=== PATIENT | female | born 1960 | race Caucasian/White ===

== ENCOUNTER 2017-02-01 13:43 | Inpatient (IN) | payer MEDICAID ==
[~2017-02-01] VITALS: Ht 160 cm; Wt 83.4 kg
[~2017-02-01 13:43] MED LIST: CALC-338 OR; CARI-277 PO; CARV3.1240 PO; MILKPOW XX; NOR10T GT; PRENTAB76 PO; PROSAC PO; SIMIVASTIN
[2017-02-01] MEDS ORDERED: IPRATROPIUM BROM 0.5 MG/2.5ML INH SOL NEB ONE (14:00)
[2017-02-01] MEDS ORDERED: ALBUTEROL SULF 2.5 MG/0.5ML(0.5%) NEB SOLN NEB ONE (14:00)
[2017-02-01 14:28] LABS: Basophils # (auto) 0 uL; Basophils % (auto) 0.3 % (0.0-2.0); DEFINITIVE VIEW TRANSMISSION; Eosinophils # (auto) 0.1 uL; Eosinophils % (auto) 0.9 % (0.0-7.0); Hematocrit 39.6 % (36.0-46.0); Hemoglobin 12.9 g/dL (12.2-16.2); Lymphocytes # (auto) 1.2 uL; Lymphocytes % (auto) 11.9 % (10.0-50.0); Mean Corpuscular Hgb Conc. 32.7 g/dL (32.0-36.0); Mean Corpuscular Volume 79.7 fL (80.0-100.0); Mean Platelet Volume 8.4 fL (7.4-10.4); Monocytes # (auto) 0.5 uL; Monocytes % (auto) 4.5 % (0.0-12.0); Neutrophils # (auto) 8.5 uL; Neutrophils % (auto) 82.4 % (37.0-80.0); Platelet Count (auto) 275 10^3/uL (140-450); Red Cell Distribution Width 14.9 % (11.6-16.0); White Blood Cell 10.3 10^3/uL (4.4-10.8)
[2017-02-01 14:43] LABS: Albumin 2.9 g/dL (3.4-5.0); BUN/Creatinine Ratio 28.8; Bilirubin, Total 0.3 mg/dL (0.2-1.0); Calcium 8.7 mg/dL (8.5-10.1); Potassium 4.4 mmol/L (3.5-5.1)
[2017-02-01] MEDS ORDERED: LEVOFLOXACIN 500MG 100 ML IV ONE (14:45)
[2017-02-01] MEDS ORDERED: methylPREDNISolone SOD SUCC 125 MG/2 ML VL IV ONE (14:45)
[2017-02-01] MEDS ORDERED: ACETAMINOPHEN 325 MG TAB PO ONE (15:00)
[2017-02-01 15:06] LABS: Magnesium 2.4 mg/dL (1.6-2.6)
[2017-02-01 15:31] LABS: B-Type Natriuretic Peptide 249.16 pg/mL (0-100)
[2017-02-01 15:32] LABS: Temperature: 24.6 C (20.0-25.0)
[2017-02-01] MEDS ORDERED: NITROGLYCERIN 0.4 MG SL TAB SL PRN (17:00)
[2017-02-01] MEDS ORDERED: FUROSEMIDE 40 MG/4 ML VIAL IV ONE (17:00)
[2017-02-01] MEDS ORDERED: MORPHINE SULF INJ 2 MG/ML SYRINGE 1ML IV PRN (17:00)
[2017-02-01] MEDS ORDERED: AZITHROMYCIN 500MG/D5W 250ML 250 ML IV ONE (17:00)
[2017-02-01] MEDS ORDERED: ONDANSETRON HCL 4 MG/2 ML VIAL IV PRN (17:00)
[2017-02-01] MEDS ORDERED: POTASSIUM CHL 20 Meq TABLET PO ONE (17:00)
[2017-02-01 18:00] VITALS: BP 119/67
[2017-02-01] MEDS: IPRATROPIUM BROM 0.5 MG/2.5ML INH SOL NEB SCH (19:41)
[2017-02-01] MEDS: ALBUTEROL SULF 2.5 MG/0.5ML(0.5%) NEB SOLN NEB SCH (19:41)
[2017-02-01 19:46] LABS: Lactic Acid w/Reflex 3.1 mmol/L (0.4-2.0)
[2017-02-01 20:23] LABS: REFLEX LACTIC ACID YES OR NO YES
[2017-02-01] MEDS ORDERED: RANOLAZINE ER 500 MG TAB PO SCH (22:00)
[2017-02-01] MEDS: CARVEDILOL 3.125 MG TAB PO SCH (22:00)
[2017-02-01] MEDS ORDERED: RANO1000 PO (22:11)
[2017-02-01] MEDS: ATORVASTATIN 20 MG TAB PO SCH (22:38)
[2017-02-01] MEDS: APIXABAN 5 MG TAB PO SCH (22:38)
[2017-02-01] MEDS: methylPREDNISolone SOD SUCC 40 MG/ML VL IV SCH (22:39)
[2017-02-01 22:46] VITALS: BP 109/39
[2017-02-01] MEDS: HYDROcodone-ACET 10/325MG TAB PO PRN (22:46)
[2017-02-01] MEDS ORDERED: RANOLAZINE ER 500 MG TAB PO ONE (22:54)
[2017-02-02] VITALS (7 sets, daily range): BP systolic 96–126; BP diastolic 39–80
[2017-02-02] MEDS: IPRATROPIUM BROM 0.5 MG/2.5ML INH SOL NEB SCH ×4 (05:58→18:40)
[2017-02-02] MEDS: ALBUTEROL SULF 2.5 MG/0.5ML(0.5%) NEB SOLN NEB SCH ×4 (05:59→18:40)
[2017-02-02 06:38] LABS: Basophils # (auto) 0.1 uL; Basophils % (auto) 0.6 % (0.0-2.0); DEFINITIVE VIEW TRANSMISSION; Eosinophils # (auto) 0 uL; Hemoglobin 13.4 g/dL (12.2-16.2); Lymphocytes % (auto) 6.8 % (10.0-50.0); Mean Corpuscular Hgb Conc. 32.6 g/dL (32.0-36.0); Mean Corpuscular Volume 79.8 fL (80.0-100.0); Mean Platelet Volume 8.9 fL (7.4-10.4); Monocytes # (auto) 0.2 uL; Monocytes % (auto) 1.6 % (0.0-12.0); Neutrophils # (auto) 13.5 uL; Platelet Count (auto) 296 10^3/uL (140-450); Red Cell Distribution Width 14.3 % (11.6-16.0); SUSPECT VIEW TRANSMISSION; White Blood Cell 14.9 10^3/uL (4.4-10.8)
[2017-02-02 06:58] LABS: Calcium 8.6 mg/dL (8.5-10.1)
[2017-02-02 07:04] LABS: BUN/Creatinine Ratio 20.7
[2017-02-02] MEDS: cefTRIAXone 1GM/50ML D5W 50 ML IV SCH (09:01)
[2017-02-02] MEDS: AZITHROMYCIN 500MG/D5W 250ML 250 ML IV SCH (11:21)
[2017-02-02] MEDS: methylPREDNISolone SOD SUCC 40 MG/ML VL IV SCH ×2 (11:21→21:56)
[2017-02-02] MEDS: APIXABAN 5 MG TAB PO SCH ×2 (11:22→21:56)
[2017-02-02] MEDS: POTASSIUM CHL 20 Meq TABLET PO SCH (11:23)
[2017-02-02] MEDS: RANOLAZINE ER 500 MG TAB PO SCH ×2 (11:23→21:56)
[2017-02-02] MEDS: FUROSEMIDE 40 MG/4 ML VIAL IV SCH (11:28)
[2017-02-02] MEDS: CARVEDILOL 3.125 MG TAB PO SCH ×4 (11:28→21:56)
[2017-02-02] MEDS: LOSARTAN POTASSIUM 25 MG TAB PO SCH (11:29)
[2017-02-02] MEDS: HYDROcodone-ACET 10/325MG TAB PO PRN ×2 (14:28→22:13)
[2017-02-02] MEDS: ATORVASTATIN 20 MG TAB PO SCH (21:56)
[2017-02-03 05:21] VITALS: BP 111/55
[2017-02-03] MEDS: HYDROcodone-ACET 10/325MG TAB PO PRN ×2 (05:52→21:05)
[2017-02-03] MEDS: ALBUTEROL SULF 2.5 MG/0.5ML(0.5%) NEB SOLN NEB SCH ×4 (05:52→19:36)
[2017-02-03] MEDS: IPRATROPIUM BROM 0.5 MG/2.5ML INH SOL NEB SCH ×4 (05:52→19:36)
[2017-02-03] MEDS: POTASSIUM CHL 20 Meq TABLET PO SCH (09:04)
[2017-02-03] MEDS: methylPREDNISolone SOD SUCC 40 MG/ML VL IV SCH ×2 (09:05→21:05)
[2017-02-03] MEDS: APIXABAN 5 MG TAB PO SCH ×2 (09:05→21:04)
[2017-02-03] MEDS: cefTRIAXone 1GM/50ML D5W 50 ML IV SCH (09:05)
[2017-02-03] MEDS: FUROSEMIDE 40 MG/4 ML VIAL IV SCH (09:05)
[2017-02-03] MEDS: CARVEDILOL 3.125 MG TAB PO SCH ×2 (09:06→21:04)
[2017-02-03] MEDS: RANOLAZINE ER 500 MG TAB PO SCH ×2 (09:16→21:04)
[2017-02-03 09:19] VITALS: BP 116/77
[2017-02-03] MEDS: AZITHROMYCIN 500MG/D5W 250ML 250 ML IV SCH (09:19)
[2017-02-03] MEDS: LOSARTAN POTASSIUM 25 MG TAB PO SCH (10:00)
[2017-02-03 12:37] LABS: Basophils # (auto) 0.1 uL; Basophils % (auto) 0.7 % (0.0-2.0); DEFINITIVE VIEW TRANSMISSION; Eosinophils # (auto) 0.1 uL; Eosinophils % (auto) 0.3 % (0.0-7.0); Hematocrit 41.1 % (36.0-46.0); Hemoglobin 13.2 g/dL (12.2-16.2); Lymphocytes # (auto) 1.7 uL; Lymphocytes % (auto) 11.1 % (10.0-50.0); Mean Corpuscular Hgb Conc. 32.2 g/dL (32.0-36.0); Mean Corpuscular Volume 80.6 fL (80.0-100.0); Mean Platelet Volume 8.4 fL (7.4-10.4); Monocytes # (auto) 0.2 uL; Monocytes % (auto) 1.3 % (0.0-12.0); Neutrophils # (auto) 13.3 uL; Neutrophils % (auto) 86.6 % (37.0-80.0); Platelet Count (auto) 306 10^3/uL (140-450); Red Cell Distribution Width 14.8 % (11.6-16.0); White Blood Cell 15.4 10^3/uL (4.4-10.8)
[2017-02-03 12:38] VITALS: BP 122/70
[2017-02-03 12:49] LABS: BUN/Creatinine Ratio 27.8; Calcium 8.5 mg/dL (8.5-10.1)
[2017-02-03 17:39] VITALS: BP 124/74
[2017-02-03 18:53] LABS: Urine Bilirubin Negative (Negative); Urine Blood Negative /uL (Negative); Urine Color Yellow (Yellow); Urine Glucose Normal (Normal); Urine Ketone Negative (Negative); Urine Nitrite Negative (Negative); Urine RBC <1 /hpf (0 - 4); Urine Urobilinogen Normal (Negative); Urine pH 6.5 (5.0-8.0)
[2017-02-03 20:00] VITALS: BP 98/53
[2017-02-03] MEDS: ATORVASTATIN 20 MG TAB PO SCH (21:04)
[2017-02-03 21:09] VITALS: BP 98/53
[2017-02-04 05:18] VITALS: BP 138/63
[2017-02-04] MEDS: ALBUTEROL SULF 2.5 MG/0.5ML(0.5%) NEB SOLN NEB SCH ×3 (05:57→14:30)
[2017-02-04] MEDS: IPRATROPIUM BROM 0.5 MG/2.5ML INH SOL NEB SCH ×3 (05:57→14:30)
[2017-02-04] MEDS: cefTRIAXone 1GM/50ML D5W 50 ML IV SCH (08:36)
[2017-02-04] MEDS: LOSARTAN POTASSIUM 25 MG TAB PO SCH (08:37)
[2017-02-04] MEDS: APIXABAN 5 MG TAB PO SCH ×2 (08:37→22:00)
[2017-02-04] MEDS: CARVEDILOL 3.125 MG TAB PO SCH ×2 (08:38→22:02)
[2017-02-04] MEDS: POTASSIUM CHL 20 Meq TABLET PO SCH (08:38)
[2017-02-04] MEDS: methylPREDNISolone SOD SUCC 40 MG/ML VL IV SCH ×2 (08:38→22:01)
[2017-02-04] MEDS: FUROSEMIDE 40 MG/4 ML VIAL IV SCH (08:38)
[2017-02-04] MEDS: RANOLAZINE ER 500 MG TAB PO SCH ×2 (08:39→22:02)
[2017-02-04 09:00] VITALS: BP 134/79
[2017-02-04] MEDS: AZITHROMYCIN 500MG/D5W 250ML 250 ML IV SCH (11:02)
[2017-02-04] MEDS: HYDROcodone-ACET 10/325MG TAB PO PRN ×2 (12:24→23:56)
[2017-02-04 12:55] VITALS: BP 105/62
[2017-02-04 16:53] VITALS: BP 117/71
[2017-02-04] MEDS ORDERED: LACTULOSE 20Gm/30ML SOLN PO SCH ×2 (18:00)
[2017-02-04] MEDS ORDERED: LACTULOSE 20Gm/30ML SOLN PO PRN (20:00)
[2017-02-04 20:20] VITALS: BP 123/61
[2017-02-04] MEDS ORDERED: TEMA30CA PO (20:43)
[2017-02-04] MEDS ORDERED: SIMV-13 PO (20:45)
[2017-02-04] MEDS ORDERED: TEMAZEPAM 15 MG CAP PO ONE (21:30)
[2017-02-04 21:53] VITALS: BP 123/61
[2017-02-04] MEDS ORDERED: METOPROLOL TARTRATE 25 MG TAB PO SCH (22:00)
[2017-02-04] MEDS: ATORVASTATIN 20 MG TAB PO SCH (22:02)
[2017-02-05] VITALS (7 sets, daily range): BP systolic 97–132; BP diastolic 49–67
[2017-02-05 06:22] LABS: Basophils # (auto) 0.1 uL; Basophils % (auto) 0.6 % (0.0-2.0); DEFINITIVE VIEW TRANSMISSION; Eosinophils # (auto) 0 uL; Hemoglobin 13.9 g/dL (12.2-16.2); Lymphocytes # (auto) 1.3 uL; Lymphocytes % (auto) 7.9 % (10.0-50.0); Mean Corpuscular Hemoglobin 26.1 pg (28.0-32.0); Mean Corpuscular Hgb Conc. 32.4 g/dL (32.0-36.0); Mean Corpuscular Volume 80.6 fL (80.0-100.0); Mean Platelet Volume 8.5 fL (7.4-10.4); Monocytes # (auto) 0.5 uL; Monocytes % (auto) 3.2 % (0.0-12.0); Neutrophils # (auto) 14.9 uL; Neutrophils % (auto) 88.3 % (37.0-80.0); Platelet Count (auto) 321 10^3/uL (140-450); Red Cell Distribution Width 14.7 % (11.6-16.0); White Blood Cell 16.9 10^3/uL (4.4-10.8)
[2017-02-05] MEDS: IPRATROPIUM BROM 0.5 MG/2.5ML INH SOL NEB SCH ×3 (06:24→18:00)
[2017-02-05] MEDS: ALBUTEROL SULF 2.5 MG/0.5ML(0.5%) NEB SOLN NEB SCH ×3 (06:25→18:00)
[2017-02-05 06:37] LABS: INR 0.98 (0.9-1.15); Partial Thromboplastin Time 25.3 sec (22.64-33.71); Prothrombin Time 10.6 sec (9.37-12.3)
[2017-02-05 06:55] LABS: Calcium 8.5 mg/dL (8.5-10.1); Potassium 4.4 mmol/L (3.5-5.1)
[2017-02-05 06:59] LABS: BUN/Creatinine Ratio 36.2
[2017-02-05] MEDS ORDERED: IOHEXOL 350 MG/ML 100ML IJ ONE ×2 (08:14→08:35)
[2017-02-05] MEDS: cefTRIAXone 1GM/50ML D5W 50 ML IV SCH (08:29)
[2017-02-05] MEDS ORDERED: NITROGLYCERIN 0.4 MG SL TAB SL ONE (08:43)
[2017-02-05] MEDS ORDERED: VERAPAMIL 2.5MG/ML INJ 2ML VIAL IV ONE (08:43)
[2017-02-05] MEDS ORDERED: METOPROLOL TARTRATE 1MG/1ML-5ML VIAL IV ONE (09:00)
[2017-02-05] MEDS: FUROSEMIDE 40 MG/4 ML VIAL IV SCH (10:17)
[2017-02-05] MEDS: APIXABAN 5 MG TAB PO SCH ×2 (10:18→22:19)
[2017-02-05] MEDS: RANOLAZINE ER 500 MG TAB PO SCH ×2 (10:18→22:19)
[2017-02-05] MEDS: methylPREDNISolone SOD SUCC 40 MG/ML VL IV SCH ×2 (10:18→22:19)
[2017-02-05] MEDS: LOSARTAN POTASSIUM 25 MG TAB PO SCH (10:18)
[2017-02-05] MEDS: AZITHROMYCIN 500MG/D5W 250ML 250 ML IV SCH (10:19)
[2017-02-05] MEDS: CARVEDILOL 3.125 MG TAB PO SCH ×2 (10:19→22:18)
[2017-02-05] MEDS: POTASSIUM CHL 20 Meq TABLET PO SCH (10:20)
[2017-02-05] MEDS: HYDROcodone-ACET 10/325MG TAB PO PRN (19:24)
[2017-02-05] MEDS: ATORVASTATIN 20 MG TAB PO SCH (22:19)
[2017-02-06 05:03] VITALS: BP 109/62
[2017-02-06 06:15] LABS: Basophils # (auto) 0.1 uL; Basophils % (auto) 0.4 % (0.0-2.0); DEFINITIVE VIEW TRANSMISSION; Eosinophils # (auto) 0 uL; Hemoglobin 14.4 g/dL (12.2-16.2); Lymphocytes # (auto) 1.6 uL; Mean Corpuscular Hemoglobin 26.1 pg (28.0-32.0); Mean Corpuscular Hgb Conc. 32.7 g/dL (32.0-36.0); Mean Corpuscular Volume 79.7 fL (80.0-100.0); Mean Platelet Volume 8.5 fL (7.4-10.4); Monocytes # (auto) 0.5 uL; Monocytes % (auto) 2.7 % (0.0-12.0); Neutrophils # (auto) 15.2 uL; Neutrophils % (auto) 87.9 % (37.0-80.0); Platelet Count (auto) 352 10^3/uL (140-450); Red Cell Distribution Width 14.7 % (11.6-16.0); SUSPECT VIEW TRANSMISSION; White Blood Cell 17.3 10^3/uL (4.4-10.8)
[2017-02-06] MEDS: IPRATROPIUM BROM 0.5 MG/2.5ML INH SOL NEB SCH ×3 (06:53→14:24)
[2017-02-06] MEDS: ALBUTEROL SULF 2.5 MG/0.5ML(0.5%) NEB SOLN NEB SCH ×3 (06:53→14:24)
[2017-02-06] MEDS: cefTRIAXone 1GM/50ML D5W 50 ML IV SCH (08:38)
[2017-02-06 09:00] VITALS: BP 100/61
[2017-02-06] MEDS: HYDROcodone-ACET 10/325MG TAB PO PRN (09:32)
[2017-02-06] MEDS: methylPREDNISolone SOD SUCC 40 MG/ML VL IV SCH (09:33)
[2017-02-06] MEDS: FUROSEMIDE 40 MG/4 ML VIAL IV SCH (09:33)
[2017-02-06] MEDS: POTASSIUM CHL 20 Meq TABLET PO SCH (09:33)
[2017-02-06] MEDS: RANOLAZINE ER 500 MG TAB PO SCH (09:34)
[2017-02-06] MEDS: APIXABAN 5 MG TAB PO SCH (09:34)
[2017-02-06] MEDS: LOSARTAN POTASSIUM 25 MG TAB PO SCH (09:35)
[2017-02-06] MEDS: CARVEDILOL 3.125 MG TAB PO SCH (09:35)
[2017-02-06] MEDS: AZITHROMYCIN 500MG/D5W 250ML 250 ML IV SCH (09:35)
[2017-02-06 13:00] VITALS: BP 101/53
[2017-02-06] MEDS ORDERED: FLUT110A INH (14:52)
[2017-02-06 15:13] VITALS: BP 101/53
[2017-02-06 15:33] VITALS: BP 101/53
== END 2017-02-06 15:50 | disposition home or self-care (01) | DRG 133 ==
LOC: ER 13:43 → TELE 13:44 → TELE-EAST 18:17
PROVIDERS: ADMIT Internal Medicine; ATTEND Internal Medicine
DX: J96.20 Acute and chronic respiratory failure, unspecified whether with hypoxia or hypercapnia (principal); I50.23 Acute on chronic systolic (congestive) heart failure; E44.0 Moderate protein-calorie malnutrition; I42.9 Cardiomyopathy, unspecified; I15.9 Secondary hypertension, unspecified; J44.1 Chronic obstructive pulmonary disease with (acute) exacerbation; I48.0 Paroxysmal atrial fibrillation; F32.9 Major depressive disorder, single episode, unspecified; I11.0 Hypertensive heart disease with heart failure; F41.9 Anxiety disorder, unspecified; E78.5 Hyperlipidemia, unspecified; I25.10 Atherosclerotic heart disease of native coronary artery without angina pectoris; F17.210 Nicotine dependence, cigarettes, uncomplicated; E11.9 Type 2 diabetes mellitus without complications; G89.29 Other chronic pain; T38.0X5A Adverse effect of glucocorticoids and synthetic analogues, initial encounter; Z79.891 Long term (current) use of opiate analgesic; Z82.3 Family history of stroke; Z95.1 Presence of aortocoronary bypass graft; Z83.3 Family history of diabetes mellitus; Z86.73 Personal history of transient ischemic attack (TIA), and cerebral infarction without residual deficits; Z91.19 Patient's noncompliance with other medical treatment and regimen; Z71.6 Tobacco abuse counseling; Z88.0 Allergy status to penicillin; Z80.9 Family history of malignant neoplasm, unspecified; Z68.32 Body mass index [BMI] 32.0-32.9, adult
CPT/HCPCS: 36415; 71020; 75571; 75574; 80048; 80053; 81001; 83605; 83735; 83880; 84484; 85025; 85379; 85610; 85730; 87040; 87081; 93005; 93306; 94640; 94761; 96365; 96375; J0696; J1956

== ENCOUNTER 2017-02-17 14:50 | Inpatient (IN) | payer MEDICAID ==
[~2017-02-17] VITALS: Ht 160 cm; Wt 82.3 kg
[~2017-02-17 14:50] MED LIST changes: +FLUT110A INH; +RANO1000 PO; -SIMIVASTIN; +SIMV-13 PO; +TEMA30CA PO
[2017-02-17 15:21] LABS: Basophils # (auto) 0 uL; Basophils % (auto) 0.3 % (0.0-2.0); DEFINITIVE VIEW TRANSMISSION; Eosinophils # (auto) 0.1 uL; Eosinophils % (auto) 1.7 % (0.0-7.0); Hematocrit 40.1 % (36.0-46.0); Hemoglobin 12.9 g/dL (12.2-16.2); Lymphocytes # (auto) 1.6 uL; Lymphocytes % (auto) 21.3 % (10.0-50.0); Mean Corpuscular Hemoglobin 25.8 pg (28.0-32.0); Mean Corpuscular Volume 80.3 fL (80.0-100.0); Mean Platelet Volume 7.8 fL (7.4-10.4); Monocytes # (auto) 0.5 uL; Monocytes % (auto) 6.7 % (0.0-12.0); Neutrophils # (auto) 5.3 uL; Platelet Count (auto) 290 10^3/uL (140-450); Red Cell Distribution Width 15.9 % (11.6-16.0); White Blood Cell 7.5 10^3/uL (4.4-10.8)
[2017-02-17 15:48] LABS: Albumin 3.1 g/dL (3.4-5.0); Anion Gap 10 (5-15); Aspartate Aminotransferase 21 U/L (15-37); BUN/Creatinine Ratio 17.5; Blood Urea Nitrogen 14 mg/dL (7-18); Calcium 8.3 mg/dL (8.5-10.1); Carbon Dioxide 23 mmol/L (21-32); Chloride 111 mmol/L (98-107); GFR African American 96 mL/min; GFR Non-African American 79 mL/min; Glucose 85 mg/dL (74-106); Magnesium 2.2 mg/dL (1.6-2.6); Sodium 144 mmol/L (136-145)
[2017-02-17 15:53] LABS: Alkaline Phosphatase 87 U/L (45-117); Bilirubin, Total 0.6 mg/dL (0.2-1.0); Total Protein 6.5 g/dL (6.4-8.2)
[2017-02-17 16:40] LABS: B-Type Natriuretic Peptide 121.18 pg/mL (0-100); Temperature: 23.4 C (20.0-25.0)
[2017-02-17] MEDS ORDERED: HYDROcodone-ACET 5/325MG TAB PO ONE (19:00)
[2017-02-17] MEDS ORDERED: NITROGLYCERIN 0.4 MG SL TAB SL PRN (19:45)
[2017-02-17] MEDS ORDERED: ACETAMINOPHEN 500 MG TAB PO PRN (19:45)
[2017-02-17] MEDS ORDERED: PROCHLORPERAZINE EDISYLATE 5 MG/ML 2ML VIAL IV PRN ×2 (19:45)
[2017-02-17] MEDS ORDERED: MORPHINE SULF INJ 2 MG/ML SYRINGE 1ML IV PRN ×2 (19:45)
[2017-02-17] MEDS ORDERED: LACTULOSE 20Gm/30ML SOLN PO PRN (19:45)
[2017-02-17] MEDS ORDERED: ALBUTEROL SULF 2.5 MG/0.5ML(0.5%) NEB SOLN NEB PRN (19:45)
[2017-02-17] MEDS: NITROGLYCERIN 0.2MG/HR TOPICAL PATCH TD SCH (20:34)
[2017-02-17] MEDS ORDERED: TEMAZEPAM 15 MG CAP PO PRN (20:45)
[2017-02-17] MEDS: SODIUM CHLOR 0.9% PF (SALINE LOCK) 10ML VIAL IV SCH (22:00)
[2017-02-17] MEDS: CARVEDILOL 3.125 MG TAB PO SCH (22:00)
[2017-02-17] MEDS ORDERED: CARISOPRODOL 350 MG TAB PO PRN (22:00)
[2017-02-17] MEDS: ATORVASTATIN 20 MG TAB PO SCH (22:57)
[2017-02-17] MEDS: RANOLAZINE ER 500 MG TAB PO SCH (22:58)
[2017-02-17 23:00] VITALS: BP 114/64
[2017-02-18] VITALS (8 sets, daily range): BP systolic 93–121; BP diastolic 52–74
[2017-02-18] MEDS: IPRATROPIUM BROM 0.5 MG/2.5ML INH SOL NEB SCH ×4 (01:01→23:56)
[2017-02-18] MEDS: ALBUTEROL SULF 2.5 MG/0.5ML(0.5%) NEB SOLN NEB SCH ×4 (01:01→23:56)
[2017-02-18] MEDS: BUDESONIDE (INHALATION) 0.5 MG/2 ML NEB NEB SCH ×3 (01:02→19:25)
[2017-02-18] MEDS: SODIUM CHLOR 0.9% PF (SALINE LOCK) 10ML VIAL IV SCH ×3 (06:00→21:48)
[2017-02-18 06:02] LABS: Basophils # (auto) 0.1 uL; Basophils % (auto) 0.7 % (0.0-2.0); DEFINITIVE VIEW TRANSMISSION; Eosinophils # (auto) 0.1 uL; Eosinophils % (auto) 1.7 % (0.0-7.0); Hematocrit 38.9 % (36.0-46.0); Hemoglobin 12.6 g/dL (12.2-16.2); Lymphocytes # (auto) 2.4 uL; Lymphocytes % (auto) 31.2 % (10.0-50.0); Mean Corpuscular Hemoglobin 25.9 pg (28.0-32.0); Mean Corpuscular Hgb Conc. 32.3 g/dL (32.0-36.0); Mean Platelet Volume 8.4 fL (7.4-10.4); Monocytes # (auto) 0.6 uL; Monocytes % (auto) 8.2 % (0.0-12.0); Neutrophils # (auto) 4.5 uL; Neutrophils % (auto) 58.2 % (37.0-80.0); Platelet Count (auto) 263 10^3/uL (140-450); White Blood Cell 7.7 10^3/uL (4.4-10.8)
[2017-02-18 06:26] LABS: Cholesterol 122 mg/dL (< 200); HDL Cholesterol 40 mg/dL (40-59); LDL Cholesterol 70 mg/dL (< 100); Triglycerides 156 mg/dL (< 150)
[2017-02-18 06:48] LABS: B-Type Natriuretic Peptide 228.91 pg/mL (0-100)
[2017-02-18] MEDS: POTASSIUM CHL 20 Meq TABLET PO SCH (09:54)
[2017-02-18] MEDS: LEVOFLOXACIN 500MG 100 ML IV SCH (09:54)
[2017-02-18] MEDS: HYDROcodone-ACET 10/325MG TAB PO PRN ×2 (09:54→21:48)
[2017-02-18] MEDS: PANTOPRAZOLE 40 MG TAB PO SCH (09:54)
[2017-02-18] MEDS: FUROSEMIDE 40 MG/4 ML VIAL IV SCH (09:55)
[2017-02-18] MEDS: CARVEDILOL 3.125 MG TAB PO SCH ×2 (09:55→21:47)
[2017-02-18] MEDS: ENALAPRIL MALEATE 2.5 MG TAB PO SCH (09:56)
[2017-02-18] MEDS: NITROGLYCERIN 0.2MG/HR TOPICAL PATCH TD SCH (09:56)
[2017-02-18] MEDS: RANOLAZINE ER 500 MG TAB PO SCH ×2 (10:00→21:46)
[2017-02-18] MEDS ORDERED: PROSAC PO SCH (10:00)
[2017-02-18] MEDS ORDERED: ASPirin 81 mg TAB PO SCH (10:00)
[2017-02-18] MEDS: ENOXAPARIN SOD 40 MG/0.4 ML SYRINGE SC SCH (10:14)
[2017-02-18] MEDS: ATORVASTATIN 20 MG TAB PO SCH (21:47)
[2017-02-19 05:00] VITALS: BP 85/41
[2017-02-19] MEDS: SODIUM CHLOR 0.9% PF (SALINE LOCK) 10ML VIAL IV SCH (06:16)
[2017-02-19 06:31] LABS: BUN/Creatinine Ratio 14.5; Calcium 8.4 mg/dL (8.5-10.1); Potassium 4.2 mmol/L (3.5-5.1)
[2017-02-19] MEDS: BUDESONIDE (INHALATION) 0.5 MG/2 ML NEB NEB SCH (07:36)
[2017-02-19] MEDS: IPRATROPIUM BROM 0.5 MG/2.5ML INH SOL NEB SCH ×2 (07:36→12:10)
[2017-02-19] MEDS: ALBUTEROL SULF 2.5 MG/0.5ML(0.5%) NEB SOLN NEB SCH ×2 (07:36→12:10)
[2017-02-19] MEDS: HYDROcodone-ACET 10/325MG TAB PO PRN (07:44)
[2017-02-19 08:00] VITALS: BP 121/74
[2017-02-19 08:30] VITALS: BP 103/53
[2017-02-19] MEDS ORDERED: LEVO750T64 PO (10:13)
[2017-02-19] MEDS: POTASSIUM CHL 20 Meq TABLET PO SCH (10:44)
[2017-02-19] MEDS: LEVOFLOXACIN 500MG 100 ML IV SCH (10:44)
[2017-02-19] MEDS: CARVEDILOL 3.125 MG TAB PO SCH (10:45)
[2017-02-19] MEDS: ENALAPRIL MALEATE 2.5 MG TAB PO SCH (10:46)
[2017-02-19] MEDS: PANTOPRAZOLE 40 MG TAB PO SCH (10:46)
[2017-02-19] MEDS: FUROSEMIDE 40 MG/4 ML VIAL IV SCH (10:46)
[2017-02-19] MEDS: ENOXAPARIN SOD 40 MG/0.4 ML SYRINGE SC SCH (10:47)
[2017-02-19 11:46] VITALS: BP 121/74
[2017-02-19 12:30] VITALS: BP 106/63
== END 2017-02-19 14:30 | disposition home or self-care (01) | DRG 133 ==
LOC: ER 14:52 → TELE 14:53 → TELE-WESTW 21:37
PROVIDERS: ADMIT Internal Medicine; ATTEND Internal Medicine
DX: J96.00 Acute respiratory failure, unspecified whether with hypoxia or hypercapnia (principal); I50.23 Acute on chronic systolic (congestive) heart failure; D68.69 Other thrombophilia; D68.59 Other primary thrombophilia; J44.1 Chronic obstructive pulmonary disease with (acute) exacerbation; E44.1 Mild protein-calorie malnutrition; I48.0 Paroxysmal atrial fibrillation; I11.0 Hypertensive heart disease with heart failure; R07.9 Chest pain, unspecified; E78.5 Hyperlipidemia, unspecified; F17.210 Nicotine dependence, cigarettes, uncomplicated; I25.10 Atherosclerotic heart disease of native coronary artery without angina pectoris; Z82.3 Family history of stroke; Z83.3 Family history of diabetes mellitus; F32.9 Major depressive disorder, single episode, unspecified; G89.29 Other chronic pain; Z88.0 Allergy status to penicillin; Z80.9 Family history of malignant neoplasm, unspecified; Z68.32 Body mass index [BMI] 32.0-32.9, adult
CPT/HCPCS: 36415; 71020; 80048; 80053; 80061; 82550; 83735; 83880; 84443; 84484; 85025; 85379; 85652; 86141; 87040; 87081; 93005; 94640; 94761; J1956

== ENCOUNTER 2018-03-16 20:41 | Emergency (ER) | payer MEDICAID ==
[~2018-03-16 20:41] MED LIST changes: +LEVO750T64 PO
== END 2018-03-16 21:19 | disposition left against medical advice (07) ==
LOC: ER 20:41
DX: R06.02 Shortness of breath (principal); Z53.21 Procedure and treatment not carried out due to patient leaving prior to being seen by health care provider

== ENCOUNTER 2018-06-29 16:25 | Inpatient (IN) | payer MEDICAID ==
[~2018-06-29] VITALS: Ht 167.6 cm; Wt 72.6 kg
[2018-06-29] MEDS ORDERED: methylPREDNISolone SOD SUCC 125 MG/2 ML VL IV ONE (19:30)
[2018-06-29] MEDS ORDERED: ALBUTEROL SULF 2.5 MG/0.5ML(0.5%) NEB SOLN HHN ONE (19:30)
[2018-06-29] MEDS ORDERED: IPRATROPIUM BROM 0.5 MG/2.5ML INH SOL HHN ONE (19:30)
[2018-06-29 20:56] LABS: Basophils # (auto) 0.1 uL; Basophils % (auto) 0.6 % (0.0-2.0); Eosinophils # (auto) 0.1 uL; Eosinophils % (auto) 0.9 % (0.0-7.0); Hematocrit 48.1 % (36.0-46.0); Hemoglobin 15.4 g/dL (12.2-16.2); Lymphocytes # (auto) 2.4 uL; Lymphocytes % (auto) 21.6 % (10.0-50.0); Mean Corpuscular Volume 84.4 fL (80.0-100.0); Monocytes # (auto) 1.1 uL; Monocytes % (auto) 10.2 % (0.0-12.0); Neutrophils # (auto) 7.3 uL; Neutrophils % (auto) 66.7 % (37.0-80.0); Nucleated Red Blood Cells % 0.2 %; Platelet Count (auto) 233 10^3/uL (140-450); Red Cell Distribution Width 17.2 % (11.8-14.3)
[2018-06-29 21:09] LABS: Alanine Aminotransferase 503 U/L (13-56); Albumin 3.7 g/dL (3.4-5.0); Alkaline Phosphatase 100 U/L (45-117); Anion Gap 4 (5-15); Aspartate Aminotransferase 313 U/L (15-37); BUN/Creatinine Ratio 24.4; Bilirubin, Total 0.8 mg/dL (0.2-1.0); Blood Urea Nitrogen 31 mg/dL (7-18); Carbon Dioxide 30 mmol/L (21-32); Chloride 101 mmol/L (98-107); GFR African American 56 mL/min; GFR Non-African American 46 mL/min; Glucose 86 mg/dL (74-106); Potassium 3.4 mmol/L (3.5-5.1); Sodium 135 mmol/L (136-145); Total Protein 7.1 g/dL (6.4-8.2)
[2018-06-29] MEDS ORDERED: AZITHROMYCIN 500MG/ 250ML 250 ML IV ONE (21:45)
[2018-06-29] MEDS ORDERED: cefTRIAXone 1GM/10ml IVPUSH 10 ML IV ONE (21:45)
[2018-06-29] MEDS ORDERED: ALBUTEROL SULF 2.5 MG/0.5ML(0.5%) NEB SOLN NEB PRN (22:00)
[2018-06-29] MEDS ORDERED: ACETAMINOPHEN 325 MG TAB PO PRN (22:00)
[2018-06-29] MEDS ORDERED: HYDROcodone-ACET 5/325MG TAB PO PRN (22:00)
[2018-06-29] MEDS: CARVEDILOL 3.125 MG TAB PO SCH (22:17)
[2018-06-29] MEDS ORDERED: IPRATROPIUM BROM 0.5 MG/2.5ML INH SOL NEB PRN (22:30)
[2018-06-29 22:34] VITALS: BP 154/133
[2018-06-29 23:30] VITALS: BP 123/74
[2018-06-30] VITALS (8 sets, daily range): BP systolic 109–145; BP diastolic 71–95
[2018-06-30] MEDS: ONDANSETRON HCL 4 MG/2 ML VIAL IV PRN ×2 (00:12→22:49)
[2018-06-30] MEDS: ATORVASTATIN 20 MG TAB PO SCH ×2 (00:15→22:54)
[2018-06-30] MEDS ORDERED: POTA10TA51 PO (02:19)
[2018-06-30] MEDS ORDERED: FURO20TA PO (02:19)
[2018-06-30] MEDS ORDERED: DRON400T PO (02:19)
[2018-06-30] MEDS ORDERED: APIX5TAB OR (02:19)
[2018-06-30 06:29] LABS: Basophils # (auto) 0 uL; Eosinophils # (auto) 0 uL; Eosinophils % (auto) 0.1 % (0.0-7.0); Hematocrit 45.8 % (36.0-46.0); Lymphocytes # (auto) 0.5 uL; Lymphocytes % (auto) 4.8 % (10.0-50.0); Mean Corpuscular Hemoglobin 27.6 pg (28.0-32.0); Mean Corpuscular Hgb Conc. 32.7 g/dL (32.0-36.0); Mean Corpuscular Volume 84.2 fL (80.0-100.0); Monocytes # (auto) 0.2 uL; Monocytes % (auto) 1.5 % (0.0-12.0); Neutrophils # (auto) 9.2 uL; Neutrophils % (auto) 93.6 % (37.0-80.0); Nucleated Red Blood Cells % 0.2 %; Platelet Count (auto) 185 10^3/uL (140-450); Red Blood Cells 5.44 10^6/uL (4.0-5.20); Red Cell Distribution Width 17.4 % (11.8-14.3); White Blood Cell 9.8 10^3/uL (4.4-10.8)
[2018-06-30 06:55] LABS: Potassium 4.4 mmol/L (3.5-5.1)
[2018-06-30 06:59] LABS: Albumin 3.3 g/dL (3.4-5.0); BUN/Creatinine Ratio 29.7; Calcium 7.8 mg/dL (8.5-10.1)
[2018-06-30 07:02] LABS: Bilirubin, Total 0.8 mg/dL (0.2-1.0); Total Protein 6.2 g/dL (6.4-8.2)
[2018-06-30] MEDS: cefTRIAXone 1GM/10ml IVPUSH 10 ML IV SCH (09:27)
[2018-06-30] MEDS ORDERED: ENOXAPARIN SOD 40 MG/0.4 ML SYRINGE SC SCH (10:00)
[2018-06-30] MEDS ORDERED: FUROSEMIDE 20 MG TAB PO SCH (10:00)
[2018-06-30] MEDS: APIXABAN 2.5 MG TAB PO SCH ×2 (10:00→22:49)
[2018-06-30] MEDS ORDERED: methylPREDNISolone SOD SUCC 125 MG/2 ML VL IV SCH (10:00)
[2018-06-30] MEDS: AZITHROMYCIN 500MG/ 250ML 250 ML IV SCH (10:00)
[2018-06-30] MEDS: CARVEDILOL 3.125 MG TAB PO SCH ×2 (11:19→22:53)
[2018-06-30] MEDS ORDERED: FUROSEMIDE 40 MG/4 ML VIAL IV ONE (15:45)
[2018-06-30] MEDS ORDERED: POTASSIUM CHL 20 Meq TABLET PO ONE (15:45)
[2018-06-30] MEDS: IPRATROPIUM BROM 0.5 MG/2.5ML INH SOL NEB SCH (19:54)
[2018-06-30] MEDS: BUDESONIDE (INHALATION) 0.5 MG/2 ML NEB NEB SCH (19:55)
[2018-06-30] MEDS: ALBUTEROL SULF 2.5 MG/0.5ML(0.5%) NEB SOLN NEB SCH (19:55)
[2018-06-30] MEDS: methylPREDNISolone SOD SUCC 40 MG/ML VL IV SCH (22:54)
[2018-06-30] MEDS ORDERED: TEMAZEPAM 15 MG CAP PO ONE (23:00)
[2018-07-01] MEDS: IPRATROPIUM BROM 0.5 MG/2.5ML INH SOL NEB SCH ×5 (00:30→19:14)
[2018-07-01] MEDS: ALBUTEROL SULF 2.5 MG/0.5ML(0.5%) NEB SOLN NEB SCH ×5 (00:30→19:14)
[2018-07-01] MEDS: methylPREDNISolone SOD SUCC 40 MG/ML VL IV SCH (05:34)
[2018-07-01 05:48] LABS: Hemoglobin 14.9 g/dL (12.2-16.2)
[2018-07-01 05:50] LABS: Hematocrit 46.9 % (36.0-46.0); Mean Corpuscular Hemoglobin 27.2 pg (28.0-32.0); Mean Corpuscular Hgb Conc. 31.8 g/dL (32.0-36.0); Mean Corpuscular Volume 85.6 fL (80.0-100.0); Platelet Count (auto) 182 10^3/uL (140-450); Red Blood Cells 5.48 10^6/uL (4.0-5.20); Red Cell Distribution Width 17.4 % (11.8-14.3); White Blood Cell 19.5 10^3/uL (4.4-10.8)
[2018-07-01 05:51] LABS: Band Neutrophils % (manual) 0; Basophils % (manual) 0 (0.0-2.0); Blast Cells 0; Eosinophils % (manual) 0 (0-7); Metamyelocytes % 0; Myelocytes % 0; Promyelocytes % 0; Reactive Lymphocytes 0
[2018-07-01 06:10] LABS: Albumin 3.4 g/dL (3.4-5.0); BUN/Creatinine Ratio 30.6; Bilirubin, Total 0.8 mg/dL (0.2-1.0); Calcium 8.1 mg/dL (8.5-10.1); Potassium 4.8 mmol/L (3.5-5.1); Total Protein 6.7 g/dL (6.4-8.2)
[2018-07-01 06:32] VITALS: BP 91/78
[2018-07-01 06:38] LABS: Lymphocytes % (manual) 2 (10.0-50.0); Monocytes % (manual) 3 (0-12)
[2018-07-01] MEDS ORDERED: DIA5T PO (07:25)
[2018-07-01] MEDS ORDERED: HYDR-4683 PO (07:25)
[2018-07-01] MEDS ORDERED: LOSA25TA40 PO (07:25)
[2018-07-01 08:53] VITALS: BP 140/82
[2018-07-01 08:54] LABS: Urine WBC None Seen /hpf (0 - 5)
[2018-07-01] MEDS: cefTRIAXone 1GM/10ml IVPUSH 10 ML IV SCH (09:00)
[2018-07-01 09:04] LABS: Urine Bacteria NONE SEEN /hpf (None Seen); Urine Blood Negative /uL (Negative); Urine Hyaline Cast FEW /lpf (0 - 2); Urine Mucus FEW (None Seen); Urine Specific Gravity 1.026 (1.001-1.035)
[2018-07-01] MEDS: FUROSEMIDE 40 MG/4 ML VIAL IV SCH (09:52)
[2018-07-01] MEDS: CARVEDILOL 3.125 MG TAB PO SCH ×2 (09:55→21:58)
[2018-07-01] MEDS: POTASSIUM CHL 20 Meq TABLET PO SCH (09:56)
[2018-07-01] MEDS: APIXABAN 2.5 MG TAB PO SCH ×2 (09:56→21:58)
[2018-07-01] MEDS: AZITHROMYCIN 500MG/ 250ML 250 ML IV SCH (09:59)
[2018-07-01] MEDS: BUDESONIDE (INHALATION) 0.5 MG/2 ML NEB NEB SCH ×3 (11:59→19:14)
[2018-07-01] MEDS ORDERED: LOSARTAN POTASSIUM 25 MG TAB PO ONE (12:15)
[2018-07-01 13:17] VITALS: BP 120/63
[2018-07-01 17:28] VITALS: BP 105/65
[2018-07-01] MEDS: LORazepam 0.5 MG TAB PO PRN (19:38)
[2018-07-01] MEDS: ATORVASTATIN 20 MG TAB PO SCH (21:58)
[2018-07-01 22:00] VITALS: BP 107/73
[2018-07-01] MEDS: DRONEDARONE HCL 400 MG TAB PO SCH (22:05)
[2018-07-01] MEDS: RANOLAZINE ER 500 MG TAB PO SCH (22:05)
[2018-07-02] VITALS (7 sets, daily range): BP systolic 82–164; BP diastolic 37–98
[2018-07-02] MEDS: LORazepam 0.5 MG TAB PO PRN ×2 (02:52→09:09)
[2018-07-02] MEDS: IPRATROPIUM BROM 0.5 MG/2.5ML INH SOL NEB SCH ×4 (06:57→18:45)
[2018-07-02] MEDS: ALBUTEROL SULF 2.5 MG/0.5ML(0.5%) NEB SOLN NEB SCH ×4 (06:57→18:45)
[2018-07-02] MEDS: BUDESONIDE (INHALATION) 0.5 MG/2 ML NEB NEB SCH ×2 (06:57→18:45)
[2018-07-02 07:59] LABS: BUN/Creatinine Ratio 39.5; Calcium 7.9 mg/dL (8.5-10.1); Potassium 4.9 mmol/L (3.5-5.1)
[2018-07-02] MEDS: cefTRIAXone 1GM/10ml IVPUSH 10 ML IV SCH (09:03)
[2018-07-02] MEDS: AZITHROMYCIN 250 MG TAB PO SCH (10:09)
[2018-07-02] MEDS: APIXABAN 2.5 MG TAB PO SCH ×2 (10:09→21:31)
[2018-07-02] MEDS: FUROSEMIDE 40 MG/4 ML VIAL IV SCH (10:11)
[2018-07-02] MEDS: POTASSIUM CHL 20 Meq TABLET PO SCH (10:11)
[2018-07-02] MEDS: LOSARTAN POTASSIUM 25 MG TAB PO SCH (10:11)
[2018-07-02] MEDS: CARVEDILOL 3.125 MG TAB PO SCH ×2 (10:14→21:31)
[2018-07-02 10:21] LABS: Basophils # (auto) 0.1 uL; Eosinophils # (auto) 0 uL; Hemoglobin 14.5 g/dL (12.2-16.2)
[2018-07-02 10:22] LABS: Basophils % (auto) 0.6 % (0.0-2.0); Hematocrit 46.3 % (36.0-46.0); Lymphocytes # (auto) 2.1 uL; Lymphocytes % (auto) 10.4 % (10.0-50.0); Mean Corpuscular Hemoglobin 26.4 pg (28.0-32.0); Mean Corpuscular Hgb Conc. 31.4 g/dL (32.0-36.0); Mean Corpuscular Volume 83.9 fL (80.0-100.0); Monocytes # (auto) 1.3 uL; Monocytes % (auto) 6.3 % (0.0-12.0); Neutrophils % (auto) 82.7 % (37.0-80.0); Nucleated Red Blood Cells % 0.3 %; Platelet Count (auto) 214 10^3/uL (140-450); Red Blood Cells 5.52 10^6/uL (4.0-5.20); Red Cell Distribution Width 17.7 % (11.8-14.3); White Blood Cell 20.5 10^3/uL (4.4-10.8)
[2018-07-02] MEDS: predniSONE 20 MG TAB PO SCH (10:29)
[2018-07-02] MEDS: RANOLAZINE ER 500 MG TAB PO SCH ×2 (10:30→21:31)
[2018-07-02] MEDS: DRONEDARONE HCL 400 MG TAB PO SCH ×2 (10:41→21:31)
[2018-07-02] MEDS: HYDROcodone-ACET 5/325MG TAB PO PRN ×2 (10:51→18:09)
[2018-07-02] MEDS: ATORVASTATIN 20 MG TAB PO SCH (21:31)
[2018-07-03] MEDS: ALBUTEROL SULF 2.5 MG/0.5ML(0.5%) NEB SOLN NEB SCH ×4 (00:17→18:43)
[2018-07-03] MEDS: IPRATROPIUM BROM 0.5 MG/2.5ML INH SOL NEB SCH ×4 (00:17→18:43)
[2018-07-03] MEDS: HYDROcodone-ACET 5/325MG TAB PO PRN ×3 (00:17→15:41)
[2018-07-03 05:24] VITALS: BP 108/88
[2018-07-03 06:14] LABS: Basophils # (auto) 0.1 uL; Eosinophils # (auto) 0 uL; Eosinophils % (auto) 0.1 % (0.0-7.0); Mean Corpuscular Hgb Conc. 31.2 g/dL (32.0-36.0); White Blood Cell 21.2 10^3/uL (4.4-10.8)
[2018-07-03 06:17] LABS: Basophils % (auto) 0.3 % (0.0-2.0); Hemoglobin 15.9 g/dL (12.2-16.2); Lymphocytes % (auto) 14.2 % (10.0-50.0); Mean Corpuscular Hemoglobin 26.2 pg (28.0-32.0); Mean Corpuscular Volume 83.9 fL (80.0-100.0); Monocytes # (auto) 1.5 uL; Monocytes % (auto) 7.3 % (0.0-12.0); Neutrophils # (auto) 16.5 uL; Neutrophils % (auto) 78.1 % (37.0-80.0); Nucleated Red Blood Cells % 0.5 %; Platelet Count (auto) 248 10^3/uL (140-450); Red Blood Cells 6.08 10^6/uL (4.0-5.20); Red Cell Distribution Width 17.8 % (11.8-14.3)
[2018-07-03] MEDS: BUDESONIDE (INHALATION) 0.5 MG/2 ML NEB NEB SCH ×2 (06:29→18:43)
[2018-07-03 06:40] LABS: Albumin 3.3 g/dL (3.4-5.0); Bilirubin, Direct 0.5 mg/dL (0-0.2); Total Protein 6.2 g/dL (6.4-8.2)
[2018-07-03 08:00] VITALS: BP 153/90
[2018-07-03] MEDS: cefTRIAXone 1GM/10ml IVPUSH 10 ML IV SCH (09:10)
[2018-07-03 09:43] VITALS: BP 92/60
[2018-07-03] MEDS: AZITHROMYCIN 250 MG TAB PO SCH (09:51)
[2018-07-03] MEDS: APIXABAN 2.5 MG TAB PO SCH ×2 (09:52→21:53)
[2018-07-03] MEDS: RANOLAZINE ER 500 MG TAB PO SCH ×2 (09:52→21:54)
[2018-07-03] MEDS: predniSONE 20 MG TAB PO SCH (09:52)
[2018-07-03] MEDS: DRONEDARONE HCL 400 MG TAB PO SCH ×2 (09:52→21:54)
[2018-07-03] MEDS: LOSARTAN POTASSIUM 25 MG TAB PO SCH (09:53)
[2018-07-03] MEDS: CARVEDILOL 3.125 MG TAB PO SCH ×2 (09:54→21:53)
[2018-07-03] MEDS: POTASSIUM CHL 20 Meq TABLET PO SCH (09:54)
[2018-07-03] MEDS: FUROSEMIDE 40 MG/4 ML VIAL IV SCH (09:54)
[2018-07-03 10:27] LABS: Eosinophils # (auto) 0 uL; Eosinophils % (auto) 0.2 % (0.0-7.0)
[2018-07-03 10:31] LABS: Basophils # (auto) 0.2 uL; Basophils % (auto) 0.9 % (0.0-2.0); Hematocrit 54.1 % (36.0-46.0); Hemoglobin 16.4 g/dL (12.2-16.2); Lymphocytes # (auto) 4.1 uL; Lymphocytes % (auto) 19.5 % (10.0-50.0); Mean Corpuscular Hgb Conc. 30.3 g/dL (32.0-36.0); Mean Corpuscular Volume 85.6 fL (80.0-100.0); Monocytes # (auto) 1.7 uL; Monocytes % (auto) 8.1 % (0.0-12.0); Neutrophils % (auto) 71.3 % (37.0-80.0); Nucleated Red Blood Cells % 0.3 %; Platelet Count (auto) 237 10^3/uL (140-450); Red Blood Cells 6.32 10^6/uL (4.0-5.20); Red Cell Distribution Width 17.5 % (11.8-14.3)
[2018-07-03 13:00] VITALS: BP 100/81
[2018-07-03 13:19] LABS: BUN/Creatinine Ratio 32.8; Calcium 8.4 mg/dL (8.5-10.1)
[2018-07-03 13:34] LABS: Potassium 5.6 mmol/L (3.5-5.1)
[2018-07-03] MEDS ORDERED: SODIUM POLYSTYRENE SULF 15GM/60ML SUSP PO ONE (15:30)
[2018-07-03 17:23] VITALS: BP 109/77
[2018-07-03] MEDS: LORazepam 0.5 MG TAB PO PRN ×2 (18:06→23:58)
[2018-07-03 21:21] VITALS: BP 91/73
[2018-07-03] MEDS: ATORVASTATIN 20 MG TAB PO SCH (21:53)
[2018-07-04 04:48] VITALS: BP 111/79
[2018-07-04 05:49] LABS: Basophils # (auto) 0 uL; Basophils % (auto) 0.2 % (0.0-2.0); Eosinophils # (auto) 0 uL; Eosinophils % (auto) 0.1 % (0.0-7.0); Hemoglobin 16.3 g/dL (12.2-16.2); Lymphocytes # (auto) 2.8 uL; Lymphocytes % (auto) 15.5 % (10.0-50.0); Mean Corpuscular Hemoglobin 26.6 pg (28.0-32.0); Mean Corpuscular Hgb Conc. 31.9 g/dL (32.0-36.0); Mean Corpuscular Volume 83.5 fL (80.0-100.0); Monocytes # (auto) 2.4 uL; Monocytes % (auto) 13.4 % (0.0-12.0); Neutrophils # (auto) 12.9 uL; Neutrophils % (auto) 70.8 % (37.0-80.0); Nucleated Red Blood Cells % 0.4 %; Platelet Count (auto) 234 10^3/uL (140-450); Red Blood Cells 6.11 10^6/uL (4.0-5.20); Red Cell Distribution Width 17.9 % (11.8-14.3); White Blood Cell 18.2 10^3/uL (4.4-10.8)
[2018-07-04 06:08] LABS: Albumin 3.4 g/dL (3.4-5.0); BUN/Creatinine Ratio 34.3
[2018-07-04 06:17] LABS: Bilirubin, Total 1.7 mg/dL (0.2-1.0); Total Protein 6.3 g/dL (6.4-8.2)
[2018-07-04] MEDS: IPRATROPIUM BROM 0.5 MG/2.5ML INH SOL NEB SCH ×4 (06:18→19:06)
[2018-07-04] MEDS: BUDESONIDE (INHALATION) 0.5 MG/2 ML NEB NEB SCH ×2 (06:18→19:06)
[2018-07-04] MEDS: ALBUTEROL SULF 2.5 MG/0.5ML(0.5%) NEB SOLN NEB SCH ×4 (06:18→19:05)
[2018-07-04 09:00] VITALS: BP 109/92
[2018-07-04] MEDS: RANOLAZINE ER 500 MG TAB PO SCH ×2 (09:23→21:52)
[2018-07-04] MEDS: DRONEDARONE HCL 400 MG TAB PO SCH ×2 (09:23→21:52)
[2018-07-04] MEDS: cefTRIAXone 1GM/10ml IVPUSH 10 ML IV SCH (09:23)
[2018-07-04] MEDS: APIXABAN 2.5 MG TAB PO SCH ×2 (09:24→21:52)
[2018-07-04] MEDS: FUROSEMIDE 40 MG TAB PO SCH ×3 (09:24→18:39)
[2018-07-04] MEDS: predniSONE 20 MG TAB PO SCH (09:24)
[2018-07-04] MEDS: LOSARTAN POTASSIUM 25 MG TAB PO SCH (09:25)
[2018-07-04] MEDS: AZITHROMYCIN 250 MG TAB PO SCH (09:25)
[2018-07-04] MEDS: CARVEDILOL 3.125 MG TAB PO SCH ×2 (09:25→21:51)
[2018-07-04] MEDS ORDERED: LACTULOSE 20Gm/30ML SOLN PO ONE (12:15)
[2018-07-04 13:00] VITALS: BP 86/51
[2018-07-04 16:48] LABS: Chloride 94 mmol/L (98-107); Potassium 5.3 mmol/L (3.5-5.1); Sodium 132 mmol/L (136-145)
[2018-07-04 16:49] LABS: Alanine Aminotransferase 1497 U/L (13-56); Alkaline Phosphatase 70 U/L (45-117); Anion Gap 9 (5-15); Aspartate Aminotransferase 1160 U/L (15-37); BUN/Creatinine Ratio 33.8; Blood Urea Nitrogen 47 mg/dL (7-18); Carbon Dioxide 29 mmol/L (21-32); GFR African American 50 mL/min; GFR Non-African American 42 mL/min; Glucose 128 mg/dL (74-106)
[2018-07-04 16:50] LABS: Bilirubin, Total 0.9 mg/dL (0.2-1.0); Total Protein 5.7 g/dL (6.4-8.2)
[2018-07-04 17:00] VITALS: BP 89/56
[2018-07-04] MEDS ORDERED: BISACODYL 10 MG RECT SUPP PR ONE (17:15)
[2018-07-04 22:00] VITALS: BP 98/72
[2018-07-05] MEDS: IPRATROPIUM BROM 0.5 MG/2.5ML INH SOL NEB SCH ×4 (06:00→19:06)
[2018-07-05] MEDS: ALBUTEROL SULF 2.5 MG/0.5ML(0.5%) NEB SOLN NEB SCH ×4 (06:00→19:06)
[2018-07-05 06:01] LABS: Basophils # (auto) 0.1 uL; Basophils % (auto) 0.3 % (0.0-2.0); Eosinophils # (auto) 0 uL; Eosinophils % (auto) 0.2 % (0.0-7.0)
[2018-07-05 06:04] LABS: Hematocrit 48.9 % (36.0-46.0); Hemoglobin 15.8 g/dL (12.2-16.2); Lymphocytes # (auto) 2.9 uL; Lymphocytes % (auto) 16.1 % (10.0-50.0); Mean Corpuscular Hgb Conc. 32.4 g/dL (32.0-36.0); Monocytes # (auto) 2.3 uL; Monocytes % (auto) 12.7 % (0.0-12.0); Neutrophils # (auto) 12.8 uL; Neutrophils % (auto) 70.7 % (37.0-80.0); Nucleated Red Blood Cells % 0.3 %; Platelet Count (auto) 222 10^3/uL (140-450); Red Blood Cells 5.89 10^6/uL (4.0-5.20); Red Cell Distribution Width 17.6 % (11.8-14.3); White Blood Cell 18.1 10^3/uL (4.4-10.8)
[2018-07-05 06:12] LABS: Mean Corpuscular Hemoglobin 26.9 pg (28.0-32.0)
[2018-07-05 06:23] LABS: Albumin 3.4 g/dL (3.4-5.0); BUN/Creatinine Ratio 31.5; Bilirubin, Total 1.1 mg/dL (0.2-1.0); Calcium 8.1 mg/dL (8.5-10.1); Potassium 5.1 mmol/L (3.5-5.1); Total Protein 6.2 g/dL (6.4-8.2)
[2018-07-05 08:00] VITALS: BP 81/63
[2018-07-05] MEDS: cefTRIAXone 1GM/10ml IVPUSH 10 ML IV SCH (09:52)
[2018-07-05] MEDS: APIXABAN 2.5 MG TAB PO SCH ×2 (09:54→21:52)
[2018-07-05] MEDS: predniSONE 20 MG TAB PO SCH (09:55)
[2018-07-05] MEDS: AZITHROMYCIN 250 MG TAB PO SCH (09:56)
[2018-07-05] MEDS: FUROSEMIDE 40 MG TAB PO SCH (10:00)
[2018-07-05] MEDS: BUDESONIDE (INHALATION) 0.5 MG/2 ML NEB NEB SCH ×2 (10:00→22:00)
[2018-07-05] MEDS: RANOLAZINE ER 500 MG TAB PO SCH ×2 (10:00→21:52)
[2018-07-05] MEDS: CARVEDILOL 3.125 MG TAB PO SCH ×2 (10:00→21:52)
[2018-07-05] MEDS: DRONEDARONE HCL 400 MG TAB PO SCH ×2 (10:01→21:52)
[2018-07-05 13:15] LABS: Alcohol, Urine < 3.0 mg/dL (0-5); Amphetamine Screen, Urine NEGATIVE (NEGATIVE); Barbiturate Scree,Urine NEGATIVE (NEGATIVE); Benzodiazephine Screen, Urine POSITIVE (NEGATIVE); Cannabinoid Screen, Urine NEGATIVE (NEGATIVE); Cocaine Screen, Urine NEGATIVE (NEGATIVE); Opiate Scree,Urine NEGATIVE (NEGATIVE); Phencyclidine Screen, Urine NEGATIVE (NEGATIVE)
[2018-07-05] MEDS ORDERED: LORazepam 0.5 MG TAB PO PRN (13:30)
[2018-07-05 13:35] VITALS: BP 108/57
[2018-07-05 15:07] LABS: INR 1.57 (0.9-1.15); Prothrombin Time 16.4 sec (9.27-12.13)
[2018-07-05 17:00] VITALS: BP 110/83
[2018-07-05 22:00] VITALS: BP 126/74
[2018-07-05 23:05] VITALS: BP 126/74
[2018-07-06] VITALS (26 sets, daily range): BP systolic 84–139; BP diastolic 36–88
[2018-07-06] MEDS: ONDANSETRON HCL 4 MG/2 ML VIAL IV PRN ×2 (04:40→13:37)
[2018-07-06 06:03] LABS: Basophils # (auto) 0 uL; Eosinophils # (auto) 0 uL; Eosinophils % (auto) 0.1 % (0.0-7.0); Hemoglobin 15.4 g/dL (12.2-16.2); Monocytes # (auto) 1.6 uL; Nucleated Red Blood Cells % 0.1 %
[2018-07-06 06:06] LABS: Basophils % (auto) 0.1 % (0.0-2.0); Hematocrit 47.4 % (36.0-46.0); Lymphocytes # (auto) 1.6 uL; Lymphocytes % (auto) 10.8 % (10.0-50.0); Mean Corpuscular Hemoglobin 26.9 pg (28.0-32.0); Mean Corpuscular Hgb Conc. 32.5 g/dL (32.0-36.0); Mean Corpuscular Volume 82.9 fL (80.0-100.0); Monocytes % (auto) 10.3 % (0.0-12.0); Neutrophils # (auto) 11.9 uL; Neutrophils % (auto) 78.7 % (37.0-80.0); Platelet Count (auto) 205 10^3/uL (140-450); Red Blood Cells 5.72 10^6/uL (4.0-5.20); Red Cell Distribution Width 17.6 % (11.8-14.3); White Blood Cell 15.2 10^3/uL (4.4-10.8)
[2018-07-06] MEDS: BUDESONIDE (INHALATION) 0.5 MG/2 ML NEB NEB SCH ×2 (06:09→23:58)
[2018-07-06] MEDS: ALBUTEROL SULF 2.5 MG/0.5ML(0.5%) NEB SOLN NEB SCH ×5 (06:09→23:58)
[2018-07-06] MEDS: IPRATROPIUM BROM 0.5 MG/2.5ML INH SOL NEB SCH ×5 (06:09→23:58)
[2018-07-06 06:32] LABS: Albumin 3.3 g/dL (3.4-5.0); BUN/Creatinine Ratio 38.3; Bilirubin, Total 0.8 mg/dL (0.2-1.0); Potassium 4.6 mmol/L (3.5-5.1); Total Protein 6.2 g/dL (6.4-8.2)
[2018-07-06] MEDS: cefTRIAXone 1GM/10ml IVPUSH 10 ML IV SCH (09:28)
[2018-07-06] MEDS: FUROSEMIDE 40 MG TAB PO SCH (09:32)
[2018-07-06] MEDS: AZITHROMYCIN 250 MG TAB PO SCH (09:33)
[2018-07-06] MEDS: CARVEDILOL 3.125 MG TAB PO SCH ×2 (09:34→21:59)
[2018-07-06] MEDS: predniSONE 20 MG TAB PO SCH (09:35)
[2018-07-06] MEDS: APIXABAN 2.5 MG TAB PO SCH ×2 (09:35→22:14)
[2018-07-06] MEDS: DRONEDARONE HCL 400 MG TAB PO SCH ×2 (09:36→22:14)
[2018-07-06] MEDS: RANOLAZINE ER 500 MG TAB PO SCH ×2 (09:36→21:58)
[2018-07-06] MEDS: LACTULOSE 20Gm/30ML SOLN PO PRN (13:45)
[2018-07-06] MEDS ORDERED: FUROSEMIDE 40 MG/4 ML VIAL IV ONE (14:15)
[2018-07-06] MEDS ORDERED: BISACODYL 10 MG RECT SUPP PR ONE (14:15)
[2018-07-06] MEDS ORDERED: POTASSIUM CHL 10 Meq TABLET PO ONE (14:15)
[2018-07-06] MEDS ORDERED: MIDAZOLAM DRIP 50 mg/50mL 0 ML IV ONE (18:40)
[2018-07-06] MEDS ORDERED: NOREPINEPHRINE 8 MG/250ML KIT 250 ML IV ONE (18:40)
[2018-07-06] MEDS: DOPamine 1600MCG/ML D5W 250 ML IV SCH (22:13)
[2018-07-07] VITALS (101 sets, daily range): BP systolic 77–124; BP diastolic 36–95
[2018-07-07 02:21] LABS: Alcohol, Urine < 3.0 mg/dL (0-5); Amphetamine Screen, Urine NEGATIVE (NEGATIVE); Barbiturate Scree,Urine NEGATIVE (NEGATIVE); Benzodiazephine Screen, Urine POSITIVE (NEGATIVE); Cannabinoid Screen, Urine NEGATIVE (NEGATIVE); Cocaine Screen, Urine NEGATIVE (NEGATIVE); Opiate Scree,Urine NEGATIVE (NEGATIVE); Phencyclidine Screen, Urine NEGATIVE (NEGATIVE)
[2018-07-07 04:40] LABS: Basophils # (auto) 0.4 uL; Basophils % (auto) 1.2 % (0.0-2.0); Eosinophils # (auto) 0 uL; Hematocrit 52.3 % (36.0-46.0); Lymphocytes # (auto) 1.2 uL; Lymphocytes % (auto) 3.1 % (10.0-50.0); Mean Corpuscular Hemoglobin 26.5 pg (28.0-32.0); Mean Corpuscular Hgb Conc. 32.4 g/dL (32.0-36.0); Mean Corpuscular Volume 81.6 fL (80.0-100.0); Monocytes # (auto) 2.5 uL; Monocytes % (auto) 6.6 % (0.0-12.0); Neutrophils # (auto) 33.6 uL; Neutrophils % (auto) 89.1 % (37.0-80.0); Nucleated Red Blood Cells % 0.1 %; Platelet Count (auto) 199 10^3/uL (140-450); Red Blood Cells 6.41 10^6/uL (4.0-5.20); Red Cell Distribution Width 17.5 % (11.8-14.3)
[2018-07-07 04:42] LABS: White Blood Cell 37.7 10^3/uL (4.4-10.8)
[2018-07-07 04:55] LABS: Alanine Aminotransferase 799 U/L (13-56); Albumin 3.1 g/dL (3.4-5.0); Anion Gap 12 (5-15); Aspartate Aminotransferase 315 U/L (15-37); BUN/Creatinine Ratio 30.3; Blood Urea Nitrogen 59 mg/dL (7-18); Calcium 8.6 mg/dL (8.5-10.1); Carbon Dioxide 27 mmol/L (21-32); Chloride 91 mmol/L (98-107); GFR African American 34 mL/min; GFR Non-African American 28 mL/min; Glucose 100 mg/dL (74-106); Sodium 130 mmol/L (136-145)
[2018-07-07 04:57] LABS: Alkaline Phosphatase 106 U/L (45-117); Bilirubin, Total 2.4 mg/dL (0.2-1.0); Total Protein 5.9 g/dL (6.4-8.2)
[2018-07-07 05:05] LABS: Potassium 6.2 mmol/L (3.5-5.1)
[2018-07-07] MEDS ORDERED: MIDAZOLAM DRIP 50 mg/50mL 50 ML IV ONE (05:28)
[2018-07-07] MEDS ORDERED: SODIUM POLYSTYRENE SULF 15GM/60ML SUSP NG ONE (05:30)
[2018-07-07] MEDS ORDERED: DEXTROSE (50%) 50ML SYRG IV ONE ×2 (05:30→05:45)
[2018-07-07] MEDS ORDERED: FUROSEMIDE 20 MG/2 ML VIAL IV ONE (05:30)
[2018-07-07] MEDS ORDERED: InsuLIN REG 1unit/0.01ml Soln (100units/ml) IV ONE ×2 (05:30→05:45)
[2018-07-07] MEDS ORDERED: CALCIUM GLUC 4.65meq/50ml D5AE 50 ML IV ONE ×3 (05:30→05:45)
[2018-07-07] MEDS ORDERED: DEXTROSE 50% SYRINGE 50 ML IV ONE (05:44)
[2018-07-07] MEDS ORDERED: EPINEPHrine HCL 1 MG/10 ML SYRG IV ONE ×2 (05:45)
[2018-07-07] MEDS ORDERED: ATROPINE SULF 1 MG/10ml SYR IV ONE (05:45)
[2018-07-07] MEDS ORDERED: SODIUM BICARBONATE 8.4% INJ 50ML SYRINGE IV ONE (05:45)
[2018-07-07] MEDS ORDERED: InsuLIN REG 1unit/0.01ml Soln (100units/ml) ONE (05:45)
[2018-07-07] MEDS: MIDAZOLAM DRIP 50 mg/50mL 50 ML IV SCH ×3 (05:50→19:31)
[2018-07-07] MEDS: DOPamine 1600MCG/ML D5W 250 ML IV SCH (06:14)
[2018-07-07] MEDS: ALBUTEROL SULF 2.5 MG/0.5ML(0.5%) NEB SOLN NEB SCH ×3 (06:33→18:15)
[2018-07-07] MEDS: BUDESONIDE (INHALATION) 0.5 MG/2 ML NEB NEB SCH ×2 (06:33→18:14)
[2018-07-07] MEDS: IPRATROPIUM BROM 0.5 MG/2.5ML INH SOL NEB SCH ×3 (06:33→18:14)
[2018-07-07] MEDS: cefTRIAXone 1GM/10ml IVPUSH 10 ML IV SCH (09:53)
[2018-07-07] MEDS: CARVEDILOL 3.125 MG TAB PO SCH (09:54)
[2018-07-07] MEDS: predniSONE 20 MG TAB PO SCH (09:54)
[2018-07-07] MEDS: AZITHROMYCIN 250 MG TAB PO SCH (09:54)
[2018-07-07] MEDS: FUROSEMIDE 40 MG/4 ML VIAL IV SCH (09:54)
[2018-07-07] MEDS: RANOLAZINE ER 500 MG TAB PO SCH ×2 (09:55→21:48)
[2018-07-07] MEDS: APIXABAN 2.5 MG TAB PO SCH (09:55)
[2018-07-07] MEDS ORDERED: POTASSIUM CHL 10 Meq TABLET PO SCH (10:00)
[2018-07-07] MEDS: DRONEDARONE HCL 400 MG TAB PO SCH ×2 (10:00→21:48)
[2018-07-07] MEDS: fentaNYL Drip 2500mCg/250mlNS 250 ML IV SCH (11:25)
[2018-07-07] MEDS ORDERED: PANTOPRAZOLE 40 MG/10 ML VIAL IV ONE (14:15)
[2018-07-07] MEDS ORDERED: MEROPENEM 1GM IVPB 100 ML IV ONE (14:15)
[2018-07-07 19:42] LABS: BUN/Creatinine Ratio 31.5; Calcium 7.7 mg/dL (8.5-10.1); Potassium 5.1 mmol/L (3.5-5.1)
[2018-07-07] MEDS ORDERED: MEROPENEM 1GM IVPB 100 ML IV SCH (22:00)
[2018-07-07] MEDS: NOREPINEPHRINE 8 MG/250ML KIT 250 ML IV SCH (23:16)
[2018-07-08] VITALS (104 sets, daily range): BP systolic 84–155; BP diastolic 5–86
[2018-07-08] MEDS: MIDAZOLAM DRIP 50 mg/50mL 50 ML IV SCH ×4 (00:22→21:10)
[2018-07-08] MEDS: DOPamine 1600MCG/ML D5W 250 ML IV SCH ×2 (02:38→15:15)
[2018-07-08 04:13] LABS: Hematocrit 41.2 % (36.0-46.0); Hemoglobin 13.4 g/dL (12.2-16.2); Mean Corpuscular Hemoglobin 26.1 pg (28.0-32.0); Mean Corpuscular Hgb Conc. 32.5 g/dL (32.0-36.0); Mean Corpuscular Volume 80.4 fL (80.0-100.0); Platelet Count (auto) 130 10^3/uL (140-450); Red Blood Cells 5.12 10^6/uL (4.0-5.20); Red Cell Distribution Width 17.7 % (11.8-14.3); White Blood Cell 26.8 10^3/uL (4.4-10.8)
[2018-07-08 04:24] LABS: Basophils % (manual) 0 (0.0-2.0); Blast Cells 0; Eosinophils % (manual) 0 (0-7); Metamyelocytes % 0; Myelocytes % 0; Promyelocytes % 0; Reactive Lymphocytes 0
[2018-07-08 04:34] LABS: Albumin 2.3 g/dL (3.4-5.0); BUN/Creatinine Ratio 34.1; Bilirubin, Total 2.5 mg/dL (0.2-1.0); Magnesium 2.3 mg/dL (1.6-2.6); Phosphorus 3.8 mg/dL (2.5-4.90); Potassium 4.7 mmol/L (3.5-5.1); Total Protein 4.9 g/dL (6.4-8.2)
[2018-07-08] MEDS: ALBUTEROL SULF 2.5 MG/0.5ML(0.5%) NEB SOLN NEB SCH ×4 (06:04→18:32)
[2018-07-08] MEDS: BUDESONIDE (INHALATION) 0.5 MG/2 ML NEB NEB SCH ×2 (06:04→18:32)
[2018-07-08] MEDS: IPRATROPIUM BROM 0.5 MG/2.5ML INH SOL NEB SCH ×4 (06:04→18:32)
[2018-07-08 06:56] LABS: Band Neutrophils % (manual) 2; Lymphocytes % (manual) 3 (10.0-50.0); Monocytes % (manual) 6 (0-12)
[2018-07-08] MEDS: fentaNYL Drip 2500mCg/250mlNS 250 ML IV SCH (09:04)
[2018-07-08] MEDS: MEROPENEM 1GM IVPB 100 ML IV SCH ×2 (09:04→17:43)
[2018-07-08] MEDS ORDERED: ENOXAPARIN SOD 30 MG/0.3 ML SYRINGE SC SCH (10:00)
[2018-07-08] MEDS: RANOLAZINE ER 500 MG TAB PO SCH ×2 (10:00→22:53)
[2018-07-08] MEDS: PANTOPRAZOLE 40 MG/10 ML VIAL IV SCH (11:00)
[2018-07-08] MEDS: predniSONE 20 MG TAB PO SCH (11:00)
[2018-07-08] MEDS: DRONEDARONE HCL 400 MG TAB PO SCH ×2 (11:01→22:53)
[2018-07-08] MEDS: ENOXAPARIN SOD 40 MG/0.4 ML SYRINGE SC SCH (11:01)
[2018-07-08 13:00] LABS: INR 1.48 (0.9-1.15); Prothrombin Time 15.5 sec (9.27-12.13)
[2018-07-08] MEDS: FUROSEMIDE 40 MG/4 ML VIAL IV SCH (13:00)
[2018-07-08] MEDS ORDERED: LIDOCAINE 1% (LOCAL ANESTH.) PF 5ml SDV ID ONE (14:30)
[2018-07-08] MEDS ORDERED: Jevity 1.2 Cal/Fiber 1 Liter GT SCH (19:00)
[2018-07-08] MEDS: NOREPINEPHRINE 8 MG/250ML KIT 250 ML IV SCH (20:51)
[2018-07-08] MEDS: Jevity 1.2 Cal/Fiber 1 Liter GT SCH (20:52)
[2018-07-08] MEDS: SODIUM CHLOR 0.9% PF (SALINE LOCK) 10ML VIAL/SYR IV SCH (22:53)
[2018-07-09] VITALS (107 sets, daily range): BP systolic 93–134; BP diastolic 45–83
[2018-07-09] MEDS: IPRATROPIUM BROM 0.5 MG/2.5ML INH SOL NEB SCH ×4 (00:11→18:16)
[2018-07-09] MEDS: ALBUTEROL SULF 2.5 MG/0.5ML(0.5%) NEB SOLN NEB SCH ×4 (00:11→18:16)
[2018-07-09] MEDS: MEROPENEM 1GM IVPB 100 ML IV SCH ×3 (00:56→17:06)
[2018-07-09] MEDS: MIDAZOLAM DRIP 50 mg/50mL 50 ML IV SCH ×3 (03:45→23:08)
[2018-07-09 04:15] LABS: Basophils # (auto) 0.1 uL; Eosinophils # (auto) 0 uL; Monocytes # (auto) 0.8 uL
[2018-07-09 04:17] LABS: Basophils % (auto) 0.3 % (0.0-2.0); Hematocrit 37.5 % (36.0-46.0); Hemoglobin 12.1 g/dL (12.2-16.2); Lymphocytes # (auto) 0.5 uL; Lymphocytes % (auto) 2.7 % (10.0-50.0); Mean Corpuscular Hemoglobin 26.2 pg (28.0-32.0); Mean Corpuscular Hgb Conc. 32.2 g/dL (32.0-36.0); Mean Corpuscular Volume 81.2 fL (80.0-100.0); Monocytes % (auto) 4.3 % (0.0-12.0); Neutrophils # (auto) 18.2 uL; Neutrophils % (auto) 92.7 % (37.0-80.0); Platelet Count (auto) 93 10^3/uL (140-450); Red Blood Cells 4.62 10^6/uL (4.0-5.20); Red Cell Distribution Width 17.9 % (11.8-14.3); White Blood Cell 19.6 10^3/uL (4.4-10.8)
[2018-07-09] MEDS: fentaNYL Drip 2500mCg/250mlNS 250 ML IV SCH ×2 (04:35→19:42)
[2018-07-09 04:42] LABS: Albumin 2.1 g/dL (3.4-5.0); Bilirubin, Total 3.1 mg/dL (0.2-1.0); Calcium 7.9 mg/dL (8.5-10.1); Potassium 3.7 mmol/L (3.5-5.1)
[2018-07-09] MEDS: BUDESONIDE (INHALATION) 0.5 MG/2 ML NEB NEB SCH ×2 (06:00→18:16)
[2018-07-09] MEDS: DOPamine 1600MCG/ML D5W 250 ML IV SCH ×2 (07:52→22:29)
[2018-07-09] MEDS: PANTOPRAZOLE 40 MG/10 ML VIAL IV SCH (09:32)
[2018-07-09] MEDS: predniSONE 20 MG TAB PO SCH (09:33)
[2018-07-09] MEDS: FUROSEMIDE 40 MG/4 ML VIAL IV SCH (09:33)
[2018-07-09] MEDS: ENOXAPARIN SOD 40 MG/0.4 ML SYRINGE SC SCH (09:33)
[2018-07-09] MEDS: RANOLAZINE ER 500 MG TAB PO SCH ×2 (09:33→22:00)
[2018-07-09] MEDS: DRONEDARONE HCL 400 MG TAB PO SCH ×2 (09:34→22:00)
[2018-07-09] MEDS: SODIUM CHLOR 0.9% PF (SALINE LOCK) 10ML VIAL/SYR IV SCH ×2 (09:34→22:00)
[2018-07-10] VITALS (105 sets, daily range): BP systolic 82–133; BP diastolic 47–77
[2018-07-10] MEDS: ALBUTEROL SULF 2.5 MG/0.5ML(0.5%) NEB SOLN NEB SCH ×4 (00:20→18:36)
[2018-07-10] MEDS: IPRATROPIUM BROM 0.5 MG/2.5ML INH SOL NEB SCH ×4 (00:20→18:37)
[2018-07-10] MEDS: MEROPENEM 1GM IVPB 100 ML IV SCH ×3 (01:10→16:53)
[2018-07-10] MEDS: NOREPINEPHRINE 8 MG/250ML KIT 250 ML IV SCH ×2 (03:50→23:05)
[2018-07-10] MEDS: MIDAZOLAM DRIP 50 mg/50mL 50 ML IV SCH ×4 (05:35→19:30)
[2018-07-10] MEDS: BUDESONIDE (INHALATION) 0.5 MG/2 ML NEB NEB SCH ×2 (06:46→18:37)
[2018-07-10] MEDS: RANOLAZINE ER 500 MG TAB PO SCH ×2 (10:00→22:00)
[2018-07-10] MEDS: PANTOPRAZOLE 40 MG/10 ML VIAL IV SCH (10:01)
[2018-07-10] MEDS: ENOXAPARIN SOD 40 MG/0.4 ML SYRINGE SC SCH (10:02)
[2018-07-10] MEDS: fentaNYL Drip 2500mCg/250mlNS 250 ML IV SCH ×2 (10:02→21:46)
[2018-07-10] MEDS: SODIUM CHLOR 0.9% PF (SALINE LOCK) 10ML VIAL/SYR IV SCH ×2 (10:03→22:07)
[2018-07-10] MEDS: DRONEDARONE HCL 400 MG TAB PO SCH ×2 (10:03→22:07)
[2018-07-10] MEDS: FUROSEMIDE 40 MG/4 ML VIAL IV SCH ×2 (10:03→17:49)
[2018-07-10] MEDS: predniSONE 20 MG TAB PO SCH (10:03)
[2018-07-10] MEDS: DOPamine 1600MCG/ML D5W 250 ML IV SCH (10:54)
[2018-07-10] MEDS: APIXABAN 5 MG TAB PO SCH (22:07)
[2018-07-11] VITALS (103 sets, daily range): BP systolic 87–138; BP diastolic 37–83
[2018-07-11] MEDS: IPRATROPIUM BROM 0.5 MG/2.5ML INH SOL NEB SCH ×4 (00:22→18:27)
[2018-07-11] MEDS: ALBUTEROL SULF 2.5 MG/0.5ML(0.5%) NEB SOLN NEB SCH ×4 (00:22→18:27)
[2018-07-11] MEDS: MIDAZOLAM DRIP 50 mg/50mL 50 ML IV SCH ×5 (00:27→23:44)
[2018-07-11] MEDS: MEROPENEM 1GM IVPB 100 ML IV SCH ×3 (01:03→17:39)
[2018-07-11] MEDS: DOPamine 1600MCG/ML D5W 250 ML IV SCH (03:43)
[2018-07-11 04:07] LABS: Basophils # (auto) 0 uL; Eosinophils # (auto) 0.2 uL; Eosinophils % (auto) 1.5 % (0.0-7.0); Hemoglobin 11.2 g/dL (12.2-16.2); Lymphocytes # (auto) 1.5 uL; Monocytes # (auto) 0.8 uL; Nucleated Red Blood Cells % 0.1 %; White Blood Cell 10.5 10^3/uL (4.4-10.8)
[2018-07-11 04:11] LABS: Basophils % (auto) 0.4 % (0.0-2.0); Hematocrit 34.9 % (36.0-46.0); Lymphocytes % (auto) 13.8 % (10.0-50.0); Mean Corpuscular Hemoglobin 26.1 pg (28.0-32.0); Mean Corpuscular Hgb Conc. 32.1 g/dL (32.0-36.0); Mean Corpuscular Volume 81.2 fL (80.0-100.0); Monocytes % (auto) 7.7 % (0.0-12.0); Neutrophils # (auto) 8.1 uL; Neutrophils % (auto) 76.6 % (37.0-80.0); Platelet Count (auto) 103 10^3/uL (140-450); Red Cell Distribution Width 17.9 % (11.8-14.3)
[2018-07-11] MEDS: BUDESONIDE (INHALATION) 0.5 MG/2 ML NEB NEB SCH ×2 (05:39→18:27)
[2018-07-11] MEDS ORDERED: POTASSIUM CHL 20MEQ/100ML 100 ML IV ONE (05:45)
[2018-07-11] MEDS: FUROSEMIDE 40 MG/4 ML VIAL IV SCH ×2 (06:52→17:17)
[2018-07-11] MEDS: PANTOPRAZOLE 40 MG/10 ML VIAL IV SCH (09:57)
[2018-07-11] MEDS: DRONEDARONE HCL 400 MG TAB PO SCH ×2 (09:57→22:05)
[2018-07-11] MEDS: APIXABAN 5 MG TAB PO SCH ×2 (09:58→22:06)
[2018-07-11] MEDS: predniSONE 20 MG TAB PO SCH (09:58)
[2018-07-11] MEDS: fentaNYL Drip 2500mCg/250mlNS 250 ML IV SCH (09:58)
[2018-07-11] MEDS: RANOLAZINE ER 500 MG TAB PO SCH ×2 (09:59→22:00)
[2018-07-11] MEDS: SODIUM CHLOR 0.9% PF (SALINE LOCK) 10ML VIAL/SYR IV SCH ×2 (09:59→22:06)
[2018-07-11] MEDS ORDERED: predniSONE 20 MG TAB PO ONE (11:45)
[2018-07-11] MEDS ORDERED: SACUBITRIL-VALSARTAN 24mg/26mg TAB PO ONE (16:45)
[2018-07-11] MEDS: SPIRONOLACTONE 25 MG TAB PO SCH (17:17)
[2018-07-11] MEDS: SACUBITRIL-VALSARTAN 24mg/26mg TAB PO SCH (22:00)
[2018-07-11] MEDS: NOREPINEPHRINE 8 MG/250ML KIT 250 ML IV SCH (23:05)
[2018-07-12] VITALS (102 sets, daily range): BP systolic 65–147; BP diastolic 30–96
[2018-07-12] MEDS: MEROPENEM 1GM IVPB 100 ML IV SCH ×3 (00:54→18:04)
[2018-07-12] MEDS: fentaNYL Drip 2500mCg/250mlNS 250 ML IV SCH ×2 (03:27→15:08)
[2018-07-12 03:53] LABS: Basophils # (auto) 0.1 uL; Eosinophils # (auto) 0.1 uL; Monocytes # (auto) 0.9 uL; Neutrophils # (auto) 8.5 uL
[2018-07-12 03:55] LABS: Basophils % (auto) 0.5 % (0.0-2.0); Hematocrit 37.7 % (36.0-46.0); Lymphocytes # (auto) 2.1 uL; Lymphocytes % (auto) 18.2 % (10.0-50.0); Mean Corpuscular Hemoglobin 26.1 pg (28.0-32.0); Mean Corpuscular Hgb Conc. 31.9 g/dL (32.0-36.0); Mean Corpuscular Volume 81.9 fL (80.0-100.0); Monocytes % (auto) 7.9 % (0.0-12.0); Neutrophils % (auto) 72.4 % (37.0-80.0); Platelet Count (auto) 121 10^3/uL (140-450); Red Cell Distribution Width 18.1 % (11.8-14.3); White Blood Cell 11.7 10^3/uL (4.4-10.8)
[2018-07-12 04:13] LABS: Potassium 3.7 mmol/L (3.5-5.1)
[2018-07-12 04:20] LABS: Bilirubin, Total 1.9 mg/dL (0.2-1.0); Calcium 7.9 mg/dL (8.5-10.1); Total Protein 5.6 g/dL (6.4-8.2)
[2018-07-12] MEDS: MIDAZOLAM DRIP 50 mg/50mL 50 ML IV SCH ×5 (04:45→20:17)
[2018-07-12] MEDS: IPRATROPIUM BROM 0.5 MG/2.5ML INH SOL NEB SCH ×4 (06:15→18:42)
[2018-07-12] MEDS: ALBUTEROL SULF 2.5 MG/0.5ML(0.5%) NEB SOLN NEB SCH ×4 (06:15→18:42)
[2018-07-12] MEDS: BUDESONIDE (INHALATION) 0.5 MG/2 ML NEB NEB SCH ×2 (06:15→18:42)
[2018-07-12] MEDS: FUROSEMIDE 40 MG/4 ML VIAL IV SCH ×2 (06:19→18:09)
[2018-07-12] MEDS: SPIRONOLACTONE 25 MG TAB PO SCH ×2 (06:19→18:10)
[2018-07-12] MEDS: DRONEDARONE HCL 400 MG TAB PO SCH ×2 (09:40→21:44)
[2018-07-12] MEDS: RANOLAZINE ER 500 MG TAB PO SCH ×2 (09:40→21:46)
[2018-07-12] MEDS: APIXABAN 5 MG TAB PO SCH ×2 (09:40→21:45)
[2018-07-12] MEDS: PANTOPRAZOLE 40 MG/10 ML VIAL IV SCH (09:40)
[2018-07-12] MEDS: SODIUM CHLOR 0.9% PF (SALINE LOCK) 10ML VIAL/SYR IV SCH ×2 (09:41→21:46)
[2018-07-12] MEDS: SACUBITRIL-VALSARTAN 24mg/26mg TAB PO SCH ×2 (10:00→21:46)
[2018-07-12] MEDS ORDERED: predniSONE 20 MG TAB PO SCH (10:00)
[2018-07-12] MEDS: PROPOFOL 100 ML IV SCH ×2 (13:55→22:44)
[2018-07-12] MEDS: NOREPINEPHRINE 8 MG/250ML KIT 250 ML IV SCH (18:10)
[2018-07-13] VITALS (105 sets, daily range): BP systolic 83–147; BP diastolic 31–88
[2018-07-13] MEDS: IPRATROPIUM BROM 0.5 MG/2.5ML INH SOL NEB SCH ×4 (00:29→18:35)
[2018-07-13] MEDS: ALBUTEROL SULF 2.5 MG/0.5ML(0.5%) NEB SOLN NEB SCH ×4 (00:29→18:35)
[2018-07-13] MEDS: MEROPENEM 1GM IVPB 100 ML IV SCH ×3 (00:47→18:14)
[2018-07-13] MEDS: MIDAZOLAM DRIP 50 mg/50mL 50 ML IV SCH (01:14)
[2018-07-13] MEDS: fentaNYL Drip 2500mCg/250mlNS 250 ML IV SCH (01:20)
[2018-07-13 04:26] LABS: BUN/Creatinine Ratio 43.6; Calcium 7.7 mg/dL (8.5-10.1); Potassium 3.7 mmol/L (3.5-5.1)
[2018-07-13] MEDS: SPIRONOLACTONE 25 MG TAB PO SCH ×2 (05:36→18:00)
[2018-07-13] MEDS: FUROSEMIDE 40 MG/4 ML VIAL IV SCH ×2 (05:36→18:14)
[2018-07-13] MEDS: BUDESONIDE (INHALATION) 0.5 MG/2 ML NEB NEB SCH ×2 (05:52→18:35)
[2018-07-13] MEDS: SODIUM CHLOR 0.9% PF (SALINE LOCK) 10ML VIAL/SYR IV SCH ×2 (10:00→22:00)
[2018-07-13] MEDS: PANTOPRAZOLE 40 MG/10 ML VIAL IV SCH (14:31)
[2018-07-13] MEDS: APIXABAN 5 MG TAB PO SCH ×2 (14:32→22:33)
[2018-07-13] MEDS: SACUBITRIL-VALSARTAN 24mg/26mg TAB PO SCH ×2 (14:32→22:00)
[2018-07-13] MEDS: DRONEDARONE HCL 400 MG TAB PO SCH ×2 (14:32→22:33)
[2018-07-13] MEDS: RANOLAZINE ER 500 MG TAB PO SCH ×2 (14:32→22:00)
[2018-07-13] MEDS: PROPOFOL 100 ML IV SCH (20:53)
[2018-07-13] MEDS: NOREPINEPHRINE 8 MG/250ML KIT 250 ML IV SCH (23:05)
[2018-07-14] VITALS (106 sets, daily range): BP systolic 83–159; BP diastolic 42–116
[2018-07-14] MEDS: MEROPENEM 1GM IVPB 100 ML IV SCH ×3 (01:18→18:21)
[2018-07-14] MEDS: fentaNYL Drip 2500mCg/250mlNS 250 ML IV SCH (02:38)
[2018-07-14 04:12] LABS: Basophils # (auto) 0.1 uL; Eosinophils % (auto) 1.9 % (0.0-7.0); Mean Corpuscular Hemoglobin 26.7 pg (28.0-32.0); Monocytes # (auto) 0.5 uL; Neutrophils % (auto) 67.1 % (37.0-80.0); Nucleated Red Blood Cells % 0.1 %; Platelet Count (auto) 146 10^3/uL (140-450)
[2018-07-14 04:13] LABS: Basophils % (auto) 0.9 % (0.0-2.0); Eosinophils # (auto) 0.2 uL; Hematocrit 39.1 % (36.0-46.0); Hemoglobin 12.7 g/dL (12.2-16.2); Lymphocytes # (auto) 1.9 uL; Lymphocytes % (auto) 23.6 % (10.0-50.0); Mean Corpuscular Hgb Conc. 32.6 g/dL (32.0-36.0); Mean Corpuscular Volume 82.1 fL (80.0-100.0); Monocytes % (auto) 6.5 % (0.0-12.0); Neutrophils # (auto) 5.3 uL; Red Blood Cells 4.76 10^6/uL (4.0-5.20); Red Cell Distribution Width 18.1 % (11.8-14.3)
[2018-07-14 04:25] LABS: BUN/Creatinine Ratio 51.9; Calcium 8.2 mg/dL (8.5-10.1); Potassium 3.9 mmol/L (3.5-5.1)
[2018-07-14] MEDS: SPIRONOLACTONE 25 MG TAB PO SCH ×2 (04:48→18:21)
[2018-07-14] MEDS: MIDAZOLAM DRIP 50 mg/50mL 50 ML IV SCH ×2 (05:35→18:59)
[2018-07-14] MEDS: FUROSEMIDE 40 MG/4 ML VIAL IV SCH ×2 (05:49→18:14)
[2018-07-14] MEDS: BUDESONIDE (INHALATION) 0.5 MG/2 ML NEB NEB SCH ×2 (06:31→18:03)
[2018-07-14] MEDS: ALBUTEROL SULF 2.5 MG/0.5ML(0.5%) NEB SOLN NEB SCH ×4 (06:31→18:03)
[2018-07-14] MEDS: IPRATROPIUM BROM 0.5 MG/2.5ML INH SOL NEB SCH ×4 (06:31→18:03)
[2018-07-14] MEDS: RANOLAZINE ER 500 MG TAB PO SCH ×2 (10:00→22:00)
[2018-07-14] MEDS: SACUBITRIL-VALSARTAN 24mg/26mg TAB PO SCH ×2 (10:00→22:00)
[2018-07-14] MEDS: DRONEDARONE HCL 400 MG TAB PO SCH ×2 (10:28→22:41)
[2018-07-14] MEDS: PANTOPRAZOLE 40 MG/10 ML VIAL IV SCH (10:28)
[2018-07-14] MEDS: APIXABAN 5 MG TAB PO SCH (10:28)
[2018-07-14] MEDS: PROPOFOL 100 ML IV SCH (10:31)
[2018-07-14] MEDS: SODIUM CHLOR 0.9% PF (SALINE LOCK) 10ML VIAL/SYR IV SCH ×2 (11:13→22:40)
[2018-07-14] MEDS: DEXMEDETOMIDINE HCL 400 MCG in D5W 5% 96 ML IV SCH (11:13)
[2018-07-14 12:57] LABS: INR 1.19 (0.9-1.15); Partial Thromboplastin Time 30.5 sec (23.78-33.04); Prothrombin Time 12.6 sec (9.27-12.13)
[2018-07-14] MEDS: LACTULOSE 20Gm/30ML SOLN PO PRN (18:14)
[2018-07-14] MEDS ORDERED: ENOXAPARIN SOD 80 MG/0.8ML SYRINGE SC ONE (21:15)
[2018-07-14] MEDS: NOREPINEPHRINE 8 MG/250ML KIT 250 ML IV SCH (23:05)
[2018-07-15] VITALS (102 sets, daily range): BP systolic 75–156; BP diastolic 32–92
[2018-07-15] MEDS: IPRATROPIUM BROM 0.5 MG/2.5ML INH SOL NEB SCH ×4 (00:28→18:42)
[2018-07-15] MEDS: ALBUTEROL SULF 2.5 MG/0.5ML(0.5%) NEB SOLN NEB SCH ×4 (00:28→18:42)
[2018-07-15] MEDS: MEROPENEM 1GM IVPB 100 ML IV SCH ×3 (01:26→18:18)
[2018-07-15] MEDS: PROPOFOL 100 ML IV SCH ×3 (02:00→23:39)
[2018-07-15 04:32] LABS: Basophils # (auto) 0.1 uL; Eosinophils # (auto) 0.1 uL; Hematocrit 39.4 % (36.0-46.0); Hemoglobin 12.7 g/dL (12.2-16.2); Lymphocytes # (auto) 1.9 uL; Mean Corpuscular Hgb Conc. 32.3 g/dL (32.0-36.0)
[2018-07-15 04:36] LABS: Basophils % (auto) 0.8 % (0.0-2.0); Lymphocytes % (auto) 27.6 % (10.0-50.0); Mean Corpuscular Hemoglobin 26.5 pg (28.0-32.0); Mean Corpuscular Volume 81.6 fL (80.0-100.0); Monocytes # (auto) 0.4 uL; Monocytes % (auto) 6.4 % (0.0-12.0); Neutrophils # (auto) 4.4 uL; Neutrophils % (auto) 64.2 % (37.0-80.0); Platelet Count (auto) 223 10^3/uL (140-450); Red Blood Cells 4.83 10^6/uL (4.0-5.20); Red Cell Distribution Width 17.6 % (11.8-14.3); White Blood Cell 6.8 10^3/uL (4.4-10.8)
[2018-07-15 04:37] LABS: INR 1.13 (0.9-1.15); Partial Thromboplastin Time 32.4 sec (23.78-33.04)
[2018-07-15 04:42] LABS: BUN/Creatinine Ratio 37.1; Magnesium 2.4 mg/dL (1.6-2.6); Potassium 3.6 mmol/L (3.5-5.1)
[2018-07-15] MEDS: FUROSEMIDE 40 MG/4 ML VIAL IV SCH ×2 (05:47→18:19)
[2018-07-15] MEDS: SPIRONOLACTONE 25 MG TAB PO SCH ×2 (05:48→18:19)
[2018-07-15] MEDS: SACUBITRIL-VALSARTAN 24mg/26mg TAB PO SCH ×2 (07:43→22:00)
[2018-07-15] MEDS: RANOLAZINE ER 500 MG TAB PO SCH ×2 (07:43→22:00)
[2018-07-15] MEDS: SODIUM CHLOR 0.9% PF (SALINE LOCK) 10ML VIAL/SYR IV SCH ×2 (09:39→22:08)
[2018-07-15] MEDS: DEXMEDETOMIDINE HCL 400 MCG in D5W 5% 96 ML IV SCH (09:42)
[2018-07-15] MEDS: PANTOPRAZOLE 40 MG/10 ML VIAL IV SCH (10:05)
[2018-07-15] MEDS: DRONEDARONE HCL 400 MG TAB PO SCH ×2 (10:05→22:08)
[2018-07-15] MEDS: MIDAZOLAM DRIP 50 mg/50mL 50 ML IV SCH ×3 (10:06→19:00)
[2018-07-15] MEDS: fentaNYL Drip 2500mCg/250mlNS 250 ML IV SCH (10:25)
[2018-07-15] MEDS: BUDESONIDE (INHALATION) 0.5 MG/2 ML NEB NEB SCH ×2 (10:53→18:42)
[2018-07-15] MEDS: METOCLOPRAMIDE HCL 5MG/ml INJ 2ml VIAL IV SCH ×2 (13:09→22:08)
[2018-07-15] MEDS ORDERED: LIDOCAINE 2% (LOCAL ANESTH.) PF 5ml SDV ONE (14:07)
[2018-07-15] MEDS ORDERED: IOHEXOL 350 MG/ML 100ML IJ ONE ×2 (14:07→14:50)
[2018-07-15] MEDS ORDERED: SODIUM CHL 0.9% 50 ML ONE (14:40)
[2018-07-15] MEDS ORDERED: ANGIOMAX 250 MG VIAL IV ONE (14:40)
[2018-07-15] MEDS ORDERED: EPINEPHrine HCL 1 MG/10 ML SYRG ONE (14:44)
[2018-07-15] MEDS ORDERED: ATROPINE SULF 1 MG/10ml SYR ONE (14:44)
[2018-07-15] MEDS ORDERED: ENOXAPARIN SOD 80 MG/0.8ML SYRINGE SC ONE (22:00)
[2018-07-15] MEDS: NOREPINEPHRINE 8 MG/250ML KIT 250 ML IV SCH (23:05)
[2018-07-16] VITALS (100 sets, daily range): BP systolic 83–194; BP diastolic 36–98
[2018-07-16] MEDS: ALBUTEROL SULF 2.5 MG/0.5ML(0.5%) NEB SOLN NEB SCH ×4 (00:09→18:44)
[2018-07-16] MEDS: IPRATROPIUM BROM 0.5 MG/2.5ML INH SOL NEB SCH ×4 (00:09→18:44)
[2018-07-16] MEDS: MEROPENEM 1GM IVPB 100 ML IV SCH ×3 (01:00→17:09)
[2018-07-16 04:08] LABS: Basophils # (auto) 0.1 uL; Basophils % (auto) 0.9 % (0.0-2.0); Eosinophils # (auto) 0.1 uL; Lymphocytes # (auto) 1.4 uL; Monocytes # (auto) 0.5 uL; Neutrophils # (auto) 4.3 uL; Nucleated Red Blood Cells % 0.1 %; Red Cell Distribution Width 17.8 % (11.8-14.3)
[2018-07-16 04:10] LABS: Eosinophils % (auto) 1.3 % (0.0-7.0); Hematocrit 37.9 % (36.0-46.0); Hemoglobin 12.4 g/dL (12.2-16.2); Lymphocytes % (auto) 21.6 % (10.0-50.0); Mean Corpuscular Hemoglobin 26.3 pg (28.0-32.0); Mean Corpuscular Hgb Conc. 32.7 g/dL (32.0-36.0); Mean Corpuscular Volume 80.3 fL (80.0-100.0); Monocytes % (auto) 7.3 % (0.0-12.0); Neutrophils % (auto) 68.9 % (37.0-80.0); Platelet Count (auto) 264 10^3/uL (140-450); Red Blood Cells 4.71 10^6/uL (4.0-5.20); White Blood Cell 6.2 10^3/uL (4.4-10.8)
[2018-07-16 04:23] LABS: BUN/Creatinine Ratio 41.8; Calcium 8.2 mg/dL (8.5-10.1); Potassium 3.8 mmol/L (3.5-5.1)
[2018-07-16] MEDS: BUDESONIDE (INHALATION) 0.5 MG/2 ML NEB NEB SCH (05:50)
[2018-07-16] MEDS: SPIRONOLACTONE 25 MG TAB PO SCH ×2 (06:00→17:44)
[2018-07-16] MEDS: METOCLOPRAMIDE HCL 5MG/ml INJ 2ml VIAL IV SCH ×3 (06:00→21:24)
[2018-07-16] MEDS: FUROSEMIDE 40 MG/4 ML VIAL IV SCH ×2 (06:08→17:44)
[2018-07-16] MEDS: MIDAZOLAM DRIP 50 mg/50mL 50 ML IV SCH ×2 (07:00→17:44)
[2018-07-16] MEDS: DEXMEDETOMIDINE HCL 400 MCG in D5W 5% 96 ML IV SCH (09:42)
[2018-07-16] MEDS: SODIUM CHLOR 0.9% PF (SALINE LOCK) 10ML VIAL/SYR IV SCH ×2 (09:46→21:25)
[2018-07-16] MEDS: RANOLAZINE ER 500 MG TAB PO SCH ×2 (09:46→21:07)
[2018-07-16] MEDS: DRONEDARONE HCL 400 MG TAB PO SCH ×2 (09:46→21:24)
[2018-07-16] MEDS: SACUBITRIL-VALSARTAN 24mg/26mg TAB PO SCH ×2 (09:46→21:07)
[2018-07-16] MEDS: fentaNYL Drip 2500mCg/250mlNS 250 ML IV SCH (10:25)
[2018-07-16] MEDS: PANTOPRAZOLE 40 MG/10 ML VIAL IV SCH (10:29)
[2018-07-16] MEDS: NOREPINEPHRINE 8 MG/250ML KIT 250 ML IV SCH (16:03)
[2018-07-16] MEDS: PROPOFOL 100 ML IV SCH (16:03)
[2018-07-16] MEDS: Jevity 1.2 Cal/Fiber 1 Liter GT SCH (16:04)
[2018-07-16] MEDS: APIXABAN 5 MG TAB PO SCH (21:24)
[2018-07-17] VITALS (101 sets, daily range): BP systolic 79–141; BP diastolic 46–65
[2018-07-17] MEDS: MEROPENEM 1GM IVPB 100 ML IV SCH ×3 (00:39→16:51)
[2018-07-17] MEDS: IPRATROPIUM BROM 0.5 MG/2.5ML INH SOL NEB SCH ×4 (00:58→18:10)
[2018-07-17] MEDS: ALBUTEROL SULF 2.5 MG/0.5ML(0.5%) NEB SOLN NEB SCH ×4 (00:58→18:10)
[2018-07-17] MEDS: BUDESONIDE (INHALATION) 0.5 MG/2 ML NEB NEB SCH ×3 (00:58→18:10)
[2018-07-17 04:31] LABS: BUN/Creatinine Ratio 30.6; Calcium 7.7 mg/dL (8.5-10.1); Potassium 3.5 mmol/L (3.5-5.1)
[2018-07-17] MEDS: SPIRONOLACTONE 25 MG TAB PO SCH ×2 (05:21→17:58)
[2018-07-17] MEDS: FUROSEMIDE 40 MG/4 ML VIAL IV SCH ×2 (05:21→17:58)
[2018-07-17] MEDS: METOCLOPRAMIDE HCL 5MG/ml INJ 2ml VIAL IV SCH ×3 (05:21→22:07)
[2018-07-17] MEDS: MIDAZOLAM DRIP 50 mg/50mL 50 ML IV SCH ×2 (06:45→18:28)
[2018-07-17] MEDS: PROPOFOL 100 ML IV SCH ×2 (06:46→16:39)
[2018-07-17] MEDS: DEXMEDETOMIDINE HCL 400 MCG in D5W 5% 96 ML IV SCH (08:42)
[2018-07-17] MEDS: fentaNYL Drip 2500mCg/250mlNS 250 ML IV SCH ×2 (08:48→10:00)
[2018-07-17] MEDS: APIXABAN 5 MG TAB PO SCH ×2 (09:58→22:07)
[2018-07-17] MEDS: PANTOPRAZOLE 40 MG/10 ML VIAL IV SCH (09:58)
[2018-07-17] MEDS: DRONEDARONE HCL 400 MG TAB PO SCH ×2 (09:58→22:07)
[2018-07-17] MEDS: SODIUM CHLOR 0.9% PF (SALINE LOCK) 10ML VIAL/SYR IV SCH ×2 (09:59→22:00)
[2018-07-17] MEDS: RANOLAZINE ER 500 MG TAB PO SCH ×2 (09:59→22:00)
[2018-07-17] MEDS: AZITHROMYCIN 500MG/ 250ML 250 ML IV SCH (09:59)
[2018-07-17] MEDS: SACUBITRIL-VALSARTAN 24mg/26mg TAB PO SCH ×2 (09:59→22:00)
[2018-07-17] MEDS: NOREPINEPHRINE 8 MG/250ML KIT 250 ML IV SCH (23:05)
[2018-07-18] VITALS (102 sets, daily range): BP systolic 78–174; BP diastolic 39–91
[2018-07-18] MEDS: PROPOFOL 100 ML IV SCH ×2 (00:38→09:36)
[2018-07-18] MEDS: ALBUTEROL SULF 2.5 MG/0.5ML(0.5%) NEB SOLN NEB SCH ×4 (00:53→18:24)
[2018-07-18] MEDS: IPRATROPIUM BROM 0.5 MG/2.5ML INH SOL NEB SCH ×4 (00:53→18:24)
[2018-07-18] MEDS: MEROPENEM 1GM IVPB 100 ML IV SCH ×3 (01:06→16:52)
[2018-07-18] MEDS: METOCLOPRAMIDE HCL 5MG/ml INJ 2ml VIAL IV SCH ×3 (05:35→21:34)
[2018-07-18] MEDS: FUROSEMIDE 40 MG/4 ML VIAL IV SCH ×2 (05:35→16:53)
[2018-07-18] MEDS: SPIRONOLACTONE 25 MG TAB PO SCH ×2 (05:36→17:19)
[2018-07-18] MEDS: BUDESONIDE (INHALATION) 0.5 MG/2 ML NEB NEB SCH ×2 (06:34→18:24)
[2018-07-18] MEDS: MIDAZOLAM DRIP 50 mg/50mL 50 ML IV SCH (07:37)
[2018-07-18 07:59] LABS: Eosinophils # (auto) 0.1 uL; Hemoglobin 12.4 g/dL (12.2-16.2); Lymphocytes # (auto) 1.5 uL; Monocytes # (auto) 0.6 uL; Nucleated Red Blood Cells % 0.1 %
[2018-07-18 08:01] LABS: Basophils # (auto) 0.1 uL; Basophils % (auto) 1.1 % (0.0-2.0); Eosinophils % (auto) 1.3 % (0.0-7.0); Hematocrit 38.1 % (36.0-46.0); Lymphocytes % (auto) 20.2 % (10.0-50.0); Mean Corpuscular Hemoglobin 26.4 pg (28.0-32.0); Mean Corpuscular Hgb Conc. 32.5 g/dL (32.0-36.0); Mean Corpuscular Volume 81.3 fL (80.0-100.0); Monocytes % (auto) 8.8 % (0.0-12.0); Neutrophils % (auto) 68.6 % (37.0-80.0); Platelet Count (auto) 314 10^3/uL (140-450); Red Blood Cells 4.68 10^6/uL (4.0-5.20); Red Cell Distribution Width 18.2 % (11.8-14.3); White Blood Cell 7.3 10^3/uL (4.4-10.8)
[2018-07-18 08:14] LABS: BUN/Creatinine Ratio 34.4; Calcium 8.2 mg/dL (8.5-10.1); Potassium 3.5 mmol/L (3.5-5.1)
[2018-07-18] MEDS: SODIUM CHLOR 0.9% PF (SALINE LOCK) 10ML VIAL/SYR IV SCH ×2 (09:36→21:36)
[2018-07-18] MEDS: RANOLAZINE ER 500 MG TAB PO SCH ×2 (10:00→21:35)
[2018-07-18] MEDS: SACUBITRIL-VALSARTAN 24mg/26mg TAB PO SCH ×2 (10:00→21:36)
[2018-07-18] MEDS: fentaNYL Drip 2500mCg/250mlNS 250 ML IV SCH (10:25)
[2018-07-18] MEDS: DEXMEDETOMIDINE HCL 400 MCG in D5W 5% 96 ML IV SCH (10:52)
[2018-07-18] MEDS: APIXABAN 5 MG TAB PO SCH ×2 (10:57→21:35)
[2018-07-18] MEDS: DRONEDARONE HCL 400 MG TAB PO SCH ×2 (10:57→21:35)
[2018-07-18] MEDS: PANTOPRAZOLE 40 MG/10 ML VIAL IV SCH (10:57)
[2018-07-18] MEDS: AZITHROMYCIN 500MG/ 250ML 250 ML IV SCH (12:20)
[2018-07-18] MEDS ORDERED: POTASSIUM CHL 20MEQ/100ML 100 ML IV ONE ×2 (16:25→16:30)
[2018-07-18] MEDS ORDERED: FUROSEMIDE 40 MG/4 ML VIAL IV ONE (16:30)
[2018-07-18] MEDS ORDERED: ETOMIDATE (2MG/ML) 20ML VIAL IV ONE (22:01)
[2018-07-18] MEDS ORDERED: SUCCINYLCHOLINE CHLORIDE 20 MG/ML 10ML VIAL IV ONE (22:01)
[2018-07-18] MEDS ORDERED: ALBUTEROL SULF 2.5 MG/0.5ML(0.5%) NEB SOLN ONE (22:22)
[2018-07-18] MEDS ORDERED: IPRATROPIUM BROM 0.5 MG/2.5ML INH SOL ONE (22:22)
[2018-07-18] MEDS ORDERED: FUROSEMIDE 20 MG/2 ML VIAL ONE (22:24)
[2018-07-18] MEDS ORDERED: FUROSEMIDE 20 MG/2 ML VIAL IV ONE (22:30)
[2018-07-18] MEDS ORDERED: ALBUTEROL SULF 2.5 MG/0.5ML(0.5%) NEB SOLN NEB ONE (22:30)
[2018-07-18] MEDS ORDERED: IPRATROPIUM BROM 0.5 MG/2.5ML INH SOL NEB ONE (22:30)
[2018-07-18] MEDS: NOREPINEPHRINE 8 MG/250ML KIT 250 ML IV SCH (23:05)
[2018-07-19] VITALS (85 sets, daily range): BP systolic 75–204; BP diastolic 43–180
[2018-07-19] MEDS ORDERED: FUROSEMIDE 20 MG/2 ML VIAL IV ONE
[2018-07-19] MEDS: ALBUTEROL SULF 2.5 MG/0.5ML(0.5%) NEB SOLN NEB SCH ×4 (00:08→18:57)
[2018-07-19] MEDS: IPRATROPIUM BROM 0.5 MG/2.5ML INH SOL NEB SCH ×4 (00:08→18:57)
[2018-07-19] MEDS: MEROPENEM 1GM IVPB 100 ML IV SCH ×2 (00:45→08:47)
[2018-07-19] MEDS ORDERED: DIGOXIN (250MCG/ML) 2 ML AMPULE IV ONE (02:45)
[2018-07-19 03:50] LABS: Basophils # (auto) 0.1 uL; Eosinophils # (auto) 0.1 uL; Eosinophils % (auto) 0.6 % (0.0-7.0); Mean Corpuscular Hemoglobin 25.7 pg (28.0-32.0); Mean Corpuscular Volume 81.2 fL (80.0-100.0)
[2018-07-19 03:54] LABS: Basophils % (auto) 0.5 % (0.0-2.0); Hematocrit 40.4 % (36.0-46.0); Hemoglobin 12.8 g/dL (12.2-16.2); Lymphocytes # (auto) 1.1 uL; Lymphocytes % (auto) 9.3 % (10.0-50.0); Mean Corpuscular Hgb Conc. 31.6 g/dL (32.0-36.0); Monocytes # (auto) 0.7 uL; Monocytes % (auto) 5.5 % (0.0-12.0); Neutrophils % (auto) 84.1 % (37.0-80.0); Platelet Count (auto) 342 10^3/uL (140-450); Red Blood Cells 4.98 10^6/uL (4.0-5.20); Red Cell Distribution Width 17.8 % (11.8-14.3); White Blood Cell 11.9 10^3/uL (4.4-10.8)
[2018-07-19 04:12] LABS: BUN/Creatinine Ratio 38.9; Calcium 8.3 mg/dL (8.5-10.1); Potassium 3.9 mmol/L (3.5-5.1)
[2018-07-19] MEDS: SPIRONOLACTONE 25 MG TAB PO SCH ×2 (06:00→18:00)
[2018-07-19] MEDS: FUROSEMIDE 40 MG/4 ML VIAL IV SCH ×2 (06:29→18:24)
[2018-07-19] MEDS: METOCLOPRAMIDE HCL 5MG/ml INJ 2ml VIAL IV SCH (06:29)
[2018-07-19] MEDS: BUDESONIDE (INHALATION) 0.5 MG/2 ML NEB NEB SCH ×2 (06:56→18:57)
[2018-07-19] MEDS: DEXMEDETOMIDINE HCL 400 MCG in D5W 5% 96 ML IV SCH (09:42)
[2018-07-19] MEDS: SODIUM CHLOR 0.9% PF (SALINE LOCK) 10ML VIAL/SYR IV SCH ×2 (09:55→20:34)
[2018-07-19] MEDS: PANTOPRAZOLE 40 MG/10 ML VIAL IV SCH (09:55)
[2018-07-19] MEDS: DRONEDARONE HCL 400 MG TAB PO SCH ×2 (09:55→20:34)
[2018-07-19] MEDS: RANOLAZINE ER 500 MG TAB PO SCH ×2 (09:56→20:34)
[2018-07-19] MEDS: APIXABAN 5 MG TAB PO SCH ×2 (09:56→20:34)
[2018-07-19] MEDS: SACUBITRIL-VALSARTAN 24mg/26mg TAB PO SCH ×2 (09:56→20:34)
[2018-07-19] MEDS: AZITHROMYCIN 500MG/ 250ML 250 ML IV SCH (09:57)
[2018-07-19] MEDS ORDERED: FUROSEMIDE 40 MG/4 ML VIAL IV ONE (14:00)
[2018-07-19] MEDS ORDERED: POTASSIUM EFFERVESENT TAB 25 MEQ GT ONE (14:00)
[2018-07-19] MEDS: DOBUTamine 1000MCG/ML 250 ML IV SCH (15:00)
[2018-07-19] MEDS ORDERED: DOBUTamine 1000MCG/ML 250 ML IV ONE (15:06)
[2018-07-19] MEDS: ONDANSETRON HCL 4 MG/2 ML VIAL IV PRN (20:34)
[2018-07-19] MEDS: MORPHINE SULFATE 4 MG/ML SYR/VIAL IV PRN (20:34)
[2018-07-19] MEDS: LACTULOSE 20Gm/30ML SOLN PO PRN (20:35)
[2018-07-20] VITALS (33 sets, daily range): BP systolic 95–147; BP diastolic 44–80
[2018-07-20] MEDS: IPRATROPIUM BROM 0.5 MG/2.5ML INH SOL NEB SCH ×4 (00:46→18:21)
[2018-07-20] MEDS: ALBUTEROL SULF 2.5 MG/0.5ML(0.5%) NEB SOLN NEB SCH ×4 (00:46→18:20)
[2018-07-20 03:41] LABS: Basophils # (auto) 0.1 uL; Eosinophils # (auto) 0.1 uL; Lymphocytes # (auto) 1.4 uL; Monocytes # (auto) 0.9 uL; Monocytes % (auto) 9.2 % (0.0-12.0); Platelet Count (auto) 329 10^3/uL (140-450); Red Blood Cells 4.68 10^6/uL (4.0-5.20)
[2018-07-20 03:43] LABS: Basophils % (auto) 0.9 % (0.0-2.0); Eosinophils % (auto) 0.9 % (0.0-7.0); Hematocrit 38.2 % (36.0-46.0); Hemoglobin 12.2 g/dL (12.2-16.2); Lymphocytes % (auto) 14.3 % (10.0-50.0); Mean Corpuscular Hgb Conc. 31.8 g/dL (32.0-36.0); Mean Corpuscular Volume 81.6 fL (80.0-100.0); Neutrophils # (auto) 7.5 uL; Neutrophils % (auto) 74.7 % (37.0-80.0); Nucleated Red Blood Cells % 0.1 %; Red Cell Distribution Width 17.3 % (11.8-14.3)
[2018-07-20 03:45] LABS: Mean Corpuscular Hemoglobin 26.3 pg (28.0-32.0)
[2018-07-20 03:58] LABS: Calcium 8.1 mg/dL (8.5-10.1); Potassium 4.1 mmol/L (3.5-5.1)
[2018-07-20] MEDS: SPIRONOLACTONE 25 MG TAB PO SCH ×2 (05:55→18:00)
[2018-07-20] MEDS: FUROSEMIDE 40 MG/4 ML VIAL IV SCH ×2 (05:55→18:02)
[2018-07-20] MEDS: BUDESONIDE (INHALATION) 0.5 MG/2 ML NEB NEB SCH ×2 (06:07→18:20)
[2018-07-20] MEDS: DRONEDARONE HCL 400 MG TAB PO SCH ×2 (09:34→22:12)
[2018-07-20] MEDS: SODIUM CHLOR 0.9% PF (SALINE LOCK) 10ML VIAL/SYR IV SCH ×2 (09:34→22:28)
[2018-07-20] MEDS: RANOLAZINE ER 500 MG TAB PO SCH ×2 (09:34→22:00)
[2018-07-20] MEDS: PANTOPRAZOLE 40 MG/10 ML VIAL IV SCH (09:34)
[2018-07-20] MEDS: SACUBITRIL-VALSARTAN 24mg/26mg TAB PO SCH ×2 (09:35→22:27)
[2018-07-20] MEDS: APIXABAN 5 MG TAB PO SCH ×2 (09:36→22:08)
[2018-07-20] MEDS: DOBUTamine 1000MCG/ML 250 ML IV SCH (11:26)
[2018-07-20] MEDS: MORPHINE SULFATE 4 MG/ML SYR/VIAL IV PRN (11:33)
[2018-07-21] VITALS (52 sets, daily range): BP systolic 77–138; BP diastolic 33–92
[2018-07-21] MEDS: IPRATROPIUM BROM 0.5 MG/2.5ML INH SOL NEB SCH ×4 (00:19→18:25)
[2018-07-21] MEDS: ALBUTEROL SULF 2.5 MG/0.5ML(0.5%) NEB SOLN NEB SCH ×4 (00:19→18:25)
[2018-07-21 04:11] LABS: Potassium 3.6 mmol/L (3.5-5.1)
[2018-07-21 04:16] LABS: BUN/Creatinine Ratio 45.3; Calcium 8.5 mg/dL (8.5-10.1)
[2018-07-21] MEDS: SPIRONOLACTONE 25 MG TAB PO SCH ×2 (06:18→18:00)
[2018-07-21] MEDS: FUROSEMIDE 40 MG/4 ML VIAL IV SCH ×2 (06:19→17:48)
[2018-07-21] MEDS: BUDESONIDE (INHALATION) 0.5 MG/2 ML NEB NEB SCH ×2 (06:51→18:26)
[2018-07-21] MEDS: RANOLAZINE ER 500 MG TAB PO SCH ×2 (10:00→22:00)
[2018-07-21] MEDS: APIXABAN 5 MG TAB PO SCH ×2 (10:17→22:07)
[2018-07-21] MEDS: DRONEDARONE HCL 400 MG TAB PO SCH ×2 (10:17→22:07)
[2018-07-21] MEDS: PANTOPRAZOLE 40 MG/10 ML VIAL IV SCH (10:17)
[2018-07-21] MEDS: SACUBITRIL-VALSARTAN 24mg/26mg TAB PO SCH (10:17)
[2018-07-21] MEDS: SODIUM CHLOR 0.9% PF (SALINE LOCK) 10ML VIAL/SYR IV SCH ×2 (10:18→22:07)
[2018-07-22] VITALS (60 sets, daily range): BP systolic 77–128; BP diastolic 32–75
[2018-07-22] MEDS ORDERED: ACETAMINOPHEN 325 MG TAB PO PRN
[2018-07-22] MEDS: ALBUTEROL SULF 2.5 MG/0.5ML(0.5%) NEB SOLN NEB SCH ×4 (00:33→18:48)
[2018-07-22] MEDS: IPRATROPIUM BROM 0.5 MG/2.5ML INH SOL NEB SCH ×4 (00:33→18:48)
[2018-07-22 04:49] LABS: BUN/Creatinine Ratio 36.2; Calcium 8.6 mg/dL (8.5-10.1); Potassium 3.6 mmol/L (3.5-5.1)
[2018-07-22] MEDS: SPIRONOLACTONE 25 MG TAB PO SCH ×2 (05:42→18:01)
[2018-07-22] MEDS: FUROSEMIDE 40 MG/4 ML VIAL IV SCH ×2 (06:07→18:01)
[2018-07-22] MEDS: BUDESONIDE (INHALATION) 0.5 MG/2 ML NEB NEB SCH ×2 (07:52→18:48)
[2018-07-22] MEDS: RANOLAZINE ER 500 MG TAB PO SCH ×2 (10:21→21:19)
[2018-07-22] MEDS: DRONEDARONE HCL 400 MG TAB PO SCH ×2 (10:21→21:19)
[2018-07-22] MEDS: PANTOPRAZOLE 40 MG TAB PO SCH (10:22)
[2018-07-22] MEDS: APIXABAN 5 MG TAB PO SCH ×2 (10:22→21:19)
[2018-07-22] MEDS: SODIUM CHLOR 0.9% PF (SALINE LOCK) 10ML VIAL/SYR IV SCH ×2 (10:22→21:20)
[2018-07-22] MEDS: HYDROcodone-ACET 5/325MG TAB PO PRN (21:20)
[2018-07-23] VITALS (7 sets, daily range): BP systolic 97–115; BP diastolic 40–67
[2018-07-23] MEDS: IPRATROPIUM BROM 0.5 MG/2.5ML INH SOL NEB SCH ×4 (00:43→18:41)
[2018-07-23] MEDS: ALBUTEROL SULF 2.5 MG/0.5ML(0.5%) NEB SOLN NEB SCH ×4 (00:43→18:41)
[2018-07-23] MEDS: HYDROcodone-ACET 5/325MG TAB PO PRN ×2 (03:02→21:01)
[2018-07-23] MEDS: FUROSEMIDE 40 MG/4 ML VIAL IV SCH ×2 (05:45→18:31)
[2018-07-23] MEDS: SPIRONOLACTONE 25 MG TAB PO SCH ×2 (05:45→18:31)
[2018-07-23] MEDS: BUDESONIDE (INHALATION) 0.5 MG/2 ML NEB NEB SCH ×2 (06:45→18:41)
[2018-07-23] MEDS: PANTOPRAZOLE 40 MG TAB PO SCH (09:51)
[2018-07-23] MEDS: DRONEDARONE HCL 400 MG TAB PO SCH ×2 (09:51→21:01)
[2018-07-23] MEDS: APIXABAN 5 MG TAB PO SCH ×2 (09:51→21:00)
[2018-07-23] MEDS: SODIUM CHLOR 0.9% PF (SALINE LOCK) 10ML VIAL/SYR IV SCH ×2 (09:51→21:01)
[2018-07-23] MEDS: RANOLAZINE ER 500 MG TAB PO SCH ×2 (09:51→21:01)
[2018-07-23] MEDS: LISINOPRIL 10 MG TAB PO SCH (09:52)
[2018-07-24 05:00] VITALS: BP 86/47
[2018-07-24] MEDS: FUROSEMIDE 40 MG/4 ML VIAL IV SCH ×2 (06:23→18:00)
[2018-07-24] MEDS: SPIRONOLACTONE 25 MG TAB PO SCH ×2 (06:23→18:54)
[2018-07-24 06:35] LABS: Eosinophils # (auto) 0.2 uL; Hemoglobin 12.7 g/dL (12.2-16.2); Monocytes # (auto) 0.6 uL; Neutrophils % (auto) 43.9 % (37.0-80.0); Red Cell Distribution Width 16.9 % (11.8-14.3)
[2018-07-24 06:37] LABS: Basophils # (auto) 0 uL; Basophils % (auto) 0.8 % (0.0-2.0); Eosinophils % (auto) 3.6 % (0.0-7.0); Hematocrit 38.2 % (36.0-46.0); Lymphocytes # (auto) 2.1 uL; Lymphocytes % (auto) 40.1 % (10.0-50.0); Mean Corpuscular Hemoglobin 26.6 pg (28.0-32.0); Mean Corpuscular Hgb Conc. 33.1 g/dL (32.0-36.0); Mean Corpuscular Volume 80.4 fL (80.0-100.0); Monocytes % (auto) 11.6 % (0.0-12.0); Neutrophils # (auto) 2.3 uL; Nucleated Red Blood Cells % 0.3 %; Platelet Count (auto) 383 10^3/uL (140-450); Red Blood Cells 4.76 10^6/uL (4.0-5.20); White Blood Cell 5.3 10^3/uL (4.4-10.8)
[2018-07-24 06:50] LABS: BUN/Creatinine Ratio 22.3; Calcium 8.3 mg/dL (8.5-10.1); Potassium 3.4 mmol/L (3.5-5.1)
[2018-07-24] MEDS: ALBUTEROL SULF 2.5 MG/0.5ML(0.5%) NEB SOLN NEB SCH ×4 (07:26→18:10)
[2018-07-24] MEDS: IPRATROPIUM BROM 0.5 MG/2.5ML INH SOL NEB SCH ×4 (07:27→18:10)
[2018-07-24] MEDS: BUDESONIDE (INHALATION) 0.5 MG/2 ML NEB NEB SCH ×2 (07:27→18:10)
[2018-07-24 08:00] VITALS: BP 99/64
[2018-07-24] MEDS: APIXABAN 5 MG TAB PO SCH ×2 (09:37→21:14)
[2018-07-24] MEDS: DRONEDARONE HCL 400 MG TAB PO SCH ×2 (09:37→21:13)
[2018-07-24] MEDS: PANTOPRAZOLE 40 MG TAB PO SCH (09:38)
[2018-07-24] MEDS: HYDROcodone-ACET 5/325MG TAB PO PRN ×2 (09:38→21:19)
[2018-07-24] MEDS: RANOLAZINE ER 500 MG TAB PO SCH ×2 (09:38→21:14)
[2018-07-24] MEDS: SODIUM CHLOR 0.9% PF (SALINE LOCK) 10ML VIAL/SYR IV SCH ×2 (09:38→21:15)
[2018-07-24] MEDS: LISINOPRIL 10 MG TAB PO SCH (09:43)
[2018-07-24 12:00] VITALS: BP 94/56
[2018-07-24 16:00] VITALS: BP 105/63
[2018-07-24 21:00] VITALS: BP 96/53
[2018-07-24] MEDS: LACTULOSE 20Gm/30ML SOLN PO PRN (21:14)
[2018-07-25] MEDS: IPRATROPIUM BROM 0.5 MG/2.5ML INH SOL NEB SCH ×5 (00:56→18:35)
[2018-07-25] MEDS: ALBUTEROL SULF 2.5 MG/0.5ML(0.5%) NEB SOLN NEB SCH ×5 (00:56→18:35)
[2018-07-25 05:13] VITALS: BP 105/80
[2018-07-25] MEDS: SPIRONOLACTONE 25 MG TAB PO SCH ×2 (05:52→18:03)
[2018-07-25] MEDS: HYDROcodone-ACET 5/325MG TAB PO PRN (05:53)
[2018-07-25] MEDS: FUROSEMIDE 40 MG/4 ML VIAL IV SCH (05:53)
[2018-07-25] MEDS: BUDESONIDE (INHALATION) 0.5 MG/2 ML NEB NEB SCH ×2 (06:43→18:36)
[2018-07-25 08:50] VITALS: BP 97/55
[2018-07-25] MEDS: APIXABAN 5 MG TAB PO SCH ×2 (09:32→21:00)
[2018-07-25] MEDS: DRONEDARONE HCL 400 MG TAB PO SCH ×2 (09:32→21:00)
[2018-07-25] MEDS: RANOLAZINE ER 500 MG TAB PO SCH ×2 (09:32→21:00)
[2018-07-25] MEDS: SODIUM CHLOR 0.9% PF (SALINE LOCK) 10ML VIAL/SYR IV SCH ×2 (09:33→21:00)
[2018-07-25] MEDS: PANTOPRAZOLE 40 MG TAB PO SCH (09:34)
[2018-07-25] MEDS: LISINOPRIL 10 MG TAB PO SCH (09:34)
[2018-07-25 10:17] LABS: Albumin 2.9 g/dL (3.4-5.0); BUN/Creatinine Ratio 23.2; Calcium 8.3 mg/dL (8.5-10.1); Magnesium 1.6 mg/dL (1.6-2.6); Potassium 3.4 mmol/L (3.5-5.1)
[2018-07-25 10:25] LABS: Bilirubin, Total 0.9 mg/dL (0.2-1.0); Total Protein 6.7 g/dL (6.4-8.2)
[2018-07-25] MEDS ORDERED: ONDANSETRON HCL 4 MG/2 ML VIAL IV PRN (11:30)
[2018-07-25] MEDS ORDERED: MORPHINE SULFATE 4 MG/ML SYR/VIAL IV PRN (11:30)
[2018-07-25] MEDS ORDERED: HYDROcodone-ACET 5/325MG TAB PO PRN (11:30)
[2018-07-25] MEDS ORDERED: POTASSIUM CHL 20 Meq TABLET PO ONE (11:30)
[2018-07-25] MEDS ORDERED: IPRATROPIUM BROM 0.5 MG/2.5ML INH SOL NEB PRN (11:30)
[2018-07-25 12:48] VITALS: BP 105/63
[2018-07-25 16:50] VITALS: BP 107/64
[2018-07-25] MEDS: BUMETANIDE 1 MG TAB PO SCH (18:04)
[2018-07-25] MEDS: POTASSIUM CHL 20 Meq TABLET PO SCH (21:00)
[2018-07-25 22:00] VITALS: BP 101/52
[2018-07-26] MEDS: IPRATROPIUM BROM 0.5 MG/2.5ML INH SOL NEB SCH ×4 (00:30→19:58)
[2018-07-26] MEDS: ALBUTEROL SULF 2.5 MG/0.5ML(0.5%) NEB SOLN NEB SCH ×4 (00:31→19:57)
[2018-07-26 05:00] VITALS: BP 100/55
[2018-07-26] MEDS: BUMETANIDE 1 MG TAB PO SCH ×2 (05:09→18:51)
[2018-07-26] MEDS: SPIRONOLACTONE 25 MG TAB PO SCH ×2 (05:09→18:50)
[2018-07-26 06:32] LABS: BUN/Creatinine Ratio 23.2; Calcium 8.2 mg/dL (8.5-10.1); Magnesium 1.5 mg/dL (1.6-2.6); Potassium 3.6 mmol/L (3.5-5.1)
[2018-07-26] MEDS: BUDESONIDE (INHALATION) 0.5 MG/2 ML NEB NEB SCH ×2 (06:59→19:57)
[2018-07-26] MEDS: POTASSIUM CHL 20 Meq TABLET PO SCH ×2 (11:34→22:02)
[2018-07-26] MEDS: DRONEDARONE HCL 400 MG TAB PO SCH ×2 (11:35→22:02)
[2018-07-26] MEDS: PANTOPRAZOLE 40 MG TAB PO SCH (11:35)
[2018-07-26] MEDS: RANOLAZINE ER 500 MG TAB PO SCH ×2 (11:35→22:02)
[2018-07-26] MEDS: APIXABAN 5 MG TAB PO SCH ×2 (11:35→22:02)
[2018-07-26] MEDS: LISINOPRIL 10 MG TAB PO SCH (11:35)
[2018-07-26] MEDS: SODIUM CHLOR 0.9% PF (SALINE LOCK) 10ML VIAL/SYR IV SCH ×2 (11:36→22:03)
[2018-07-26 13:00] VITALS: BP 93/50
[2018-07-26] MEDS: MAGNESIUM SULFATE 1GM/100ML 100 ML IV SCH ×2 (13:34→15:00)
[2018-07-26 14:47] VITALS: BP 93/50
[2018-07-26 16:38] VITALS: BP 104/63
[2018-07-26 20:00] VITALS: BP 104/63
[2018-07-26 21:56] VITALS: BP 109/67
[2018-07-27 04:42] VITALS: BP 137/79
[2018-07-27] MEDS: IPRATROPIUM BROM 0.5 MG/2.5ML INH SOL NEB SCH ×2 (06:00)
[2018-07-27] MEDS: BUDESONIDE (INHALATION) 0.5 MG/2 ML NEB NEB SCH (06:00)
[2018-07-27] MEDS: ALBUTEROL SULF 2.5 MG/0.5ML(0.5%) NEB SOLN NEB SCH ×2 (06:00)
[2018-07-27] MEDS: SPIRONOLACTONE 25 MG TAB PO SCH (06:11)
[2018-07-27] MEDS: BUMETANIDE 1 MG TAB PO SCH (06:12)
[2018-07-27 09:00] VITALS: BP 99/69
[2018-07-27] MEDS: LISINOPRIL 10 MG TAB PO SCH (10:00)
[2018-07-27] MEDS ORDERED: LORazepam 0.5 MG TAB PO PRN (11:30)
[2018-07-27] MEDS: DRONEDARONE HCL 400 MG TAB PO SCH (12:26)
[2018-07-27] MEDS: POTASSIUM CHL 20 Meq TABLET PO SCH (12:26)
[2018-07-27] MEDS: PANTOPRAZOLE 40 MG TAB PO SCH (12:26)
[2018-07-27] MEDS: APIXABAN 5 MG TAB PO SCH (12:26)
[2018-07-27] MEDS: RANOLAZINE ER 500 MG TAB PO SCH (12:26)
[2018-07-27] MEDS: SODIUM CHLOR 0.9% PF (SALINE LOCK) 10ML VIAL/SYR IV SCH (12:29)
[2018-07-27 13:00] VITALS: BP 112/64
[2018-07-27 17:04] VITALS: BP 102/71
== END 2018-07-27 18:15 | disposition home or self-care (01) | DRG 130 ==
LOC: EDBD 16:25 → ER 16:25 → OVERFLOW 16:26 → WEST WING 23:05 → ICU WEST 07-06 18:31 → TELE-WESTW 07-22 20:13
PROVIDERS: ADMIT Nurse Practitioner; ATTEND Internal Medicine
PROC: 5A1955Z Respiratory Ventilation, Greater than 96 Consecutive Hours (ICD-10-PCS; principal; 2018-07-06)
PROC: 0BH17EZ Insertion of Endotracheal Airway into Trachea, Via Natural or Artificial Opening (ICD-10-PCS; 2018-07-06)
PROC: 5A12012 Performance of Cardiac Output, Single, Manual (ICD-10-PCS; 2018-07-06)
PROC: 02HV33Z Insertion of Infusion Device into Superior Vena Cava, Percutaneous Approach (ICD-10-PCS; 2018-07-08)
PROC: 5A2204Z Restoration of Cardiac Rhythm, Single (ICD-10-PCS; 2018-07-14)
PROC: 03JY3ZZ Inspection of Upper Artery, Percutaneous Approach (ICD-10-PCS; 2018-07-15)
PROC: B2111ZZ Fluoroscopy of Multiple Coronary Arteries using Low Osmolar Contrast (ICD-10-PCS; 2018-07-15)
PROC: 4A023N7 Measurement of Cardiac Sampling and Pressure, Left Heart, Percutaneous Approach (ICD-10-PCS; 2018-07-15)
PROC: B2151ZZ Fluoroscopy of Left Heart using Low Osmolar Contrast (ICD-10-PCS; 2018-07-15)
PROC: 5A09457 Assistance with Respiratory Ventilation, 24-96 Consecutive Hours, Continuous Positive Airway Pressure (ICD-10-PCS; 2018-07-18)
DX: J96.20 Acute and chronic respiratory failure, unspecified whether with hypoxia or hypercapnia (principal); N17.0 Acute kidney failure with tubular necrosis; I50.43 Acute on chronic combined systolic (congestive) and diastolic (congestive) heart failure; J18.1 Lobar pneumonia, unspecified organism; D68.69 Other thrombophilia; D69.6 Thrombocytopenia, unspecified; I48.1 Persistent atrial fibrillation; E87.5 Hyperkalemia; I48.92 Unspecified atrial flutter; I11.0 Hypertensive heart disease with heart failure; I48.2 Chronic atrial fibrillation; J44.1 Chronic obstructive pulmonary disease with (acute) exacerbation; J44.0 Chronic obstructive pulmonary disease with (acute) lower respiratory infection; E66.9 Obesity, unspecified; E78.5 Hyperlipidemia, unspecified; F14.90 Cocaine use, unspecified, uncomplicated; F17.210 Nicotine dependence, cigarettes, uncomplicated; F41.9 Anxiety disorder, unspecified; I25.5 Ischemic cardiomyopathy; I25.10 Atherosclerotic heart disease of native coronary artery without angina pectoris; J96.21 Acute and chronic respiratory failure with hypoxia; T38.0X5A Adverse effect of glucocorticoids and synthetic analogues, initial encounter; Z53.9 Procedure and treatment not carried out, unspecified reason; F32.9 Major depressive disorder, single episode, unspecified; Z79.01 Long term (current) use of anticoagulants; Y92.89 Other specified places as the place of occurrence of the external cause; Z82.3 Family history of stroke; Z83.3 Family history of diabetes mellitus; Z86.74 Personal history of sudden cardiac arrest; Z91.19 Patient's noncompliance with other medical treatment and regimen; Z95.2 Presence of prosthetic heart valve; Z99.81 Dependence on supplemental oxygen; Z88.0 Allergy status to penicillin
CPT/HCPCS: 36415; 36569; 36600; 70490; 71045; 71250; 76604; 80048; 80053; 80076; 80307; 81001; 82805; 82962; 83605; 83735; 83880; 84100; 84132; 84443; 84484; 85007; 85025; 85027; 85610; 85730; 86850; 86900; 86901; 87040; 87070; 87081; 87086; 87205; 92610; 93005; 93306; 94002; 94003; 94640; 94660; 94761; 96374; 96375; 97110; 97116; 97163; 97530; 99152; A6257; C9113; J0330; J0610; J0696; J1815; J2001; J2185; J2250; J2405; J2704; J3480; J7060

== ENCOUNTER 2019-07-21 10:15 | Emergency (ER) | payer MEDICAID ==
[~2019-07-21] VITALS: Ht 160 cm; Wt 79.4 kg
[~2019-07-21 10:15] MED LIST changes: +APIX5TAB OR; +DIA5T PO; +DRON400T PO; +FURO1TAB33 PO; +LOSA25TA38 PO; -NOR10T GT; +POTA10TA51 PO
[2019-07-21 10:43] VITALS: BP 139/78
== END 2019-07-21 12:35 | disposition home or self-care (01) ==
LOC: ER 10:15
DX: I11.0 Hypertensive heart disease with heart failure (principal); I50.9 Heart failure, unspecified; Z76.0 Encounter for issue of repeat prescription; J44.9 Chronic obstructive pulmonary disease, unspecified; F17.210 Nicotine dependence, cigarettes, uncomplicated; Z79.899 Other long term (current) drug therapy; Z88.0 Allergy status to penicillin

== ENCOUNTER 2022-08-23 07:35 | Inpatient (IN) | payer MEDICAID ==
[2022-08-23] VITALS (12 sets, daily range): BP systolic 93–135; BP diastolic 36–78
[~2022-08-23] VITALS: Ht 167.6 cm; Wt 72.3 kg
[2022-08-23] MEDS ORDERED: DexAMETHasone SOD PHOS 10MG/1ML VIAL INJ IV ONE (08:30)
[2022-08-23] MEDS ORDERED: IPRATROPIUM BROM 0.5 MG/2.5ML INH SOL NEB ONE (08:30)
[2022-08-23] MEDS ORDERED: DOXYCYCLINE 100MG/250ML 250 ML IV ONE (08:30)
[2022-08-23] MEDS ORDERED: ASPirin 81 mg TAB PO ONE (08:30)
[2022-08-23] MEDS ORDERED: SODIUM CHLORIDE 0.9% 1,000 ML IV ONE ×2 (08:30)
[2022-08-23] MEDS ORDERED: ALBUTEROL SULF 2.5 MG/0.5ML(0.5%) NEB SOLN NEB ONE (08:30)
[2022-08-23 08:57] LABS: Basophils # (auto) 0.1 10 ^3/uL (0-0.2); Basophils % (auto) 0.5 % (0.0-2.0); Eosinophils # (auto) 0 10 ^3/uL (0-0.8); Eosinophils % (auto) 0.1 % (0.0-7.0); Hematocrit 47.6 % (36.0-46.0); Hemoglobin 14.9 g/dL (12.2-16.2); Lymphocytes # (auto) 3.1 10 ^3/uL (0.4-5.4); Lymphocytes % (auto) 26.4 % (10.0-50.0); Mean Corpuscular Hemoglobin 27.3 pg (28.0-32.0); Mean Corpuscular Hgb Conc. 31.4 g/dL (32.0-36.0); Mean Corpuscular Volume 87.2 fL (80.0-100.0); Monocytes # (auto) 0.9 10 ^3/uL (0-1.3); Monocytes % (auto) 7.7 % (0.0-12.0); Neutrophils # (auto) 7.8 10 ^3/uL (1.6-8.6); Neutrophils % (auto) 65.3 % (37.0-80.0); Nucleated Red Blood Cells % 0.3 %; Red Blood Cells 5.46 10^6/uL (4.0-5.20); Red Cell Distribution Width 14.3 % (11.8-14.3); White Blood Cell 11.9 10^3/uL (4.4-10.8)
[2022-08-23 09:09] LABS: Albumin 3.4 g/dL (3.4-5.0); BUN/Creatinine Ratio 13.4; Calcium 8.4 mg/dL (8.5-10.1); Potassium 5.3 mmol/L (3.5-5.1)
[2022-08-23 09:11] LABS: Bilirubin, Total 0.5 mg/dL (0.2-1.0); Total Protein 7.1 g/dL (6.4-8.2)
[2022-08-23] MEDS ORDERED: LORazepam 2MG/ML-1ML VIAL IV ONE (09:30)
[2022-08-23] MEDS ORDERED: FUROSEMIDE 40 MG/4 ML VIAL IV ONE (11:00)
[2022-08-23 11:13] LABS: INR 0.97 (0.9-1.15); Partial Thromboplastin Time 33.4 sec (24.6-33.4)
[2022-08-23 11:40] LABS: Urine Bacteria NONE SEEN /hpf (None Seen); Urine Blood Negative /uL (Negative); Urine Mucus FEW (None Seen); Urine Specific Gravity 1.022 (1.001-1.035); Urine WBC 10 /hpf (0 - 5)
[2022-08-23] MEDS ORDERED: MORPHINE SULFATE INJ 2 MG/ml SYRG IV PRN (11:45)
[2022-08-23] MEDS ORDERED: NITROGLYCERIN 0.4 MG SL TAB SL PRN (11:45)
[2022-08-23] MEDS ORDERED: REMDESIVIR PER PHARMACY 0 ML IV SCH (11:45)
[2022-08-23] MEDS ORDERED: ACETAMINOPHEN 500 MG TAB PO PRN (11:45)
[2022-08-23 12:51] LABS: Basophils # (auto) 0 10 ^3/uL (0-0.2); Basophils % (auto) 0.3 % (0.0-2.0); Eosinophils # (auto) 0 10 ^3/uL (0-0.8); Hematocrit 43.8 % (36.0-46.0); Hemoglobin 14.6 g/dL (12.2-16.2); Lymphocytes # (auto) 0.5 10 ^3/uL (0.4-5.4); Lymphocytes % (auto) 8.4 % (10.0-50.0); Mean Corpuscular Hemoglobin 27.4 pg (28.0-32.0); Mean Corpuscular Hgb Conc. 33.3 g/dL (32.0-36.0); Mean Corpuscular Volume 82.4 fL (80.0-100.0); Monocytes # (auto) 0.4 10 ^3/uL (0-1.3); Monocytes % (auto) 6.8 % (0.0-12.0); Neutrophils # (auto) 5.2 10 ^3/uL (1.6-8.6); Neutrophils % (auto) 84.5 % (37.0-80.0); Red Blood Cells 5.32 10^6/uL (4.0-5.20); White Blood Cell 6.1 10^3/uL (4.4-10.8)
[2022-08-23] MEDS ORDERED: IOHEXOL 350 MG/ML 100ML IJ ONE (12:52)
[2022-08-23] MEDS ORDERED: ALBUTEROL SULF 2.5 MG/0.5ML(0.5%) NEB SOLN NEB PRN (13:15)
[2022-08-23] MEDS ORDERED: IPRATROPIUM BROM 0.5 MG/2.5ML INH SOL NEB PRN (13:15)
[2022-08-23] MEDS ORDERED: PANTOPRAZOLE 40 MG/10 ML VIAL INJ IV ONE (13:15)
[2022-08-23 13:19] LABS: Albumin 3.5 g/dL (3.4-5.0); Magnesium 2.5 mg/dL (1.6-2.6); Potassium 4.1 mmol/L (3.5-5.1)
[2022-08-23 13:29] LABS: Thyroid Stimulating Hormone 0.36 uIU/mL (0.358-3.74)
[2022-08-23 13:30] LABS: BUN/Creatinine Ratio 18.3; Bilirubin, Total 0.6 mg/dL (0.2-1.0); CRP High Sensitivity 3.96 mg/dL (< 0.3); Total Protein 7.6 g/dL (6.4-8.2)
[2022-08-23] MEDS ORDERED: hydrALAZINE HCL 20 MG/ML VL IV PRN (13:30)
[2022-08-23 13:48] LABS: Cholesterol 62 mg/dL (< 200); HDL Cholesterol 46 mg/dL (40-59); LDL Cholesterol 15 mg/dL (< 100); Triglycerides 73 mg/dL (< 150)
[2022-08-23] MEDS ORDERED: REMDESIVIR 200 MG in NS 210ml LOADING DOSE ADULT IV ONE (15:00)
[2022-08-23] MEDS ORDERED: ALBUTEROL SULF 2.5 MG/0.5ML(0.5%) NEB SOLN NEB SCH (18:00)
[2022-08-23] MEDS ORDERED: IPRATROPIUM BROM 0.5 MG/2.5ML INH SOL NEB SCH (18:00)
[2022-08-23] MEDS: RANOLAZINE ER 500 MG TAB PO SCH (22:00)
[2022-08-23] MEDS ORDERED: ENOXAPARIN SOD 40 MG/0.4 ML SYRINGE SC SCH (22:00)
[2022-08-23] MEDS ORDERED: diazePAM 5 MG TAB PO SCH (22:00)
[2022-08-23] MEDS: CARVEDILOL 3.125 MG TAB PO SCH (22:00)
[2022-08-23] MEDS: BUDESONIDE (INHALATION) 180 MCG IH IN SCH (22:12)
[2022-08-23] MEDS: ALBUTEROL SULF HFA 90MCG INH 200DOSE IN PRN (22:14)
[2022-08-23] MEDS: ATORVASTATIN 20 MG TAB PO SCH (23:00)
[2022-08-23] MEDS: ENOXAPARIN SOD 80 MG/0.8ML SYRINGE SC SCH (23:03)
[2022-08-24] VITALS (37 sets, daily range): BP systolic 81–130; BP diastolic 31–84
[2022-08-24] MEDS: FUROSEMIDE 20 MG/2 ML VIAL IV SCH ×2 (06:00→18:38)
[2022-08-24] MEDS: BUDESONIDE (INHALATION) 180 MCG IH IN SCH ×2 (06:39→21:46)
[2022-08-24] MEDS: ALBUTEROL SULF HFA 90MCG INH 200DOSE IN PRN (06:39)
[2022-08-24] MEDS ORDERED: HYDR-4798 PO (07:19)
[2022-08-24 07:22] LABS: Basophils # (auto) 0 10 ^3/uL (0-0.2); Basophils % (auto) 0.3 % (0.0-2.0); Eosinophils # (auto) 0 10 ^3/uL (0-0.8); Eosinophils % (auto) 0.1 % (0.0-7.0); Lymphocytes # (auto) 1.2 10 ^3/uL (0.4-5.4); Lymphocytes % (auto) 17.5 % (10.0-50.0); Mean Corpuscular Hemoglobin 27.7 pg (28.0-32.0); Mean Corpuscular Hgb Conc. 33.3 g/dL (32.0-36.0); Mean Corpuscular Volume 83.2 fL (80.0-100.0); Monocytes # (auto) 0.5 10 ^3/uL (0-1.3); Monocytes % (auto) 7.7 % (0.0-12.0); Neutrophils # (auto) 4.9 10 ^3/uL (1.6-8.6); Neutrophils % (auto) 74.4 % (37.0-80.0); Nucleated Red Blood Cells % 0.2 %; Red Blood Cells 5.05 10^6/uL (4.0-5.20); Red Cell Distribution Width 13.8 % (11.8-14.3); White Blood Cell 6.6 10^3/uL (4.4-10.8)
[2022-08-24 07:57] LABS: Calcium 8.4 mg/dL (8.5-10.1)
[2022-08-24 08:01] LABS: BUN/Creatinine Ratio 19.7; Bilirubin, Total 0.9 mg/dL (0.2-1.0)
[2022-08-24] MEDS ORDERED: DexAMETHasone SOD PHOS 10MG/1ML VIAL INJ IV SCH (10:00)
[2022-08-24] MEDS ORDERED: LOSARTAN POTASSIUM 25 MG TAB PO SCH (10:00)
[2022-08-24] MEDS: PANTOPRAZOLE 40 MG/10 ML VIAL INJ IV SCH (10:40)
[2022-08-24] MEDS: AZITHROMYCIN 500MG/ 250ML 250 ML IV SCH (10:41)
[2022-08-24] MEDS: LOSARTAN POTASSIUM 25 MG TAB PO SCH (10:42)
[2022-08-24] MEDS: RANOLAZINE ER 500 MG TAB PO SCH ×2 (10:42→22:05)
[2022-08-24] MEDS: ASPirin-EC 81 mg tab PO SCH (10:42)
[2022-08-24] MEDS: CARVEDILOL 3.125 MG TAB PO SCH ×2 (10:42→21:54)
[2022-08-24] MEDS: ASCORBIC ACID 1,000 MG TAB PO SCH (10:43)
[2022-08-24] MEDS: ENOXAPARIN SOD 80 MG/0.8ML SYRINGE SC SCH (10:43)
[2022-08-24] MEDS: CHOLECALCIFEROL (VITD3) 2,000 UNIT CAP/TAB PO SCH (10:43)
[2022-08-24] MEDS ORDERED: FUROSEMIDE 20 MG/2 ML VIAL IV ONE (11:00)
[2022-08-24] MEDS: ALPRAZolam 0.25 MG TAB PO PRN ×2 (11:53→22:04)
[2022-08-24] MEDS: HYDROcodone-ACET 10/325MG TAB PO PRN ×2 (11:53→22:04)
[2022-08-24] MEDS ORDERED: REMDESIVIR 100mg 100 MG in SODIUM CHL 0.9% 230 ML IV SCH (15:00)
[2022-08-24] MEDS: APIXABAN 5 MG TAB PO SCH (22:03)
[2022-08-24] MEDS: ATORVASTATIN 20 MG TAB PO SCH (22:04)
[2022-08-25] VITALS (37 sets, daily range): BP systolic 94–122; BP diastolic 49–74
[2022-08-25 06:56] LABS: Basophils # (auto) 0 10 ^3/uL (0-0.2); Basophils % (auto) 0.1 % (0.0-2.0); Eosinophils # (auto) 0 10 ^3/uL (0-0.8); Eosinophils % (auto) 0.1 % (0.0-7.0); Hematocrit 41.5 % (36.0-46.0); Hemoglobin 14.1 g/dL (12.2-16.2); Lymphocytes # (auto) 0.9 10 ^3/uL (0.4-5.4); Lymphocytes % (auto) 8.2 % (10.0-50.0); Mean Corpuscular Hgb Conc. 33.9 g/dL (32.0-36.0); Mean Corpuscular Volume 82.7 fL (80.0-100.0); Monocytes # (auto) 0.8 10 ^3/uL (0-1.3); Monocytes % (auto) 7.1 % (0.0-12.0); Neutrophils % (auto) 84.5 % (37.0-80.0); Nucleated Red Blood Cells % 0.1 %; Red Blood Cells 5.02 10^6/uL (4.0-5.20); Red Cell Distribution Width 13.8 % (11.8-14.3); White Blood Cell 10.7 10^3/uL (4.4-10.8)
[2022-08-25] MEDS: FUROSEMIDE 20 MG/2 ML VIAL IV SCH ×2 (07:00→19:43)
[2022-08-25 07:21] LABS: Albumin 3.3 g/dL (3.4-5.0); BUN/Creatinine Ratio 34.5; Calcium 8.6 mg/dL (8.5-10.1)
[2022-08-25 07:24] LABS: Bilirubin, Total 0.6 mg/dL (0.2-1.0); Total Protein 6.6 g/dL (6.4-8.2)
[2022-08-25] MEDS: HYDROcodone-ACET 10/325MG TAB PO PRN ×2 (07:25→16:30)
[2022-08-25] MEDS: ALPRAZolam 0.25 MG TAB PO PRN (07:26)
[2022-08-25] MEDS: PANTOPRAZOLE 40 MG/10 ML VIAL INJ IV SCH (09:39)
[2022-08-25] MEDS: AZITHROMYCIN 500MG/ 250ML 250 ML IV SCH (09:40)
[2022-08-25] MEDS: CARVEDILOL 3.125 MG TAB PO SCH ×2 (09:40→22:00)
[2022-08-25] MEDS: LOSARTAN POTASSIUM 25 MG TAB PO SCH (09:40)
[2022-08-25] MEDS: CHOLECALCIFEROL (VITD3) 2,000 UNIT CAP/TAB PO SCH (09:41)
[2022-08-25] MEDS: APIXABAN 5 MG TAB PO SCH ×2 (09:41→21:52)
[2022-08-25] MEDS: ASCORBIC ACID 1,000 MG TAB PO SCH (09:41)
[2022-08-25] MEDS: POTASSIUM CHL 10 Meq TABLET PO SCH (09:41)
[2022-08-25] MEDS: RANOLAZINE ER 500 MG TAB PO SCH ×2 (09:41→21:52)
[2022-08-25] MEDS: ASPirin-EC 81 mg tab PO SCH (09:41)
[2022-08-25] MEDS ORDERED: DexAMETHasone SOD PHOS 10MG/1ML VIAL INJ IV SCH (10:00)
[2022-08-25] MEDS: BUDESONIDE (INHALATION) 180 MCG IH IN SCH ×2 (10:06→18:44)
[2022-08-25] MEDS: ALBUTEROL SULF HFA 90MCG INH 200DOSE IN PRN ×2 (10:54→18:44)
[2022-08-25] MEDS: ZOLPIDEM TARTRATE 5 MG TAB PO PRN (21:53)
[2022-08-25] MEDS: ATORVASTATIN 20 MG TAB PO SCH (21:53)
[2022-08-26] VITALS (23 sets, daily range): BP systolic 97–178; BP diastolic 53–104
[2022-08-26 05:34] LABS: Calcium 8.6 mg/dL (8.5-10.1); Potassium 4.2 mmol/L (3.5-5.1)
[2022-08-26] MEDS: FUROSEMIDE 20 MG/2 ML VIAL IV SCH (06:24)
[2022-08-26] MEDS: HYDROcodone-ACET 10/325MG TAB PO PRN ×2 (06:25→23:07)
[2022-08-26] MEDS: ALPRAZolam 0.25 MG TAB PO PRN (06:25)
[2022-08-26] MEDS: AZITHROMYCIN 500MG/ 250ML 250 ML IV SCH (09:42)
[2022-08-26] MEDS: CARVEDILOL 3.125 MG TAB PO SCH ×2 (09:44→22:25)
[2022-08-26] MEDS: LOSARTAN POTASSIUM 25 MG TAB PO SCH (09:44)
[2022-08-26] MEDS: ASPirin-EC 81 mg tab PO SCH (09:44)
[2022-08-26] MEDS: POTASSIUM CHL 10 Meq TABLET PO SCH (09:45)
[2022-08-26] MEDS: APIXABAN 5 MG TAB PO SCH ×2 (09:45→22:25)
[2022-08-26] MEDS: ASCORBIC ACID 1,000 MG TAB PO SCH (09:46)
[2022-08-26] MEDS: RANOLAZINE ER 500 MG TAB PO SCH ×2 (09:46→22:25)
[2022-08-26] MEDS: CHOLECALCIFEROL (VITD3) 2,000 UNIT CAP/TAB PO SCH (09:46)
[2022-08-26] MEDS: PANTOPRAZOLE 40 MG TAB PO SCH (09:46)
[2022-08-26] MEDS ORDERED: DexAMETHasone 4 MG TAB PO SCH (10:00)
[2022-08-26] MEDS: BUDESONIDE (INHALATION) 180 MCG IH IN SCH ×2 (10:47→22:00)
[2022-08-26] MEDS: ALBUTEROL SULF HFA 90MCG INH 200DOSE IN PRN ×2 (10:47→22:32)
[2022-08-26] MEDS: ATORVASTATIN 20 MG TAB PO SCH ×2 (22:00→22:24)
[2022-08-26] MEDS: ZOLPIDEM TARTRATE 5 MG TAB PO PRN (23:06)
[2022-08-27] VITALS (14 sets, daily range): BP systolic 90–146; BP diastolic 50–84
[2022-08-27 06:36] LABS: Basophils # (auto) 0 10 ^3/uL (0-0.2); Basophils % (auto) 0.1 % (0.0-2.0); Eosinophils # (auto) 0 10 ^3/uL (0-0.8); Hematocrit 43.6 % (36.0-46.0); Hemoglobin 14.6 g/dL (12.2-16.2); Lymphocytes # (auto) 0.8 10 ^3/uL (0.4-5.4); Lymphocytes % (auto) 9.3 % (10.0-50.0); Mean Corpuscular Hemoglobin 27.6 pg (28.0-32.0); Mean Corpuscular Hgb Conc. 33.6 g/dL (32.0-36.0); Mean Corpuscular Volume 82.1 fL (80.0-100.0); Monocytes # (auto) 0.7 10 ^3/uL (0-1.3); Monocytes % (auto) 8.3 % (0.0-12.0); Neutrophils # (auto) 7.3 10 ^3/uL (1.6-8.6); Neutrophils % (auto) 82.3 % (37.0-80.0); Nucleated Red Blood Cells % 0.1 %; Red Cell Distribution Width 13.8 % (11.8-14.3); White Blood Cell 8.8 10^3/uL (4.4-10.8)
[2022-08-27 06:51] LABS: Albumin 3.3 g/dL (3.4-5.0); BUN/Creatinine Ratio 39.1; Calcium 8.7 mg/dL (8.5-10.1); Potassium 3.5 mmol/L (3.5-5.1)
[2022-08-27 07:00] LABS: Bilirubin, Total 0.6 mg/dL (0.2-1.0); CRP High Sensitivity 1.95 mg/dL (< 0.3); Total Protein 7.4 g/dL (6.4-8.2)
[2022-08-27] MEDS: HYDROcodone-ACET 10/325MG TAB PO PRN ×2 (08:28→17:47)
[2022-08-27] MEDS: FUROSEMIDE 40 MG TAB PO SCH ×3 (10:00→11:54)
[2022-08-27] MEDS: BUDESONIDE (INHALATION) 180 MCG IH IN SCH ×2 (10:38→19:51)
[2022-08-27] MEDS: AZITHROMYCIN 500MG/ 250ML 250 ML IV SCH (10:57)
[2022-08-27] MEDS: POTASSIUM CHL 10 Meq TABLET PO SCH (10:58)
[2022-08-27] MEDS: ASCORBIC ACID 1,000 MG TAB PO SCH (10:58)
[2022-08-27] MEDS: RANOLAZINE ER 500 MG TAB PO SCH ×2 (10:58→20:38)
[2022-08-27] MEDS: PANTOPRAZOLE 40 MG TAB PO SCH (10:58)
[2022-08-27] MEDS: APIXABAN 5 MG TAB PO SCH ×2 (10:58→20:38)
[2022-08-27] MEDS: ASPirin-EC 81 mg tab PO SCH (10:58)
[2022-08-27] MEDS: LOSARTAN POTASSIUM 25 MG TAB PO SCH (10:59)
[2022-08-27] MEDS: CARVEDILOL 3.125 MG TAB PO SCH ×2 (11:00→20:54)
[2022-08-27] MEDS: CHOLECALCIFEROL (VITD3) 2,000 UNIT CAP/TAB PO SCH (11:01)
[2022-08-27] MEDS ORDERED: FUROSEMIDE 40 MG/4 ML VIAL IV ONE (11:15)
[2022-08-27] MEDS ORDERED: POTASSIUM CHL 10 Meq TABLET PO ONE (11:15)
[2022-08-27 15:30] LABS: Hepatitis A Ab IgM Negative
[2022-08-27 15:31] LABS: Hepatitis B Core IgM Negative; Hepatitis C Antibody Negative (Negative)
[2022-08-27] MEDS: ALPRAZolam 0.25 MG TAB PO PRN (15:53)
[2022-08-27] MEDS: ALBUTEROL SULF HFA 90MCG INH 200DOSE IN PRN (19:52)
[2022-08-27] MEDS: ATORVASTATIN 20 MG TAB PO SCH (20:37)
[2022-08-27] MEDS: ZOLPIDEM TARTRATE 5 MG TAB PO PRN (20:53)
[2022-08-28 05:00] VITALS: BP 104/51
== END 2022-08-28 07:49 | disposition left against medical advice (07) | DRG 137 ==
LOC: ER 07:35 → EDBD 07:35 → TELE 12:00 → TELE-WESTW 17:17 → DOU IN ICU 20:10 → TELE-WESTW 08-27 23:40
PROVIDERS: ADMIT Registered Nurse; ATTEND Internal Medicine
PROC: 5A0945A Assistance with Respiratory Ventilation, 24-96 Consecutive Hours, High Flow/Velocity Cannula (ICD-10-PCS; principal; 2022-08-23)
DX: U07.1 COVID-19 (principal); J96.21 Acute and chronic respiratory failure with hypoxia; J12.82 Pneumonia due to coronavirus disease 2019; I50.43 Acute on chronic combined systolic (congestive) and diastolic (congestive) heart failure; J45.901 Unspecified asthma with (acute) exacerbation; D68.69 Other thrombophilia; I27.20 Pulmonary hypertension, unspecified; I21.A1 Myocardial infarction type 2; J44.0 Chronic obstructive pulmonary disease with (acute) lower respiratory infection; E11.21 Type 2 diabetes mellitus with diabetic nephropathy; Z53.29 Procedure and treatment not carried out because of patient's decision for other reasons; Z90.49 Acquired absence of other specified parts of digestive tract; Z28.21 Immunization not carried out because of patient refusal; I11.0 Hypertensive heart disease with heart failure; R00.0 Tachycardia, unspecified; R79.89 Other specified abnormal findings of blood chemistry; J44.1 Chronic obstructive pulmonary disease with (acute) exacerbation; E78.5 Hyperlipidemia, unspecified; G89.29 Other chronic pain; I48.0 Paroxysmal atrial fibrillation; Z79.82 Long term (current) use of aspirin; Z83.3 Family history of diabetes mellitus; Z28.310 Unvaccinated for COVID-19; Z91.199 Patient's noncompliance with other medical treatment and regimen due to unspecified reason; Z95.810 Presence of automatic (implantable) cardiac defibrillator; Z88.0 Allergy status to penicillin
CPT/HCPCS: 36415; 36600; 71045; 71275; 76700; 80048; 80053; 80061; 80074; 81001; 82306; 82728; 82805; 83036; 83605; 83615; 83735; 83880; 84443; 84484; 85025; 85379; 85610; 85730; 86141; 87426; 93005; 93306; 94640; 96365; 96375; 97163; 99291; C9113; G0378; J1100; J3490

== ENCOUNTER 2024-09-14 13:20 | Inpatient (IN) | payer MEDICAID ==
[~2024-09-14] VITALS: Ht 160 cm; Wt 60.1 kg
[~2024-09-14 13:20] MED LIST changes: +HYDR-4798 PO; +LEVO750T40 PO; -LEVO750T64 PO; +LOSA-533 PO; -LOSA25TA38 PO; +POTA-36 PO; -POTA10TA51 PO; -SIMV-13 PO; +SIMV40TA18 PO
--- NOTE | 2024-09-14 13:31 | ED.PDOC ---
SOB-HPI HPI Comments 64y F who presents to the ED via EMS for chief complaint of shortness of breath. Pt states she has been having exacerbation of COPD and CHF since last night PM after recently returning from [place], [place]. Pt states she used her albuterol inhaler last night but states it and pt has no relief. Pt states she continued to fell short of and started to have chest pain earlier this AM and called EMS to the scene. Upon EMS arrival, pt has vitals checked and states 02 sat was 84% on room air and pt was given breathing treatment and placed on 6 L via simple mask and pt 02 sat amie to 96% and pt was brought to the ED for further evaluation; Pt now in the ED, states she also has been having associated nausea and vomiting. Pt otherwise has noted history of PE, AFIB on eliquis, HTN and LA. Pt states she has been to [facility] in the past for similar symptoms and was hospitalized. Pt otherwise denies any other symptoms at this time. Chief Complaint: shortness of breath Time Seen by MD: 13:27 Primary Care Provider: ELLEN Information Source: Patient, Emergency Med Personnel Mode of Arrival: EMS Brought in by: EMS Severity: Moderate Timing: Hours Duration: Since onset Context: At Rest, With Light Exertion PE Risk Factors: None History of: COPD, CHF, DVT/PE Prehospital treatment: Breathing Tx, Oxygen Modifying Factors: Exertion, Inhaler Associated Signs and Symptoms: Chest Pain Quality: Pressure Past Medical History PAST MEDICAL HISTORY: AFIB, CHF, COPD, HTN, LA Surgical History: Appendectomy, Pacemaker SUPPORT TEACHER History: No Pertinent SUPPORT TEACHER History Family History Family History: No family hx of Cancer, No family hx of DM, No family hx of Stroke Social History Smoker: Non-Smoker Alcohol: Denies ETOH Use Drugs: Denies Drug Use Lives In: Home Constitutional: denies: chills, diaphoresis, fatigue, fever, malaise, sweats, weakness, others EENTM: denies: blurred vision, double vision, ear bleeding, ear discharge, ear drainage, ear pain, ear ringing, eye pain, eye redness, hearing loss, mouth pain, mouth swelling, nasal discharge, nose bleeding, nose congestion, nose pain, photophobia, tearing, throat pain, throat swelling, voice changes, others Respiratory: reports: SOB at rest, shortness of breath; denies: cough, hemoptysis, orthopnea, SOB with excertion, stridor, wheezing, others Cardiovascular: reports: chest pain; denies: dizzy spells, diaphoresis, Dyspnea on exertion, edema, irregular heart beat, left arm pain, lightheadedness, palpitations, PND, syncope, others Gastrointestinal: reports: nausea, vomiting; denies: abdomen distended, abdominal pain, blood streaked bowels, constipated, diarrhea, dysphagia, difficulty swallowing, hematemesis, melena, poor appetite, poor fluid intake, rectal bleeding, rectal pain, others Genitourinary: denies: abnormal vagina bleeding, burning, dyspareunia, dysuria, flank pain, frequency, hematuria, incontinence, pain, , vagina discharge, urgency, others Neurological: denies: dizziness, fainting, headache, left sided numbness, left sided weakness, numbness, paresthesia, pre-existing deficit, right sided numbness, right sided weakness, seizure, speech problems, tingling, tremors, weakness, others Musculoskeletal: denies: back pain, gout, joint pain, joint swelling, muscle pain, muscle stiffness, neck pain, others Integumetry: denies: bruises, change in color, change in hair/nails, dryness, laceration, lesions, lumps, rash, wounds, others Allergic/Immunocompromised: denies: Difficulty Healing, Frequent Infections, Hives, Itching, others Hematologic/Lymphatic: denies: anemia, blood clots, easy bleeding, easy bruising, swollen glands, others Endocrine: denies: excessive hunger, excessive sweating, excessive thirst, excessive urination, flushing, intolerance to cold, intolerance to heat, unexplained weight gain, unexplained weight loss, others Psychiatric: denies: anxiety, bipolar disorder, depression, hopeless, panic disorder, schizophrenia, sleepless, suicidal, others All Other Systems: Reviewed and Negative Physical Exam General Appearance: Moderate Distress HEENT: Normal ENT Inspection, Pharynx Normal, TMs Normal Neck: Full Range of Motion, Non-Tender, Normal, Normal Inspection Respiratory: Accessory Muscle Use, Chest Non-Tender, Decreased Breath Sounds, Respiratory Distress, Wheezing Cardiovascular: No Edema, No JVD, No Murmur, No Gallop, Tachycardia Breast Exam: Deferred Gastrointestinal: No Organomegaly, Non Tender, No Pulsatile Mass, Normal Bowel Sounds, Soft Genitalia: Deferred Pelvic: Deferred Rectal: Deferred Extremities: No calf tenderness, Normal capillary refill, Normal inspection, Normal range of motion, Non-tender, No pedal edema Musculoskeletal : Apperance: Normal Neurologic: Alert, gear straightener II-XII nml as Tested, No Motor Deficits, Normal Affect, Normal Mood, No Sensory Deficits Cerebellar Function: Normal Reflexes: Normal Skin: Dry, Normal Color, Warm Lymphatic: No Adenopathy EKG EKG : Pulse Rate (adult): 84 [place]: Normal Cardiac Rhythm: NSR Block: None Hypertrophy: None ST: Normal Was a procedure done? Was a procedure done?: No Differential Dx Differential Diagnosis: Bronchitis, CHF, COPD, Myocardial infarction, Pneumonia, Pulmonary Embolism, Respiratory Distress, URI Comments COVID, Influenza A and B X-Ray, Labs, Meds, VS Vital Signs Date Time Temp Pulse Resp B/P (MAP) Pulse Ox O2 Delivery O2 Flow Rate FiO2 09/14/24 14:49 100.2 09/14/24 14:00 100.2 81 15 122/53 (76) 94 100.2 09/14/24 14:00 81 15 94 Nasal Cannula* 6 44 09/14/24 13:53 24 88 Nasal Cannula* 6 44 09/14/24 13:26 84 09/14/24 13:25 98.7 86 24 109/65 (80) 92 09/14/24 13:25 24 92 Simple Mask* 6 50 Lab Test 09/14/24 14:30 09/14/24 13:06 Range/Units Lactic Acid Level 1.7 0.4-2.0 mmol/L White Blood Count 7.0 4.4-10.8 10^3/uL Red Blood Count 4.48 4.0-5.20 10^6/uL Hemoglobin 10.7 L 12.2-16.2 g/dL Hematocrit 33.6 L 36.0-46.0 % Mean Corpuscular Volume 75.1 L 80.0-100.0 fL Mean Corpuscular Hemoglobin 23.9 L 28.0-32.0 pg Mean Corpuscular Hemoglobin Concent 31.8 L 32.0-36.0 g/dL Red Cell Distribution Width 16.2 H 11.8-14.3 % Platelet Count 210 140-450 10^3/uL Mean Platelet Volume 6.9 6.9-10.8 fL Neutrophils (%) (Auto) 83.9 H 37.0-80.0 % Lymphocytes (%) (Auto) 4.7 L 10.0-50.0 % Monocytes (%) (Auto) 10.6 0.0-12.0 % Eosinophils (%) (Auto) 0.4 0.0-7.0 % Basophils (%) (Auto) 0.4 0.0-2.0 % Neutrophils # (Auto) 5.9 1.6-8.6 10 ^3/uL Lymphocytes # (Auto) 0.3 L 0.4-5.4 10 ^3/uL Monocytes # (Auto) 0.7 0-1.3 10 ^3/uL Eosinophils # (Auto) 0 0-0.8 10 ^3/uL Basophils # (Auto) 0 0-0.2 10 ^3/uL Nucleated Red Blood Cells 0.1 % Sodium Level 143 136-145 mmol/L Potassium Level 4.4 3.5-5.1 mmol/L Chloride Level 107 98-107 mmol/L Carbon Dioxide Level 27 20-31 mmol/L Anion Gap 9 5-15 Blood Urea Nitrogen 16 9-23 mg/dL Creatinine 0.78 0.550-1.02 mg/dL Glomerular Filtration Rate Calc 86 >90 mL/min BUN/Creatinine Ratio 20.5 H 10.0-20.0 Serum Glucose 95 74-106 mg/dL Calcium Level 8.6 L 8.7-10.4 mg/dL B-Type Natriuretic Peptide 430.29 0-100 pg/mL Current Medications Medications (Trade) Dose Ordered Sig/[facility] Route Start Time Stop Time Status Last Admin Methylprednisolone Sodium Succinate (Solu Medrol) 125 mg ONCE ONCE IV 09/14/24 13:30 09/14/24 13:31 DC 09/14/24 14:03 Ipratropium Story (Atrovent Medneb) 1 mg ONCE ONCE N 09/14/24 13:30 09/14/24 13:31 DC 09/14/24 13:51 Albuterol (Ventolin Medneb) 10 mg ONCE ONCE N 09/14/24 13:30 09/14/24 13:31 DC 09/14/24 13:51 Acetaminophen (Tylenol Tablet) 650 mg ONCE ONCE PO 09/14/24 14:15 09/14/24 14:16 DC 09/14/24 14:49 IV Hep-Lock was established The CBC shows anemia with a hemoglobin of 10.7 and hematocrit of 32.6 The chemistry panel is within normal limits The BNP is 430.29 The patient was given a continuous breathing treatment of albuterol and Atrovent The patient was given Solu-Medrol 125 mg IV push The patient was given acetaminophen 650 mg by mouth At this time, the patient was being admitted with a diagnosis of COPD exacerbation and CHF We discussed the findings with the patient and she is in agreement with the management. Critical care involves bedside management as well as interpretation is labs and images Images Reviewed?: Images reviewed and evaluated by me Time of 1ST Reevaluation: 14:00 Reevaluation 1ST: Unchanged Patient Education/Counseling: Diagnosis, Treatment, Prognosis Family Education/Counseling: No Family Present Departure 1 Departure Time of Disposition: 15:30 Impression: Primary Impression: Acute on chronic diastolic (congestive) heart failure Additional Impression: COPD exacerbation Disposition: ADMITTED INPATIENT Admit to: Tele Condition: Fair Critical Care Note Critical Care Time?: Yes (55 min-critical care time only) Stability Stability form required: Yes Unstable for transfer: Telemetry monitoring (Telemetry monitoring required), ED Physician Assesment (Clinical assesment) Heart Score Heart Score: Heart Score Response (Comments) Value History Moderate Suspicious 1 EKG Normal 0 Age 45-64 1 Risk Factors >3 or Hx ASHD 2 Troponin Normal limit 0 Total 4 I personally scribed for TEE DAMIAN MD ([email or web address]) on 09/14/24 at 13:31. Electronically submitted by Magdi [email or web address]). TEE DAMIAN MD Sep 14, 2024 13:31
[2024-09-14 13:45] LABS: Basophils # (auto) 0 10 ^3/uL (0-0.2); Eosinophils # (auto) 0 10 ^3/uL (0-0.8); Eosinophils % (auto) 0.4 % (0.0-7.0); Lymphocytes # (auto) 0.3 10 ^3/uL (0.4-5.4); Monocytes # (auto) 0.7 10 ^3/uL (0-1.3); Neutrophils # (auto) 5.9 10 ^3/uL (1.6-8.6)
[2024-09-14 13:47] LABS: Basophils % (auto) 0.4 % (0.0-2.0); Hematocrit 33.6 % (36.0-46.0); Hemoglobin 10.7 g/dL (12.2-16.2); Lymphocytes % (auto) 4.7 % (10.0-50.0); Mean Corpuscular Hemoglobin 23.9 pg (28.0-32.0); Mean Corpuscular Hgb Conc. 31.8 g/dL (32.0-36.0); Mean Corpuscular Volume 75.1 fL (80.0-100.0); Monocytes % (auto) 10.6 % (0.0-12.0); Neutrophils % (auto) 83.9 % (37.0-80.0); Nucleated Red Blood Cells % 0.1 %; Platelet Count (auto) 210 10^3/uL (140-450); Red Blood Cells 4.48 10^6/uL (4.0-5.20); Red Cell Distribution Width 16.2 % (11.8-14.3)
[2024-09-14] MEDS: ALBUTEROL SULF 2.5 MG/0.5ML(0.5%) NEB SOLN HHN ONE (13:51)
[2024-09-14] MEDS: IPRATROPIUM BROM 0.5 MG/2.5ML INH SOL HHN ONE (13:51)
[2024-09-14 14:00] VITALS: PULSE 81; RESP 15; O2SAT 94
[2024-09-14 14:01] LABS: Potassium 4.4 mmol/L (3.5-5.1); Sodium 143 mmol/L (136-145)
[2024-09-14 14:02] LABS: Anion Gap 9 (5-15); Carbon Dioxide 27 mmol/L (20-31)
[2024-09-14] MEDS: methylPREDNISolone SOD SUCC 125 MG/2 ML VL IV ONE (14:03)
[2024-09-14 14:05] LABS: Calcium 8.6 mg/dL (8.7-10.4); Chloride 107 mmol/L (98-107)
[2024-09-14 14:07] LABS: BUN/Creatinine Ratio 20.5 (10.0-20.0); Blood Urea Nitrogen 16 mg/dL (9-23); Glucose 95 mg/dL (74-106)
[2024-09-14] MEDS: ACETAMINOPHEN 325 MG TAB PO ONE (14:49)
--- NOTE | 2024-09-14 15:05 | DVH ---
CHEST RADIOGRAPH Indication: sob Technique: Single frontal view of the chest was obtained Comparison: CXRP on DOS: 08/27/22, CHEST PORTABLE on DOS: 08/27/22, CXRP on DOS: 08/26/22 FINDINGS: Lines and Tubes: None Lungs: Diffuse interstitial prominence with obscuration of the left hemidiaphragm and indistinctness of the right hemidiaphragm. No pneumothorax. Cardiomediastinal contours: Moderate cardiomegaly Bones: No acute osseous abnormality. IMPRESSION: Moderate cardiomegaly with findings suggestive of congestive heart failure. Possible small left with trace right-sided pleural effusion. Underlying infectious process can not be excluded.
[2024-09-14] MEDS: FUROSEMIDE 40 MG/4 ML VIAL IV ONE (15:59)
[2024-09-14] MEDS: HYDROcodone-ACET 5/325MG TAB PO ONE (15:59)
[2024-09-14 16:40] LABS: Urine Bacteria None Seen /hpf (None Seen)
[2024-09-14 16:56] LABS: Urine Blood Negative /uL (Negative); Urine Clarity Clear (Clear); Urine Color Light-Yellow (Yellow); Urine Mucus FEW (None Seen); Urine Protein, UAD Negative (Negative); Urine Specific Gravity 1.009 (1.001-1.035); Urine Urobilinogen Normal (Negative); Urine WBC 3 /hpf (0 - 5); Urine WBC Clumps PRESENT /hpf (None Seen); Urine pH 6.5 (5.0-9.0)
--- NOTE | 2024-09-14 17:01 | ECG ---
[facility] Test Date: 2024-09-14 Test Time: 13:26:06 Pat Name: ISSAC ENRIQUEZ Department: ER Room: Gender: F Physically Impaired Teacher: DAISY : 1960 Requested By: TEE DAMIAN Order Number: [id number] Reading MD: Measurements Intervals [place] Rate: 84 P: 56 PA: 158 QRS: 121 QRSD: 149 T: 225 QT: 411 QTc: 486 Interpretive Statements Sinus rhythm Nonspecific intraventricular conduction delay Probable lateral infarct, age indeterminate Probable anteroseptal infarct, recent Please click the below link to view image of tracing.
[2024-09-14] MEDS ORDERED: DOCUSATE SOD 100 MG CAP PO PRN (18:00)
[2024-09-14] MEDS ORDERED: MAALOX PLUS or MAALOX 30 ML PO PRN (18:00)
[2024-09-14] MEDS ORDERED: TEMAZEPAM 15 MG CAP PO PRN (18:00)
--- NOTE | 2024-09-14 18:21 | DVHHP2 ---
History of Present Illness Reason for Visit: Shortness of breath History of Present Illness 64-year-old morbidly obese female with a past medical history of CHF COPD hypertension CO comes to the ED with complaints of stated COPD and CHF exacerbation patient states that she was recently in [place] and afterwards came back home and hit started feeling sick patient has of now was desaturating not feeling very well having trouble catch her breath and was placed on oxygen supplementation in the ED patient was recommended for ED evaluation and treatment and management and an inpatient setting Cardiovascular: AFIB, CAD, CHF, HTN, CO Pulmonary: COPD Review of Systems Constitutional: Yes: Weakness; No: Fever, Chills, Sweats, Malaise, Other Eyes: No: Pain, Vision change, Conjunctivae inflammation, Eyelid inflammation, Other, Redness ENT: No: Ear pain, Ear discharge, Nose pain, Nose discharge, Nose congestion, Mouth pain, Mouth swelling, Throat pain, Throat swelling, Other Respiratory: Shortness of breath; No: Cough, Dry, SOB with excertion, Wheezing, Hemoptysis, Pleuritic Pain, Sputum, Wheezing, Other Cardiovascular: Chest Pain, Palpitations; No: Orthopnea, Paroxysmal Noc. Dyspnea, Edema, Lt Headedness, Other Gastrointestinal: No: Nausea, Vomiting, Abdominal Pain, Diarrhea, Constipation, Melena, Hematochezia, Other Genitourinary: No Dysuria, No Frequency, No Incontinence, No Hematuria, No Retention, No Other Musculoskeletal: No: other, neck pain, shoulder pain, arm pain, back pain, hand pain, leg pain, foot pain Skin: No: Rash, Lesions, Jaundice, Bruising, Other Neurological: No: Weakness, Numbness, Incoordination, Change in speech, Confusion, Seizures, Other Allergies: Coded Allergies: Penicillins (Verified Allergy, Unknown, 06/29/18) Exam Vital Signs Vital Signs Date Time Temp Pulse Resp B/P (MAP) Pulse Ox O2 Delivery O2 Flow Rate FiO2 09/14/24 16:00 88 18 113/48 (69) 90 09/14/24 15:51 99.9 09/14/24 14:00 Nasal Cannula* 6 44 General Appearance: Alert, Oriented X3 HEENT: Atraumatic, PERRLA Respiratory: Clear to auscultation, Normal air movement Cardiovascular: Regular rate, Normal S1, Normal S2 Abdominal: Normal bowel sounds, No tenderness Extremities: No clubbing, No cyanosis, No edema (Edema noted) Skin: No rashes, No breakdown, No significant lesion Neuro: Normal gait, Normal speech Psych/Mental Status: Mood NL Labs/Xrays Labs Test 09/14/24 16:00 09/14/24 14:30 09/14/24 13:06 Range/Units Urine Color Light-yellow Yellow Urine Clarity Clear Clear Urine pH 6.5 5.0-9.0 Urine Specific [place] 1.009 1.001-1.035 Urine Protein Negative Negative Urine Ketones Negative Negative Urine Blood Negative Negative /uL Urine Nitrite Negative Negative Urine Bilirubin Negative Negative Urine Urobilinogen Normal Negative mg/dL Urine Leukocyte Esterase Negative Negative /uL Urine RBC 1 0 - 4 /hpf Urine WBC 3 0 - 5 /hpf Urine WBC Clumps Present None Seen /hpf Urine Squamous Epithelial Cells Few <5 /hpf Urine Bacteria None seen None Seen /hpf Urine Mucus Few None Seen Urine Glucose Normal Normal mg/dL Lactic Acid Level 1.7 0.4-2.0 mmol/L White Blood Count 7.0 4.4-10.8 10^3/uL Red Blood Count 4.48 4.0-5.20 10^6/uL Hemoglobin 10.7 L 12.2-16.2 g/dL Hematocrit 33.6 L 36.0-46.0 % Mean Corpuscular Volume 75.1 L 80.0-100.0 fL Mean Corpuscular Hemoglobin 23.9 L 28.0-32.0 pg Mean Corpuscular Hemoglobin Concent 31.8 L 32.0-36.0 g/dL Red Cell Distribution Width 16.2 H 11.8-14.3 % Platelet Count 210 140-450 10^3/uL Mean Platelet Volume 6.9 6.9-10.8 fL Neutrophils (%) (Auto) 83.9 H 37.0-80.0 % Lymphocytes (%) (Auto) 4.7 L 10.0-50.0 % Monocytes (%) (Auto) 10.6 0.0-12.0 % Eosinophils (%) (Auto) 0.4 0.0-7.0 % Basophils (%) (Auto) 0.4 0.0-2.0 % Neutrophils # (Auto) 5.9 1.6-8.6 10 ^3/uL Lymphocytes # (Auto) 0.3 L 0.4-5.4 10 ^3/uL Monocytes # (Auto) 0.7 0-1.3 10 ^3/uL Eosinophils # (Auto) 0 0-0.8 10 ^3/uL Basophils # (Auto) 0 0-0.2 10 ^3/uL Nucleated Red Blood Cells 0.1 % Sodium Level 143 136-145 mmol/L Potassium Level 4.4 3.5-5.1 mmol/L Chloride Level 107 98-107 mmol/L Carbon Dioxide Level 27 20-31 mmol/L Anion Gap 9 5-15 Blood Urea Nitrogen 16 9-23 mg/dL Creatinine 0.78 0.550-1.02 mg/dL Glomerular Filtration Rate Calc 86 >90 mL/min BUN/Creatinine Ratio 20.5 H 10.0-20.0 Serum Glucose 95 74-106 mg/dL Calcium Level 8.6 L 8.7-10.4 mg/dL B-Type Natriuretic Peptide 430.29 0-100 pg/mL Assessment/Plan Assessment/Plan Admit to med [facility] [place] Acute on chronic combined CHF exacerbation Continue patient's with medication regimen from home Increase diuretics B.i.d. Continue with cardiac medications BNP elevated over 400 Acute on chronic COPD exacerbation Treat as pneumonia at this point in time P.r.n. breathing treatments IV antibiotics monitor for signs of fluid overload B.i.d. steroids Chronic findings history of AFib Currently rate controlled History of hypertension Continue home medications and diuretics Plan discussed with: Patient My Orders Orders - SAMIRA BRAXTON MD Procedure Category Date Status Time Apixaban (Eliquis) PHA 09/15/24 Transmitted 10:00 Carisoprodol Tablet PHA 09/14/24 Transmitted (Soma Tablet) 22:00 Carvedilol Tablet PHA 09/14/24 Transmitted (Coreg Tablet) 22:00 Diazepam Tablet PHA 09/14/24 Transmitted (Valium Tablet) 22:00 Hydrocodone-Acet PHA 09/14/24 Transmitted 10/325mg Tab ([facility]urns 18:00 Losartan Tablet PHA 09/15/24 Transmitted (Cozaar Tablet) 10:00 (Nf) Potassium PHA 09/15/24 Transmitted Chloride (Potassium 10:00 (Nf) Simvastatin PHA 09/14/24 Transmitted 18:00 (Nf) Temazepam PHA 09/14/24 Transmitted 22:00 Furosemide Injection PHA 09/14/24 Transmitted (Lasix Injection) 22:00 Albuterol Medneb PHA 09/14/24 Transmitted (Ventolin Medneb) 18:00 Ipratropium Medneb PHA 09/14/24 Transmitted (Atrovent Medneb) 18:00 Med Neb Initial RT 09/14/24 Transmitted Treatment 17:48 Methylprednisolone PHA 09/14/24 Transmitted Sod Succ (Solu Medrol 22:00 Ceftriaxone Ivpb PHA 09/14/24 Transmitted Rocephin 18:00 Azithromycin Tablet PHA 09/14/24 Transmitted (Zithromax Tablet) 18:00 Admit ADMIT 09/14/24 Transmitted 17:48 Code Status CODE 09/14/24 Transmitted 17:48 Vital Signs CORBIN 09/14/24 Transmitted 17:48 Review Orders With [facility] 09/14/24 Verified Adm. 17:48 Consistent DIET 09/14/24 Verified Carb(Ccho)Diabetes Dinner Lorazepam Tablet PHA 09/14/24 Verified (Ativan Tablet) 18:00 Alum & Mag PHA 09/14/24 Verified Hydrox-Simethicone 18:00 Docusate Sodium PHA 09/14/24 Verified Capsule (Colace 18:00 Acetaminophen Tablet PHA 09/14/24 Verified (Tylenol Tablet) 18:00 Temazepam (Restoril) PHA 09/14/24 Verified 18:00 Notify Of Changes [facility] 09/14/24 Verified From Base 17:48 Advance Directive [facility] 09/14/24 Verified 17:48 Basic Metabolic Panel LAB 09/15/24 Verified 04:00 Complete Blood Count LAB 09/15/24 Verified 04:00 Patient Condition ORDERS 09/14/24 Verified 17:48 Allergies [facility] 09/14/24 Verified 17:48 Hydrocodone-Acet PHA 09/14/24 Verified 5/325mg Tab (Burns 18:00 Ondansetron Hcl PHA 09/14/24 Verified (Zofran) 18:00 Morphine 2mg Iv Q4hprn PHA 09/14/24 Verified 18:00 Notify Of Changes [facility] 09/14/24 Verified From Base 17:48 Rhythm Strips Once [facility] 09/14/24 Verified Every Shift 17:48 Oxygen By Nasal RT 09/14/24 Verified Cannula 17:48 Problem List: (1) Acute exacerbation of COPD with asthma (2) Acute exacerbation of CHF (congestive heart failure) (3) Uncontrolled diabetes mellitus (4) Hypertension (5) Bilateral pneumonia Date of Service: Sep 14, 2024 Billing Provider: SAMIRA BRAXTON MD Common Visit Codes: [id number] INP/OBS CARE (HIGH) SAMIRA BRAXTON MD Sep 14, 2024 18:20
[2024-09-14] MEDS: AZITHROMYCIN 250 MG TAB PO SCH (18:55)
[2024-09-14] MEDS: ATORVASTATIN 20 MG TAB PO SCH (18:56)
[2024-09-14] MEDS: cefTRIAXone 1GM/50ML D5W 50 ML IV SCH (18:56)
[2024-09-14] MEDS: HYDROcodone-ACET 10/325MG TAB PO SCH (18:56)
[2024-09-14 19:02] VITALS: O2SAT 93
[2024-09-14 19:08] VITALS: BP 135/63; PULSE 79; RESP 20; TEMP 97.9; O2SAT 93
[2024-09-14 19:20] VITALS: O2SAT 94
[2024-09-14] MEDS: methylPREDNISolone SOD SUCC 40 MG/ML VL IV SCH (21:48)
[2024-09-14] MEDS: diazePAM 5 MG TAB PO SCH (21:49)
[2024-09-14] MEDS: CARVEDILOL 3.125 MG TAB PO SCH (21:50)
[2024-09-14] MEDS ORDERED: PATIENTS OWN MEDICATION (Temazepam 30 MG) PO SCH (22:00)
[2024-09-14] MEDS: FUROSEMIDE 40 MG/4 ML VIAL IV SCH (22:00)
[2024-09-14] MEDS ORDERED: CARISOPRODOL 350 MG TAB PO SCH (22:00)
[2024-09-14] MEDS: ACETAMINOPHEN 325 MG TAB PO PRN (22:25)
[2024-09-14] MEDS: MORPHINE SULFATE INJ 2 MG/ml SYRG IV PRN (22:25)
[2024-09-14 23:07] VITALS: BP 140/74; PULSE 82; RESP 13; TEMP 97.8; O2SAT 96
[2024-09-14 23:51] VITALS: BP 140/74; PULSE 82; RESP 18; RESP 20; TEMP 97.8; O2SAT 20; O2SAT 96
[2024-09-15] VITALS (10 sets, daily range): BP systolic 101–125; BP diastolic 47–70; PULSE 72–87; RESP 13–20; TEMP 97.4–97.9; O2SAT 95–99
[2024-09-15] MEDS ORDERED: ALPR0.25 PO (00:16)
[2024-09-15] MEDS ORDERED: ICOS1CAP3 PO (00:16)
[2024-09-15] MEDS ORDERED: MAGN241.4 PO (00:16)
[2024-09-15] MEDS ORDERED: ASPI-543 PO (00:16)
[2024-09-15] MEDS ORDERED: CILO100T3 PO (00:16)
[2024-09-15] MEDS ORDERED: VORT1TAB3 PO (00:16)
[2024-09-15] MEDS ORDERED: ONDA-155 PO (00:16)
[2024-09-15] MEDS ORDERED: ZOLP5TAB5 PO (00:16)
[2024-09-15] MEDS: HYDROcodone-ACET 5/325MG TAB PO PRN (05:32)
[2024-09-15 06:14] LABS: Basophils # (auto) 0 10 ^3/uL (0-0.2); Basophils % (auto) 0.1 % (0.0-2.0); Eosinophils # (auto) 0 10 ^3/uL (0-0.8); Lymphocytes # (auto) 0.5 10 ^3/uL (0.4-5.4); Monocytes # (auto) 0.4 10 ^3/uL (0-1.3); Nucleated Red Blood Cells % 0.1 %
[2024-09-15 06:18] LABS: Hematocrit 33.1 % (36.0-46.0); Hemoglobin 10.7 g/dL (12.2-16.2); Lymphocytes % (auto) 10.9 % (10.0-50.0); Mean Corpuscular Hemoglobin 24.1 pg (28.0-32.0); Mean Corpuscular Hgb Conc. 32.4 g/dL (32.0-36.0); Mean Corpuscular Volume 74.3 fL (80.0-100.0); Monocytes % (auto) 7.3 % (0.0-12.0); Neutrophils % (auto) 81.7 % (37.0-80.0); Platelet Count (auto) 208 10^3/uL (140-450); Red Blood Cells 4.45 10^6/uL (4.0-5.20); Red Cell Distribution Width 16.1 % (11.8-14.3); White Blood Cell 4.8 10^3/uL (4.4-10.8)
[2024-09-15 06:29] LABS: Chloride 105 mmol/L (98-107); Sodium 144 mmol/L (136-145)
[2024-09-15 06:30] LABS: Anion Gap 7 (5-15); Calcium 9.2 mg/dL (8.7-10.4)
[2024-09-15 06:35] LABS: BUN/Creatinine Ratio 22.2 (10.0-20.0); Blood Urea Nitrogen 16 mg/dL (9-23)
[2024-09-15 06:36] LABS: Carbon Dioxide 32 mmol/L (20-31); Glucose 128 mg/dL (74-106)
[2024-09-15] MEDS: ONDANSETRON HCL 4 MG/2 ML VIAL IV PRN (07:54)
[2024-09-15] MEDS ORDERED: LOSARTAN POTASSIUM 25 MG TAB PO SCH (10:00)
[2024-09-15] MEDS: POTASSIUM CHL 10 Meq TABLET PO SCH (11:00)
[2024-09-15] MEDS: APIXABAN 5 MG TAB PO SCH (11:00)
--- NOTE | 2024-09-15 12:15 | DVHPN2 ---
Reviewed: Care Plan, H&P, Labs, Medications, Previous Orders, Radiology Changes from previous H/P or p: No Changes Eyes: No Pain, No Vision change, No Conjunctivae inflammation, No Eyelid inflammation, No Other, No Redness ENT: No Ear pain, No Ear discharge, No Nose pain, No Nose discharge, No Nose congestion, No Mouth pain, No Mouth swelling, No Throat pain, No Throat swelling, No Other Cardiovascular: Chest Pain, Palpitations; No Orthopnea, No Paroxysmal Noc. Dyspnea, No Edema, No Lt Headedness, No Other Respiratory: No Cough, No Dry; Shortness of breath; No SOB with excertion, No Wheezing, No Hemoptysis, No Pleuritic Pain, No Sputum, No Other Gastrointestinal: No Nausea, No Vomiting, No Abdominal Pain, No Diarrhea, No Constipation, No Melena, No Hematochezia, No Other Genitourinary: No Dysuria, No Frequency, No Incontinence, No Hematuria, No Retention, No Other Musculoskeletal: No other, No neck pain, No shoulder pain, No arm pain, No back pain, No hand pain, No leg pain, No foot pain Skin: No Rash, No Lesions, No Jaundice, No Bruising, No Other Objective Vitals Vital Signs Date Time Temp Pulse Resp B/P (MAP) Pulse Ox O2 Delivery O2 Flow Rate FiO2 09/15/24 10:59 72 124/68 09/15/24 08:45 97.8 18 98 97.8 09/14/24 23:51 Simple Mask* 6 50 Intake/Output Intake and Output 09/15/24 07:00 Intake Total 979 ml Output Total 0 ml Balance 979 ml Intake Oral 979 ml Output Stool Total 0 ml # Voids 1 Medications Current Medications Medications Dose Ordered Sig/Brian Route Start Time Stop Time Status Last Admin Dose Admin Apixaban 5 mg DAILY PO 09/15/24 10:00 09/15/24 11:00 5 MG Carisoprodol 350 mg BIDP PO 09/14/24 22:00 Hold Carvedilol 6.25 mg BID PO 09/14/24 22:00 09/15/24 10:59 6.25 MG Diazepam 10 mg BID PO 09/14/24 22:00 09/15/24 10:58 10 MG Acetaminophen/ Hydrocodone Bitart 1 tab Q6HP PO 09/14/24 18:00 Hold Losartan Potassium 20 mg DAILY PO 09/15/24 10:00 Potassium Chloride 10 meq DAILY PO 09/15/24 10:00 09/15/24 11:00 10 MEQ Atorvastatin Calcium 40 mg QPM PO 09/14/24 18:00 Furosemide 40 mg BID IV 09/14/24 22:00 09/15/24 10:58 40 MG Albuterol 2.5 mg Q4HPRN PRN NEB 09/14/24 18:00 Ipratropium [place] 0.5 mg Q4HPRN PRN NEB 09/14/24 18:00 Methylprednisolone Sodium Succinate 40 mg BID IV 09/14/24 22:00 09/15/24 10:57 40 MG Ceftriaxone Sodium 50 ml @ 100 mls/hr DAILY IV 09/14/24 18:00 09/15/24 11:00 100 MLS/HR Azithromycin 500 mg DAILY PO 09/14/24 18:00 09/15/24 11:00 500 MG Lorazepam 0.5 mg Q6HP PRN PO 09/14/24 18:00 Al Hydrox/Mg Hydrox/Simethicone 30 ml Q6HP PRN PO 09/14/24 18:00 Docusate Sodium 100 mg BIDPRN PRN PO 09/14/24 18:00 Acetaminophen 650 mg Q6HP PRN PO 09/14/24 18:00 09/15/24 10:59 650 MG Temazepam 15 mg QHSP PRN PO 09/14/24 18:00 Acetaminophen/ Hydrocodone Bitart 1 tab Q4HP PRN PO 09/14/24 18:00 09/15/24 05:32 1 TAB Ondansetron HCl 4 mg Q4HP PRN IV 09/14/24 18:00 09/15/24 07:54 4 MG Morphine Sulfate 2 mg Q4HPRN PRN IV 09/14/24 18:00 09/14/24 22:25 2 MG Laboratory Results Laboratory Tests 09/15/24 05:32 Chemistry Test 09/14/24 13:06 09/15/24 05:32 Calcium Level 8.6 mg/dL (8.7-10.4) L 9.2 mg/dL (8.7-10.4) Cardiac Markers Test 09/14/24 13:06 B-Type Natriuretic Peptide 430.29 pg/mL (0-100) Urinalysis Test 09/14/24 16:00 Urine Color Light-yellow (Yellow) Urine Clarity Clear (Clear) Urine pH 6.5 (5.0-9.0) Urine Specific [place] 1.009 (1.001-1.035) Urine Protein Negative (Negative) Urine Ketones Negative (Negative) Urine Blood Negative /uL (Negative) Urine Nitrite Negative (Negative) Urine Bilirubin Negative (Negative) Urine Urobilinogen Normal mg/dL (Negative) Urine Leukocyte Esterase Negative /uL (Negative) Urine RBC 1 /hpf (0 - 4) Urine WBC 3 /hpf (0 - 5) Urine WBC Clumps Present /hpf (None Seen) Urine Squamous Epithelial Cells Few /hpf (<5) Urine Bacteria None seen /hpf (None Seen) Urine Mucus Few (None Seen) Urine Glucose Normal mg/dL (Normal) Labs and/or images reviewed: Labs reviewed by me, Image(s) reviewed by me Assessment/Plan Assessment/Plan Acute hypoxic respiratory failure: 6 L Oxygen by nasal cannula Acute COPD exacerbation: Albuterol med neb Atrovent med-nebs Solu-Medrol Acute exacerbation of chronic congestive heart failure BNP 430: Lasix potassium Coreg History of AFib: Eliquis History of coronary artery disease Hypotension: Losartan History of PR Hypercholesterolemia: Lipitor Bilateral community-acquired pneumonia: Rocephin azithromycin Time spent 70 minutes Patient is full code Advanced care planning time 20 minutes Plan discussed with: Patient My Orders Orders - MEENAKSHI STRICKLAND MD Procedure Category Date Status Time Rapid Influenza A&B LAB 09/15/24 Logged 12:11 Covid19 Antigen Jeniffer LAB 09/15/24 Logged Date of Service: Sep 15, 2024 Billing Provider: MEENAKSHI STRICKLAND MD Common Visit Codes: [id number] CARE 30-74 MIN MEENAKSHI STRICKLAND MD Sep 15, 2024 12:15
[2024-09-15] MEDS: IBUPROFEN 600 MG TAB PO ONE (21:29)
[2024-09-15] MEDS: IPRATROPIUM BROM 0.5 MG/2.5ML INH SOL NEB PRN (22:46)
[2024-09-15] MEDS: ALBUTEROL SULF 2.5 MG/0.5ML(0.5%) NEB SOLN NEB PRN (22:46)
[2024-09-16] VITALS (10 sets, daily range): BP systolic 101–135; BP diastolic 34–72; PULSE 67–96; RESP 18–20; TEMP 97.4–98.2; O2SAT 90–98
[2024-09-16] MEDS: LORazepam 0.5 MG TAB PO PRN (04:47)
--- NOTE | 2024-09-16 08:45 | DVHPN2 ---
Reviewed: Care Plan, H&P, Labs, Medications, Previous Orders, Radiology Changes from previous H/P or p: No Changes Eyes: No Pain, No Vision change, No Conjunctivae inflammation, No Eyelid inflammation, No Other, No Redness ENT: No Ear pain, No Ear discharge, No Nose pain, No Nose discharge, No Nose congestion, No Mouth pain, No Mouth swelling, No Throat pain, No Throat swelling, No Other Cardiovascular: Chest Pain, Palpitations; No Orthopnea, No Paroxysmal Noc. Dyspnea, No Edema, No Lt Headedness, No Other Respiratory: No Cough, No Dry; Shortness of breath; No SOB with excertion, No Wheezing, No Hemoptysis, No Pleuritic Pain, No Sputum, No Other Gastrointestinal: No Nausea, No Vomiting, No Abdominal Pain, No Diarrhea, No Constipation, No Melena, No Hematochezia, No Other Genitourinary: No Dysuria, No Frequency, No Incontinence, No Hematuria, No Retention, No Other Musculoskeletal: No other, No neck pain, No shoulder pain, No arm pain, No back pain, No hand pain, No leg pain, No foot pain Skin: No Rash, No Lesions, No Jaundice, No Bruising, No Other Objective Vitals Vital Signs Date Time Temp Pulse Resp B/P (MAP) Pulse Ox O2 Delivery O2 Flow Rate FiO2 09/16/24 05:00 97.4 77 20 108/62 (77) 97 97.4 09/15/24 22:46 Nasal Cannula* 4 36 Intake/Output Intake and Output 09/16/24 07:00 Intake Total 1200 ml Balance 1200 ml Intake Oral 1150 ml IV Total 50 ml # Voids 5 # Bowel Movements 2 Medications Current Medications Medications Dose Ordered Sig/Brian Route Start Time Stop Time Status Last Admin Dose Admin Apixaban 5 mg DAILY PO 09/15/24 10:00 09/15/24 11:00 5 MG Carisoprodol 350 mg BIDP PO 09/14/24 22:00 Hold Carvedilol 6.25 mg BID PO 09/14/24 22:00 09/15/24 21:31 6.25 MG Diazepam 10 mg BID PO 09/14/24 22:00 09/15/24 21:31 10 MG Acetaminophen/ Hydrocodone Bitart 1 tab Q6HP PO 09/14/24 18:00 Hold Potassium Chloride 10 meq DAILY PO 09/15/24 10:00 09/15/24 11:00 10 MEQ Atorvastatin Calcium 40 mg QPM PO 09/14/24 18:00 09/15/24 18:44 40 MG Furosemide 40 mg BID IV 09/14/24 22:00 09/15/24 10:58 40 MG Albuterol 2.5 mg Q4HPRN PRN NEB 09/14/24 18:00 09/15/24 22:46 2.5 MG Ipratropium [place] 0.5 mg Q4HPRN PRN NEB 09/14/24 18:00 09/15/24 22:46 0.5 MG Methylprednisolone Sodium Succinate 40 mg BID IV 09/14/24 22:00 09/15/24 21:30 40 MG Ceftriaxone Sodium 50 ml @ 100 mls/hr DAILY IV 09/14/24 18:00 09/15/24 11:00 100 MLS/HR Azithromycin 500 mg DAILY PO 09/14/24 18:00 09/15/24 11:00 500 MG Lorazepam 0.5 mg Q6HP PRN PO 09/14/24 18:00 09/16/24 04:47 0.5 MG Al Hydrox/Mg Hydrox/Simethicone 30 ml Q6HP PRN PO 09/14/24 18:00 Docusate Sodium 100 mg BIDPRN PRN PO 09/14/24 18:00 Acetaminophen 650 mg Q6HP PRN PO 09/14/24 18:00 09/15/24 10:59 650 MG Temazepam 15 mg QHSP PRN PO 09/14/24 18:00 Acetaminophen/ Hydrocodone Bitart 1 tab Q4HP PRN PO 09/14/24 18:00 09/15/24 05:32 1 TAB Ondansetron HCl 4 mg Q4HP PRN IV 09/14/24 18:00 09/16/24 04:44 4 MG Morphine Sulfate 2 mg Q4HPRN PRN IV 09/14/24 18:00 09/14/24 22:25 2 MG Losartan Potassium 50 mg DAILY PO 09/16/24 10:00 Laboratory Results Laboratory Tests 09/15/24 05:32 Urinalysis Test 09/14/24 16:00 Urine Color Light-yellow (Yellow) Urine Clarity Clear (Clear) Urine pH 6.5 (5.0-9.0) Urine Specific [place] 1.009 (1.001-1.035) Urine Protein Negative (Negative) Urine Ketones Negative (Negative) Urine Blood Negative /uL (Negative) Urine Nitrite Negative (Negative) Urine Bilirubin Negative (Negative) Urine Urobilinogen Normal mg/dL (Negative) Urine Leukocyte Esterase Negative /uL (Negative) Urine RBC 1 /hpf (0 - 4) Urine WBC 3 /hpf (0 - 5) Urine WBC Clumps Present /hpf (None Seen) Urine Squamous Epithelial Cells Few /hpf (<5) Urine Bacteria None seen /hpf (None Seen) Urine Mucus Few (None Seen) Urine Glucose Normal mg/dL (Normal) Microbiology Microbiology Date/Time Source Procedure Growth Status 09/14/24 14:30 Blood Blood Culture - Preliminary NO GROWTH AFTER 24 HOURS OF INCUBATION. Resulted Labs and/or images reviewed: Labs reviewed by me, Image(s) reviewed by me Assessment/Plan Assessment/Plan Acute hypoxic respiratory failure: 6 L Oxygen by nasal cannula Acute COPD exacerbation: Albuterol med neb Atrovent med-nebs Solu-Medrol Acute exacerbation of chronic congestive heart failure BNP 430: Lasix potassium Coreg History of AFib: Eliquis History of coronary artery disease Hypotension: Losartan History of [place] Hypercholesterolemia: Lipitor Bilateral community-acquired pneumonia: Rocephin azithromycin Time spent 50 minutes Patient is full code Advanced care planning time 20 minutes Plan discussed with: Patient My Orders Orders - MEENAKSHI STRICKLAND MD Procedure Category Date Status Time Rapid Influenza A&B LAB 09/15/24 Logged 12:11 Covid19 Antigen [facility] 09/15/24 Logged Losartan Tablet PHA 09/16/24 In Process (Cozaar Tablet) 10:00 * Cardiology Consult CONS 09/15/24 Transmitted 13:40 Mrsa Screen ZHENG 09/15/24 In Process 20:57 Date of Service: Sep 16, 2024 Billing Provider: MEENAKSHI STRICKLAND MD Common Visit Codes: [id number] INP/OBS CARE(HIGH) MEENAKSHI STRICKLAND MD Sep 16, 2024 08:44
[2024-09-16] MEDS: LOSARTAN POTASSIUM 50 MG TAB PO SCH (10:16)
[2024-09-16] MEDS: ZOLPIDEM TARTRATE 5 MG TAB PO ONE (21:25)
[2024-09-17 01:00] VITALS: BP 143/81; PULSE 79; RESP 18; TEMP 98.5; O2SAT 94
[2024-09-17 05:00] VITALS: BP 144/82; PULSE 76; RESP 18; TEMP 98; O2SAT 92
[2024-09-17 06:39] VITALS: O2SAT 95
[2024-09-17 08:00] VITALS: PULSE 82; RESP 20
[2024-09-17] MEDS ORDERED: METH4PAK PO (08:14)
[2024-09-17] MEDS ORDERED: AZIT500T66 PO (08:14)
--- NOTE | 2024-09-17 08:15 | DVHPN2 ---
Reviewed: Care Plan, H&P, Labs, Medications, Previous Orders, Radiology Changes from previous H/P or p: No Changes Eyes: No Pain, No Vision change, No Conjunctivae inflammation, No Eyelid inflammation, No Other, No Redness ENT: No Ear pain, No Ear discharge, No Nose pain, No Nose discharge, No Nose congestion, No Mouth pain, No Mouth swelling, No Throat pain, No Throat swelling, No Other Cardiovascular: Chest Pain, Palpitations; No Orthopnea, No Paroxysmal Noc. Dyspnea, No Edema, No Lt Headedness, No Other Respiratory: No Cough, No Dry; Shortness of breath; No SOB with excertion, No Wheezing, No Hemoptysis, No Pleuritic Pain, No Sputum, No Other Gastrointestinal: No Nausea, No Vomiting, No Abdominal Pain, No Diarrhea, No Constipation, No Melena, No Hematochezia, No Other Genitourinary: No Dysuria, No Frequency, No Incontinence, No Hematuria, No Retention, No Other Musculoskeletal: No other, No neck pain, No shoulder pain, No arm pain, No back pain, No hand pain, No leg pain, No foot pain Skin: No Rash, No Lesions, No Jaundice, No Bruising, No Other Objective Vitals Vital Signs Date Time Temp Pulse Resp B/P (MAP) Pulse Ox O2 Delivery O2 Flow Rate FiO2 09/17/24 06:39 95 Nasal Cannula* 2 28 09/17/24 05:00 98.0 76 18 144/82 (102) 98.0 Intake/Output Intake and Output 09/17/24 07:00 Intake Total 1650 ml Output Total 2800 ml Balance -1150 ml Intake Oral 1650 ml Output Urine Total 2800 ml # Bowel Movements 1 Medications Current Medications Medications Dose Ordered Sig/Brian Route Start Time Stop Time Status Last Admin Dose Admin Apixaban 5 mg DAILY PO 09/15/24 10:00 09/16/24 10:00 5 MG Carisoprodol 350 mg BIDP PO 09/14/24 22:00 Hold Carvedilol 6.25 mg BID PO 09/14/24 22:00 09/16/24 21:24 6.25 MG Diazepam 10 mg BID PO 09/14/24 22:00 09/16/24 10:01 10 MG Acetaminophen/ Hydrocodone Bitart 1 tab Q6HP PO 09/14/24 18:00 Hold Potassium Chloride 10 meq DAILY PO 09/15/24 10:00 09/16/24 10:02 10 MEQ Atorvastatin Calcium 40 mg QPM PO 09/14/24 18:00 09/16/24 17:44 40 MG Furosemide 40 mg BID IV 09/14/24 22:00 09/16/24 10:04 40 MG Albuterol 2.5 mg Q4HPRN PRN NEB 09/14/24 18:00 09/15/24 22:46 2.5 MG Ipratropium [place] 0.5 mg Q4HPRN PRN NEB 09/14/24 18:00 09/15/24 22:46 0.5 MG Methylprednisolone Sodium Succinate 40 mg BID IV 09/14/24 22:00 09/16/24 21:24 40 MG Ceftriaxone Sodium 50 ml @ 100 mls/hr DAILY IV 09/14/24 18:00 09/16/24 10:03 100 MLS/HR Azithromycin 500 mg DAILY PO 09/14/24 18:00 09/16/24 10:01 500 MG Lorazepam 0.5 mg Q6HP PRN PO 09/14/24 18:00 09/17/24 04:49 0.5 MG Al Hydrox/Mg Hydrox/Simethicone 30 ml Q6HP PRN PO 09/14/24 18:00 Docusate Sodium 100 mg BIDPRN PRN PO 09/14/24 18:00 Acetaminophen 650 mg Q6HP PRN PO 09/14/24 18:00 09/15/24 10:59 650 MG Temazepam 15 mg QHSP PRN PO 09/14/24 18:00 Acetaminophen/ Hydrocodone Bitart 1 tab Q4HP PRN PO 09/14/24 18:00 09/15/24 05:32 1 TAB Ondansetron HCl 4 mg Q4HP PRN IV 09/14/24 18:00 09/17/24 02:19 4 MG Morphine Sulfate 2 mg Q4HPRN PRN IV 09/14/24 18:00 09/14/24 22:25 2 MG Losartan Potassium 50 mg DAILY PO 09/16/24 10:00 09/16/24 10:16 50 MG Laboratory Results Laboratory Tests 09/15/24 05:32 Urinalysis Test 09/14/24 16:00 Urine Color Light-yellow (Yellow) Urine Clarity Clear (Clear) Urine pH 6.5 (5.0-9.0) Urine Specific [place] 1.009 (1.001-1.035) Urine Protein Negative (Negative) Urine Ketones Negative (Negative) Urine Blood Negative /uL (Negative) Urine Nitrite Negative (Negative) Urine Bilirubin Negative (Negative) Urine Urobilinogen Normal mg/dL (Negative) Urine Leukocyte Esterase Negative /uL (Negative) Urine RBC 1 /hpf (0 - 4) Urine WBC 3 /hpf (0 - 5) Urine WBC Clumps Present /hpf (None Seen) Urine Squamous Epithelial Cells Few /hpf (<5) Urine Bacteria None seen /hpf (None Seen) Urine Mucus Few (None Seen) Urine Glucose Normal mg/dL (Normal) Microbiology Microbiology Date/Time Source Procedure Growth Status 09/15/24 20:57 Nose MRSA Screen - Final Complete 09/14/24 14:30 Blood Blood Culture - Preliminary NO GROWTH AFTER 48 HOURS OF INCUBATION. Resulted Labs and/or images reviewed: Labs reviewed by me, Image(s) reviewed by me Assessment/Plan Assessment/Plan Acute hypoxic respiratory failure: 6 L Oxygen by nasal cannula Acute COPD exacerbation: Albuterol med neb Atrovent med-nebs Solu-Medrol Acute exacerbation of chronic congestive heart failure BNP 430: Lasix potassium Coreg History of AFib: Eliquis History of coronary artery disease Hypertension: Losartan History of [place] Hypercholesterolemia: Lipitor Bilateral community-acquired pneumonia: Rocephin azithromycin Patient feels better and wants to go home Plan discussed with: Patient Date of Service: Sep 17, 2024 Billing Provider: MEENAKSHI STRICKLAND MD Common Visit Codes: [id number] INP/OBS CARE(HIGH) MEENAKSHI STRICKLAND MD Sep 17, 2024 08:15
--- NOTE | 2024-09-17 08:21 | DVHDS2 ---
Discharge Summary Date of Admission Sep 14, 2024 at 18:24 Date of Discharge: Sep 17, 2024 Admitting Diagnosis Shortness of breaths Wounds: None Labs/Diagnostic Data: Laboratory Results Test 09/15/24 05:32 09/14/24 16:00 09/14/24 14:30 09/14/24 13:06 White Blood Count 4.8 10^3/uL (4.4-10.8) Red Blood Count 4.45 10^6/uL (4.0-5.20) Hemoglobin 10.7 g/dL (12.2-16.2) Hematocrit 33.1 % (36.0-46.0) Mean Corpuscular Volume 74.3 fL (80.0-100.0) Mean Corpuscular Hemoglobin 24.1 pg (28.0-32.0) Mean Corpuscular Hemoglobin Concent 32.4 g/dL (32.0-36.0) Red Cell Distribution Width 16.1 % (11.8-14.3) Platelet Count 208 10^3/uL (140-450) Mean Platelet Volume 7.0 fL (6.9-10.8) Neutrophils (%) (Auto) 81.7 % (37.0-80.0) Lymphocytes (%) (Auto) 10.9 % (10.0-50.0) Monocytes (%) (Auto) 7.3 % (0.0-12.0) Eosinophils (%) (Auto) 0.0 % (0.0-7.0) Basophils (%) (Auto) 0.1 % (0.0-2.0) Neutrophils # (Auto) 4.0 10 ^3/uL (1.6-8.6) Lymphocytes # (Auto) 0.5 10 ^3/uL (0.4-5.4) Monocytes # (Auto) 0.4 10 ^3/uL (0-1.3) Eosinophils # (Auto) 0 10 ^3/uL (0-0.8) Basophils # (Auto) 0 10 ^3/uL (0-0.2) Nucleated Red Blood Cells 0.1 % Sodium Level 144 mmol/L (136-145) Potassium Level 4.0 mmol/L (3.5-5.1) Chloride Level 105 mmol/L (98-107) Carbon Dioxide Level 32 mmol/L (20-31) Anion Gap 7 (5-15) Blood Urea Nitrogen 16 mg/dL (9-23) Creatinine 0.72 mg/dL (0.550-1.02) Glomerular Filtration Rate Calc 94 mL/min (>90) BUN/Creatinine Ratio 22.2 (10.0-20.0) Serum Glucose 128 mg/dL (74-106) Calcium Level 9.2 mg/dL (8.7-10.4) Urine Color Light-yellow (Yellow) Urine Clarity Clear (Clear) Urine pH 6.5 (5.0-9.0) Urine Specific [place] 1.009 (1.001-1.035) Urine Protein Negative (Negative) Urine Ketones Negative (Negative) Urine Blood Negative /uL (Negative) Urine Nitrite Negative (Negative) Urine Bilirubin Negative (Negative) Urine Urobilinogen Normal mg/dL (Negative) Urine Leukocyte Esterase Negative /uL (Negative) Urine RBC 1 /hpf (0 - 4) Urine WBC 3 /hpf (0 - 5) Urine WBC Clumps Present /hpf (None Seen) Urine Squamous Epithelial Cells Few /hpf (<5) Urine Bacteria None seen /hpf (None Seen) Urine Mucus Few (None Seen) Urine Glucose Normal mg/dL (Normal) Lactic Acid Level 1.7 mmol/L (0.4-2.0) B-Type Natriuretic Peptide 430.29 pg/mL (0-100) Other Laboratory Tests 09/15/24 05:32 Brief Hx & Hospital Course: 64-year-old female with a history of COPD CHF AFib coronary artery disease hypertension [place] hypercholesterolemia came in for shortness of breaths found to have community-acquired pneumonia treated with Rocephin azithromycin med neb treatment home medications continued for comorbid conditions patient feels better on 2 L of oxygen at the time of discharge which is her usual home oxygen requirement. The patient feels better and wants to go home discharged home on azithromycin and Medrol Dosepak Consults/Reason for consult None Operations or Procedures None Condition at Discharge: Fair Final Diagnosis/Problems List Acute hypoxic respiratory failure: 6 L Oxygen by nasal cannula Acute COPD exacerbation: Albuterol med neb Atrovent med-nebs Solu-Medrol Acute exacerbation of chronic congestive heart failure BNP 430: Lasix potassium Coreg History of AFib: Eliquis History of coronary artery disease Hypertension: Losartan History of [place] Hypercholesterolemia: Lipitor Bilateral community-acquired pneumonia: Rocephin azithromycin Discharge Disposition: Home Discharge Instruct/Medications Diet: Cardiac 2g Na,low cholest Activity: Light activity Follow Up/Referral: Resume all previous home medications Follow up with the primary Dr Medications: Azithromycin Medrol Dosepak Transmitted to [facility] 35 (Time taken for discharge summary 35 minutes) Discharge Statement: "Patient was advised to return to the ER or call 911 if any headaches, dizziness, shortness of breath, chest pain, abdominal pain, bleeding, fevers, or worsening of medical condition. Patient was counseled about treatment plan, medications, possible side effects, patientverbalized understanding. All questions were answered to the best of my ability. This discharge took greater then 30 minutes in planning, reviewing documentation, counseling the patient, and discussing with other team members." ASSESSMENT ASSESSMENT Hospital Course Improved Assessment Acute hypoxic respiratory failure: 6 L Oxygen by nasal cannula Acute COPD exacerbation: Albuterol med neb Atrovent med-nebs Solu-Medrol Acute exacerbation of chronic congestive heart failure BNP 430: Lasix potassium Coreg History of AFib: Eliquis History of coronary artery disease Hypertension: Losartan History of [place] Hypercholesterolemia: Lipitor Bilateral community-acquired pneumonia: Rocephin azithromycin Date of Service: Sep 17, 2024 Billing Provider: MEENAKSHI STRICKLAND MD Common Visit Codes: [id number] DISCH DAY >30min MEENAKSHI STRICKLAND MD Sep 17, 2024 08:21
--- NOTE | 2024-09-17 08:55 | DVHINCON2 ---
Date of service: Sep 17, 2024 History of Present Illness 64 yo F with congenital heart disease, single coronary artery and MV surgery at age 10 months, hx of ppm /icd admitted for sob. Past Medical History reviewed Family History: Cancer G8 MOTHER, Onset:50's - 60 G8 FATHER, Onset:60 years & older Family history: Diabetes mellitus G8 FATHER, Onset:30's - 40 G8 BROTHER, Onset:30's - 40 Allergies: Coded Allergies: Penicillins (Verified Allergy, Unknown, 06/29/18) Home Meds Active Scripts Methylprednisolone (Medrol Dosepak) 4 Mg [place], 4 MG PO UD, #21 TAB UAD Prov:MEENAKSHI STRICKLAND MD 09/17/24 Azithromycin (Azithromycin) 500 Mg Tab, 1 TAB PO DAILY, #10 TAB Prov:MEENAKSHI STRICKLAND MD 09/17/24 Reported Medications Ondansetron HCl (Ondansetron) 4 Mg Tab, 4 MG PO, TAB 09/15/24 Alprazolam (Xanax) 0.25 Mg Tb, 5 MG PO, TAB 09/15/24 Zolpidem Tartrate (Zolpidem Tartrate) 5 Mg Tab, 1 TAB PO, #30 TAB 2 Refills 09/15/24 Icosapent Ethyl (Icosapent Ethyl) 1 Gm Cap, 1 GM PO, CAP 09/15/24 Aspirin (Aspir-Low) 81 Mg Tab, 81 MG PO for 30 Days, MG 09/15/24 Cilostazol (Cilostazol) 100 Mg Tab, 50 MG PO for 30 Days, MG 09/15/24 Vortioxetine Hydrobromide (Trintellix) 20 Mg Tab, 20 MG PO, TAB 09/15/24 Magnesium Oxide (Mag-Ox) 400 Mg Tb, 400 MG PO, TAB 09/15/24 Hydrocodone-Acetaminophen (Hydrocodone Bitartrate/AC 10-325 mg) 1 Tab Tab, 1 TAB PO Q6HP, TAB 08/24/22 Diazepam (VALIUM TABLET) 5 Mg Tb, 2 TAB PO BID, #90 TAB 07/01/18 Losartan Potassium (Losartan Potassium) 25 Mg Tab, 20 MG PO DAILY for 30 Days, MG 07/01/18 Potassium Chloride (POTASSIUM CHLORIDE CR) 10 Meq Tb, 1 TAB PO DAILY, #30 TAB 5 Refills 06/30/18 Furosemide (Lasix) 20 Mg Tb, 1 TAB PO BID, #90 TAB 1 Refill 06/30/18 Apixaban Base (ELIQUIS) 5 Mg Tab, 5 MG OR DAILY, TAB 06/30/18 Simvastatin (Simvastatin) 40 Mg Tab, 40 MG PO QPM, TAB 02/04/17 Temazepam (Temazepam) 30 Mg Cap, 30 MG PO HS, CAP 02/04/17 Carisoprodol (Soma) 350 Mg Tab, 350 MG PO BIDP 12/19/12 Carvedilol (Carvedilol) 3.125 Mg Tab, 6.25 MG PO BID 12/19/12 Current Medications Current Medications Medications (Trade) Dose Ordered Sig/Brian Route PRN Reason Start Time Stop Time Status Last Admin Losartan Potassium (Cozaar Tablet) 50 mg DAILY PO 09/16/24 10:00 09/16/24 10:16 Review of Systems 10 pt ros otherwise negative Vital Signs Vital Signs Date Time Temp Pulse Resp B/P (MAP) Pulse Ox O2 Delivery O2 Flow Rate FiO2 09/17/24 06:39 95 Nasal Cannula* 2 28 09/17/24 05:00 98.0 76 18 144/82 (102) 98.0 Physical Exam nad s1 s2 rrr ctab soft nt/nd no edema Labs/Diagnostic Data Labs Test 09/15/24 05:32 09/14/24 16:00 09/14/24 14:30 09/14/24 13:06 Range/Units White Blood Count 4.8 # 4.4-10.8 10^3/uL Red Blood Count 4.45 4.0-5.20 10^6/uL Hemoglobin 10.7 L 12.2-16.2 g/dL Hematocrit 33.1 L 36.0-46.0 % Mean Corpuscular Volume 74.3 L 80.0-100.0 fL Mean Corpuscular Hemoglobin 24.1 L 28.0-32.0 pg Mean Corpuscular Hemoglobin Concent 32.4 32.0-36.0 g/dL Red Cell Distribution Width 16.1 H 11.8-14.3 % Platelet Count 208 140-450 10^3/uL Mean Platelet Volume 7.0 6.9-10.8 fL Neutrophils (%) (Auto) 81.7 H 37.0-80.0 % Lymphocytes (%) (Auto) 10.9 10.0-50.0 % Monocytes (%) (Auto) 7.3 0.0-12.0 % Eosinophils (%) (Auto) 0.0 0.0-7.0 % Basophils (%) (Auto) 0.1 0.0-2.0 % Neutrophils # (Auto) 4.0 1.6-8.6 10 ^3/uL Lymphocytes # (Auto) 0.5 0.4-5.4 10 ^3/uL Monocytes # (Auto) 0.4 0-1.3 10 ^3/uL Eosinophils # (Auto) 0 0-0.8 10 ^3/uL Basophils # (Auto) 0 0-0.2 10 ^3/uL Nucleated Red Blood Cells 0.1 % Sodium Level 144 136-145 mmol/L Potassium Level 4.0 3.5-5.1 mmol/L Chloride Level 105 98-107 mmol/L Carbon Dioxide Level 32 H 20-31 mmol/L Anion Gap 7 5-15 Blood Urea Nitrogen 16 9-23 mg/dL Creatinine 0.72 0.550-1.02 mg/dL Glomerular Filtration Rate Calc 94 >90 mL/min BUN/Creatinine Ratio 22.2 H 10.0-20.0 Serum Glucose 128 H 74-106 mg/dL Calcium Level 9.2 8.7-10.4 mg/dL Urine Color Light-yellow Yellow Urine Clarity Clear Clear Urine pH 6.5 5.0-9.0 Urine Specific [place] 1.009 1.001-1.035 Urine Protein Negative Negative Urine Ketones Negative Negative Urine Blood Negative Negative /uL Urine Nitrite Negative Negative Urine Bilirubin Negative Negative Urine Urobilinogen Normal Negative mg/dL Urine Leukocyte Esterase Negative Negative /uL Urine RBC 1 0 - 4 /hpf Urine WBC 3 0 - 5 /hpf Urine WBC Clumps Present None Seen /hpf Urine Squamous Epithelial Cells Few <5 /hpf Urine Bacteria None seen None Seen /hpf Urine Mucus Few None Seen Urine Glucose Normal Normal mg/dL Lactic Acid Level 1.7 0.4-2.0 mmol/L B-Type Natriuretic Peptide 430.29 0-100 pg/mL Microbiology Date/Time Source Procedure Growth Status 09/15/24 20:57 Nose MRSA Screen - Final Complete 09/14/24 14:30 Blood Blood Culture - Preliminary NO GROWTH AFTER 48 HOURS OF INCUBATION. Resulted Assessment congenital heart disease hx of PPM/ICD hx of chf sob copd Plan/Recommendation bnp is mild cont diuretics pt had LHC in 2017 showing RCA patent otherwise LM occlusion echo 2021 shows ef 35% cont HF meds pt has fu with her cards in 1 week Plan discussed with: Patient JAY BERMAN MD Sep 17, 2024 08:55
[2024-09-17 09:00] VITALS: BP 118/57; PULSE 87; RESP 20; TEMP 98.1; O2SAT 91
[2024-09-17 10:00] VITALS: O2SAT 95
[2024-09-18 10:15] LABS: Hepatitis B Surface Antigen Negative (Negative)
[2024-09-18 10:36] LABS: Hepatitis C Antibody Negative (Negative)
== END 2024-09-17 13:35 | disposition home or self-care (01) | DRG 133 ==
LOC: EDUNIT# 13:20 → EDBD 13:20 → ER 13:20 → CENTRAL 18:18 → OVERFLOW 18:24 → CENTRAL 22:50
PROVIDERS: ADMIT Hospitalist; ATTEND Family Medicine
DX: J96.01 Acute respiratory failure with hypoxia (principal); I50.43 Acute on chronic combined systolic (congestive) and diastolic (congestive) heart failure; J18.9 Pneumonia, unspecified organism; J44.0 Chronic obstructive pulmonary disease with (acute) lower respiratory infection; I11.0 Hypertensive heart disease with heart failure; I48.91 Unspecified atrial fibrillation; J44.1 Chronic obstructive pulmonary disease with (acute) exacerbation; I25.10 Atherosclerotic heart disease of native coronary artery without angina pectoris; E78.00 Pure hypercholesterolemia, unspecified; Z86.711 Personal history of pulmonary embolism; Z90.49 Acquired absence of other specified parts of digestive tract; I25.2 Old myocardial infarction; Z88.0 Allergy status to penicillin; Z95.810 Presence of automatic (implantable) cardiac defibrillator; Z83.3 Family history of diabetes mellitus; Q24.9 Congenital malformation of heart, unspecified; Z79.82 Long term (current) use of aspirin; Z79.899 Other long term (current) drug therapy
CPT/HCPCS: 96374; 96375; 99291; G0378; J2405

== ENCOUNTER 2024-10-18 13:03 | Inpatient (IN) | payer MEDICAID ==
[~2024-10-18] VITALS: Ht 161.3 cm; Wt 159.9 kg
[~2024-10-18 13:03] MED LIST changes: +ALPR0.25 PO; -APIX5TAB OR; +APIX5TAB PO; +ASPI-543 PO; +AZIT500T66 PO; -CALC-338 OR; +CILO100T3 PO; -DRON400T PO; -FLUT110A INH; +ICOS1CAP3 PO; -LEVO750T40 PO; +MAGN241.4 PO; +METH4PAK PO; -MILKPOW XX; +ONDA-155 PO; -PRENTAB76 PO; -PROSAC PO; -RANO1000 PO; +VORT1TAB3 PO; +ZOLP5TAB5 PO
--- NOTE | 2024-10-18 13:20 | ECG ---
[facility] Test Date: 2024-10-18 Test Time: 13:11:32 Pat Name: ISSAC ENRIQUEZ Department: er Room: 0292T Gender: F Digital Content Manager: jessica : 1960 Requested By: ALONA ELLIS Order Number: [id number] Reading MD: Meet Vasquez Measurements Intervals [place] Rate: 85 P: 0 KS: 142 QRS: 122 QRSD: 156 T: -60 QT: 363 QTc: 432 Interpretive Statements Atrial-paced complexes Nonspecific intraventricular conduction delay Lateral infarct, age indeterminate Anteroseptal infarct, old Baseline wander in lead(s) V2 Electronically Signed On 10-19-2024 8:55:11 PST by Meet Vasquez Please click the below link to view image of tracing.
[2024-10-18 13:45] VITALS: PULSE 86; RESP 17; O2SAT 90
--- NOTE | 2024-10-18 14:24 | ED.PDOC ---
SOB-HPI HPI Comments 64 year old female RAYMOND presents to the ED with chief complaint of SOB. Patient reports that she has been on 5L of O2 via NC and Ciprofloxacin since being admitted to the hospital on for pneumonia. Patient relays that on , she had spent time with family and her grandchildren were sick, who then passed it onto her after . Patient states she started to experiencing symptoms of cough, nasal and chest congestion, SOB, and pleuritic chest pain. EMS notes that they provided the patient a breathing treatment on route to the ED. Patient denies any N/V/D, abdominal pain, headache, dizziness, or fever. Chief Complaint: Shortness of Breath Time Seen by MD: 14:19 Primary Care Provider: UNKNOWN NAME Reviewed notes: Nurses Notes, Marine Service Manager Notes, Medications, Allergies Information Source: Patient, Emergency Med Personnel Mode of Arrival: EMS Severity: Moderate Timing: Days Duration: Since onset Context: At Rest PE Risk Factors: None History of: COPD, CHF, Recent Antibiotic Prehospital treatment: Oxygen Modifying Factors: Nothing Associated Signs and Symptoms: Cough, Nasal Congestion, Chest Pain Quality: Pressure Radiation: No Radiation Location: Substernal If cough with SOB: Non-Productive Past Medical History PAST MEDICAL HISTORY: AFIB, CHF, COPD, HTN, [place] Surgical History: Appendectomy, Pacemaker Surgical History (Other): Congenital valve abnormality surgery CORPORATE PARALEGAL History: No Pertinent CORPORATE PARALEGAL History Family History Family History: No family hx of Cancer, No family hx of DM, No family hx of Stroke Social History Smoker: Non-Smoker, Quit Greater Than 1 Year Alcohol: Denies ETOH Use Drugs: Denies Drug Use Lives In: Home Constitutional: denies: chills, diaphoresis, fatigue, fever, malaise, sweats, weakness, others EENTM: reports: nose congestion; denies: blurred vision, double vision, ear bleeding, ear discharge, ear drainage, ear pain, ear ringing, eye pain, eye redness, hearing loss, mouth pain, mouth swelling, nasal discharge, nose bleeding, nose pain, photophobia, tearing, throat pain, throat swelling, voice changes, others Respiratory: reports: cough, shortness of breath; denies: hemoptysis, orthopnea, SOB at rest, SOB with excertion, stridor, wheezing, others Cardiovascular: reports: chest pain; denies: dizzy spells, diaphoresis, Dyspnea on exertion, edema, irregular heart beat, left arm pain, lightheadedness, palpitations, PND, syncope, others Gastrointestinal: denies: abdomen distended, abdominal pain, blood streaked bowels, constipated, diarrhea, dysphagia, difficulty swallowing, hematemesis, melena, nausea, poor appetite, poor fluid intake, rectal bleeding, rectal pain, vomiting, others Genitourinary: denies: abnormal vagina bleeding, burning, dyspareunia, dysuria, flank pain, frequency, hematuria, incontinence, pain, , vagina dis charge, urgency, others Neurological: denies: dizziness, fainting, headache, left sided numbness, left sided weakness, numbness, paresthesia, pre-existing deficit, right sided numbness, right sided weakness, seizure, speech problems, tingling, tremors, weakness, others Musculoskeletal: denies: back pain, gout, joint pain, joint swelling, muscle pain, muscle stiffness, neck pain, others Integumetry: denies: bruises, change in color, change in hair/nails, dryness, laceration, lesions, lumps, rash, wounds, others Allergic/Immunocompromised: denies: Difficulty Healing, Frequent Infections, Hives, Itching, others Hematologic/Lymphatic: denies: anemia, blood clots, easy bleeding, easy bruising, swollen glands, others Endocrine: denies: excessive hunger, excessive sweating, excessive thirst, excessive urination, flushing, intolerance to cold, intolerance to heat, unexplained weight gain, unexplained weight loss, others Psychiatric: denies: anxiety, bipolar disorder, depression, hopeless, panic disorder, schizophrenia, sleepless, suicidal, others All Other Systems: Reviewed and Negative Physical Exam General Appearance: Mild Distress HEENT: PERRL/EOMI Neck: Full Range of Motion, Normal Inspection Respiratory: Crackles, No Accessory Muscle Use, No Respiratory Distress, Respiratory Distress (mild), Rhonchi Cardiovascular: No Edema, No JVD, Regular Rate/Rhythm Breast Exam: Deferred Gastrointestinal: Non Tender, Soft Genitalia: Deferred Pelvic: Deferred Rectal: Deferred Extremities: Normal inspection, Normal range of motion, Non-tender, No pedal edema Neurologic: Alert (Oriented x4), Normal Affect, Normal Mood, Other (Moves all extremities. No gross focal deficit.) Cerebellar Function: NOT DONE Reflexes: NOT DONE Skin: Dry, Pallor, Warm Lymphatic: NOT DONE EKG EKG : Comments Atrial paced rhythm, rate 85, normal [place] interval, QRS 156, normal QTC interval, normal axis, old inferior or lateral infarct, inferior ST depression with T-wave inversion and other nonspecific T change. Was a procedure done? Was a procedure done?: No Differential Dx Differential Diagnosis: Asthma, Bronchitis, CHF, COPD, Dysrhythmia, Myocardial infarction, Pneumonia, Pulmonary Embolism, URI X-Ray, Labs, Meds, VS Vital Signs Date Time Temp Pulse Resp B/P (MAP) Pulse Ox O2 Delivery O2 Flow Rate FiO2 10/18/24 16:00 80 10/18/24 14:49 18 94 Nasal Cannula* 3 32 10/18/24 13:20 100.7 89 22 131/80 (97) 94 10/18/24 13:11 85 Lab Test 10/18/24 15:31 10/18/24 15:29 10/18/24 14:33 Range/Units Troponin I High Sensitivity 15 12 </=34 ng/L Influenza Type A Antigen Negative Negative Influenza Type B Antigen Negative Negative SARS-CoV-2 Antigen (Rapid) Negative NEGATIVE Urine Color Straw Yellow Urine Clarity Clear Clear Urine pH 5.5 5.0-9.0 Urine Specific [place] 1.009 1.001-1.035 Urine Protein Negative Negative Urine Ketones Negative Negative Urine Blood Negative Negative /uL Urine Nitrite Negative Negative Urine Bilirubin Negative Negative Urine Urobilinogen Normal Negative mg/dL Urine Leukocyte Esterase Negative Negative /uL Urine RBC None seen 0 - 4 /hpf Urine WBC <1 0 - 5 /hpf Urine Squamous Epithelial Cells Few <5 /hpf Urine Bacteria None seen None Seen /hpf Urine Hyaline Casts Few 0 - 2 /lpf Urine Glucose Normal Normal mg/dL White Blood Count 5.2 4.4-10.8 10^3/uL Red Blood Count 5.04 4.0-5.20 10^6/uL Hemoglobin 11.8 L 12.2-16.2 g/dL Hematocrit 37.0 36.0-46.0 % Mean Corpuscular Volume 73.3 L 80.0-100.0 fL Mean Corpuscular Hemoglobin 23.4 L 28.0-32.0 pg Mean Corpuscular Hemoglobin Concent 31.9 L 32.0-36.0 g/dL Red Cell Distribution Width 17.1 H 11.8-14.3 % Platelet Count 211 140-450 10^3/uL Mean Platelet Volume 6.8 L 6.9-10.8 fL Neutrophils (%) (Auto) 81.2 H 37.0-80.0 % Lymphocytes (%) (Auto) 8.8 L 10.0-50.0 % Monocytes (%) (Auto) 9.3 0.0-12.0 % Eosinophils (%) (Auto) 0.4 0.0-7.0 % Basophils (%) (Auto) 0.3 0.0-2.0 % Neutrophils # (Auto) 4.2 1.6-8.6 10 ^3/uL Lymphocytes # (Auto) 0.5 0.4-5.4 10 ^3/uL Monocytes # (Auto) 0.5 0-1.3 10 ^3/uL Eosinophils # (Auto) 0 0-0.8 10 ^3/uL Basophils # (Auto) 0 0-0.2 10 ^3/uL Nucleated Red Blood Cells 0.1 % Sodium Level 140 136-145 mmol/L Potassium Level 4.0 3.5-5.1 mmol/L Chloride Level 103 98-107 mmol/L Carbon Dioxide Level 30 20-31 mmol/L Anion Gap 7 5-15 Blood Urea Nitrogen 15 9-23 mg/dL Creatinine 0.82 0.550-1.02 mg/dL Glomerular Filtration Rate Calc 81 >90 mL/min BUN/Creatinine Ratio 18.3 10.0-20.0 Serum Glucose 95 74-106 mg/dL Lactic Acid Level 2.3 *H 0.4-2.0 mmol/L Calcium Level 9.2 8.7-10.4 mg/dL B-Type Natriuretic Peptide 188.82 0-100 pg/mL Current Medications Medications (Trade) Dose Ordered Sig/Brian Route Start Time Stop Time Status Last Admin Albuterol (Ventolin Medneb) 5 mg ONCE ONCE NEB 10/18/24 14:30 10/18/24 14:31 DC 10/18/24 14:49 Ipratropium [place] (Atrovent Medneb) 0.5 mg ONCE ONCE NEB 10/18/24 14:30 10/18/24 14:31 DC 10/18/24 14:49 Methylprednisolone Sodium Succinate (Solu Medrol) 125 mg ONCE ONCE IV 10/18/24 14:30 10/18/24 14:31 DC 10/18/24 14:56 Levofloxacin/ Dextrose 150 ml @ 100 mls/hr ONCE ONCE IV 10/18/24 14:30 10/18/24 15:59 DC 10/18/24 14:57 PROCEDURE(s): CXRP - CHEST PORTABLE REASON: sob ORDER NUMBER(s): [id number], ACCESSION NUMBER(s): [id number] CHEST RADIOGRAPH Indication: sob Technique: Single frontal view of the chest was obtained COMPARISON: XY CHEST PORTABLE on DOS: 09/14/24 FINDINGS: Lines and Tubes: None Lungs: Persistent diffuse interstitial prominence with partial obscuration of left hemidiaphragm. Pleura: No effusion. No pneumothorax. Cardiomediastinal contours: Moderate stable cardiomegaly. Pacemaker wires appear intact. Slight improvement the aeration of the lung arana since the previous study. Bones: Unremarkable IMPRESSION: 1. Moderate cardiomegaly, stable 2. Findings compatible with CHF pattern, slightly improved since the prior study X-Ray, Labs, Meds, VS Comment 64-year-old female with a history of CAD, CHF, COPD, pacemaker and recent pneumonia complaining of shortness a breath and chest pain Vitals remarkable for temperature 100.7, oxygen saturation 94% on 5 L nasal cannula EKG atrial paced rhythm, inferior ST depression with other nonspecific T changes Chest x-ray consistent with CHF Labs remarkable for lactate 2.3, BNP 188.82, troponins negative, influenza and COVID tests negative Patient treated with the following in the ED: Albuterol 5 mg/Atrovent 0.5 mg nebulized, Solu-Medrol 125 mg IV, Levaquin 750 mg IV, Lasix 40 mg IV On re-evaluation, patient states shortness breath has improved. Oxygen saturation is still 94% on 5 L nasal cannula. Plan is to admit the patient for lactate trend, IV antibiotics, diuresis and respiratory support as needed Time of 1ST Reevaluation: 15:19 Reevaluation 1ST: Unchanged Patient Education/Counseling: Diagnosis, Treatment Family Education/Counseling: No Family Present Departure 1 Departure Time of Disposition: 17:04 Impression: Primary Impression: Bilateral pneumonia Qualified Codes: J18.9 - Pneumonia, unspecified organism Additional Impressions: Acute exacerbation of CHF (congestive heart failure) Qualified Codes: I50.9 - Heart failure, unspecified COPD exacerbation Disposition: ADMITTED INPATIENT Admit to: Tele Condition: Guarded Critical Care Note Critical Care Time?: No Stability Stability form required: No Heart Score Heart Score: Heart Score Response (Comments) Value History N/A 0 EKG N/A 0 Age N/A 0 Risk Factors N/A 0 Troponin N/A 0 Total 0 I personally scribed for ALONA BARON MD ([email or web address]) on 10/18/24 at 14:24. Electronically submitted by Pascual Parrish ([email or web address]). ALONA BARON MD Oct 18, 2024 14:24
[2024-10-18] MEDS: IPRATROPIUM BROM 0.5 MG/2.5ML INH SOL NEB ONE (14:49)
[2024-10-18] MEDS: ALBUTEROL SULF 2.5 MG/0.5ML(0.5%) NEB SOLN NEB ONE (14:49)
[2024-10-18 14:55] LABS: Basophils # (auto) 0 10 ^3/uL (0-0.2); Basophils % (auto) 0.3 % (0.0-2.0); Eosinophils # (auto) 0 10 ^3/uL (0-0.8); Eosinophils % (auto) 0.4 % (0.0-7.0); Hemoglobin 11.8 g/dL (12.2-16.2); Lymphocytes # (auto) 0.5 10 ^3/uL (0.4-5.4); Lymphocytes % (auto) 8.8 % (10.0-50.0); Mean Corpuscular Hemoglobin 23.4 pg (28.0-32.0); Mean Corpuscular Hgb Conc. 31.9 g/dL (32.0-36.0); Mean Corpuscular Volume 73.3 fL (80.0-100.0); Monocytes # (auto) 0.5 10 ^3/uL (0-1.3); Monocytes % (auto) 9.3 % (0.0-12.0); Neutrophils # (auto) 4.2 10 ^3/uL (1.6-8.6); Neutrophils % (auto) 81.2 % (37.0-80.0); Nucleated Red Blood Cells % 0.1 %; Platelet Count (auto) 211 10^3/uL (140-450); Red Blood Cells 5.04 10^6/uL (4.0-5.20); Red Cell Distribution Width 17.1 % (11.8-14.3); White Blood Cell 5.2 10^3/uL (4.4-10.8)
[2024-10-18] MEDS: methylPREDNISolone SOD SUCC 125 MG/2 ML VL IV ONE (14:56)
[2024-10-18] MEDS: levoFLOXacin 750MG 150 ML IV ONE (14:57)
[2024-10-18 15:10] LABS: Chloride 103 mmol/L (98-107); Sodium 140 mmol/L (136-145)
[2024-10-18 15:11] LABS: Anion Gap 7 (5-15); Calcium 9.2 mg/dL (8.7-10.4); Carbon Dioxide 30 mmol/L (20-31)
[2024-10-18 15:16] LABS: BUN/Creatinine Ratio 18.3 (10.0-20.0); Blood Urea Nitrogen 15 mg/dL (9-23); Glucose 95 mg/dL (74-106)
[2024-10-18 15:30] LABS: Urine Bacteria None Seen /hpf (None Seen)
[2024-10-18 15:33] LABS: Lactic Acid w/Reflex 2.3 mmol/L (0.4-2.0)
[2024-10-18 15:41] LABS: Urine Blood Negative /uL (Negative); Urine Clarity Clear (Clear); Urine Hyaline Cast FEW /lpf (0 - 2); Urine Protein, UAD Negative (Negative); Urine Specific Gravity 1.009 (1.001-1.035); Urine Squamous Epithelial Cell FEW /hpf (<5); Urine Urobilinogen Normal (Negative); Urine WBC <1 /hpf (0 - 5); Urine pH 5.5 (5.0-9.0)
[2024-10-18 15:46] LABS: Urine Color STRAW (Yellow)
[2024-10-18 16:13] LABS: COVID19 ANTIGEN SOFIA FIA NEGATIVE (NEGATIVE)
[2024-10-18 16:14] LABS: Rapid Influenza A Negative (Negative); Rapid Influenza B Negative (Negative)
[2024-10-18] MEDS: FUROSEMIDE 40 MG/4 ML VIAL IV ONE (19:00)
[2024-10-18 19:30] VITALS: PULSE 82; RESP 12; O2SAT 93
--- NOTE | 2024-10-18 21:51 | DVHHPRES ---
History of Present Illness Resident Creating Document: BRIAN MARIESHELBI RESIDENT History of Present Illness Patient is a 64-year-old female with a past medical history of heart failure with reduced ejection fraction, atrial fibrillation, COPD, coronary artery disease , congenital heart disease s/p surgery @ 10 months of age came to the ED with a chief complaint of worsening shortness of breath for about a week. Patient was admitted to the hospital 1 month ago for a similar complaint of shortness of breath was discharged on oral antibiotic azithromycin. Patient reported she was feeling well since about a week ago when she went to see her daughter where her grand kids were sick with flu-like symptoms following which she also developed cold, congestion, dry cough, sore throat, fever and headache and subsequently started to feel short of breath. Patient reports to be using oxygen at home for the last 7 years usually at night with the CPAP machine as she reports severe sleep apnea but on and off in the day at 2 liters/minute via nasal cannula. patient also reported associated chest pain on the left side, pressure-like, which radiated to the neck and jaw, with the associated palpitations and sweating. Patient denied nausea, vomiting, abdominal pain or diarrhea. Past medical history: Heart failure with reduced ejection fraction, atrial fibrillation, coronary artery disease, Past surgical history: Pacemaker/AICD, congenital heart disease s/p surgery @ 10 months Social history: Patient lives in a mobile home alone. Previous smoker half a pack a day for about 20 years, history of methamphetamine use but quit 7 years ago, history of alcohol use but she quit 2-3 years ago Home medications: Eliquis 5 mg b.i.d., Trintellix 20 mg, sotalol 40 mg b.i.d., carvedilol 6.25 mg b.i.d., latuda 40 mg q.d., furosemide 20 mg q.d., aspirin 81 mg q.d., losartan 25 mg q.d., [place] 10 Q 6 hours Review of Systems Review of Systems Patient reports breathing better while on oxygen at 4 liter/minute Reports [id number] headache, generalized, constant and it has been going on the last few hours. Denies palpitations, chest pain. Has intermittent bouts of dry cough Allergies: Coded Allergies: Penicillins (Verified Allergy, Unknown, 06/29/18) Exam Vital Signs Vital Signs Date Time Temp Pulse Resp B/P (MAP) Pulse Ox O2 Delivery O2 Flow Rate FiO2 10/18/24 19:30 82 12 102/54 (70) 93 10/18/24 14:49 Nasal Cannula* 3 32 10/18/24 13:45 100.2 100.2 Exam Physical Examination Constitutional: Patient was alert and oriented to time, place and person appears to be in mild distress because of the headache and chronic back pain. Gen - no pallor, no icterus, no cyanosis, no clubbing, no LAD, no edema . Skin - Patients skin is warm and dry.. HEENT - normocephalic, atraumatic, dry mucous membranes. Neck - full ROM, no LAD, jugular venous distention disposition seen in the upper 3rd of the SCM Pulmonary - breath sounds diminished in the left lower side as bear to the right with coarse inspiratory crackles of the left side. cardiovascular - normal S1,S2 heard. no murmurs heard. peripheral pulses radial 2+, pedal 2+. GI - soft abdomen without tenderness to palpation . no hepatospleenomegaly. Bowel sounds normoactive Neurological - Bilateral upper extremity strength 5/5, bilateral lower extremity strength 5/5, no facial droop, normal speech, no tremor, no sensory deficiets. Labs/Xrays Labs Test 10/18/24 17:30 10/18/24 17:13 10/18/24 15:31 10/18/24 15:29 Range/Units Troponin I High Sensitivity 16 </=34 ng/L Lactic Acid Level 0.9 0.4-2.0 mmol/L Influenza Type A Antigen Negative Negative Influenza Type B Antigen Negative Negative SARS-CoV-2 Antigen (Rapid) Negative NEGATIVE Urine Color Straw Yellow Urine Clarity Clear Clear Urine pH 5.5 5.0-9.0 Urine Specific [place] 1.009 1.001-1.035 Urine Protein Negative Negative Urine Ketones Negative Negative Urine Blood Negative Negative /uL Urine Nitrite Negative Negative Urine Bilirubin Negative Negative Urine Urobilinogen Normal Negative mg/dL Urine Leukocyte Esterase Negative Negative /uL Urine RBC None seen 0 - 4 /hpf Urine WBC <1 0 - 5 /hpf Urine Squamous Epithelial Cells Few <5 /hpf Urine Bacteria None seen None Seen /hpf Urine Hyaline Casts Few 0 - 2 /lpf Urine Glucose Normal Normal mg/dL Test 10/18/24 14:33 Range/Units White Blood Count 5.2 4.4-10.8 10^3/uL Red Blood Count 5.04 4.0-5.20 10^6/uL Hemoglobin 11.8 L 12.2-16.2 g/dL Hematocrit 37.0 36.0-46.0 % Mean Corpuscular Volume 73.3 L 80.0-100.0 fL Mean Corpuscular Hemoglobin 23.4 L 28.0-32.0 pg Mean Corpuscular Hemoglobin Concent 31.9 L 32.0-36.0 g/dL Red Cell Distribution Width 17.1 H 11.8-14.3 % Platelet Count 211 140-450 10^3/uL Mean Platelet Volume 6.8 L 6.9-10.8 fL Neutrophils (%) (Auto) 81.2 H 37.0-80.0 % Lymphocytes (%) (Auto) 8.8 L 10.0-50.0 % Monocytes (%) (Auto) 9.3 0.0-12.0 % Eosinophils (%) (Auto) 0.4 0.0-7.0 % Basophils (%) (Auto) 0.3 0.0-2.0 % Neutrophils # (Auto) 4.2 1.6-8.6 10 ^3/uL Lymphocytes # (Auto) 0.5 0.4-5.4 10 ^3/uL Monocytes # (Auto) 0.5 0-1.3 10 ^3/uL Eosinophils # (Auto) 0 0-0.8 10 ^3/uL Basophils # (Auto) 0 0-0.2 10 ^3/uL Nucleated Red Blood Cells 0.1 % Sodium Level 140 136-145 mmol/L Potassium Level 4.0 3.5-5.1 mmol/L Chloride Level 103 98-107 mmol/L Carbon Dioxide Level 30 20-31 mmol/L Anion Gap 7 5-15 Blood Urea Nitrogen 15 9-23 mg/dL Creatinine 0.82 0.550-1.02 mg/dL Glomerular Filtration Rate Calc 81 >90 mL/min BUN/Creatinine Ratio 18.3 10.0-20.0 Serum Glucose 95 74-106 mg/dL Calcium Level 9.2 8.7-10.4 mg/dL B-Type Natriuretic Peptide 188.82 0-100 pg/mL Assessment/Plan Assessment/Plan # acute hypoxic respiratory failure secondary to ? heart failure exacerbation vs ? Pneumonia # acute exacerbation heart failure with reduced ejection fraction # complicated post viral pneumonia likely due to Gram+/-versus atypical bacteria # SIRS positive - on 4-5 L oxygen via nasal cannula - chest x-ray shows bilateral opacities with the obstruction of the left CP angle, increased pulmonary vascular marking, interstitial pulmonary edema - elevated CRP - 1 dose methylprednisolone 125 mg IV given in the ER - patient given furosemide 40 mg IV - started on 40 mg IV furosemide b.i.d. - on levofloxacin 750 mg q.d. IV - at home patient takes 6.25 mg b.i.d. carvedilol, currently held given soft blood pressures - echo pending, previous echo in 2021 shows 30-35% EF, concentric LVH, dilated LV, diffuse hypokinesis of left ventricle # paroxysmal atrial fibrillation - currently heart rate is controlled - at home sotalol 40 mg b.i.d., currently held given soft blood pressure but can resume if the heart rate is uncontrolled - Eliquis 5 mg b.i.d. # acute chest pain, rule out ACS - 12 lead EKG shows atrial paced rhythms with ST depression in leads [address] elevation in aVL - troponins are under normal limits - on aspirin 81 mg and atorvastatin 40 mg - cardiology consulted # obstructive sleep apnea - BiPAP at night # hypokalemia - adequately replaced - on potassium 10 mEq daily # microcytic hypochromic anemia - iron panel, ferritin pending -monitor H&H PUD prophylaxis: Famotidine 20 mg IV DVT prophylaxis: Enoxaparin 40 mg sc q.d. Goals of care discussed with the patient for over 29 minutes. Full code Plan discussed with Plan discussed with: Patient My Orders Orders - ANNA MARIE RESIDENT Procedure Category Date Status Time Admit ADMIT 10/18/24 Verified 21:47 Nitroglycerin PHA 10/18/24 Verified Sublingual (Ntrostat 22:00 Morphine Sulfate PHA 10/18/24 Verified Injection 22:00 Oxygen By Nasal RT 10/18/24 Verified Cannula 21:47 Stat Ekg For Chest CORBIN 10/18/24 Verified Pain 21:47 Notify Of Changes CORBIN 10/18/24 Verified From Base 21:47 Tube Knitter For CORBIN 10/18/24 Verified 24 Hours 21:47 Date of Service: Oct 18, 2024 Billing Provider: JOHNNY SUE MD Common Visit Codes: [id number] INP/OBS CARE (HIGH) Secondary Visit Codes: [id number] CARE PLAN 30 MINUTES ANNA MARIE RESIDENT Oct 18, 2024 21:50 JOHNNY SUE MD Oct 19, 2024 16:53
[2024-10-18] MEDS ORDERED: NITROGLYCERIN 0.4 MG SL TAB SL PRN (22:00)
[2024-10-18] MEDS ORDERED: MORPHINE SULFATE INJ 2 MG/ml SYRG IV PRN (22:00)
[2024-10-18 22:40] VITALS: BP 102/54; PULSE 82; RESP 18; TEMP 100.2; O2SAT 91
[2024-10-18 22:40] LABS: Basophils # (auto) 0 10 ^3/uL (0-0.2); Basophils % (auto) 0.2 % (0.0-2.0); Eosinophils # (auto) 0 10 ^3/uL (0-0.8); Hemoglobin 11.6 g/dL (12.2-16.2); Lymphocytes # (auto) 0.3 10 ^3/uL (0.4-5.4); Lymphocytes % (auto) 7.6 % (10.0-50.0); Mean Corpuscular Hemoglobin 22.8 pg (28.0-32.0); Mean Corpuscular Hgb Conc. 31.2 g/dL (32.0-36.0); Mean Corpuscular Volume 72.9 fL (80.0-100.0); Monocytes # (auto) 0.1 10 ^3/uL (0-1.3); Monocytes % (auto) 2.9 % (0.0-12.0); Neutrophils % (auto) 89.3 % (37.0-80.0); Nucleated Red Blood Cells % 0.1 %; Platelet Count (auto) 202 10^3/uL (140-450); Red Blood Cells 5.07 10^6/uL (4.0-5.20); White Blood Cell 3.4 10^3/uL (4.4-10.8)
[2024-10-18 22:53] LABS: Alanine Aminotransferase 15 U/L (7-40); Albumin 4.3 g/dL (3.2-4.8); Alkaline Phosphatase 66 U/L (46-116); Anion Gap 8 (5-15); Aspartate Aminotransferase 19 U/L (13-40); BUN/Creatinine Ratio 18.4 (10.0-20.0); Bilirubin, Total 0.3 mg/dL (0.2-1.0); Blood Urea Nitrogen 18 mg/dL (9-23); Calcium 9.1 mg/dL (8.7-10.4); Carbon Dioxide 27 mmol/L (20-31); Chloride 103 mmol/L (98-107); Lipase 51 U/L (12-53); Potassium 3.8 mmol/L (3.5-5.1); Sodium 138 mmol/L (136-145); Total Protein 6.9 g/dL (5.7-8.2)
[2024-10-18 22:57] LABS: Glucose 181 mg/dL (74-106)
[2024-10-18 23:10] VITALS: PULSE 83
[2024-10-18 23:13] VITALS: BP 100/63; PULSE 86; RESP 20; TEMP 98; O2SAT 94
[2024-10-18 23:17] LABS: Erythrocyte Sedimentation Rate 14 mm/hr (0-20)
[2024-10-19] VITALS (19 sets, daily range): BP systolic 90–115; BP diastolic 47–72; PULSE 74–145; RESP 16–27; TEMP 97.5–98.7; O2SAT 91–100
[2024-10-19] MEDS ORDERED: SOTA80TA62 PO (00:09)
[2024-10-19] MEDS ORDERED: PANT40T PO (00:09)
[2024-10-19] MEDS: ALBUTEROL SULF 2.5 MG/0.5ML(0.5%) NEB SOLN NEB SCH (02:15)
[2024-10-19] MEDS: IPRATROPIUM BROM 0.5 MG/2.5ML INH SOL NEB SCH (02:15)
[2024-10-19] MEDS: POTASSIUM CHL 20 Meq TABLET PO ONE (02:55)
[2024-10-19] MEDS: ASPirin 81 mg TAB PO ONE (02:55)
[2024-10-19] MEDS: ATORVASTATIN 20 MG TAB PO ONE (02:56)
[2024-10-19] MEDS: FUROSEMIDE 40 MG/4 ML VIAL IV SCH (05:31)
[2024-10-19] MEDS: IBUPROFEN 600 MG TAB PO ONE (06:19)
--- NOTE | 2024-10-19 09:14 | DVHINCON2 ---
Date of service: Oct 19, 2024 History of Present Illness HPI Patient is a 64-year-old female who presented with few days of worsening shortness of breath. She mentions that she got sick from her grand children who were sick also. She also mentions that she had an ammonia around Thanksgiving. Cardiology is involved for cardiac aspects of care. Patient is known to our practice from outside on before. Patient does have history of systolic heart failure for which has ICD (Biotronik). History also includes paroxysmal AFib for which she is on Eliquis. She denies palpitations. She does complain of pleuritic type chest pain during coughing. She did have some coryza. Home Meds Reported Medications Sotalol HCl (Sotalol Hydrocholride) 80 Mg Tab, 1 PO DAILY 10/19/24 Pantoprazole Sodium Sesquihydr (Pantoprazole Sodium) 40 Mg Tab, 1 TAB PO DAILY 10/19/24 Ondansetron HCl (Ondansetron) 4 Mg Tab, 8 MG PO DAILY, TAB 09/15/24 Alprazolam (Xanax) 0.25 Mg Tb, 5 MG PO PRN for ANXIETY, TAB 09/15/24 Zolpidem Tartrate (Zolpidem Tartrate) 5 Mg Tab, 1 TAB PO HS, #30 TAB 2 Refills 09/15/24 Icosapent Ethyl (Icosapent Ethyl) 1 Gm Cap, 2 CAP PO BID, CAP 09/15/24 Aspirin (Aspir-Low) 81 Mg Tab, 81 MG PO DAILY for 30 Days, MG 09/15/24 Vortioxetine Hydrobromide (Trintellix) 20 Mg Tab, 20 MG PO DAILY, TAB 09/15/24 Magnesium Oxide (Mag-Ox) 400 Mg Tb, 400 MG PO DAILY, TAB 09/15/24 Hydrocodone-Acetaminophen (Hydrocodone Bitartrate/AC 10-325 mg) 1 Tab Tab, 1 TAB PO Q6HP, TAB 08/24/22 Losartan Potassium (Losartan Potassium) 25 Mg Tab, 20 MG PO DAILY for 30 Days, MG 07/01/18 Potassium Chloride (POTASSIUM CHLORIDE CR) 10 Meq Tb, 1 TAB PO DAILY, #30 TAB 5 Refills 06/30/18 Furosemide (Lasix) 20 Mg Tb, 1 TAB PO DAILY, #90 TAB 1 Refill 06/30/18 Apixaban Base (ELIQUIS) 5 Mg Tab, 5 MG PO BID, TAB 06/30/18 Carvedilol (Carvedilol) 3.125 Mg Tab, 6.25 MG PO BID 12/19/12 Past Medical History Others Not in acute distress. Not using accessory muscles of breathing. Mucosa is pink and wet. No carotid bruit. No JVD. Chest: Scattered rhonchi in the lungs is heard. Cardiac: Regular, no thrill. Systolic murmur in the apex is heard. Abdomen is soft. There is no gross mass/hepatomegaly. Extremities reveal 1+ edema bilateral. Dorsalis pedis is 2+ bilateral. Patient Family History: Cancer G8 MOTHER, Onset:50's - 60 G8 FATHER, Onset:60 years & older Family history: Diabetes mellitus G8 FATHER, Onset:30's - 40 G8 BROTHER, Onset:30s - 40 Smoker: Quit Lives with: Other (Trailer home) Review of Systems Constitutional: Malaise, Weakness Ears, Nose, & Throat: No symptom reported Pulmonary/Respiratory: Dyspnea, Cough, Pleuritic Chest Pain Cardiovascular: Paroxysmal Noc. Dyspnea, Lt Headedness All Other Systems 14 point review of system was performed. Relevant findings as per above and as per HPI. Otherwise negative. H&P Exam Vital Signs Vital Signs Date Time Temp Pulse Resp B/P (MAP) Pulse Ox O2 Delivery O2 Flow Rate FiO2 10/19/24 08:49 97.5 101 17 105/47 (66) 92 97.5 10/19/24 08:21 Nasal Cannula* 5 40 General Appeara: Well developed, Mild distress Neck Exam: Normal inspection Eye Exam: bilateral eye PERRL Mouth: Normal Inspection Pulmonary/Respiratory: Rhonci Cardiovascular/Chest: Systolic murmur Peripheral Pulses: 2+ carotid (R), 2+ carotid (L), 2+ femoral (R), 2+ femoral (L), 2+ dorsalis pedis (R), 2+ dorsalis pedis (L) Abdominal Exam: Normal bowel sounds, Soft, No tenderness Neuro/Mental St: Alert, Oriented Appearance: Appropriate appearance Eye contact/ Speech: Cooperative Labs/Xrays Labs Test 10/18/24 22:23 10/18/24 17:30 10/18/24 17:13 10/18/24 15:31 Range/Units White Blood Count 3.4 #L 4.4-10.8 10^3/uL Red Blood Count 5.07 4.0-5.20 10^6/uL Hemoglobin 11.6 L 12.2-16.2 g/dL Hematocrit 37.0 36.0-46.0 % Mean Corpuscular Volume 72.9 L 80.0-100.0 fL Mean Corpuscular Hemoglobin 22.8 L 28.0-32.0 pg Mean Corpuscular Hemoglobin Concent 31.2 L 32.0-36.0 g/dL Red Cell Distribution Width 17.0 H 11.8-14.3 % Platelet Count 202 140-450 10^3/uL Mean Platelet Volume 6.8 L 6.9-10.8 fL Neutrophils (%) (Auto) 89.3 H 37.0-80.0 % Lymphocytes (%) (Auto) 7.6 L 10.0-50.0 % Monocytes (%) (Auto) 2.9 0.0-12.0 % Eosinophils (%) (Auto) 0.0 0.0-7.0 % Basophils (%) (Auto) 0.2 0.0-2.0 % Neutrophils # (Auto) 3.0 1.6-8.6 10 ^3/uL Lymphocytes # (Auto) 0.3 L 0.4-5.4 10 ^3/uL Monocytes # (Auto) 0.1 0-1.3 10 ^3/uL Eosinophils # (Auto) 0 0-0.8 10 ^3/uL Basophils # (Auto) 0 0-0.2 10 ^3/uL Nucleated Red Blood Cells 0.1 % Erythrocyte Sedimentation Rate 14 0-20 mm/hr Sodium Level 138 136-145 mmol/L Potassium Level 3.8 3.5-5.1 mmol/L Chloride Level 103 98-107 mmol/L Carbon Dioxide Level 27 20-31 mmol/L Anion Gap 8 5-15 Blood Urea Nitrogen 18 9-23 mg/dL Creatinine 0.98 0.550-1.02 mg/dL Glomerular Filtration Rate Calc 65 >90 mL/min BUN/Creatinine Ratio 18.4 10.0-20.0 Serum Glucose 181 H 74-106 mg/dL Calcium Level 9.1 8.7-10.4 mg/dL Total Bilirubin 0.3 0.2-1.0 mg/dL Aspartate Amino Transferase (AST) 19 13-40 U/L Alanine Aminotransferase (ALT) 15 7-40 U/L Alkaline Phosphatase 66 46-116 U/L C-Reactive Protein High Sensitivity 7.79 H <1.0 mg/dL Total Protein 6.9 5.7-8.2 g/dL Albumin 4.3 3.2-4.8 g/dL Lipase 51 12-53 U/L Troponin I High Sensitivity 16 </=34 ng/L Lactic Acid Level 0.9 0.4-2.0 mmol/L Influenza Type A Antigen Negative Negative Influenza Type B Antigen Negative Negative SARS-CoV-2 Antigen (Rapid) Negative NEGATIVE Test 10/18/24 15:29 10/18/24 14:33 Range/Units Urine Color Straw Yellow Urine Clarity Clear Clear Urine pH 5.5 5.0-9.0 Urine Specific [place] 1.009 1.001-1.035 Urine Protein Negative Negative Urine Ketones Negative Negative Urine Blood Negative Negative /uL Urine Nitrite Negative Negative Urine Bilirubin Negative Negative Urine Urobilinogen Normal Negative mg/dL Urine Leukocyte Esterase Negative Negative /uL Urine RBC None seen 0 - 4 /hpf Urine WBC <1 0 - 5 /hpf Urine Squamous Epithelial Cells Few <5 /hpf Urine Bacteria None seen None Seen /hpf Urine Hyaline Casts Few 0 - 2 /lpf Urine Glucose Normal Normal mg/dL B-Type Natriuretic Peptide 188.82 0-100 pg/mL Assessment/Plan Plan Patient is a 64-year-old female who presented with few days of worsening shortness of breath. She mentions that she got sick from her grand children who were sick also. She also mentions that she had an ammonia around Thanksgiving. Cardiology is involved for cardiac aspects of care. Patient is known to our practice from outside on before. Patient does have history of systolic heart failure for which has ICD (Biotronik). History also includes paroxysmal AFib for which she is on Eliquis. She denies palpitations. She does complain of pleuritic type chest pain during coughing. She did have some coryza. Not in acute distress. Not using accessory muscles of breathing. Mucosa is pink and wet. No carotid bruit. No JVD. Chest: Scattered rhonchi in the lungs is heard. Cardiac: Regular, no thrill. Systolic murmur in the apex is heard. Abdomen is soft. There is no gross mass/hepatomegaly. Extremities reveal 1+ edema bilateral. Dorsalis pedis is 2+ bilateral. Past medical history includes hypertension, hyperlipidemia, COPD, systolic heart failure, paroxysmal AFib, status post ICD (Biotronik) implantation, questionable coronary artery disease, obstructive sleep apnea, peripheral artery disease (history of right subclavian artery stenosis), diverticulosis, fatty liver, type 2 pulmonary hypertension, history of congenital heart disease (for which had surgery in infancy) and status post appendectomy. She stopped methamphetamine many years ago. She stopped alcohol 2 years ago. She stopped cigarette smoking years ago. Denies active marijuana use Echocardiogram of August 2022 had reported dilated 4 chambers, ejection fracti on of 30-35%, pseudonormal LV diastolic filling, moderate MR, mild TR, pacing wire in right-sided chambers and right ventricular systolic pressure of 36 mm Hg Echocardiogram of January 2024 (performed in the office) had reported improved ejection fraction and moderate MR Creatinine: 0.82 - 0.98 Potassium: 4.0 - 3.8 Troponin (high sensitive): BNP: 188.82 Chest x-ray reported (images were reviewed by self): IMPRESSION: 1. Moderate cardiomegaly, stable 2. Findings compatible with CHF pattern, slightly improved since the prior study EKG revealed sinus rhythm, IVCD with nonspecific ST changes Tele reveals sinus rhythm and occasions of atrial fibrillation with RVR Patient is a 64-year-old female who presented with worsening shortness of breath and acute respiratory failure. Presentation is in favor of bronchitis/pneumonia. COPD exacerbation could have contributed to the clinical picture. Patient does have history of systolic heart failure and component of acute on chronic systolic heart failure secondary to intercurrent disease could have contributed to the clinical picture. Patient did have some sick contact which could have contributed to the clinical picture. It is of note that the patient does have substance abuse but stopped many years ago. Patient also has had congenital heart disease for which had surgery during infancy. Patient is also obese which could have contributed to the clinical picture Acute respiratory failure Pneumonia, community-acquired COPD exacerbation Acute on chronic systolic heart failure Congenital heart disease Hypertension Hyperlipidemia History of fatty liver Peripheral artery disease Obstructive sleep apnea Morbid obesity Cardiac suggestion for management: Manage on telemetry Gentle diuresis is suggested Follow-up electrolytes and kidney function tests and correct abnormalities. Keep potassium above 4 and magnesium above 2 Request for echocardiogram Request for interrogation of the ICD (Biotronik) Consider CT scan of the chest without contrast Pulmonary evaluation for management of COPD exacerbation is suggested Management of pneumonia (antibiotics...) as per primary team/Pulmonary Long-term continuation of full anticoagulation (on Eliquis) is suggested Guideline directed medical therapy for systolic heart failure Further evaluation and management depends on the above and clinical course Thank you for consultation A total of 75 minutes was spent reviewing the patient record, examining the patient, making a diagnostic and therapeutic plan, discussing this plan with medical personnel, following up on diagnostic studies and following the patient for clinical stability excluding any and all procedures. At least 50% of this time was spent in direct, [id number] contact. Thank you for allowing me to participate in this patient's care. Further recommendations will depend on patient's clinical course. Please do not hesitate to contact me if you have any questions or concerns. This medical document was created using electronic medical record system with [employer] computerized dictation system. Although this document has been carefully reviewed, there may still be some phonetic and typographical errors. These areas are purely typographical due to the imperfection of the software programs, and do not reflect any compromise in the patient's medical care. Plan discussed with: Patient, Other (Nurse) SONDRA DIANE MD Oct 19, 2024 09:14
[2024-10-19] MEDS: levoFLOXacin 750MG 150 ML IV SCH (09:36)
[2024-10-19] MEDS: ASPirin 81 mg TAB PO SCH (09:36)
[2024-10-19] MEDS: POTASSIUM CHL 10 Meq TABLET PO SCH (09:36)
[2024-10-19] MEDS ORDERED: APIXABAN 5 MG TAB PO SCH (10:00)
[2024-10-19] MEDS ORDERED: ENOXAPARIN SOD 40 MG/0.4 ML SYRINGE SC SCH (10:00)
[2024-10-19] MEDS: FAMOTIDINE (10MG/ML) 2ML VL IV SCH (10:26)
[2024-10-19 10:46] LABS: Chloride 104 mmol/L (98-107); Potassium 3.6 mmol/L (3.5-5.1); Sodium 142 mmol/L (136-145)
[2024-10-19 10:47] LABS: Anion Gap 9 (5-15); Carbon Dioxide 29 mmol/L (20-31)
[2024-10-19 10:48] LABS: Calcium 9.4 mg/dL (8.7-10.4)
[2024-10-19 10:53] LABS: BUN/Creatinine Ratio 20.4 (10.0-20.0); Blood Urea Nitrogen 22 mg/dL (9-23)
[2024-10-19 10:55] LABS: Basophils # (auto) 0 10 ^3/uL (0-0.2); Eosinophils # (auto) 0 10 ^3/uL (0-0.8); Lymphocytes # (auto) 0.8 10 ^3/uL (0.4-5.4); Mean Corpuscular Volume 74.1 fL (80.0-100.0); Monocytes # (auto) 0.5 10 ^3/uL (0-1.3); Neutrophils # (auto) 4.3 10 ^3/uL (1.6-8.6); White Blood Cell 5.7 10^3/uL (4.4-10.8)
[2024-10-19 10:56] LABS: % Iron Saturation 5.7 % (15-50)
[2024-10-19 10:57] LABS: Basophils % (auto) 0.2 % (0.0-2.0); Hematocrit 35.9 % (36.0-46.0); Hemoglobin 11.5 g/dL (12.2-16.2); Lymphocytes % (auto) 14.7 % (10.0-50.0); Mean Corpuscular Hemoglobin 23.8 pg (28.0-32.0); Mean Corpuscular Hgb Conc. 32.1 g/dL (32.0-36.0); Monocytes % (auto) 8.9 % (0.0-12.0); Neutrophils % (auto) 76.2 % (37.0-80.0); Platelet Count (auto) 209 10^3/uL (140-450); Red Blood Cells 4.84 10^6/uL (4.0-5.20); Red Cell Distribution Width 17.1 % (11.8-14.3)
[2024-10-19 11:01] LABS: Glucose 115 mg/dL (74-106)
--- NOTE | 2024-10-19 12:46 | DVH ---
Procedure: CT CHEST WITHOUT CONTRAST Reason for study/Clinical History: sob Comparison Study: 08/23/2022 Exam Date: 10/19/2024 12:18 PM TECHNIQUE: Multidetector CT of the chest was performed from the lung apices to the upper abdomen with out the use of intravenous contract. Axial, coronal and sagittal multiplanar reformats were performed . Radiation Dose Information: CT Dose: CTDI volume is 13.99 mGy. Dose-length product is 497.47 mGy*cm The dose indicators for CT are the volume Computed Tomography (CT) Dose Index (CTDIvol) and the Dose Length Product (DLP), and are measured in units of mGy and mGy-cm, respectively. These indicators are not patient dose, but values generated from the CT scanner acquisition factors. The report includes radiation exposure data for exposures received during this examination. FINDINGS: Lower neck: Normal thyroid. Lungs: Multifocal airspace disease with developing consolidation in the left lower lobe. [id number] rate centrilobular emphysema. Heart/Vascular Structures: Cardiomegaly. Coronary artery calcifications. Vascular calcifications of t he aorta. Lymph Nodes: No adenopathy Pleura: No pleural effusion or significant pneumothorax. Musculoskeletal: No acute osseous abnormality. Soft tissues: Left chest wall pacemaker. Thoracic spinal stimulator device in-situ. Upper abdomen: Limited portions of the upper abdomen are unremarkable. IMPRESSION: Findings are suggestive of multifocal atypical infection with more focal consolidation developing in the left lower lobe. Cardiomegaly and likely chronic CHF. Radiation optimization: All CT scans at this facility use at least one of these dose optimization joseph hniques: automated exposure control mA and/or kV adjustment per patient size (includes targeted exam s where dose is matched to clinical indication) or iterative reconstruction.
[2024-10-19] MEDS: APIXABAN 5 MG TAB PO ONE (13:00)
[2024-10-19] MEDS: guaiFENesin 200 MG/10 ML UD PO PRN (15:45)
[2024-10-19 15:55] LABS: Basophils # (auto) 0 10 ^3/uL (0-0.2); Basophils % (auto) 0.3 % (0.0-2.0); Eosinophils # (auto) 0 10 ^3/uL (0-0.8); Eosinophils % (auto) 0.1 % (0.0-7.0); Hematocrit 36.7 % (36.0-46.0); Hemoglobin 11.8 g/dL (12.2-16.2); Lymphocytes # (auto) 0.8 10 ^3/uL (0.4-5.4); Lymphocytes % (auto) 17.6 % (10.0-50.0); Mean Corpuscular Hemoglobin 23.8 pg (28.0-32.0); Mean Corpuscular Hgb Conc. 32.1 g/dL (32.0-36.0); Mean Corpuscular Volume 74.3 fL (80.0-100.0); Monocytes # (auto) 0.5 10 ^3/uL (0-1.3); Monocytes % (auto) 9.9 % (0.0-12.0); Neutrophils # (auto) 3.4 10 ^3/uL (1.6-8.6); Neutrophils % (auto) 72.1 % (37.0-80.0); Nucleated Red Blood Cells % 0.2 %; Platelet Count (auto) 199 10^3/uL (140-450); Red Blood Cells 4.94 10^6/uL (4.0-5.20); Red Cell Distribution Width 17.1 % (11.8-14.3); White Blood Cell 4.7 10^3/uL (4.4-10.8)
[2024-10-19 16:05] LABS: Alanine Aminotransferase 11 U/L (7-40); Albumin 4.1 g/dL (3.2-4.8); Alkaline Phosphatase 63 U/L (46-116); Anion Gap 5 (5-15); Aspartate Aminotransferase 21 U/L (13-40); BUN/Creatinine Ratio 21.1 (10.0-20.0); Blood Urea Nitrogen 19 mg/dL (9-23); Calcium 9.4 mg/dL (8.7-10.4); Carbon Dioxide 28 mmol/L (20-31); Chloride 106 mmol/L (98-107); Potassium 3.6 mmol/L (3.5-5.1); Sodium 139 mmol/L (136-145)
[2024-10-19 16:06] LABS: Total Protein 6.4 g/dL (5.7-8.2)
[2024-10-19] MEDS: FUROSEMIDE 40 MG/4 ML VIAL IV ONE ×2 (16:13→18:00)
[2024-10-19 16:14] LABS: Bilirubin, Total 0.2 mg/dL (0.2-1.0); Glucose 123 mg/dL (74-106)
--- NOTE | 2024-10-19 19:10 | DVHPNRES ---
Progress Note Date Seen: Oct 19, 2024 Resident Creating Document: RAYMOND CAZARES RESIDENT Medical Necessity Reason Pt with a Central, PICC or Fol: No Subjective Review of Systems Patient is a 64-year-old female with a past medical history of heart failure with reduced ejection fraction, atrial fibrillation, COPD, coronary artery disease , congenital heart disease s/p surgery at 10 months of age came to the ED with a chief complaint of worsening shortness of breath for about a week. Patient was admitted to the hospital 1 month ago for a similar complaint of shortness of breath was discharged on oral antibiotic azithromycin. Patient reported she was feeling well since about a week ago when she went to see her daughter where her grand kids were sick with flu-like symptoms following which she also developed cold, congestion, dry cough, sore throat, fever and headache and subsequently started to feel short of breath. Patient reports to be using oxygen at home 2 L, for the last 7 years usually at night with the CPAP machine as she reports severe sleep apnea Patient examined at bedside. patient also reported mild chest tenderness that exacerbates on palpation on the left side, pleuritic type chest pain also during coughing. Patient will continue on cardiac monitor . Continue on current IV antibiotic therapy, and oxygen supplementation , currently on 3 L via nasal cannula, and Lasix 40 mg IV daily . Patient was evaluated by Cardiology, patient will need to continue on Eliquis 5 mg b.i.d., echo is current pending. Pacemaker interrogation is pending. Monitor electrolytes keep potassium above 4 and magnesium above 2. ROS: Constitutional: Malaise, Weakness Eyes: No: Pain, Vision change, Conjunctivae inflammation, Eyelid inflammation, Other, Redness ENT: No: Ear pain, Ear discharge, Nose pain, Nose discharge, Nose congestion, Mouth pain, Mouth swelling, Throat pain, Throat swelling, Other Respiratory: Dyspnea, Cough, Pleuritic Chest Pain Cardiovascular: Paroxysmal Noc. Dyspnea, Lt Headedness Gastrointestinal: No: Nausea, Vomiting, Abdominal Pain, Diarrhea, Constipation, Melena, Hematochezia, Other Musculoskeletal: No: other, neck pain, shoulder pain, arm pain, back pain, hand pain, leg pain, foot pain Neurological:; No: Weakness, Numbness, Incoordination, Change in speech, Confusion, Seizures Patient reports: Feels better Changes from previous H/P or p: Changes Objective vital signs Vital Sign Date Time Temp Pulse Resp B/P (MAP) Pulse Ox O2 Delivery O2 Flow Rate FiO2 10/19/24 17:54 97/65 10/19/24 17:00 97.9 106 16 92 97.9 10/19/24 12:04 Nasal Cannula* 3 32 Total Intake and Output 10/18/24 10/18/24 10/19/24 15:00 23:00 07:00 Intake Total 150 ml 300 ml Balance 150 ml 300 ml medications Current Medications Medications Dose Ordered Sig/Brian Route Start Time Stop Time Status Last Admin Dose Admin Nitroglycerin 0.4 mg Q5MINP PRN SL 10/18/24 22:00 Morphine Sulfate 2 mg Q30M PRN IV 10/18/24 22:00 Furosemide 40 mg BIDD IV 10/19/24 06:00 10/19/24 05:31 40 MG Levofloxacin/ Dextrose 150 ml @ 100 mls/hr DAILY IV 10/19/24 10:00 10/19/24 09:36 100 MLS/HR Albuterol 2.5 mg Q6HR NEB 10/19/24 00:00 10/19/24 12:04 2.5 MG Ipratropium Alpine 0.5 mg Q6HR NEB 10/19/24 00:00 10/19/24 12:04 0.5 MG Potassium Chloride 10 meq DAILY PO 10/19/24 10:00 10/19/24 09:36 10 MEQ Aspirin 81 mg DAILY PO 10/19/24 10:00 10/19/24 09:36 81 MG Acetaminophen/ Hydrocodone Bitart 1 tab Q6HP PRN PO 10/18/24 22:15 Atorvastatin Calcium 40 mg HS PO 10/19/24 22:00 Famotidine 20 mg DAILY IV 10/19/24 10:00 10/19/24 10:26 20 MG Guaifenesin 200 mg Q4HP PRN PO 10/19/24 13:00 10/19/24 15:45 200 MG Apixaban 5 mg BID PO 10/19/24 22:00 Examination Constitutional: Patient was alert and oriented to time, place and person appears to be in mild distress because of the headache and chronic back pain. General: no pallor, no icterus, no cyanosis, no clubbing, no LAD, no edema . Skin: Patients skin is warm and dry.. HEENT: normocephalic, atraumatic, dry mucous membranes. Pulmonary: breath sounds diminished in the left lower side as bear to the right with coarse inspiratory crackles of the left side. cardiovascular: normal S1,S2 heard. no murmurs heard. peripheral pulses radial 2+, pedal 2+. GI: soft abdomen without tenderness to palpation . no hepatospleenomegaly. Bowel sounds normoactive Neurological: Bilateral upper extremity strength 5/5, bilateral lower extremity strength 5/5, no facial droop, normal speech, no tremor, no sensory deficiets. laboratory and microbiology Laboratory Tests 10/19/24 14:30 Test 10/19/24 14:30 Range/Units Serum Glucose 123 H 74-106 mg/dL Microbiology Date/Time Source Procedure Growth Status 10/19/24 07:28 Nose MRSA Screen - Final Complete 10/18/24 14:30 Blood Blood Culture - Preliminary NO GROWTH AFTER 24 HOURS OF INCUBATION. Resulted Problem List/Assessment/Plan Problem List/Assessment/Plan # acute hypoxic respiratory failure likely multifactorial due to acute on chronic systolic heart failure ,? CAP, COPD exacerbation # complicated post viral pneumonia likely due to Gram+/-versus atypical bacteria #multifocal atypical infection with more focal consolidation developing in the left lower lobe. - on 3 L oxygen via nasal cannula - chest x-ray shows bilateral opacities with the obstruction of the left CP angle, increased pulmonary vascular marking, interstitial pulmonary edema - elevated CRP - on levofloxacin 750 mg q.d. IV - echo pending, previous echo in 2021 shows 30-35% EF, concentric LVH, dilated LV, diffuse hypokinesis of left ventricle - Lasix 40 mg IV Daily # paroxysmal atrial fibrillation - Telemetry - currently heart rate is controlled - Eliquis 5 mg b.i.d. - Echo pending # acute chest pain, ruled out ACS - EKG revealed sinus rhythm, IVCD with nonspecific ST changes - Tele reveals sinus rhythm and occasions of atrial fibrillation with RVR - troponins are under normal limits - on aspirin 81 mg and atorvastatin 40 mg - pacemaker interrogation - cardio on board # obstructive sleep apnea - BiPAP at night # hypokalemia - adequately replaced - on potassium 10 mEq daily - Follow-up electrolytes and kidney function tests and correct abnormalities. Keep potassium above 4 and magnesium above 2 # microcytic hypochromic anemia - iron panel, ferritin pending -monitor H&H #Obesity - lifestyle modification counseling, dietary habits counseling. Case discussed with Dr. Bonilla Goals of care discussed with the patient for 36 minutes Code status: Full code Plan discussed with: Patient My Orders My Orders Orders - RAYMOND CAZARES Procedure Category Date Status Time Guaifenesin Plain PHA 10/19/24 In Process Liquid (Robitussin Essence 13:00 Furosemide Injection PHA 10/20/24 Logged (Lasix Injection) 18:00 Erosion Control Coordinator To Assess ORDERS 10/19/24 Transmitted Pacemaker 18:43 Date of Service: Oct 19, 2024 Billing Provider: MARCIAL CARTAGENA MD Common Visit Codes: [id number] INP/OBS CARE(HIGH) RAYMOND CAZARES Oct 19, 2024 19:10 MARCIAL CARTAGENA MD Oct 20, 2024 08:26
[2024-10-19] MEDS: ATORVASTATIN 20 MG TAB PO SCH (21:04)
[2024-10-19] MEDS: APIXABAN 5 MG TAB PO SCH (21:05)
[2024-10-20] VITALS (19 sets, daily range): BP systolic 94–117; BP diastolic 45–72; PULSE 61–119; RESP 17–22; TEMP 97.4–98.5; O2SAT 90–100
[2024-10-20] MEDS: HYDROcodone-ACET 7.5/325MG TAB PO PRN (00:59)
[2024-10-20 07:02] LABS: Chloride 105 mmol/L (98-107); Potassium 4.1 mmol/L (3.5-5.1); Sodium 140 mmol/L (136-145)
[2024-10-20 07:03] LABS: Anion Gap 5 (5-15); Calcium 9.4 mg/dL (8.7-10.4); Carbon Dioxide 30 mmol/L (20-31)
[2024-10-20 07:08] LABS: BUN/Creatinine Ratio 26.7 (10.0-20.0); Blood Urea Nitrogen 20 mg/dL (9-23); Glucose 92 mg/dL (74-106)
[2024-10-20 07:10] LABS: Basophils # (auto) 0 10 ^3/uL (0-0.2); Eosinophils # (auto) 0 10 ^3/uL (0-0.8); Eosinophils % (auto) 0.1 % (0.0-7.0); Hemoglobin 11.9 g/dL (12.2-16.2); Lymphocytes # (auto) 1.6 10 ^3/uL (0.4-5.4); Monocytes # (auto) 0.9 10 ^3/uL (0-1.3)
[2024-10-20 07:16] LABS: Basophils % (auto) 0.4 % (0.0-2.0); Hematocrit 36.3 % (36.0-46.0); Lymphocytes % (auto) 28.6 % (10.0-50.0); Mean Corpuscular Hemoglobin 23.9 pg (28.0-32.0); Mean Corpuscular Hgb Conc. 32.8 g/dL (32.0-36.0); Mean Corpuscular Volume 72.7 fL (80.0-100.0); Monocytes % (auto) 15.3 % (0.0-12.0); Neutrophils # (auto) 3.1 10 ^3/uL (1.6-8.6); Neutrophils % (auto) 55.6 % (37.0-80.0); Nucleated Red Blood Cells % 0.2 %; Platelet Count (auto) 212 10^3/uL (140-450); Red Cell Distribution Width 16.9 % (11.8-14.3); White Blood Cell 5.6 10^3/uL (4.4-10.8)
--- NOTE | 2024-10-20 07:37 | DVHSR ---
APPROVED REPORT EXAM: Two-dimensional and M-mode echocardiogram with Doppler and color Doppler. Blood Pressure: 115/72 mmHg INDICATION Dyspnea RISK FACTORS Height: 5'3", Weight: 161 DIMENSIONS LVDd5.7 (3.8-5.7cm)LA (2D)4.8 (1.9-4.0cm)Aortic Root (2.0-3.7cm) LVDs5.1 (2.5-4.0cm)LA (MM) (1.9-4.0cm)Aortic Cusp Exc (1.5-2.0cm) EF (%) 23.0 (55-70%)Rt. Atrium (1.9-4.0cm)Asc. Aorta cm IVSd1.0 (0.7-1.1cm)RV (D) (1.8-2.4cm) PWd0.8 (0.7-1.1cm) Mitral Valve MitralMitral Stenosis E/A ratio0.02D MVAcm2 Aortic Valve Aortic ValveAortic Stenosis V10.89m/Lizbeth Mean GR.3mmHg V21.05m/Lizbeth Peak GR.4mmHg LVOT Diameter2.1 (1.8-2.4cm)Doppler AVA2.93cm2 Pulmonic Valve V21.08m/s Tricuspid Valve TR Velocity2.71m/s [id number] Other Information Quality : Technically LimitedRhythm : Technically limited study due to body habitus and coughing. Conclusion Left ventricle: Dilated left ventricle with reduced systolic function. LVEF was around 30%. Diffus e hypokinesis of left ventricle was seen. Right ventricle was mildly dilated with reduced systolic function. Both atria were dilated. Pacing wire was seen in the right-sided chambers. Aortic valve was trileaflet. There was no aortic insufficiency/stenosis. There was [id number] mitral/tricuspid regurgitation. There was mild pulmonary valve insufficiency. Right ventricular systolic pressure was assessed around 40 mm Hg. There was no pericardial effusion.
--- NOTE | 2024-10-20 07:41 | DVHPN2 ---
Progress Note - Dictate Date Seen: Oct 20, 2024 Medical Necessity Reason Pt with a Central, PICC or Fol: No vital signs Vital Sign Date Time Temp Pulse Resp B/P (MAP) Pulse Ox O2 Delivery O2 Flow Rate FiO2 10/20/24 01:00 98.3 84 17 117/71 (86) 90 98.3 10/20/24 00:07 Nasal Cannula 3.0 10/20/24 00:07 32 Total Intake and Output 10/19/24 10/19/24 10/20/24 15:00 23:00 07:00 Intake Total 600 ml Balance 600 ml medications Current Medications Medications Dose Ordered Sig/Brian Route Start Time Stop Time Status Last Admin Dose Admin Nitroglycerin 0.4 mg Q5MINP PRN SL 10/18/24 22:00 Morphine Sulfate 2 mg Q30M PRN IV 10/18/24 22:00 Levofloxacin/ Dextrose 150 ml @ 100 mls/hr DAILY IV 10/19/24 10:00 10/19/24 09:36 100 MLS/HR Albuterol 2.5 mg Q6HR NEB 10/19/24 00:00 10/20/24 00:07 2.5 MG Ipratropium [place] 0.5 mg Q6HR NEB 10/19/24 00:00 10/20/24 00:07 0.5 MG Potassium Chloride 10 meq DAILY PO 10/19/24 10:00 10/19/24 09:36 10 MEQ Aspirin 81 mg DAILY PO 10/19/24 10:00 10/19/24 09:36 81 MG Acetaminophen/ Hydrocodone Bitart 1 tab Q6HP PRN PO 10/18/24 22:15 10/20/24 00:59 1 TAB Atorvastatin Calcium 40 mg HS PO 10/19/24 22:00 10/19/24 21:04 40 MG Famotidine 20 mg DAILY IV 10/19/24 10:00 10/19/24 10:26 20 MG Guaifenesin 200 mg Q4HP PRN PO 10/19/24 13:00 10/19/24 15:45 200 MG Apixaban 5 mg BID PO 10/19/24 22:00 10/19/24 21:05 5 MG laboratory and microbiology Laboratory Tests 10/20/24 06:26 Test 10/20/24 06:26 Range/Units Serum Glucose 92 74-106 mg/dL Assessment/Plan Patient is a 64-year-old female who presented with few days of worsening shortness of breath. She mentions that she got sick from her grand children who were sick also. She also mentions that she had an ammonia around Thanksgiving. Cardiology is involved for cardiac aspects of care. Patient is known to our practice from outside on before. Patient does have history of systolic heart failure for which has ICD (Biotronik). History also includes paroxysmal AFib for which she is on Eliquis. She denies palpitations. She does complain of pleuritic type chest pain during coughing. She did have some coryza. Not in acute distress. Not using accessory muscles of breathing. Mucosa is pink and wet. No carotid bruit. No JVD. Chest: Scattered rhonchi in the lungs is heard. Cardiac: Regular, no thrill. Systolic murmur in the apex is heard. Abdomen is soft. There is no gross mass/hepatomegaly. Extremities reveal 1+ edema bilateral. Dorsalis pedis is 2+ bilateral. Past medical history includes hypertension, hyperlipidemia, COPD, systolic heart failure, paroxysmal AFib, status post ICD (Biotronik) implantation, questionable coronary artery disease, obstructive sleep apnea, peripheral artery disease (history of right subclavian artery stenosis), diverticulosis, fatty liver, type 2 pulmonary hypertension, history of congenital heart disease (for which had surgery in infancy) and status post appendectomy. She stopped methamphetamine many years ago. She stopped alcohol 2 years ago. She stopped cigarette smoking years ago. Denies active marijuana use Echocardiogram of August 2022 had reported dilated 4 chambers, ejection fraction of 30-35%, pseudonormal LV diastolic filling, moderate MR, mild TR, pacing wire in right-sided chambers and right ventricular systolic pressure of 36 mm Hg Echocardiogram of January 2024 (performed in the office) had reported improved ejection fraction and moderate MR Creatinine: 0.82 - 0.98 - 1.08 - 0.90 - 0.75 Potassium: 4.0 - 3.8 - 3.6 - 3.6 - 4.1 Troponin (high sensitive): BNP: 188.82 Chest x-ray reported (images were reviewed by self): IMPRESSION: 1. Moderate cardiomegaly, stable 2. Findings compatible with CHF pattern, slightly improved since the prior study CT of chest revealed: Findings are suggestive of multifocal atypical infection with more focal consolidation developing in the left lower lobe. Cardiomegaly and likely chronic CHF. EKG revealed sinus rhythm, IVCD with nonspecific ST changes Tele reveals sinus rhythm and occasions of atrial fibrillation with RVR Echocardiogram reported: Left ventricle: Dilated left ventricle with reduced systolic function. LVEF was around 30%. Diffuse hypokinesis of left ventricle was seen. Right ventricle was mildly dilated with reduced systolic function. Both atria were dilated. Pacing wire was seen in the right-sided chambers. Aortic valve was trileaflet. There was no aortic insufficiency/stenosis. There was [id number] mitral/tricuspid regurgitation. There was mild pulmonary valve insufficiency. Right ventricular systolic pressure was assessed around 40 mm Hg. There was no pericardial effusion. Plurchaseronik interrogation revealed: Battery status:MOS2; Remaining battery capacity: 31%; DDD-CLS: 70/130; Sensing amplitude: A 3.3/RV 12.6 mV; Pacing threshold: A 0.8/RV 0.7 volts; Pacing impedance: A 581/RV 436 Ohms; Shock impedance: RV 91 Ohms; Pacing in a/V: 87/1%; No VF/VT; Normal functioning ICD Patient is a 64-year-old female who presented with worsening shortness of breath and acute respiratory failure. Presentation is in favor of bronchitis/pneumonia. COPD exacerbation could have contributed to the clinical picture. Patient does have history of systolic heart failure and component of acute on chronic systolic heart failure secondary to intercurrent disease could have contributed to the clinical picture. Patient did have some sick contact which could have contributed to the clinical picture. It is of note that the patient does have substance abuse but stopped many years ago. Patient also has had congenital heart disease for which had surgery during infancy. Patient is also obese which could have contributed to the clinical picture Acute respiratory failure Pneumonia, community-acquired COPD exacerbation Acute on chronic systolic heart failure Congenital heart disease Hypertension Hyperlipidemia History of fatty liver Peripheral artery disease Obstructive sleep apnea Morbid obesity Cardiac suggestion for management: Manage on telemetry Gentle diuresis is suggested Follow-up electrolytes and kidney function tests and correct abnormalities. Keep potassium above 4 and magnesium above 2 Pulmonary evaluation for management of COPD exacerbation is suggested Management of pneumonia (antibiotics...) as per primary team/Pulmonary Long-term continuation of full anticoagulation (on Eliquis) is suggested Guideline directed medical therapy for systolic heart failure Add Entresto Further evaluation and management depends on the above and clinical course A total of 55 minutes was spent reviewing the patient record, examining the patient, making a diagnostic and therapeutic plan, discussing this plan with medical personnel, following up on diagnostic studies and following the patient for clinical stability excluding any and all procedures. At least 50% of this time was spent in direct, [id number] contact. Thank you for allowing me to participate in this patient's care. Further recommendations will depend on patient's clinical course. Please do not hesitate to contact me if you have any questions or concerns. This medical document was created using electronic medical record system with [employer] computerized dictation system. Although this document has been carefully reviewed, there may still be some phonetic and typographical errors. These areas are purely typographical due to the imperfection of the software programs, and do not reflect any compromise in the patient's medical care. Plan discussed with: Patient, Other (nurse) SONDRA DIANE MD Oct 20, 2024 07:41
--- NOTE | 2024-10-20 09:23 | DVHNC2 ---
Procedure - Biotronik interrogation revealed: Battery status:MOS2 Remaining battery capacity: 31% DDD-CLS: 70/130 Sensing amplitude: A 3.3/RV 12.6 mV Pacing threshold: A 0.8/RV 0.7 volts Pacing impedance: A 581/RV 436 Ohms Shock impedance: RV 91 Ohms Pacing in a/V: 87/1% No VF/VT Normal functioning ICD SONDRA DIANE MD Oct 20, 2024 09:22
[2024-10-20] MEDS: SACUBITRIL-VALSARTAN 24mg/26mg TAB PO SCH (09:59)
[2024-10-20] MEDS: ONDANSETRON HCL 4 MG/2 ML VIAL IV ONE (09:59)
[2024-10-20] MEDS: KETOROLAC TROMETH 30 MG/ML 1ML VIAL IV PRN (16:42)
[2024-10-20] MEDS: FUROSEMIDE 40 MG/4 ML VIAL IV SCH (18:00)
--- NOTE | 2024-10-20 20:10 | DVHPNRES ---
Progress Note Date Seen: Oct 20, 2024 Resident Creating Document: RAYMOND CAZARES RESIDENT Medical Necessity Reason Pt with a Central, PICC or Fol: No Subjective Review of Systems Patient is a 64-year-old female with a past medical history of heart failure with reduced ejection fraction, atrial fibrillation, COPD, coronary artery disease , congenital heart disease s/p surgery at 10 months of age came to the ED with a chief complaint of worsening shortness of breath for about a week. Patient was admitted to the hospital 1 month ago for a similar complaint of shortness of breath was discharged on oral antibiotic azithromycin. Patient reported she was feeling well since about a week ago when she went to see her daughter where her grand kids were sick with flu-like symptoms following which she also developed cold, congestion, dry cough, sore throat, fever and headache and subsequently started to feel short of breath. Patient reports to be using oxygen at home 2 L, for the last 7 years usually at night with the CPAP machine as she reports severe sleep apnea Patient examined at bedside. patient also reported mild chest tenderness that exacerbates on palpation on the left side, pleuritic type chest pain also during coughing. 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 Continue on current IV antibiotic therapy, and oxygen supplementation , currently on 3 L via nasal cannula. Patient was evaluated by Cardiology, patient will need to continue on Eliquis 5 mg b.i.d., echo is current pending. Pacemaker interrogation is unremarkable Monitor electrolytes keep potassium above 4 and magnesium above 2. Recent low blood pressure episode, Entresto and Lasix were hold. Pending pulmonology consultation Cardiology on board. Patient reports: No new complaints Objective vital signs Vital Sign Date Time Temp Pulse Resp B/P (MAP) Pulse Ox O2 Delivery O2 Flow Rate FiO2 10/20/24 18:43 94 Nasal Cannula* 3 32 10/20/24 18:42 91 20 10/20/24 18:00 84/55 10/20/24 17:06 98.3 98.3 Total Intake and Output 10/19/24 10/19/24 10/20/24 15:00 23:00 07:00 Intake Total 600 ml 150 ml Balance 600 ml 150 ml medications Current Medications Medications Dose Ordered Sig/Brian Route Start Time Stop Time Status Last Admin Dose Admin Nitroglycerin 0.4 mg Q5MINP PRN SL 10/18/24 22:00 Morphine Sulfate 2 mg Q30M PRN IV 10/18/24 22:00 Levofloxacin/ Dextrose 150 ml @ 100 mls/hr DAILY IV 10/19/24 10:00 10/20/24 10:03 100 MLS/HR Albuterol 2.5 mg Q6HR NEB 10/19/24 00:00 10/20/24 18:41 2.5 MG Ipratropium [place] 0.5 mg Q6HR NEB 10/19/24 00:00 10/20/24 18:41 0.5 MG Potassium Chloride 10 meq DAILY PO 10/19/24 10:00 10/20/24 09:59 10 MEQ Aspirin 81 mg DAILY PO 10/19/24 10:00 10/20/24 10:00 81 MG Atorvastatin Calcium 40 mg HS PO 10/19/24 22:00 10/19/24 21:04 40 MG Famotidine 20 mg DAILY IV 10/19/24 10:00 10/20/24 09:59 20 MG Guaifenesin 200 mg Q4HP PRN PO 10/19/24 13:00 10/19/24 15:45 200 MG Apixaban 5 mg BID PO 10/19/24 22:00 10/20/24 10:00 5 MG Sacubitril/ Valsartan 1 tab BID PO 10/20/24 10:00 Hold 10/20/24 09:59 1 TAB Iron Sucrose 110 ml @ 110 mls/hr DAILY@1200 IV 10/21/24 12:00 10/25/24 12:59 Furosemide 40 mg BIDD IV 10/20/24 18:00 Ketorolac Tromethamine 15 mg Q6HPRN PRN IV 10/20/24 15:45 10/25/24 15:44 10/20/24 16:42 15 MG Examination: GENERAL:Normal, HEENT:Normal, NECK:Normal, LUNGS:Abnormal, CVS:Abnormal, ABDOMEN:Normal, MSK:Normal, SKIN:Normal, NEURO:Normal, :Normal laboratory and microbiology Laboratory Tests 10/20/24 06:26 Test 10/20/24 06:26 Range/Units Serum Glucose 92 74-106 mg/dL Microbiology Date/Time Source Procedure Growth Status 10/19/24 13:35 Sputum Gram Stain - Final Resulted 10/19/24 13:35 Sputum Respiratory Culture - Preliminary Resulted 10/19/24 07:28 Nose MRSA Screen - Final Complete 10/18/24 14:30 Blood Blood Culture - Preliminary NO GROWTH AFTER 48 HOURS OF INCUBATION. Resulted Problem List/Assessment/Plan Problem List/Assessment/Plan # acute hypoxic respiratory failure likely multifactorial due to acute on chronic systolic heart failure ,? CAP, COPD exacerbation # complicated post viral pneumonia likely due to Gram+/-versus atypical bacteria #multifocal atypical infection with more focal consolidation developing in the left lower lobe. - on 3 L oxygen via nasal cannula - chest x-ray shows bilateral opacities with the obstruction of the left CP angle, increased pulmonary vascular marking, interstitial pulmonary edema - on levofloxacin 750 mg q.d. IV - echo pending, previous echo in 2021 shows 30-35% EF, concentric LVH, dilated LV, diffuse hypokinesis of left ventricle - Lasix 40 mg IV Daily, on hold - Entresto on hold # paroxysmal atrial fibrillation - Telemetry - currently heart rate is controlled - Eliquis 5 mg b.i.d. - Echo 30% ejection fraction # acute chest pain, ruled out ACS - EKG revealed sinus rhythm, IVCD with nonspecific ST changes - Tele reveals sinus rhythm and occasions of atrial fibrillation with RVR - troponins are under normal limits - on aspirin 81 mg and atorvastatin 40 mg - pacemaker interrogation unremarkable - cardio on board # obstructive sleep apnea - BiPAP at night # hypokalemia - adequately replaced - on potassium 10 mEq daily - Follow-up electrolytes and kidney function tests and correct abnormalities. Keep potassium above 4 and magnesium above 2 # microcytic hypochromic anemia - iron panel, ferritin pending - monitor H&H #Obesity - lifestyle modification counseling, dietary habits counseling. Case discussed with Dr. Bonilla Goals of care discussed with the patient for 36 minutes Code status: Full code Plan discussed with: Patient My Orders My Orders Orders - RAYMOND CAZARES RESIDENT Procedure Category Date Status Time Iron Sucrose Complex PHA 10/21/24 In Process (Venofer) 12:00 Furosemide Injection PHA 10/20/24 In Process (Lasix Injection) 18:00 Ketorolac Injection PHA 10/20/24 In Process (Toradol Injection) 15:45 Strict I & O CORBIN 10/20/24 In Process 15:40 *Consult CONS 10/20/24 Transmitted / 15:45 Date of Service: Oct 20, 2024 Billing Provider: MARCIAL CARTAGENA MD Common Visit Codes: [id number] INP/OBS CARE(HIGH) RAYMOND CAZARES RESIDENT Oct 20, 2024 20:10 MARCIAL CARTAGENA MD Oct 23, 2024 08:59
--- NOTE | 2024-10-20 23:34 | DVHINCON2 ---
Date of service: Oct 20, 2024 Referring Physician Poncho Hopper MD Reason for Consultation Chronic hypoxic respiratory failure, COPD exacerbation History of Present Illness A 64-year-old woman with PMHx of heart failure with reduced ejection fraction, atrial fibrillation, COPD, coronary artery disease , congenital heart disease s/p surgery @ 10 months of age who presented to ED on 10/18/24 with c/o worsening shortness of breath x1 week. Patient was hospitalized 1 month ago for similar sx and discharged on oral antibiotic azithromycin. Reports she was feeling well since about a week ago when she had positive sick contact w/ grandchildren and developed cold, congestion, dry cough, sore throat, fever and headache and subsequently started to feel short of breath. She is on home O2 for the past 7 years usually at night with the CPAP machine as she has severe sleep apnea, but on and off in the day at 2 LPM NC. Pt also reported associated chest pain on the left side, pressure-like, which radiated to the neck and jaw, with associated sx of palpitations and sweating. Denied N/V/D or abdominal pain. Patient was admitted for further care and pulmonary consultation is requested for evaluation and management due to these findings. Review of Systems: 14-point review of systems negative unless otherwise noted above. Past Medical History: Heart failure with reduced ejection fraction, atrial fibrillation, coronary artery disease Past Surgical History: Pacemaker/AICD, congenital heart disease s/p surgery @ 10 months Medications: Reviewed. Allergies: Penicillins. Family History: Cancer, diabetes mellitus. Social History: Previous smoker, half a pack a day for about 20 years History of alcohol use but she quit 2-3 years ago History of methamphetamine use but quit 7 years ago Family History: Cancer G8 MOTHER, Onset:50's - 60 G8 FATHER, Onset:60 years & older Family history: Diabetes mellitus G8 FATHER, Onset:30's - 40 G8 BROTHER, Onset:30s - 40 Allergies: Coded Allergies: Penicillins (Verified Allergy, Unknown, 06/29/18) Home Meds Reported Medications Sotalol HCl (Sotalol Hydrocholride) 80 Mg Tab, 1 PO DAILY 10/19/24 Pantoprazole Sodium Sesquihydr (Pantoprazole Sodium) 40 Mg Tab, 1 TAB PO DAILY 10/19/24 Ondansetron HCl (Ondansetron) 4 Mg Tab, 8 MG PO DAILY, TAB 09/15/24 Alprazolam (Xanax) 0.25 Mg Tb, 5 MG PO PRN for ANXIETY, TAB 09/15/24 Zolpidem Tartrate (Zolpidem Tartrate) 5 Mg Tab, 1 TAB PO HS, #30 TAB 2 Refills 09/15/24 Icosapent Ethyl (Icosapent Ethyl) 1 Gm Cap, 2 CAP PO BID, CAP 09/15/24 Aspirin (Aspir-Low) 81 Mg Tab, 81 MG PO DAILY for 30 Days, MG 09/15/24 Vortioxetine Hydrobromide (Trintellix) 20 Mg Tab, 20 MG PO DAILY, TAB 09/15/24 Magnesium Oxide (Mag-Ox) 400 Mg Tb, 400 MG PO DAILY, TAB 09/15/24 Hydrocodone-Acetaminophen (Hydrocodone Bitartrate/AC 10-325 mg) 1 Tab Tab, 1 TAB PO Q6HP, TAB 08/24/22 Losartan Potassium (Losartan Potassium) 25 Mg Tab, 20 MG PO DAILY for 30 Days, MG 07/01/18 Potassium Chloride (POTASSIUM CHLORIDE CR) 10 Meq Tb, 1 TAB PO DAILY, #30 TAB 5 Refills 06/30/18 Furosemide (Lasix) 20 Mg Tb, 1 TAB PO DAILY, #90 TAB 1 Refill 06/30/18 Apixaban Base (ELIQUIS) 5 Mg Tab, 5 MG PO BID, TAB 06/30/18 Carvedilol (Carvedilol) 3.125 Mg Tab, 6.25 MG PO BID 12/19/12 Current Medications Current Medications Medications (Trade) Dose Ordered Sig/Brian Route PRN Reason Start Time Stop Time Status Last Admin Sacubitril/ Valsartan (Entresto 24-26 Mg tab) 1 tab BID PO 10/20/24 10:00 Hold 10/20/24 09:59 Iron Sucrose 110 ml @ 110 mls/hr DAILY@1200 IV 10/21/24 12:00 10/25/24 12:59 Furosemide (Lasix Injection) 40 mg BIDD IV 10/20/24 18:00 Ketorolac Tromethamine (Toradol Injection) 15 mg Q6HPRN PRN IV MODERATE PAIN (4-6 PAIN SCALE) 10/20/24 15:45 10/25/24 15:44 10/20/24 16:42 Vital Signs Vital Signs Date Time Temp Pulse Resp B/P (MAP) Pulse Ox O2 Delivery O2 Flow Rate FiO2 10/20/24 21:00 101 96 Facial BiPAP Mask 40 10/20/24 21:00 97.4 20 94/45 (61) 97.4 10/20/24 18:43 3 Physical Exam Gen.: Patient lying in bed in no apparent distress. On supplemental oxygen. Head: Normocephalic, atraumatic. Eyes: EOMI/PERRLA. Ears: Normal hearing. Normal anatomy. Neck/trachea: Trachea midline, supple. Nose: Normal external anatomy. Mouth: Moist mucous membranes. Chest: Decreased air entry bilaterally. Bilateral wheezing. No rhonchi. Cardiovascular: Positive S1, positive S2. Regular rate and rhythm. Abdomen: Positive bowel sounds in all 4 quadrants. Soft, non-tender, non- distended. : Deferred. Rectal: Deferred. Skin: Warm, dry. Intact. Extremities: 2+ radial pulses bilaterally. No lower extremity edema. Neuro: Awake, alert, oriented x3. No gross motor or sensory deficits. Cranial nerves II through XII intact. Gait not assessed. Labs/Diagnostic Data Labs Test 10/20/24 06:26 10/19/24 14:30 10/19/24 09:55 10/18/24 22:23 Range/Units White Blood Count 5.6 4.4-10.8 10^3/uL Red Blood Count 5.00 4.0-5.20 10^6/uL Hemoglobin 11.9 L 12.2-16.2 g/dL Hematocrit 36.3 36.0-46.0 % Mean Corpuscular Volume 72.7 L 80.0-100.0 fL Mean Corpuscular Hemoglobin 23.9 L 28.0-32.0 pg Mean Corpuscular Hemoglobin Concent 32.8 32.0-36.0 g/dL Red Cell Distribution Width 16.9 H 11.8-14.3 % Platelet Count 212 140-450 10^3/uL Mean Platelet Volume 7.2 6.9-10.8 fL Neutrophils (%) (Auto) 55.6 37.0-80.0 % Lymphocytes (%) (Auto) 28.6 10.0-50.0 % Monocytes (%) (Auto) 15.3 H 0.0-12.0 % Eosinophils (%) (Auto) 0.1 0.0-7.0 % Basophils (%) (Auto) 0.4 0.0-2.0 % Neutrophils # (Auto) 3.1 1.6-8.6 10 ^3/uL Lymphocytes # (Auto) 1.6 0.4-5.4 10 ^3/uL Monocytes # (Auto) 0.9 0-1.3 10 ^3/uL Eosinophils # (Auto) 0 0-0.8 10 ^3/uL Basophils # (Auto) 0 0-0.2 10 ^3/uL Nucleated Red Blood Cells 0.2 % Sodium Level 140 136-145 mmol/L Potassium Level 4.1 3.5-5.1 mmol/L Chloride Level 105 98-107 mmol/L Carbon Dioxide Level 30 20-31 mmol/L Anion Gap 5 5-15 Blood Urea Nitrogen 20 9-23 mg/dL Creatinine 0.75 0.550-1.02 mg/dL Glomerular Filtration Rate Calc 90 >90 mL/min BUN/Creatinine Ratio 26.7 H 10.0-20.0 Serum Glucose 92 74-106 mg/dL Calcium Level 9.4 8.7-10.4 mg/dL Total Bilirubin 0.2 0.2-1.0 mg/dL Aspartate Amino Transferase (AST) 21 13-40 U/L Alanine Aminotransferase (ALT) 11 7-40 U/L Alkaline Phosphatase 63 46-116 U/L Total Protein 6.4 5.7-8.2 g/dL Albumin 4.1 3.2-4.8 g/dL Iron Level 19 L 50-170 ug/dL Total Iron Binding Capacity 335 250-425 ug/dL Percent Iron Saturation 5.7 L 15-50 % Ferritin 84.7 10-291 ng/mL Erythrocyte Sedimentation Rate 14 0-20 mm/hr C-Reactive Protein High Sensitivity 7.79 H <1.0 mg/dL Lipase 51 12-53 U/L Test 10/18/24 17:30 10/18/24 17:13 10/18/24 15:31 10/18/24 15:29 Range/Units Troponin I High Sensitivity 16 </=34 ng/L Lactic Acid Level 0.9 0.4-2.0 mmol/L Influenza Type A Antigen Negative Negative Influenza Type B Antigen Negative Negative SARS-CoV-2 Antigen (Rapid) Negative NEGATIVE Urine Color Straw Yellow Urine Clarity Clear Clear Urine pH 5.5 5.0-9.0 Urine Specific [place] 1.009 1.001-1.035 Urine Protein Negative Negative Urine Ketones Negative Negative Urine Blood Negative Negative /uL Urine Nitrite Negative Negative Urine Bilirubin Negative Negative Urine Urobilinogen Normal Negative mg/dL Urine Leukocyte Esterase Negative Negative /uL Urine RBC None seen 0 - 4 /hpf Urine WBC <1 0 - 5 /hpf Urine Squamous Epithelial Cells Few <5 /hpf Urine Bacteria None seen None Seen /hpf Urine Hyaline Casts Few 0 - 2 /lpf Urine Glucose Normal Normal mg/dL Test 10/18/24 14:33 Range/Units B-Type Natriuretic Peptide 188.82 0-100 pg/mL Microbiology Date/Time Source Procedure Growth Status 10/19/24 13:35 Sputum Gram Stain - Final Resulted 10/19/24 13:35 Sputum Respiratory Culture - Preliminary Resulted 10/19/24 07:28 Nose MRSA Screen - Final Complete 10/18/24 14:30 Blood Blood Culture - Preliminary NO GROWTH AFTER 48 HOURS OF INCUBATION. Resulted Assessment Impression: Acute COPD exacerbation Chronic hypoxic respiratory failure Dependence on supplemental oxygen Hx of nicotine dependence Obstructive sleep apnea Morbid obesity BMI 61.9 Events: Supplemental oxygen Remains on 3 liters/minute via nasal cannula Blood cultures no growth after 72 hours. Continue steroids Continue antibiotics Continue bronchodilators and Pulmicort Monitor hemoglobin Iron supplementation Antitussive as needed Rest of plan as outlined below Plan: Supplemental oxygen 3 LPM NC Titrate to keep O2 sats above 92%. Taper O2 as tolerated. Continue bronchodilators/Pulmicort Continue antibiotics Continue steroids -prednisone. Wheezing. Incentive spirometry IV fluid hydration Monitor renal function. Monitor electrolytes. Supplement as necessary. Monitor ins and outs. DVT prophylaxis. Prognosis: Poor given patient's multiple co-morbidities. Rest of plan per hospitalist and other consultants. Thank you, Dr. Hopper, for allowing me to participate in this patient's care. Further recommendations will depend on the patient's clinical course. Please do not hesitate to contact me if you have any questions or concerns. This medical document was created using an electronic medical record system with [employer] system. Although these documentations are being carefully reviewed, there may still be some phonetic and typographical changes. The errors are purely typographical, due to imperfection on the software program, and do not reflect any compromise in the patient's medical care. Plan discussed with: Patient, Other (CYNDI Lopes/ ) ARLENE MORRISSEY MD Oct 20, 2024 23:34
[2024-10-21] VITALS (19 sets, daily range): BP systolic 94–115; BP diastolic 46–81; PULSE 85–123; RESP 16–22; TEMP 97.5–98; O2SAT 92–100
[2024-10-21 07:48] LABS: Basophils # (auto) 0 10 ^3/uL (0-0.2); Basophils % (auto) 0.4 % (0.0-2.0); Eosinophils # (auto) 0 10 ^3/uL (0-0.8); Eosinophils % (auto) 0.4 % (0.0-7.0); Hematocrit 39.9 % (36.0-46.0); Hemoglobin 12.8 g/dL (12.2-16.2); Lymphocytes # (auto) 1.5 10 ^3/uL (0.4-5.4); Lymphocytes % (auto) 32.1 % (10.0-50.0); Mean Corpuscular Hemoglobin 23.3 pg (28.0-32.0); Mean Corpuscular Volume 72.9 fL (80.0-100.0); Monocytes # (auto) 0.6 10 ^3/uL (0-1.3); Monocytes % (auto) 13.8 % (0.0-12.0); Neutrophils # (auto) 2.5 10 ^3/uL (1.6-8.6); Neutrophils % (auto) 53.3 % (37.0-80.0); Nucleated Red Blood Cells % 0.1 %; Platelet Count (auto) 202 10^3/uL (140-450); Red Blood Cells 5.48 10^6/uL (4.0-5.20); Red Cell Distribution Width 17.5 % (11.8-14.3); White Blood Cell 4.6 10^3/uL (4.4-10.8)
[2024-10-21 08:00] LABS: Chloride 106 mmol/L (98-107); Potassium 3.9 mmol/L (3.5-5.1); Sodium 142 mmol/L (136-145)
[2024-10-21 08:01] LABS: Anion Gap 6 (5-15); Calcium 9.2 mg/dL (8.7-10.4); Carbon Dioxide 30 mmol/L (20-31)
[2024-10-21 08:06] LABS: BUN/Creatinine Ratio 20.3 (10.0-20.0); Blood Urea Nitrogen 13 mg/dL (9-23); Glucose 99 mg/dL (74-106)
[2024-10-21] MEDS: SACUBITRIL-VALSARTAN 24mg/26mg TAB PO SCH (10:00)
--- NOTE | 2024-10-21 11:03 | DVHPN2 ---
Progress Note - Dictate Date Seen: Oct 21, 2024 Medical Necessity Reason Pt with a Central, PICC or Fol: No vital signs Vital Sign Date Time Temp Pulse Resp B/P (MAP) Pulse Ox O2 Delivery O2 Flow Rate FiO2 10/21/24 09:00 98.0 85 16 101/49 (66) 96 98.0 10/21/24 07:27 Nasal Cannula* 3 32 Total Intake and Output 10/20/24 10/20/24 10/21/24 15:00 23:00 07:00 Intake Total 460 ml 450 ml Output Total 300 ml Balance 460 ml 150 ml medications Current Medications Medications Dose Ordered Sig/Brian Route Start Time Stop Time Status Last Admin Dose Admin Nitroglycerin 0.4 mg Q5MINP PRN SL 10/18/24 22:00 Morphine Sulfate 2 mg Q30M PRN IV 10/18/24 22:00 Levofloxacin/ Dextrose 150 ml @ 100 mls/hr DAILY IV 10/19/24 10:00 10/21/24 09:59 100 MLS/HR Albuterol 2.5 mg Q6HR NEB 10/19/24 00:00 10/21/24 07:27 2.5 MG Ipratropium [place] 0.5 mg Q6HR NEB 10/19/24 00:00 10/21/24 07:27 0.5 MG Potassium Chloride 10 meq DAILY PO 10/19/24 10:00 10/21/24 10:00 10 MEQ Aspirin 81 mg DAILY PO 10/19/24 10:00 10/21/24 10:00 81 MG Atorvastatin Calcium 40 mg HS PO 10/19/24 22:00 10/20/24 21:32 40 MG Famotidine 20 mg DAILY IV 10/19/24 10:00 10/20/24 09:59 20 MG Guaifenesin 200 mg Q4HP PRN PO 10/19/24 13:00 10/19/24 15:45 200 MG Apixaban 5 mg BID PO 10/19/24 22:00 10/21/24 10:00 5 MG Iron Sucrose 110 ml @ 110 mls/hr DAILY@1200 IV 10/21/24 12:00 10/25/24 12:59 Furosemide 40 mg BIDD IV 10/20/24 18:00 10/21/24 05:40 40 MG Ketorolac Tromethamine 15 mg Q6HPRN PRN IV 10/20/24 15:45 10/25/24 15:44 10/21/24 10:31 15 MG Sacubitril/ Valsartan 1 tab BID PO 10/21/24 10:00 10/21/24 10:00 1 TAB laboratory and microbiology Laboratory Tests 10/21/24 07:22 Test 10/21/24 07:22 Range/Units Serum Glucose 99 74-106 mg/dL Assessment/Plan Patient is a 64-year-old female who presented with few days of worsening shortness of breath. She mentions that she got sick from her grand children who were sick also. She also mentions that she had an ammonia around Thanksgiving. Cardiology is involved for cardiac aspects of care. Patient is known to our practice from outside on before. Patient does have history of systolic heart failure for which has ICD (Biotronik). History also includes paroxysmal AFib for which she is on Eliquis. She denies palpitations. She does complain of pleuritic type chest pain during coughing. She did have some coryza. Not in acute distress. Not using accessory muscles of breathing. Mucosa is pink and wet. No carotid bruit. No JVD. Chest: Scattered rhonchi in the lungs is heard. Cardiac: Regular, no thrill. Systolic murmur in the apex is heard. Abdomen is soft. There is no gross mass/hepatomegaly. Extremities reveal 1+ edema bilateral. Dorsalis pedis is 2+ bilateral. Past medical history includes hypertension, hyperlipidemia, COPD, systolic heart failure, paroxysmal AFib, status post ICD (Biotronik) implantation, questionable coronary artery disease, obstructive sleep apnea, peripheral artery disease (history of right subclavian artery stenosis), diverticulosis, fatty liver, type 2 pulmonary hypertension, history of congenital heart disease (for which had surgery in infancy) and status post appendectomy. She stopped methamphetamine many years ago. She stopped alcohol 2 years ago. She stopped cigarette smoking years ago. Denies active marijuana use Echocardiogram of August 2022 had reported dilated 4 chambers, ejection fraction of 30-35%, pseudonormal LV diastolic filling, moderate MR, mild TR, pacing wire in right-sided chambers and right ventricular systolic pressure of 36 mm Hg Echocardiogram of January 2024 (performed in the office) had reported improved ejection fraction and moderate MR Creatinine: 0.82 - 0.98 - 1.08 - 0.90 - 0.75 - 0.64 Potassium: 4.0 - 3.8 - 3.6 - 3.6 - 4.1 - 3.9 Troponin (high sensitive): BNP: 188.82 Chest x-ray reported (images were reviewed by self): IMPRESSION: 1. Moderate cardiomegaly, stable 2. Findings compatible with CHF pattern, slightly improved since the prior study CT of chest revealed: Findings are suggestive of multifocal atypical infection with more focal consolidation developing in the left lower lobe. Cardiomegaly and likely chronic CHF. EKG revealed sinus rhythm, IVCD with nonspecific ST changes Tele reveals sinus rhythm and occasions of atrial fibrillation with RVR Echocardiogram reported: Left ventricle: Dilated left ventricle with reduced systolic function. LVEF was around 30%. Diffuse hypokinesis of left ventricle was seen. Right ventricle was mildly dilated with reduced systolic function. Both atria were dilated. Pacing wire was seen in the right-sided chambers. Aortic valve was trileaflet. There was no aortic insufficiency/stenosis. There was [id number] mitral/tricuspid regurgitation. There was mild pulmonary valve insufficiency. Right ventricular systolic pressure was assessed around 40 mm Hg. There was no pericardial effusion. [employer] interrogation revealed: Battery status:MOS2; Remaining battery capacity: 31%; DDD-CLS: 70/130; Sensing amplitude: A 3.3/RV 12.6 mV; Pacing threshold: A 0.8/RV 0.7 volts; Pacing impedance: A 581/RV 436 Ohms; Shock impedance: RV 91 Ohms; Pacing in a/V: 87/1%; No VF/VT; Normal functioning ICD Patient is a 64-year-old female who presented with worsening shortness of breath and acute respiratory failure. Presentation is in favor of bronchitis/pneumonia. COPD exacerbation could have contributed to the clinical picture. Patient does have history of systolic heart failure and component of acute on chronic systolic heart failure secondary to intercurrent disease could have contributed to the clinical picture. Patient did have some sick contact which could have contributed to the clinical picture. It is of note that the patient does have substance abuse but stopped many years ago. Patient also has had congenital heart disease for which had surgery during infancy. Patient is also obese which could have contributed to the clinical picture. Echo revealed reduced EF. Started on Entresto. Is evaluated by Pulmonary. Acute respiratory failure Pneumonia, community-acquired COPD exacerbation Acute on chronic systolic heart failure Congenital heart disease Hypertension Hyperlipidemia History of fatty liver Peripheral artery disease Obstructive sleep apnea Morbid obesity Cardiac suggestion for management: Manage on telemetry Gentle diuresis is suggested Follow-up electrolytes and kidney function tests and correct abnormalities. Keep potassium above 4 and magnesium above 2 Pulmonary evaluation for management of COPD exacerbation is suggested Management of pneumonia (antibiotics...) as per primary team/Pulmonary Long-term continuation of full anticoagulation (on Eliquis) is suggested Guideline directed medical therapy for systolic heart failure On Entresto Add Aldactone Further evaluation and management depends on the above and clinical course A total of 55 minutes was spent reviewing the patient record, examining the patient, making a diagnostic and therapeutic plan, discussing this plan with medical personnel, following up on diagnostic studies and following the patient for clinical stability excluding any and all procedures. At least 50% of this time was spent in direct, [id number] contact. Thank you for allowing me to participate in this patient's care. Further recommendations will depend on patient's clinical course. Please do not hesitate to contact me if you have any questions or concerns. This medical document was created using electronic medical record system with [employer] computerized dictation system. Although this document has been carefully reviewed, there may still be some phonetic and typographical errors. These areas are purely typographical due to the imperfection of the software programs, and do not reflect any compromise in the patient's medical care. Plan discussed with: Patient, Other (nurse) SONDRA DIANE MD Oct 21, 2024 11:03
[2024-10-21] MEDS: SPIRONOLACTONE 25 MG TAB PO SCH (11:57)
[2024-10-21] MEDS: IRON SUCROSE COMPLEX 110 ML IV SCH (12:05)
[2024-10-21] MEDS: methylPREDNISolone SOD SUCC 40 MG/ML VL IV ONE (14:00)
--- NOTE | 2024-10-21 16:26 | DVHPNRES ---
Progress Note Date Seen: Oct 21, 2024 Resident Creating Document: HOPE QUINN RESIDENT Medical Necessity Reason Pt with a Central, PICC or Fol: No Subjective Review of Systems 64-year-old female with a past medical history of heart failure with reduced ejection fraction, atrial fibrillation, COPD, coronary artery disease , congenital heart disease s/p surgery at 10 months of age came to the ED with a chief complaint of worsening shortness of breath for about a week. Patient was admitted to the hospital 1 month ago for a similar complaint of shortness of breath was discharged on oral antibiotic azithromycin. Patient reported she was feeling well since about a week ago when she went to see her daughter where her grand kids were sick with flu-like symptoms following which she also developed cold, congestion, dry cough, sore throat, fever and headache and subsequently started to feel short of breath. Patient reports to be using oxygen at home 2 L, for the last 7 years usually at night with the CPAP machine as she reports severe sleep apnea Patient examined at bedside. patient also reported mild chest tenderness that exacerbates on palpation on the left side, pleuritic type chest pain also during coughing. Patient will continue on thoracic surgeon . Continue on current IV antibiotic therapy, and oxygen supplementation , currently on 3 L via nasal cannula. Patient was evaluated by Cardiology, patient will need to continue on Eliquis 5 mg b.i.d., echo is current pending. Pacemaker interrogation is unremarkable Monitor electrolytes keep potassium above 4 and magnesium above 2. Recent low blood pressure episode, Entresto and Lasix were hold. Pending pulmonology consultation Cardiology on board. Objective vital signs Vital Sign Date Time Temp Pulse Resp B/P (MAP) Pulse Ox O2 Delivery O2 Flow Rate FiO2 10/21/24 13:00 97.5 106 18 105/55 (72) 96 97.5 10/21/24 11:39 Nasal Cannula* 3 32 Total Intake and Output 10/20/24 10/20/24 10/21/24 15:00 23:00 07:00 Intake Total 460 ml 450 ml Output Total 300 ml Balance 460 ml 150 ml medications Current Medications Medications Dose Ordered Sig/Brian Route Start Time Stop Time Status Last Admin Dose Admin Nitroglycerin 0.4 mg Q5MINP PRN SL 10/18/24 22:00 Morphine Sulfate 2 mg Q30M PRN IV 10/18/24 22:00 Levofloxacin/ Dextrose 150 ml @ 100 mls/hr DAILY IV 10/19/24 10:00 10/21/24 09:59 100 MLS/HR Albuterol 2.5 mg Q6HR NEB 10/19/24 00:00 10/21/24 11:39 2.5 MG Ipratropium [place] 0.5 mg Q6HR NEB 10/19/24 00:00 10/21/24 11:39 0.5 MG Potassium Chloride 10 meq DAILY PO 10/19/24 10:00 10/21/24 10:00 10 MEQ Aspirin 81 mg DAILY PO 10/19/24 10:00 10/21/24 10:00 81 MG Atorvastatin Calcium 40 mg HS PO 10/19/24 22:00 10/20/24 21:32 40 MG Famotidine 20 mg DAILY IV 10/19/24 10:00 10/21/24 10:00 20 MG Guaifenesin 200 mg Q4HP PRN PO 10/19/24 13:00 10/19/24 15:45 200 MG Apixaban 5 mg BID PO 10/19/24 22:00 10/21/24 10:00 5 MG Iron Sucrose 110 ml @ 110 mls/hr DAILY@1200 IV 10/21/24 12:00 10/25/24 12:59 10/21/24 12:05 110 MLS/HR Furosemide 40 mg BIDD IV 10/20/24 18:00 10/21/24 05:40 40 MG Ketorolac Tromethamine 15 mg Q6HPRN PRN IV 10/20/24 15:45 10/25/24 15:44 10/21/24 10:31 15 MG Sacubitril/ Valsartan 1 tab BID PO 10/21/24 10:00 10/21/24 10:00 1 TAB Spironolactone 12.5 mg DAILY PO 10/21/24 11:15 10/21/24 11:57 12.5 MG Methylprednisolone Sodium Succinate 40 mg DAILY IV 10/22/24 10:00 Zolpidem Tartrate 5 mg HSPRN PRN PO 10/21/24 14:00 Examination GENERAL:Normal, HEENT:Normal, NECK:Normal, LUNGS:Abnormal, CVS:Abnormal, ABDOMEN:Normal, MSK:Normal, SKIN:Normal, NEURO:Normal, :Normal laboratory and microbiology Laboratory Tests 10/21/24 07:22 Test 10/21/24 07:22 Range/Units Serum Glucose 99 74-106 mg/dL Microbiology Date/Time Source Procedure Growth Status 10/19/24 13:35 Sputum Gram Stain - Final Resulted 10/19/24 13:35 Sputum Respiratory Culture - Preliminary Resulted 10/19/24 07:28 Nose MRSA Screen - Final Complete 10/18/24 14:30 Blood Blood Culture - Preliminary NO GROWTH AFTER 72 HOURS OF INCUBATION. Resulted Problem List/Assessment/Plan Problem List/Assessment/Plan # acute hypoxic respiratory failure likely multifactorial due to acute on chronic systolic heart failure ,? CAP, COPD exacerbation # complicated post viral pneumonia likely due to Gram+/-versus atypical bacteria #multifocal atypical infection with more focal consolidation developing in the left lower lobe. - on 3 L oxygen via nasal cannula - chest x-ray shows bilateral opacities with the obstruction of the left CP angle, increased pulmonary vascular marking, interstitial pulmonary edema - on levofloxacin 750 mg q.d. IV - echo pending, previous echo in 2021 shows 30-35% EF, concentric LVH, dilated LV, diffuse hypokinesis of left ventricle - Lasix 40 mg IV Daily, on hold - Entresto on hold # paroxysmal atrial fibrillation - Telemetry - currently heart rate is controlled - Eliquis 5 mg b.i.d. - Echo 30% ejection fraction # acute chest pain, ruled out ACS - EKG revealed sinus rhythm, IVCD with nonspecific ST changes - Tele reveals sinus rhythm and occasions of atrial fibrillation with RVR - troponins are under normal limits - on aspirin 81 mg and atorvastatin 40 mg - pacemaker interrogation unremarkable - cardio on board # obstructive sleep apnea - BiPAP at night # hypokalemia - adequately replaced - on potassium 10 mEq daily - Follow-up electrolytes and kidney function tests and correct abnormalities. Keep potassium above 4 and magnesium above 2 # microcytic hypochromic anemia - iron panel, ferritin pending - monitor H&H #Obesity - lifestyle modification counseling, dietary habits counseling. Case discussed with Dr. Cartagena Goals of care discussed with the patient for 26 minutes Code status: Full code Plan discussed with: Patient My Orders My Orders Orders - HOPE QUINN RESIDENT Procedure Category Date Status Time Basic Metabolic Panel LAB 10/22/24 Verified 04:00 Complete Blood Count LAB 10/22/24 Verified 04:00 Methylprednisolone PHA 10/22/24 In Process Sod Succ (Solu Medrol 10:00 Zolpidem Tartrate PHA 10/21/24 In Process (Ambien) 14:00 Date of Service: Oct 21, 2024 Billing Provider: MARCIAL CARTAGENA MD Common Visit Codes: [id number] INP/OBS CARE(HIGH) HOPE QUINN RESIDENT Oct 21, 2024 16:26 MARCIAL CARTAGENA MD Oct 23, 2024 09:00
[2024-10-21] MEDS: ZOLPIDEM TARTRATE 5 MG TAB PO PRN (21:37)
[2024-10-22] VITALS (17 sets, daily range): BP systolic 100–123; BP diastolic 45–83; PULSE 94–142; RESP 18–20; TEMP 97.4–98; O2SAT 93–100
[2024-10-22 07:43] LABS: Basophils # (auto) 0 10 ^3/uL (0-0.2); Basophils % (auto) 0.3 % (0.0-2.0); Eosinophils # (auto) 0 10 ^3/uL (0-0.8); Eosinophils % (auto) 0.1 % (0.0-7.0); Hematocrit 36.8 % (36.0-46.0); Hemoglobin 11.8 g/dL (12.2-16.2); Lymphocytes # (auto) 1.1 10 ^3/uL (0.4-5.4); Mean Corpuscular Hemoglobin 23.2 pg (28.0-32.0); Mean Corpuscular Hgb Conc. 32.2 g/dL (32.0-36.0); Monocytes # (auto) 0.5 10 ^3/uL (0-1.3); Monocytes % (auto) 9.9 % (0.0-12.0); Neutrophils # (auto) 3.5 10 ^3/uL (1.6-8.6); Neutrophils % (auto) 68.7 % (37.0-80.0); Nucleated Red Blood Cells % 0.1 %; Platelet Count (auto) 222 10^3/uL (140-450); Red Blood Cells 5.11 10^6/uL (4.0-5.20); Red Cell Distribution Width 16.5 % (11.8-14.3); White Blood Cell 5.1 10^3/uL (4.4-10.8)
[2024-10-22 07:49] LABS: Chloride 106 mmol/L (98-107); Potassium 3.9 mmol/L (3.5-5.1); Sodium 143 mmol/L (136-145)
[2024-10-22 07:50] LABS: Anion Gap 5 (5-15)
[2024-10-22 07:51] LABS: Calcium 9.3 mg/dL (8.7-10.4)
[2024-10-22 07:55] LABS: BUN/Creatinine Ratio 25.4 (10.0-20.0); Blood Urea Nitrogen 15 mg/dL (9-23)
[2024-10-22 08:00] LABS: Carbon Dioxide 32 mmol/L (20-31); Glucose 129 mg/dL (74-106)
[2024-10-22] MEDS: methylPREDNISolone SOD SUCC 40 MG/ML VL IV SCH (09:45)
--- NOTE | 2024-10-22 10:16 | DVHPN2 ---
Progress Note - Dictate Date Seen: Oct 22, 2024 Medical Necessity Reason Pt with a Central, PICC or Fol: No vital signs Vital Sign Date Time Temp Pulse Resp B/P (MAP) Pulse Ox O2 Delivery O2 Flow Rate FiO2 10/22/24 09:00 97.4 97 18 118/83 (95) 97 97.4 10/22/24 07:12 Nasal Cannula* 6 44 Total Intake and Output 10/21/24 10/21/24 10/22/24 15:00 23:00 07:00 Intake Total 150 ml 800 ml 650 ml Output Total 600 ml Balance 150 ml 200 ml 650 ml medications Current Medications Medications Dose Ordered Sig/Brian Route Start Time Stop Time Status Last Admin Dose Admin Nitroglycerin 0.4 mg Q5MINP PRN SL 10/18/24 22:00 Morphine Sulfate 2 mg Q30M PRN IV 10/18/24 22:00 Levofloxacin/ Dextrose 150 ml @ 100 mls/hr DAILY IV 10/19/24 10:00 10/22/24 09:32 100 MLS/HR Albuterol 2.5 mg Q6HR NEB 10/19/24 00:00 10/22/24 07:10 2.5 MG Ipratropium [place] 0.5 mg Q6HR NEB 10/19/24 00:00 10/22/24 07:11 0.5 MG Potassium Chloride 10 meq DAILY PO 10/19/24 10:00 10/22/24 09:43 10 MEQ Aspirin 81 mg DAILY PO 10/19/24 10:00 10/22/24 09:41 81 MG Atorvastatin Calcium 40 mg HS PO 10/19/24 22:00 10/21/24 21:37 40 MG Famotidine 20 mg DAILY IV 10/19/24 10:00 10/22/24 09:38 20 MG Guaifenesin 200 mg Q4HP PRN PO 10/19/24 13:00 10/19/24 15:45 200 MG Apixaban 5 mg BID PO 10/19/24 22:00 10/22/24 09:43 5 MG Iron Sucrose 110 ml @ 110 mls/hr DAILY@1200 IV 10/21/24 12:00 10/25/24 12:59 10/21/24 12:05 110 MLS/HR Furosemide 40 mg BIDD IV 10/20/24 18:00 10/22/24 05:41 40 MG Ketorolac Tromethamine 15 mg Q6HPRN PRN IV 10/20/24 15:45 10/25/24 15:44 10/21/24 10:31 15 MG Sacubitril/ Valsartan 1 tab BID PO 10/21/24 10:00 10/22/24 09:43 1 TAB Spironolactone 12.5 mg DAILY PO 10/21/24 11:15 10/22/24 09:42 12.5 MG Methylprednisolone Sodium Succinate 40 mg DAILY IV 10/22/24 10:00 10/22/24 09:45 40 MG Zolpidem Tartrate 5 mg HSPRN PRN PO 10/21/24 14:00 10/21/24 21:37 5 MG laboratory and microbiology Laboratory Tests 10/22/24 07:00 Test 10/22/24 07:00 Range/Units Serum Glucose 129 H 74-106 mg/dL Assessment/Plan Patient is a 64-year-old female who presented with few days of worsening shortness of breath. She mentions that she got sick from her grand children who were sick also. She also mentions that she had an ammonia around Thanksgiving. Cardiology is involved for cardiac aspects of care. Patient is known to our practice from outside on before. Patient does have history of systolic heart failure for which has ICD (Biotronik). History also includes paroxysmal AFib for which she is on Eliquis. She denies palpitations. She does complain of pleuritic type chest pain during coughing. She did have some coryza. Not in acute distress. Not using accessory muscles of breathing. Mucosa is pink and wet. No carotid bruit. No JVD. Chest: Scattered rhonchi in the lungs is heard. Cardiac: Regular, no thrill. Systolic murmur in the apex is heard. Abdomen is soft. There is no gross mass/hepatomegaly. Extremities reveal 1+ edema bilateral. Dorsalis pedis is 2+ bilateral. Past medical history includes hypertension, hyperlipidemia, COPD, systolic heart failure, paroxysmal AFib, status post ICD (Biotronik) implantation, questionable coronary artery disease, obstructive sleep apnea, peripheral artery disease (history of right subclavian artery stenosis), diverticulosis, fatty liver, type 2 pulmonary hypertension, history of congenital heart disease (for which had surgery in infancy) and status post appendectomy. She stopped methamphetamine many years ago. She stopped alcohol 2 years ago. She stopped cigarette smoking years ago. Denies active marijuana use Echocardiogram of August 2022 had reported dilated 4 chambers, ejection fraction of 30-35%, pseudonormal LV diastolic filling, moderate MR, mild TR, pacing wire in right-sided chambers and right ventricular systolic pressure of 36 mm Hg Echocardiogram of January 2024 (performed in the office) had reported improved ejection fraction and moderate MR Creatinine: 0.82 - 0.98 - 1.08 - 0.90 - 0.75 - 0.64 - 0.59 Potassium: 4.0 - 3.8 - 3.6 - 3.6 - 4.1 - 3.9 - 3.9 Troponin (high sensitive): BNP: 188.82 Chest x-ray reported (images were reviewed by self): IMPRESSION: 1. Moderate cardiomegaly, stable 2. Findings compatible with CHF pattern, slightly improved since the prior study CT of chest revealed: Findings are suggestive of multifocal atypical infection with more focal consolidation developing in the left lower lobe. Cardiomegaly and likely chronic CHF. EKG revealed sinus rhythm, IVCD with nonspecific ST changes Tele reveals sinus rhythm and occasions of atrial fibrillation with RVR Echocardiogram reported: Left ventricle: Dilated left ventricle with reduced systolic function. LVEF was around 30%. Diffuse hypokinesis of left ventricle was seen. Right ventricle was mildly dilated with reduced systolic function. Both atria were dilated. Pacing wire was seen in the right-sided chambers. Aortic valve was trileaflet. There was no aortic insufficiency/stenosis. There was [id number] mitral/tricuspid regurgitation. There was mild pulmonary valve insufficiency. Right ventricular systolic pressure was assessed around 40 mm Hg. There was no pericardial effusion. [employer] interrogation revealed: Battery status:MOS2; Remaining battery capacity: 31%; DDD-CLS: 70/130; Sensing amplitude: A 3.3/RV 12.6 mV; Pacing threshold: A 0.8/RV 0.7 volts; Pacing impedance: A 581/RV 436 Ohms; Shock impedance: RV 91 Ohms; Pacing in a/V: 87/1%; No VF/VT; Normal functioning ICD Patient is a 64-year-old female who presented with worsening shortness of breath and acute respiratory failure. Presentation is in favor of bronchitis/pneumonia. COPD exacerbation could have contributed to the clinical picture. Patient does have history of systolic heart failure and component of acute on chronic systolic heart failure secondary to intercurrent disease could have contributed to the clinical picture. Patient did have some sick contact which could have contributed to the clinical picture. It is of note that the patient does have substance abuse but stopped many years ago. Patient also has had congenital heart disease for which had surgery during infancy. Patient is also obese which could have contributed to the clinical picture. Echo revealed reduced EF. Started on Entresto. Is evaluated by Pulmonary. Acute respiratory failure Pneumonia, community-acquired COPD exacerbation Acute on chronic systolic heart failure Congenital heart disease Hypertension Hyperlipidemia History of fatty liver Peripheral artery disease Obstructive sleep apnea Morbid obesity Cardiac suggestion for management: Manage on telemetry Gentle diuresis is suggested Follow-up electrolytes and kidney function tests and correct abnormalities. Keep potassium above 4 and magnesium above 2 Pulmonary evaluation for management of COPD exacerbation is suggested Management of pneumonia (antibiotics...) as per primary team/Pulmonary Long-term continuation of full anticoagulation (on Eliquis) is suggested Guideline directed medical therapy for systolic heart failure On Entresto On Aldactone Add Coreg Further evaluation and management depends on the above and clinical course A total of 55 minutes was spent reviewing the patient record, examining the patient, making a diagnostic and therapeutic plan, discussing this plan with medical personnel, following up on diagnostic studies and following the patient for clinical stability excluding any and all procedures. At least 50% of this time was spent in direct, [id number] contact. Thank you for allowing me to participate in this patient's care. Further recommendations will depend on patient's clinical course. Please do not hesitate to contact me if you have any questions or concerns. This medical document was created using electronic medical record system with [employer] computerized dictation system. Although this document has been carefully reviewed, there may still be some phonetic and typographical errors. These areas are purely typographical due to the imperfection of the software programs, and do not reflect any compromise in the patient's medical care. Plan discussed with: Patient, Other (nurse) SONDRA DIANE MD Oct 22, 2024 10:16
[2024-10-22] MEDS ORDERED: ALPRAZolam 0.25 MG TAB PO ONE (21:00)
--- NOTE | 2024-10-22 21:01 | DVHPNRES ---
Progress Note Date Seen: Oct 22, 2024 Resident Creating Document: RAYMOND CAZARES RESIDENT Medical Necessity Reason Pt with a Central, PICC or Fol: No Subjective Review of Systems 64-year-old female with a past medical history of heart failure with reduced ejection fraction, atrial fibrillation, COPD, coronary artery disease , congenital heart disease s/p surgery at 10 months of age came to the ED with a chief complaint of worsening shortness of breath for about a week. Patient was admitted to the hospital 1 month ago for a similar complaint of shortness of breath was discharged on oral antibiotic azithromycin. Patient reported she was feeling well since about a week ago when she went to see her daughter where her grand kids were sick with flu-like symptoms following which she also developed cold, congestion, dry cough, sore throat, fever and headache and subsequently started to feel short of breath. Patient reports to be using oxygen at home 2 L, for the last 7 years usually at night with the CPAP machine as she reports severe sleep apnea Patient examined at bedside. patient also reported mild chest tenderness that exacerbates on palpation on the left side, pleuritic type chest pain also during coughing. 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 Continue on current IV antibiotic therapy, and oxygen supplementation , currently on 3 L via nasal cannula. Patient was evaluated by Cardiology, patient will need to continue on Eliquis 5 mg b.i.d., echo is current pending. Pacemaker interrogation is unremarkable Monitor electrolytes keep potassium above 4 and magnesium above 2. Recent low blood pressure episode, Entresto and Lasix were hold. Pending pulmonology consultation Cardiology on board -.Long-term continuation of full anticoagulation (on Eliquis) is suggested - Guideline directed medical therapy for systolic heart failure - On Entresto - On Aldactone - Add Coreg Objective vital signs Vital Sign Date Time Temp Pulse Resp B/P (MAP) Pulse Ox O2 Delivery O2 Flow Rate FiO2 10/22/24 20:00 Nasal Cannula* 3 32 10/22/24 18:27 131/69 10/22/24 17:00 97.5 123 19 97 97.5 Total Intake and Output 10/21/24 10/21/24 10/22/24 15:00 23:00 07:00 Intake Total 150 ml 800 ml 650 ml Output Total 600 ml Balance 150 ml 200 ml 650 ml medications Current Medications Medications Dose Ordered Sig/Brian Route Start Time Stop Time Status Last Admin Dose Admin Nitroglycerin 0.4 mg Q5MINP PRN SL 10/18/24 22:00 Morphine Sulfate 2 mg Q30M PRN IV 10/18/24 22:00 Levofloxacin/ Dextrose 150 ml @ 100 mls/hr DAILY IV 10/19/24 10:00 10/22/24 09:32 100 MLS/HR Albuterol 2.5 mg Q6HR NEB 10/19/24 00:00 10/22/24 12:58 2.5 MG Ipratropium [place] 0.5 mg Q6HR NEB 10/19/24 00:00 10/22/24 12:58 0.5 MG Potassium Chloride 10 meq DAILY PO 10/19/24 10:00 10/22/24 09:43 10 MEQ Aspirin 81 mg DAILY PO 10/19/24 10:00 10/22/24 09:41 81 MG Atorvastatin Calcium 40 mg HS PO 10/19/24 22:00 10/21/24 21:37 40 MG Famotidine 20 mg DAILY IV 10/19/24 10:00 10/22/24 09:38 20 MG Guaifenesin 200 mg Q4HP PRN PO 10/19/24 13:00 10/19/24 15:45 200 MG Apixaban 5 mg BID PO 10/19/24 22:00 10/22/24 09:43 5 MG Iron Sucrose 110 ml @ 110 mls/hr DAILY@1200 IV 10/21/24 12:00 10/25/24 12:59 10/22/24 13:40 110 MLS/HR Furosemide 40 mg BIDD IV 10/20/24 18:00 10/22/24 18:27 40 MG Ketorolac Tromethamine 15 mg Q6HPRN PRN IV 10/20/24 15:45 10/25/24 15:44 10/22/24 16:02 15 MG Sacubitril/ Valsartan 1 tab BID PO 10/21/24 10:00 10/22/24 09:43 1 TAB Spironolactone 12.5 mg DAILY PO 10/21/24 11:15 10/22/24 09:42 12.5 MG Methylprednisolone Sodium Succinate 40 mg DAILY IV 10/22/24 10:00 10/22/24 09:45 40 MG Zolpidem Tartrate 5 mg HSPRN PRN PO 10/21/24 14:00 10/21/24 21:37 5 MG Carvedilol 3.125 mg Q12HR PO 10/22/24 22:00 Examination: GENERAL:Normal, HEENT:Normal, NECK:Normal, LUNGS:Normal, CVS:Abnormal, ABDOMEN:Normal, MSK:Normal, SKIN:Normal, NEURO:Normal, :Normal laboratory and microbiology Laboratory Tests 10/22/24 07:00 Test 10/22/24 07:00 Range/Units Serum Glucose 129 H 74-106 mg/dL Microbiology Date/Time Source Procedure Growth Status 10/19/24 13:35 Sputum Gram Stain - Final Complete 10/19/24 13:35 Sputum Respiratory Culture - Final Complete 10/19/24 07:28 Nose MRSA Screen - Final Complete 10/18/24 14:30 Blood Blood Culture - Preliminary NO GROWTH AFTER 72 HOURS OF INCUBATION. Resulted Problem List/Assessment/Plan Problem List/Assessment/Plan # acute hypoxic respiratory failure likely multifactorial due to acute on chronic systolic heart failure ,? CAP, COPD exacerbation # complicated post viral pneumonia likely due to Gram+/-versus atypical bacteria #multifocal atypical infection with more focal consolidation developing in the left lower lobe. - on 3 L oxygen via nasal cannula - chest x-ray shows bilateral opacities with the obstruction of the left CP angle, increased pulmonary vascular marking, interstitial pulmonary edema - on levofloxacin 750 mg q.d. IV - echo pending, previous echo in 2021 shows 30-35% EF, concentric LVH, dilated LV, diffuse hypokinesis of left ventricle - Lasix 40 mg IV Daily, on hold - Entresto - Long-term continuation of full anticoagulation (on Eliquis) is suggested -Guideline directed medical therapy for systolic heart failure -On Entresto -On Aldactone -Add Coreg # paroxysmal atrial fibrillation - Telemetry - currently heart rate is controlled - Eliquis 5 mg b.i.d. - Echo 30% ejection fraction # acute chest pain, ruled out ACS - EKG revealed sinus rhythm, IVCD with nonspecific ST changes - Tele reveals sinus rhythm and occasions of atrial fibrillation with RVR - troponins are under normal limits - on aspirin 81 mg and atorvastatin 40 mg - pacemaker interrogation unremarkable - cardio on board # obstructive sleep apnea - BiPAP at night # hypokalemia - adequately replaced - on potassium 10 mEq daily - Follow-up electrolytes and kidney function tests and correct abnormalities. Keep potassium above 4 and magnesium above 2 # microcytic hypochromic anemia - iron panel, ferritin pending - monitor H&H #Obesity - lifestyle modification counseling, dietary habits counseling. Case discussed with Dr. Bonilla Goals of care discussed with the patient for 36 minutes Code status: Full code Plan discussed with: Patient Date of Service: Oct 22, 2024 Billing Provider: MARCIAL CARTAGENA MD Common Visit Codes: [id number] INP/OBS CARE(HIGH) RAYMOND CAZARES RESIDENT Oct 22, 2024 21:01 MARCIAL CARTAGENA MD Oct 23, 2024 09:01
[2024-10-22] MEDS: CARVEDILOL 3.125 MG TAB PO SCH (22:14)
--- NOTE | 2024-10-22 23:35 | DVHPN2 ---
Progress Note - Dictate Date Seen: Oct 22, 2024 Medical Necessity Reason Pt with a Central, PICC or Fol: No Subjective Patient seen and examined at bedside. Remains on supplemental oxygen Overnight events reviewed. vital signs Vital Sign Date Time Temp Pulse Resp B/P (MAP) Pulse Ox O2 Delivery O2 Flow Rate FiO2 10/22/24 22:33 116 122/72 98 Facial BiPAP Mask 40 10/22/24 21:00 98.0 20 98.0 10/22/24 20:00 3 Total Intake and Output 10/21/24 10/21/24 10/22/24 15:00 23:00 07:00 Intake Total 150 ml 800 ml 650 ml Output Total 600 ml Balance 150 ml 200 ml 650 ml medications Current Medications Medications Dose Ordered Sig/Brian Route Start Time Stop Time Status Last Admin Dose Admin Nitroglycerin 0.4 mg Q5MINP PRN SL 10/18/24 22:00 Morphine Sulfate 2 mg Q30M PRN IV 10/18/24 22:00 Levofloxacin/ Dextrose 150 ml @ 100 mls/hr DAILY IV 10/19/24 10:00 10/22/24 09:32 100 MLS/HR Albuterol 2.5 mg Q6HR NEB 10/19/24 00:00 10/22/24 21:26 2.5 MG Ipratropium [place] 0.5 mg Q6HR NEB 10/19/24 00:00 10/22/24 21:25 0.5 MG Potassium Chloride 10 meq DAILY PO 10/19/24 10:00 10/22/24 09:43 10 MEQ Aspirin 81 mg DAILY PO 10/19/24 10:00 10/22/24 09:41 81 MG Atorvastatin Calcium 40 mg HS PO 10/19/24 22:00 10/22/24 22:14 40 MG Famotidine 20 mg DAILY IV 10/19/24 10:00 10/22/24 09:38 20 MG Guaifenesin 200 mg Q4HP PRN PO 10/19/24 13:00 10/19/24 15:45 200 MG Apixaban 5 mg BID PO 10/19/24 22:00 10/22/24 22:15 5 MG Iron Sucrose 110 ml @ 110 mls/hr DAILY@1200 IV 10/21/24 12:00 10/25/24 12:59 10/22/24 13:40 110 MLS/HR Furosemide 40 mg BIDD IV 10/20/24 18:00 10/22/24 18:27 40 MG Ketorolac Tromethamine 15 mg Q6HPRN PRN IV 10/20/24 15:45 10/25/24 15:44 10/22/24 16:02 15 MG Sacubitril/ Valsartan 1 tab BID PO 10/21/24 10:00 10/22/24 22:13 1 TAB Spironolactone 12.5 mg DAILY PO 10/21/24 11:15 10/22/24 09:42 12.5 MG Methylprednisolone Sodium Succinate 40 mg DAILY IV 10/22/24 10:00 10/22/24 09:45 40 MG Zolpidem Tartrate 5 mg HSPRN PRN PO 10/21/24 14:00 10/22/24 22:21 5 MG Carvedilol 3.125 mg Q12HR PO 10/22/24 22:00 10/22/24 22:14 3.125 MG objective Gen.: Patient lying in bed in no apparent distress. On supplemental oxygen. Head: Normocephalic, atraumatic. Eyes: EOMI/PERRLA. Ears: Normal hearing. Normal anatomy. Neck/trachea: Trachea midline, supple. Nose: Normal external anatomy. Mouth: Moist mucous membranes. Chest: Decreased air entry bilaterally. No wheezing or rhonchi. Cardiovascular: Positive S1, positive S2. Regular rate and rhythm. Abdomen: Positive bowel sounds in all 4 quadrants. Soft, non-tender, non- distended. : Deferred. Rectal: Deferred. Skin: Warm, dry. Intact. Extremities: 2+ radial pulses bilaterally. No lower extremity edema. Neuro: Awake, alert, oriented x3. No gross motor or sensory deficits. Cranial nerves II through XII intact. Gait not assessed. laboratory and microbiology Laboratory Tests 10/22/24 07:00 Test 10/22/24 07:00 Range/Units Serum Glucose 129 H 74-106 mg/dL Assessment/Plan Impression: Acute COPD exacerbation Chronic hypoxic respiratory failure Dependence on supplemental oxygen Hx of nicotine dependence Obstructive sleep apnea Morbid obesity BMI 61.9 Events: Supplemental oxygen Remains on 3 liters/minute via nasal cannula Taper o2 as tolerated BiPAP PRN. Atrial flutter- follow up Cardiology recommendations. Blood cultures, no growth after 72 hours. Sputum cultures showing normal oropharyngeal elmer. Continue steroids Continue antibiotics Continue bronchodilators Antitussive as needed Monitor hemoglobin Iron supplementation Rest of plan as outlined below Plan: Supplemental oxygen Titrate to keep O2 sats above 92%. Continue bronchodilators/Pulmicort Continue antibiotics Continue steroids -prednisone. Wheezing. Incentive spirometry IV fluid hydration Monitor renal function. Monitor electrolytes. Supplement as necessary. Monitor ins and outs. DVT prophylaxis. Prognosis: Poor given patient's multiple co-morbidities. Rest of plan per hospitalist and other consultants. Thank you, Dr. Hopper, for allowing me to participate in this patient's care. Further recommendations will depend on the patient's clinical course. Please do not hesitate to contact me if you have any questions or concerns. This medical document was created using an electronic medical record system with [employer] dictation system. Although these documentations are being carefully reviewed, there may still be some phonetic and typographical changes. The errors are purely typographical, due to imperfection on the software program, and do not reflect any compromise in the patient's medical care. Plan discussed with: Patient, Other (CYNDI Alarcon) ARLENE MORRISSEY MD Oct 22, 2024 23:35
[2024-10-23] VITALS (18 sets, daily range): BP systolic 98–108; BP diastolic 35–64; PULSE 87–122; RESP 16–20; TEMP 97.4–98; O2SAT 90–99
[2024-10-23 07:51] LABS: Anion Gap 8 (5-15); Chloride 104 mmol/L (98-107); Potassium 3.6 mmol/L (3.5-5.1); Sodium 144 mmol/L (136-145)
[2024-10-23 07:52] LABS: Calcium 9.4 mg/dL (8.7-10.4)
--- NOTE | 2024-10-23 07:52 | DVHPN2 ---
Progress Note - Dictate Date Seen: Oct 23, 2024 Medical Necessity Reason Pt with a Central, PICC or Fol: No vital signs Vital Sign Date Time Temp Pulse Resp B/P (MAP) Pulse Ox O2 Delivery O2 Flow Rate FiO2 10/23/24 06:40 92 16 99 10/23/24 06:34 Nasal Cannula 3.0 10/23/24 06:34 32 10/23/24 05:55 98/55 10/23/24 05:00 98.0 98.0 Total Intake and Output 10/22/24 10/22/24 10/23/24 15:00 23:00 07:00 Intake Total 260 ml 500 ml 550 ml Output Total 200 ml 900 ml Balance 260 ml 300 ml -350 ml medications Current Medications Medications Dose Ordered Sig/Brian Route Start Time Stop Time Status Last Admin Dose Admin Nitroglycerin 0.4 mg Q5MINP PRN SL 10/18/24 22:00 Morphine Sulfate 2 mg Q30M PRN IV 10/18/24 22:00 Levofloxacin/ Dextrose 150 ml @ 100 mls/hr DAILY IV 10/19/24 10:00 10/22/24 09:32 100 MLS/HR Albuterol 2.5 mg Q6HR NEB 10/19/24 00:00 10/23/24 06:35 2.5 MG Ipratropium [place] 0.5 mg Q6HR NEB 10/19/24 00:00 10/23/24 06:34 0.5 MG Potassium Chloride 10 meq DAILY PO 10/19/24 10:00 10/22/24 09:43 10 MEQ Aspirin 81 mg DAILY PO 10/19/24 10:00 10/22/24 09:41 81 MG Atorvastatin Calcium 40 mg HS PO 10/19/24 22:00 10/22/24 22:14 40 MG Famotidine 20 mg DAILY IV 10/19/24 10:00 10/22/24 09:38 20 MG Guaifenesin 200 mg Q4HP PRN PO 10/19/24 13:00 10/19/24 15:45 200 MG Apixaban 5 mg BID PO 10/19/24 22:00 10/22/24 22:15 5 MG Iron Sucrose 110 ml @ 110 mls/hr DAILY@1200 IV 10/21/24 12:00 10/25/24 12:59 10/22/24 13:40 110 MLS/HR Furosemide 40 mg BIDD IV 10/20/24 18:00 10/22/24 18:27 40 MG Ketorolac Tromethamine 15 mg Q6HPRN PRN IV 10/20/24 15:45 10/25/24 15:44 10/22/24 16:02 15 MG Sacubitril/ Valsartan 1 tab BID PO 10/21/24 10:00 10/22/24 22:13 1 TAB Spironolactone 12.5 mg DAILY PO 10/21/24 11:15 10/22/24 09:42 12.5 MG Methylprednisolone Sodium Succinate 40 mg DAILY IV 10/22/24 10:00 10/22/24 09:45 40 MG Zolpidem Tartrate 5 mg HSPRN PRN PO 10/21/24 14:00 10/22/24 22:21 5 MG Carvedilol 3.125 mg Q12HR PO 10/22/24 22:00 10/22/24 22:14 3.125 MG laboratory and microbiology Test 10/23/24 06:38 Range/Units Serum Glucose Pending Assessment/Plan Patient is a 64-year-old female who presented with few days of worsening shortness of breath. She mentions that she got sick from her grand children who were sick also. She also mentions that she had an ammonia around Thanksgiving. Cardiology is involved for cardiac aspects of care. Patient is known to our practice from outside on before. Patient does have history of systolic heart failure for which has ICD (Biotronik). History also includes paroxysmal AFib for which she is on Eliquis. She denies palpitations. She does complain of pleuritic type chest pain during coughing. She did have some coryza. Not in acute distress. Not using accessory muscles of breathing. Mucosa is pink and wet. No carotid bruit. No JVD. Chest: Scattered rhonchi in the lungs is heard. Cardiac: Regular, no thrill. Systolic murmur in the apex is heard. Abdomen is soft. There is no gross mass/hepatomegaly. Extremities reveal 1+ edema bilateral. Dorsalis pedis is 2+ bilateral. Past medical history includes hypertension, hyperlipidemia, COPD, systolic heart failure, paroxysmal AFib (on Eliquis), status post ICD (Biotronik) implantation, questionable coronary artery disease, obstructive sleep apnea, peripheral artery disease (history of right subclavian artery stenosis), diverticulosis, fatty liver, type 2 pulmonary hypertension, history of congenital heart disease (for which had surgery in infancy) and status post appendectomy. She stopped methamphetamine many years ago. She stopped alcohol 2 years ago. She stopped cigarette smoking years ago. Denies active marijuana use Echocardiogram of August 2022 had reported dilated 4 chambers, ejection fraction of 30-35%, pseudonormal LV diastolic filling, moderate MR, mild TR, pacing wire in right-sided chambers and right ventricular systolic pressure of 36 mm Hg Echocardiogram of January 2024 (performed in the office) had reported improved ejection fraction and moderate MR Creatinine: 0.82 - 0.98 - 1.08 - 0.90 - 0.75 - 0.64 - 0.59 - today's pending Potassium: 4.0 - 3.8 - 3.6 - 3.6 - 4.1 - 3.9 - 3.9 - today's pending Troponin (high sensitive): BNP: 188.82 Chest x-ray reported (images were reviewed by self): IMPRESSION: 1. Moderate cardiomegaly, stable 2. Findings compatible with CHF pattern, slightly improved since the prior study CT of chest revealed: Findings are suggestive of multifocal atypical infection with more focal consolidation developing in the left lower lobe. Cardiomegaly and likely chronic CHF. EKG revealed sinus rhythm, IVCD with nonspecific ST changes Tele reveals sinus rhythm and occasions of atrial fibrillation with RVR Echocardiogram reported: Left ventricle: Dilated left ventricle with reduced systolic function. LVEF was around 30%. Diffuse hypokinesis of left ventricle was seen. Right ventricle was mildly dilated with reduced systolic function. Both atria were dilated. Pacing wire was seen in the right-sided chambers. Aortic valve was trileaflet. There was no aortic insufficiency/stenosis. There was [id number] mitral/tricuspid regurgitation. There was mild pulmonary valve insufficiency. Right ventricular systolic pressure was assessed around 40 mm Hg. There was no pericardial effusion. Biotronik interrogation revealed: Battery status:MOS2; Remaining battery cap acity: 31%; DDD-CLS: 70/130; Sensing amplitude: A 3.3/RV 12.6 mV; Pacing threshold: A 0.8/RV 0.7 volts; Pacing impedance: A 581/RV 436 Ohms; Shock impedance: RV 91 Ohms; Pacing in a/V: 87/1%; No VF/VT; Normal functioning ICD Patient is a 64-year-old female who presented with worsening shortness of breath and acute respiratory failure. Presentation is in favor of bronchitis /pneumonia. COPD exacerbation could have contributed to the clinical picture. Patient does have history of systolic heart failure and component of acute on chronic systolic heart failure secondary to intercurrent disease could have contributed to the clinical picture. Patient did have some sick contact which could have contributed to the clinical picture. It is of note that the patient does have substance abuse but stopped many years ago. Patient also has had congenital heart disease for which had surgery during infancy. Patient is also obese which could have contributed to the clinical picture. Echo revealed reduced EF. Started on Entresto. Is evaluated by Pulmonary. Acute respiratory failure Pneumonia, community-acquired COPD exacerbation Acute on chronic systolic heart failure Congenital heart disease Hypertension Hyperlipidemia History of fatty liver Peripheral artery disease Obstructive sleep apnea Morbid obesity Atrial fibrillation Cardiac suggestion for management: Manage on telemetry Gentle diuresis is suggested Follow-up electrolytes and kidney function tests and correct abnormalities. Keep potassium above 4 and magnesium above 2 Pulmonary evaluation for management of COPD exacerbation is suggested Management of pneumonia (antibiotics...) as per primary team/Pulmonary Long-term continuation of full anticoagulation (on Eliquis) is suggested Guideline directed medical therapy for systolic heart failure On Entresto On Aldactone On Coreg Cardiac portillo, stable Further evaluation and management depends on the above and clinical course A total of 55 minutes was spent reviewing the patient record, examining the patient, making a diagnostic and therapeutic plan, discussing this plan with medical personnel, following up on diagnostic studies and following the patient for clinical stability excluding any and all procedures. At least 50% of this time was spent in direct, [id number] contact. Thank you for allowing me to participate in this patient's care. Further recommendations will depend on patient's clinical course. Please do not hesitate to contact me if you have any questions or concerns. This medical document was created using electronic medical record system with [employer] dictation system. Although this document has been carefully reviewed, there may still be some phonetic and typographical errors. These areas are purely typographical due to the imperfection of the software programs, and do not reflect any compromise in the patient's medical care. Plan discussed with: Patient, Other (nurse) SONDRA DIANE MD Oct 23, 2024 07:52
[2024-10-23 07:57] LABS: BUN/Creatinine Ratio 21.2 (10.0-20.0); Blood Urea Nitrogen 14 mg/dL (9-23)
[2024-10-23 07:59] LABS: Carbon Dioxide 32 mmol/L (20-31); Glucose 120 mg/dL (74-106)
[2024-10-23 08:28] LABS: Basophils # (auto) 0 10 ^3/uL (0-0.2); Basophils % (auto) 0.2 % (0.0-2.0); Eosinophils # (auto) 0 10 ^3/uL (0-0.8); Eosinophils % (auto) 0.3 % (0.0-7.0); Hematocrit 36.2 % (36.0-46.0); Hemoglobin 11.8 g/dL (12.2-16.2); Lymphocytes # (auto) 2.2 10 ^3/uL (0.4-5.4); Lymphocytes % (auto) 27.4 % (10.0-50.0); Mean Corpuscular Hemoglobin 23.5 pg (28.0-32.0); Mean Corpuscular Hgb Conc. 32.5 g/dL (32.0-36.0); Mean Corpuscular Volume 72.2 fL (80.0-100.0); Monocytes # (auto) 0.6 10 ^3/uL (0-1.3); Monocytes % (auto) 7.5 % (0.0-12.0); Neutrophils # (auto) 5.2 10 ^3/uL (1.6-8.6); Neutrophils % (auto) 64.6 % (37.0-80.0); Nucleated Red Blood Cells % 0.2 %; Platelet Count (auto) 257 10^3/uL (140-450); Red Blood Cells 5.01 10^6/uL (4.0-5.20); Red Cell Distribution Width 16.6 % (11.8-14.3)
[2024-10-23] MEDS: POTASSIUM EFFERVESENT TAB 25 MEQ PO ONE (11:48)
[2024-10-23] MEDS: BISACODYL 5 MG EC TAB PO ONE (17:22)
[2024-10-23] MEDS: ONDANSETRON HCL 4 MG/2 ML VIAL IM ONE (17:26)
--- NOTE | 2024-10-23 18:41 | DVHPNRES ---
Progress Note Date Seen: Oct 23, 2024 Resident Creating Document: RAYMOND CAZARES RESIDENT Medical Necessity Reason Pt with a Central, PICC or Fol: No Subjective Review of Systems 64-year-old female with a past medical history of heart failure with reduced ejection fraction, atrial fibrillation, COPD, coronary artery disease , congenital heart disease s/p surgery at 10 months of age came to the ED with a chief complaint of worsening shortness of breath for about a week. Patient was admitted to the hospital 1 month ago for a similar complaint of shortness of breath was discharged on oral antibiotic azithromycin. Patient reported she was feeling well since about a week ago when she went to see her daughter where her grand kids were sick with flu-like symptoms following which she also developed cold, congestion, dry cough, sore throat, fever and headache and subsequently started to feel short of breath. Patient reports to be using oxygen at home 2 L, for the last 7 years usually at night with the CPAP machine as she reports severe sleep apnea Patient examined at bedside. patient also reported mild chest tenderness that exacerbates on palpation on the left side, pleuritic type chest pain also during coughing. Patient will continue on [employer] . Continue on current IV antibiotic therapy, and oxygen supplementation , currently on 3 L via nasal cannula. Patient was evaluated by Cardiology, patient will need to continue on Eliquis 5 mg b.i.d., echo is current pending. Pacemaker interrogation is unremarkable Monitor electrolytes keep potassium above 4 and magnesium above 2. Recent low blood pressure episode, Entresto and Lasix were hold. Pending pulmonology consultation Cardiology on board -.Long-term continuation of full anticoagulation (on Eliquis) is suggested - Guideline directed medical therapy for systolic heart failure - On Entresto - On Aldactone - metoprolol 25 mg daily - We will monitor the HR and BP closely Pulmonology: - Remains on 3 liters/minute via nasal cannula - Taper o2 as tolerated - BiPAP PRN. Objective vital signs Vital Sign Date Time Temp Pulse Resp B/P (MAP) Pulse Ox O2 Delivery O2 Flow Rate FiO2 10/23/24 17:26 111/67 10/23/24 17:00 97.6 115 16 95 97.6 10/23/24 12:32 Nasal Cannula* 3 32 Total Intake and Output 10/22/24 10/22/24 10/23/24 15:00 23:00 07:00 Intake Total 260 ml 500 ml 550 ml Output Total 200 ml 900 ml Balance 260 ml 300 ml -350 ml medications Current Medications Medications Dose Ordered Sig/Brian Route Start Time Stop Time Status Last Admin Dose Admin Nitroglycerin 0.4 mg Q5MINP PRN SL 10/18/24 22:00 Morphine Sulfate 2 mg Q30M PRN IV 10/18/24 22:00 Levofloxacin/ Dextrose 150 ml @ 100 mls/hr DAILY IV 10/19/24 10:00 10/23/24 11:53 100 MLS/HR Albuterol 2.5 mg Q6HR NEB 10/19/24 00:00 10/23/24 12:32 2.5 MG Ipratropium [place] 0.5 mg Q6HR NEB 10/19/24 00:00 10/23/24 12:32 0.5 MG Potassium Chloride 10 meq DAILY PO 10/19/24 10:00 10/23/24 10:00 10 MEQ Aspirin 81 mg DAILY PO 10/19/24 10:00 10/23/24 11:44 81 MG Atorvastatin Calcium 40 mg HS PO 10/19/24 22:00 10/22/24 22:14 40 MG Famotidine 20 mg DAILY IV 10/19/24 10:00 10/23/24 11:40 20 MG Guaifenesin 200 mg Q4HP PRN PO 10/19/24 13:00 10/19/24 15:45 200 MG Apixaban 5 mg BID PO 10/19/24 22:00 10/23/24 11:44 5 MG Iron Sucrose 110 ml @ 110 mls/hr DAILY@1200 IV 10/21/24 12:00 10/25/24 12:59 10/23/24 14:11 110 MLS/HR Furosemide 40 mg BIDD IV 10/20/24 18:00 10/22/24 18:27 40 MG Ketorolac Tromethamine 15 mg Q6HPRN PRN IV 10/20/24 15:45 10/25/24 15:44 10/22/24 16:02 15 MG Sacubitril/ Valsartan 1 tab BID PO 10/21/24 10:00 10/23/24 11:43 1 TAB Spironolactone 12.5 mg DAILY PO 10/21/24 11:15 10/23/24 11:44 12.5 MG Methylprednisolone Sodium Succinate 40 mg DAILY IV 10/22/24 10:00 10/23/24 11:23 40 MG Zolpidem Tartrate 5 mg HSPRN PRN PO 10/21/24 14:00 10/22/24 22:21 5 MG Metoprolol Succinate 25 mg DAILY PO 10/24/24 10:00 Examination: GENERAL:Normal, HEENT:Normal, NECK:Normal, LUNGS:Normal, CVS:Abnormal, ABDOMEN:Normal, MSK:Normal, SKIN:Normal, NEURO:Normal laboratory and microbiology Laboratory Tests 10/23/24 06:38 Test 10/23/24 06:38 Range/Units Serum Glucose 120 H 74-106 mg/dL Microbiology Date/Time Source Procedure Growth Status 10/19/24 13:35 Sputum Gram Stain - Final Complete 10/19/24 13:35 Sputum Respiratory Culture - Final Complete 10/19/24 07:28 Nose MRSA Screen - Final Complete 10/18/24 14:30 Blood Blood Culture - Final NO GROWTH AFTER 5 DAYS OF INCUBATION. Complete Problem List/Assessment/Plan Problem List/Assessment/Plan # acute hypoxic respiratory failure likely multifactorial due to acute on chronic systolic heart failure ,? CAP, COPD exacerbation # complicated post viral pneumonia likely due to Gram+/-versus atypical bacteria #multifocal atypical infection with more focal consolidation developing in the left lower lobe. - on 3 L oxygen via nasal cannula - chest x-ray shows bilateral opacities with the obstruction of the left CP angle, increased pulmonary vascular marking, interstitial pulmonary edema - on levofloxacin 750 mg q.d. IV - echo pending, previous echo in 2021 shows 30-35% EF, concentric LVH, dilated LV, diffuse hypokinesis of left ventricle - Lasix 40 mg IV Daily, on hold - Entresto - Long-term continuation of full anticoagulation (on Eliquis) is suggested - Guideline directed medical therapy for systolic heart failure - On Entresto - On Aldactone - Metoprolol 25 mg daily # paroxysmal atrial fibrillation - Telemetry - currently heart rate is controlled - Eliquis 5 mg b.i.d. - Echo 30% ejection fraction # acute chest pain, ruled out ACS - EKG revealed sinus rhythm, IVCD with nonspecific ST changes - Tele reveals sinus rhythm and occasions of atrial fibrillation with RVR - troponins are under normal limits - on aspirin 81 mg and atorvastatin 40 mg - pacemaker interrogation unremarkable - cardio on board # obstructive sleep apnea - BiPAP at night # hypokalemia - adequately replaced - on potassium 10 mEq daily - Follow-up electrolytes and kidney function tests and correct abnormalities. Keep potassium above 4 and magnesium above 2 # microcytic hypochromic anemia - iron panel, ferritin pending - monitor H&H #Obesity - lifestyle modification counseling, dietary habits counseling. Case discussed with Dr. Bonilla Goals of care discussed with the patient for 36 minutes Code status: Full code Plan discussed with: Patient My Orders My Orders Orders - RAYMOND CAZARES RESIDENT Procedure Category Date Status Time Metoprolol Xl PHA 10/24/24 In Process Succinate (Toprol Xl) 10:00 Date of Service: Oct 23, 2024 Billing Provider: SINAN MEADOWS MD Common Visit Codes: [id number] INP/OBS CARE(HIGH) RAYMOND CAZARES RESIDENT Oct 23, 2024 18:41 SINAN MEADOWS MD Oct 23, 2024 19:37
--- NOTE | 2024-10-23 23:12 | DVHPN2 ---
Progress Note - Dictate Date Seen: Oct 23, 2024 Medical Necessity Reason Pt with a Central, PICC or Fol: No Subjective Patient seen and examined at bedside. Remains on supplemental oxygen Overnight events reviewed. vital signs Vital Sign Date Time Temp Pulse Resp B/P (MAP) Pulse Ox O2 Delivery O2 Flow Rate FiO2 10/23/24 20:00 Nasal Cannula* 3 32 10/23/24 19:22 110 18 98 10/23/24 17:26 111/67 10/23/24 17:00 97.6 97.6 Total Intake and Output 10/22/24 10/22/24 10/23/24 15:00 23:00 07:00 Intake Total 260 ml 500 ml 550 ml Output Total 200 ml 900 ml Balance 260 ml 300 ml -350 ml medications Current Medications Medications Dose Ordered Sig/Brian Route Start Time Stop Time Status Last Admin Dose Admin Nitroglycerin 0.4 mg Q5MINP PRN SL 10/18/24 22:00 Morphine Sulfate 2 mg Q30M PRN IV 10/18/24 22:00 Levofloxacin/ Dextrose 150 ml @ 100 mls/hr DAILY IV 10/19/24 10:00 10/23/24 11:53 100 MLS/HR Albuterol 2.5 mg Q6HR NEB 10/19/24 00:00 10/23/24 19:12 2.5 MG Ipratropium [place] 0.5 mg Q6HR NEB 10/19/24 00:00 10/23/24 19:12 0.5 MG Potassium Chloride 10 meq DAILY PO 10/19/24 10:00 10/23/24 10:00 10 MEQ Aspirin 81 mg DAILY PO 10/19/24 10:00 10/23/24 11:44 81 MG Atorvastatin Calcium 40 mg HS PO 10/19/24 22:00 10/23/24 21:16 40 MG Famotidine 20 mg DAILY IV 10/19/24 10:00 10/23/24 11:40 20 MG Guaifenesin 200 mg Q4HP PRN PO 10/19/24 13:00 10/19/24 15:45 200 MG Apixaban 5 mg BID PO 10/19/24 22:00 10/23/24 21:16 5 MG Iron Sucrose 110 ml @ 110 mls/hr DAILY@1200 IV 10/21/24 12:00 10/25/24 12:59 10/23/24 14:11 110 MLS/HR Furosemide 40 mg BIDD IV 10/20/24 18:00 10/22/24 18:27 40 MG Ketorolac Tromethamine 15 mg Q6HPRN PRN IV 10/20/24 15:45 10/25/24 15:44 10/22/24 16:02 15 MG Sacubitril/ Valsartan 1 tab BID PO 10/21/24 10:00 10/23/24 21:16 1 TAB Spironolactone 12.5 mg DAILY PO 10/21/24 11:15 10/23/24 11:44 12.5 MG Methylprednisolone Sodium Succinate 40 mg DAILY IV 10/22/24 10:00 10/23/24 11:23 40 MG Zolpidem Tartrate 5 mg HSPRN PRN PO 10/21/24 14:00 10/22/24 22:21 5 MG Metoprolol Succinate 25 mg DAILY PO 10/24/24 10:00 objective Gen.: Patient lying in bed in no apparent distress. On supplemental oxygen. Head: Normocephalic, atraumatic. Eyes: EOMI/PERRLA. Ears: Normal hearing. Normal anatomy. Neck/trachea: Trachea midline, supple. Nose: Normal external anatomy. Mouth: Moist mucous membranes. Chest: Decreased air entry bilaterally. No wheezing or rhonchi. Cardiovascular: Positive S1, positive S2. Regular rate and rhythm. Abdomen: Positive bowel sounds in all 4 quadrants. Soft, non-tender, non- distended. : Deferred. Rectal: Deferred. Skin: Warm, dry. Intact. Extremities: 2+ radial pulses bilaterally. No lower extremity edema. Neuro: Awake, alert, oriented x3. No gross motor or sensory deficits. Cranial nerves II through XII intact. Gait not assessed. laboratory and microbiology Laboratory Tests 10/23/24 06:38 Test 10/23/24 06:38 Range/Units Serum Glucose 120 H 74-106 mg/dL Assessment/Plan Impression: Acute COPD exacerbation Chronic hypoxic respiratory failure Dependence on supplemental oxygen Hx of nicotine dependence Obstructive sleep apnea Morbid obesity BMI 61.9 Events: Supplemental oxygen Remains on 3 liters/minute via nasal cannula Taper o2 as tolerated BiPAP PRN. Atrial flutter- Cardiology recommendations appreciated. Continue antibiotics Continue bronchodilators IV steroids Antitussive as needed Monitor hemoglobin Iron supplementation Rest of plan as outlined below Plan: Supplemental oxygen Titrate to keep O2 sats above 92%. Continue bronchodilators Continue antibiotics Continue steroids. Incentive spirometry IV fluid hydration Monitor renal function. Monitor electrolytes. Supplement as necessary. Monitor ins and outs. DVT prophylaxis. Prognosis: Poor given patient's multiple co-morbidities. Rest of plan per hospitalist and other consultants. Thank you, Dr. Hopper, for allowing me to participate in this patient's care. Further recommendations will depend on the patient's clinical course. Please do not hesitate to contact me if you have any questions or concerns. This medical document was created using an electronic medical record system with [employer] dictation system. Although these documentations are being carefully reviewed, there may still be some phonetic and typographical changes. The errors are purely typographical, due to imperfection on the software program, and do not reflect any compromise in the patient's medical care. Plan discussed with: Patient, Other (CYNDI Alarcon) ARLENE MORRISSEY MD Oct 23, 2024 23:12
[2024-10-24] VITALS (11 sets, daily range): BP systolic 85–125; BP diastolic 35–71; PULSE 63–119; RESP 16–20; TEMP 98–98.2; O2SAT 89–99
[2024-10-24 07:08] LABS: Anion Gap 5 (5-15); Chloride 106 mmol/L (98-107); Potassium 4.3 mmol/L (3.5-5.1); Sodium 143 mmol/L (136-145)
[2024-10-24 07:09] LABS: Calcium 9.3 mg/dL (8.7-10.4)
[2024-10-24 07:10] LABS: Carbon Dioxide 32 mmol/L (20-31)
[2024-10-24 07:14] LABS: BUN/Creatinine Ratio 24.1 (10.0-20.0); Blood Urea Nitrogen 14 mg/dL (9-23)
[2024-10-24 07:19] LABS: Glucose 126 mg/dL (74-106)
--- NOTE | 2024-10-24 08:25 | DVHPN2 ---
Progress Note - Dictate Date Seen: Oct 24, 2024 Medical Necessity Reason Pt with a Central, PICC or Fol: No vital signs Vital Sign Date Time Temp Pulse Resp B/P (MAP) Pulse Ox O2 Delivery O2 Flow Rate FiO2 10/24/24 07:05 93 20 98 10/24/24 06:59 Nasal Cannula* 3 32 10/24/24 05:51 80/50 10/24/24 05:00 98.1 98.1 Total Intake and Output 10/23/24 10/23/24 10/24/24 15:00 23:00 07:00 Intake Total 150 ml 610 ml 600 ml Output Total 600 ml Balance 150 ml 10 ml 600 ml medications Current Medications Medications Dose Ordered Sig/Brian Route Start Time Stop Time Status Last Admin Dose Admin Nitroglycerin 0.4 mg Q5MINP PRN SL 10/18/24 22:00 Morphine Sulfate 2 mg Q30M PRN IV 10/18/24 22:00 Levofloxacin/ Dextrose 150 ml @ 100 mls/hr DAILY IV 10/19/24 10:00 10/23/24 11:53 100 MLS/HR Albuterol 2.5 mg Q6HR NEB 10/19/24 00:00 10/24/24 07:00 2.5 MG Ipratropium [place] 0.5 mg Q6HR NEB 10/19/24 00:00 10/24/24 06:59 0.5 MG Potassium Chloride 10 meq DAILY PO 10/19/24 10:00 10/23/24 10:00 10 MEQ Aspirin 81 mg DAILY PO 10/19/24 10:00 10/23/24 11:44 81 MG Atorvastatin Calcium 40 mg HS PO 10/19/24 22:00 10/23/24 21:16 40 MG Famotidine 20 mg DAILY IV 10/19/24 10:00 10/23/24 11:40 20 MG Guaifenesin 200 mg Q4HP PRN PO 10/19/24 13:00 10/19/24 15:45 200 MG Apixaban 5 mg BID PO 10/19/24 22:00 10/23/24 21:16 5 MG Iron Sucrose 110 ml @ 110 mls/hr DAILY@1200 IV 10/21/24 12:00 10/25/24 12:59 10/23/24 14:11 110 MLS/HR Furosemide 40 mg BIDD IV 10/20/24 18:00 10/22/24 18:27 40 MG Ketorolac Tromethamine 15 mg Q6HPRN PRN IV 10/20/24 15:45 10/25/24 15:44 10/22/24 16:02 15 MG Sacubitril/ Valsartan 1 tab BID PO 10/21/24 10:00 10/23/24 21:16 1 TAB Spironolactone 12.5 mg DAILY PO 10/21/24 11:15 10/23/24 11:44 12.5 MG Methylprednisolone Sodium Succinate 40 mg DAILY IV 10/22/24 10:00 10/23/24 11:23 40 MG Zolpidem Tartrate 5 mg HSPRN PRN PO 10/21/24 14:00 10/22/24 22:21 5 MG Metoprolol Succinate 25 mg DAILY PO 10/24/24 10:00 laboratory and microbiology Laboratory Tests 10/24/24 04:57 10/23/24 06:38 Test 10/24/24 04:57 Range/Units Serum Glucose 126 H 74-106 mg/dL Assessment/Plan Patient is a 64-year-old female who presented with few days of worsening shortness of breath. She mentions that she got sick from her grand children who were sick also. She also mentions that she had an ammonia around Thanksgiving. Cardiology is involved for cardiac aspects of care. Patient is known to our practice from outside on before. Patient does have history of systolic heart failure for which has ICD (Biotronik). History also includes paroxysmal AFib for which she is on Eliquis. She denies palpitations. She does complain of pleuritic type chest pain during coughing. She did have some coryza. Not in acute distress. Not using accessory muscles of breathing. Mucosa is pink and wet. No carotid bruit. No JVD. Chest: Scattered rhonchi in the lungs is heard. Cardiac: Regular, no thrill. Systolic murmur in the apex is heard. Abdomen is soft. There is no gross mass/hepatomegaly. Extremities reveal 1+ edema bilateral. Dorsalis pedis is 2+ bilateral. Past medical history includes hypertension, hyperlipidemia, COPD, systolic heart failure, paroxysmal AFib (on Eliquis), status post ICD (Biotronik) implantation, questionable coronary artery disease, obstructive sleep apnea, peripheral artery disease (history of right subclavian artery stenosis), diverticulosis, fatty liver, type 2 pulmonary hypertension, history of congenital heart disease (for which had surgery in infancy) and status post appendectomy. She stopped methamphetamine many years ago. She stopped alcohol 2 years ago. She stopped cigarette smoking years ago. Denies active marijuana use Echocardiogram of August 2022 had reported dilated 4 chambers, ejection fraction of 30-35%, pseudonormal LV diastolic filling, moderate MR, mild TR, pacing wire in right-sided chambers and right ventricular systolic pressure of 36 mm Hg Echocardiogram of January 2024 (performed in the office) had reported improved ejection fraction and moderate MR Creatinine: 0.82 - 0.98 - 1.08 - 0.90 - 0.75 - 0.64 - 0.59 - 0.66 - 0.58 Potassium: 4.0 - 3.8 - 3.6 - 3.6 - 4.1 - 3.9 - 3.9 - 3.6 - 4.3 Troponin (high sensitive): BNP: 188.82 Chest x-ray reported (images were reviewed by self): IMPRESSION: 1. Moderate cardiomegaly, stable 2. Findings compatible with CHF pattern, slightly improved since the prior study CT of chest revealed: Findings are suggestive of multifocal atypical infection with more focal consolidation developing in the left lower lobe. Cardiomegaly and likely chronic CHF. EKG revealed sinus rhythm, IVCD with nonspecific ST changes Tele reveals sinus rhythm and occasions of atrial fibrillation with RVR Echocardiogram reported: Left ventricle: Dilated left ventricle with reduced systolic function. LVEF was around 30%. Diffuse hypokinesis of left ventricle was seen. Right ventricle was mildly dilated with reduced systolic function. Both atria were dilated. Pacing wire was seen in the right-sided chambers. Aortic valve was trileaflet. There was no aortic insufficiency/stenosis. There was [id number] mitral/tricuspid regurgitation. There was mild pulmonary valve insufficiency. Right ventricular systolic pressure was assessed around 40 mm Hg. There was no pericardial effusion. [employer] interrogation revealed: Battery status:MOS2; Remaining battery capacity: 31%; DDD-CLS: 70/130; Sensing amplitude: A 3.3/RV 12.6 mV; Pacing threshold: A 0.8/RV 0.7 volts; Pacing impedance: A 581/RV 436 Ohms; Shock impedance: RV 91 Ohms; Pacing in a/V: 87/1%; No VF/VT; Normal functioning ICD Patient is a 64-year-old female who presented with worsening shortness of breath and acute respiratory failure. Presentation is in favor of bronchitis/pneumonia. COPD exacerbation could have contributed to the clinical picture. Patient does have history of systolic heart failure and component of acute on chronic systolic heart failure secondary to intercurrent disease could have contributed to the clinical picture. Patient did have some sick contact which could have contributed to the clinical picture. It is of note that the patient does have substance abuse but stopped many years ago. Patient also has had congenital heart disease for which had surgery during infancy. Patient is also obese which could have contributed to the clinical picture. Echo revealed reduced EF. Started on Entresto. Is evaluated by Pulmonary. Acute respiratory failure Pneumonia, community-acquired COPD exacerbation Acute on chronic systolic heart failure Congenital heart disease Hypertension Hyperlipidemia History of fatty liver Peripheral artery disease Obstructive sleep apnea Morbid obesity Atrial fibrillation Cardiac suggestion for management: Manage on telemetry Gentle diuresis is suggested Follow-up electrolytes and kidney function tests and correct abnormalities. Keep potassium above 4 and magnesium above 2 Pulmonary evaluation for management of COPD exacerbation is suggested Management of pneumonia (antibiotics...) as per primary team/Pulmonary Long-term continuation of full anticoagulation (on Eliquis) is suggested Guideline directed medical therapy for systolic heart failure On Entresto On Aldactone On Toprol-XL Cardiac portillo, stable Further evaluation and management depends on the above and clinical course A total of 55 minutes was spent reviewing the patient record, examining the patient, making a diagnostic and therapeutic plan, discussing this plan with medical personnel, following up on diagnostic studies and following the patient for clinical stability excluding any and all procedures. At least 50% of this time was spent in direct, [id number] contact. Thank you for allowing me to participate in this patient's care. Further recommendations will depend on patient's clinical course. Please do not hesitate to contact me if you have any questions or concerns. This medical document was created using electronic medical record system with [email or web address] dictation system. Although this document has been carefully reviewed, there may still be some phonetic and typographical errors. These areas are purely typographical due to the imperfection of the software programs, and do not reflect any compromise in the patient's medical care. Plan discussed with: Patient, Other (nurse) SONDRA DIANE MD Oct 24, 2024 08:25
[2024-10-24] MEDS: METOPROLOL SUCCINATE XL 50 MG TAB PO SCH (10:00)
[2024-10-24] MEDS ORDERED: METO25TA93 PO (12:53)
[2024-10-24] MEDS ORDERED: SPIR25TA PO (12:53)
[2024-10-24] MEDS ORDERED: FURO1TAB33 PO (12:53)
[2024-10-24] MEDS ORDERED: SACU1TAB PO (12:53)
[2024-10-24] MEDS ORDERED: LEVO500T91 PO (12:55)
--- NOTE | 2024-10-24 13:50 | CONS ---
Pharmacy Clinical Information: From Heart Failure Fallout Report on CQM Application, Abdi Migdalia Yanes is a 64 year old female with PMH of Afib, COPD, CAD, HFrEF (LVEF 30%). Her home medications for heart failure include losartan, carvedilol, furosemide. Her inpatient medications include metoprolol succinate (being held due to soft BP), sacubitril/valsartan, spironolactone. Consider holding off the initation of SGLT2i due to hypotension. ADRIAN RODRIGUEZ PHARMACIST Oct 24, 2024 13:49
--- NOTE | 2024-10-24 17:19 | DVHDSRES ---
Discharge Summary Date of Admission Resident Creating Document: RAYMOND CAZARES RESIDENT Oct 18, 2024 at 21:47 Date of Discharge: Oct 24, 2024 Admitting Diagnosis Acute hypoxemic respiratory failure Labs/Diagnostic Data: Laboratory Results Test 10/24/24 04:57 10/23/24 06:38 10/19/24 14:30 10/19/24 09:55 Sodium Level 143 mmol/L (136-145) Potassium Level 4.3 mmol/L (3.5-5.1) Chloride Level 106 mmol/L (98-107) Carbon Dioxide Level 32 mmol/L (20-31) Anion Gap 5 (5-15) Blood Urea Nitrogen 14 mg/dL (9-23) Creatinine 0.58 mg/dL (0.550-1.02) Glomerular Filtration Rate Calc 102 mL/min (>90) BUN/Creatinine Ratio 24.1 (10.0-20.0) Serum Glucose 126 mg/dL (74-106) Calcium Level 9.3 mg/dL (8.7-10.4) White Blood Count 8.0 10^3/uL (4.4-10.8) Red Blood Count 5.01 10^6/uL (4.0-5.20) Hemoglobin 11.8 g/dL (12.2-16.2) Hematocrit 36.2 % (36.0-46.0) Mean Corpuscular Volume 72.2 fL (80.0-100.0) Mean Corpuscular Hemoglobin 23.5 pg (28.0-32.0) Mean Corpuscular Hemoglobin Concent 32.5 g/dL (32.0-36.0) Red Cell Distribution Width 16.6 % (11.8-14.3) Platelet Count 257 10^3/uL (140-450) Mean Platelet Volume 7.1 fL (6.9-10.8) Neutrophils (%) (Auto) 64.6 % (37.0-80.0) Lymphocytes (%) (Auto) 27.4 % (10.0-50.0) Monocytes (%) (Auto) 7.5 % (0.0-12.0) Eosinophils (%) (Auto) 0.3 % (0.0-7.0) Basophils (%) (Auto) 0.2 % (0.0-2.0) Neutrophils # (Auto) 5.2 10 ^3/uL (1.6-8.6) Lymphocytes # (Auto) 2.2 10 ^3/uL (0.4-5.4) Monocytes # (Auto) 0.6 10 ^3/uL (0-1.3) Eosinophils # (Auto) 0 10 ^3/uL (0-0.8) Basophils # (Auto) 0 10 ^3/uL (0-0.2) Nucleated Red Blood Cells 0.2 % Magnesium Level 1.9 mg/dL (1.6-2.6) Total Bilirubin 0.2 mg/dL (0.2-1.0) Aspartate Amino Transferase (AST) 21 U/L (13-40) Alanine Aminotransferase (ALT) 11 U/L (7-40) Alkaline Phosphatase 63 U/L (46-116) Total Protein 6.4 g/dL (5.7-8.2) Albumin 4.1 g/dL (3.2-4.8) Iron Level 19 ug/dL (50-170) Total Iron Binding Capacity 335 ug/dL (250-425) Percent Iron Saturation 5.7 % (15-50) Ferritin 84.7 ng/mL (10-291) Test 10/18/24 22:23 10/18/24 17:30 10/18/24 17:13 10/18/24 15:31 Erythrocyte Sedimentation Rate 14 mm/hr (0-20) C-Reactive Protein High Sensitivity 7.79 mg/dL (<1.0) Lipase 51 U/L (12-53) Troponin I High Sensitivity 16 ng/L (</=34) Lactic Acid Level 0.9 mmol/L (0.4-2.0) Influenza Type A Antigen Negative (Negative) Influenza Type B Antigen Negative (Negative) SARS-CoV-2 Antigen (Rapid) Negative (NEGATIVE) Test 10/18/24 15:29 10/18/24 14:33 Urine Color Straw (Yellow) Urine Clarity Clear (Clear) Urine pH 5.5 (5.0-9.0) Urine Specific [place] 1.009 (1.001-1.035) Urine Protein Negative (Negative) Urine Ketones Negative (Negative) Urine Blood Negative /uL (Negative) Urine Nitrite Negative (Negative) Urine Bilirubin Negative (Negative) Urine Urobilinogen Normal mg/dL (Negative) Urine Leukocyte Esterase Negative /uL (Negative) Urine RBC None seen /hpf (0 - 4) Urine WBC <1 /hpf (0 - 5) Urine Squamous Epithelial Cells Few /hpf (<5) Urine Bacteria None seen /hpf (None Seen) Urine Hyaline Casts Few /lpf (0 - 2) Urine Glucose Normal mg/dL (Normal) B-Type Natriuretic Peptide 188.82 pg/mL (0-100) Other Laboratory Tests 10/24/24 04:57 10/23/24 06:38 Brief Hx & Hospital Course: Hospital Course: The patient is a 64-year-old female with a history of heart failure with reduced ejection fraction (HFrEF), COPD, coronary artery disease, and congenital heart disease status post-surgery at 10 months of age, who presented with worsening shortness of breath over the past week. Her symptoms began after exposure to sick grandchildren with flu-like symptoms, which led to congestion, dry cough, fever, sore throat, and worsening dyspnea. The patient, who normally uses oxygen at 2 L/min and CPAP at night, required daytime oxygen due to worsening symptoms. On admission, she reported left-sided chest wall tenderness that worsened with coughing and pleuritic chest pain. She was started on antibiotics for possible respiratory infection, and her cardiac and pulmonary conditions were closely monitored. Cardiology evaluated her and noted low blood pressure, leading to the temporary holding of Entresto and Lasix, with plans to resume both at lower doses as tolerated. Pacemaker interrogation was unremarkable, and she continued Eliquis for atrial fibrillation. Pulmonology was consulted, and she was maintained on 3 L/min oxygen via nasal cannula, with plans to taper oxygen as tolerated. Imaging and labs were consistent with chronic cardiopulmonary disease without new acute findings. By discharge, the patient was clinically stable, reporting improvement in symptoms and able to ambulate with minimal dyspnea. She was discharged on guideline-directed medical therapy for HFrEF, including Entresto, Aldactone, and metoprolol, along with Eliquis for atrial fibrillation. She was advised to continue oxygen at 3 L/min and taper as tolerated, use BiPAP as needed, and follow a low-sodium diet. She will follow up with cardiology for heart failure management, pulmonology for COPD, and her primary care physician to monitor her recovery. The patient was discharged in stable condition with clear instructions to return if she develops worsening shortness of breath, chest pain, or fluid retention. Condition at Discharge: Stable on 3 L/min oxygen with no significant hypoxemia or hemodynamic instability. The patient understands discharge instructions and will follow up with outpatient care providers. Case discussed with Goals of care discussed with the patient for 32 minutes. Consults/Reason for consult Cardiology: Chest pain, suspected unstable angina Pulmonology: COPD exacerbation Operations or Procedures [place] [address] Ph: [phone] DIAGNOSTIC IMAGING Diagnostic Imaging Report : [id number] Signed PATIENT: ISSAC ENRIQUEZ MACCT: [id number] UNIT: [id number] : 1960 LOC: ER ROOM / BED: / AGE / SEX: 64 / F ADM STATUS: REG ER SERVICE 140 ORDERING PHYSICIAN: ALONA BARON MD PROCEDURE(s): CXRP - CHEST PORTABLE REASON: sob ORDER NUMBER(s): [id number], ACCESSION NUMBER(s): [id number] CHEST RADIOGRAPH Indication: sob Technique: Single frontal view of the chest was obtained COMPARISON: XY CHEST PORTABLE on DOS: 09/14/24 FINDINGS: Lines and Tubes: None Lungs: Persistent diffuse interstitial prominence with partial obscuration of left hemidiaphragm. Pleura: No effusion. No pneumothorax. Cardiomediastinal contours: Moderate stable cardiomegaly. Pacemaker wires appear intact. Slight improvement the aeration of the lung arana since the previous study. Bones: Unremarkable IMPRESSION: 1. Moderate cardiomegaly, stable 2. Findings compatible with CHF pattern, slightly improved since the prior study ATED BY: WILLI ELLIS MD DICTATED DATE/TIME: 10/18/241421 SIGNED BY: WILLI ELLIS MD SIGNED DATE/TIME: 10/18/241421 CC: [address] [address] Ph: [phone] DIAGNOSTIC IMAGING Diagnostic Imaging Report : [id number] Signed PATIENT: ISSAC ENRIQUEZ MACCT: [id number] UNIT: [id number] : 1960 LOC: [facility] ROOM / BED: 0292T / B AGE / SEX: 64 / F ADM STATUS: ADM IN SERVICE 1143 ORDERING PHYSICIAN: SONDRA DIANE MD PROCEDURE(s): CX2CT - CHEST WITHOUT CONTRAST REASON: sob ORDER NUMBER(s): [id number], ACCESSION NUMBER(s): [id number] Procedure: CT CHEST WITHOUT CONTRAST Reason for study/Clinical History: sob Comparison Study: 08/23/2022 Exam Date: 10/19/2024 12:18 PM TECHNIQUE: Multidetector CT of the chest was performed from the lung apices to the upper abdomen without the use of intravenous contract. Axial, coronal and sagittal multiplanar reformats were performed. Radiation Dose Information: CT Dose: CTDI volume is 13.99 mGy. Dose-length product is 497.47 mGy*cm The dose indicators for CT are the volume Computed Tomography (CT) Dose Index (CTDIvol) and the Dose Length Product (DLP), and are measured in units of mGy and mGy-cm, respectively. These indicators are not patient dose, but values generated from the CT scanner acquisition factors. The report includes radiation exposure data for exposures received during this examination. FINDINGS: Lower neck: Normal thyroid. Lungs: Multifocal airspace disease with developing consolidation in the left lower lobe. [id number] centrilobular emphysema. Heart/Vascular Structures: Cardiomegaly. Coronary artery calcifications. Vascular calcifications of the aorta. Lymph Nodes: No adenopathy Pleura: No pleural effusion or significant pneumothorax. Musculoskeletal: No acute osseous abnormality. Soft tissues: Left chest wall pacemaker. Thoracic spinal stimulator device in- situ. Upper abdomen: Limited portions of the upper abdomen are unremarkable. IMPRESSION: Findings are suggestive of multifocal atypical infection with more focal consolidation developing in the left lower lobe. Cardiomegaly and likely chronic CHF. Radiation optimization: All CT scans at this facility use at least one of these dose optimization techniques: automated exposure control mA and/or kV adjustment per patient size (includes targeted exams where dose is matched to clinical indication) or iterative reconstruction. ATED BY: NAPOLEON NINO MD DICTATED DATE/TIME: 10/19/24 1243 SIGNED BY: NAPOLEON NINO MD SIGNED DATE/TIME: 10/19/24 1243 CC: Condition at Discharge: Fair Final Diagnosis/Problems List # acute hypoxic respiratory failure likely multifactorial due to acute on chronic systolic heart failure ,? CAP, COPD exacerbation # complicated post viral pneumonia likely due to Gram+/-versus atypical bacteria #multifocal atypical infection with more focal consolidation developing in the left lower lobe. # paroxysmal atrial fibrillation # acute chest pain, ruled out ACS # obstructive sleep apnea # hypokalemia # microcytic hypochromic anemia Discharge Disposition: Home SNF Discharge Will this Physician continue t: No Discharge Instruct/Medications Diet: Cardiac 2g Na,low cholest Activity: No Restrictions, As Tolerated Follow Up/Referral: follow up with PCP within 2 weeks follow up with cardiology within 2 weeks Medications: script to pharmacy Discharge Statement: "Patient was advised to return to the ER or call 911 if any headaches, dizziness, shortness of breath, chest pain, abdominal pain, bleeding, fevers, or worsening of medical condition. Patient was counseled about treatment plan, medications, possible side effects, patientverbalized understanding. All questions were answered to the best of my ability. This discharge took greater then 30 minutes in planning, reviewing documentation, counseling the patient, and discussing with other team members." ASSESSMENT ASSESSMENT Assessment # acute hypoxic respiratory failure likely multifactorial due to acute on chronic systolic heart failure ,? CAP, COPD exacerbation # complicated post viral pneumonia likely due to Gram+/-versus atypical bacteria #multifocal atypical infection with more focal consolidation developing in the left lower lobe. # paroxysmal atrial fibrillation # acute chest pain, ruled out ACS # obstructive sleep apnea # hypokalemia # microcytic hypochromic anemia Date of Service: Oct 24, 2024 Billing Provider: SINAN MEADOWS MD Common Visit Codes: 30184-CLG/OBS DISCH DAY >30min RAYMOND CAZARES RESIDENT Oct 24, 2024 17:19 SINAN MEADOWS MD Oct 24, 2024 20:46
--- NOTE | 2024-10-24 22:37 | DVHPN2 ---
Progress Note - Dictate Date Seen: Oct 24, 2024 Medical Necessity Reason Pt with a Central, PICC or Fol: No Subjective Patient seen and examined at bedside. Remains on supplemental oxygen Overnight events reviewed. vital signs Vital Sign Date Time Temp Pulse Resp B/P (MAP) Pulse Ox O2 Delivery O2 Flow Rate FiO2 10/24/24 14:25 98.2 84 17 96 10/24/24 13:00 100/62 (75) 10/24/24 11:40 Room Air* 0 21 Total Intake and Output 10/23/24 10/23/24 10/24/24 15:00 23:00 07:00 Intake Total 150 ml 610 ml 600 ml Output Total 600 ml Balance 150 ml 10 ml 600 ml objective Gen.: Patient lying in bed in no apparent distress. On supplemental oxygen. Head: Normocephalic, atraumatic. Eyes: EOMI/PERRLA. Ears: Normal hearing. Normal anatomy. Neck/trachea: Trachea midline, supple. Nose: Normal external anatomy. Mouth: Moist mucous membranes. Chest: Decreased air entry bilaterally. No wheezing or rhonchi. Cardiovascular: Positive S1, positive S2. Regular rate and rhythm. Abdomen: Positive bowel sounds in all 4 quadrants. Soft, non-tender, non- distended. : Deferred. Rectal: Deferred. Skin: Warm, dry. Intact. Extremities: 2+ radial pulses bilaterally. No lower extremity edema. Neuro: Awake, alert, oriented x3. No gross motor or sensory deficits. Cranial nerves II through XII intact. Gait not assessed. laboratory and microbiology Laboratory Tests 10/24/24 04:57 10/23/24 06:38 Test 10/24/24 04:57 Range/Units Serum Glucose 126 H 74-106 mg/dL Assessment/Plan Impression: Acute COPD exacerbation Chronic hypoxic respiratory failure Dependence on supplemental oxygen Hx of nicotine dependence Obstructive sleep apnea Morbid obesity BMI 61.9 Events: Supplemental oxygen Remains on 3 liters/minute via nasal cannula Taper o2 as tolerated BiPAP PRN. Complete antibiotics Continue bronchodilators PRN Antitussive as needed Eliquis Monitor hemoglobin Iron supplementation Maintain euvolemia w/ Lasix Monitor renal function Patient is stable for discharge from the pulmonary standpoint. Follow up in 1-2 weeks in Pulmonary Clinic. Rest of plan as outlined below Plan: Supplemental oxygen Titrate to keep O2 sats above 92%. Continue bronchodilators Continue antibiotics Continue steroids. Incentive spirometry IV fluid hydration Monitor renal function. Monitor electrolytes. Supplement as necessary. Monitor ins and outs. DVT prophylaxis. Prognosis: Poor given patient's multiple co-morbidities. Rest of plan per hospitalist and other consultants. Thank you, Dr. Hopper, for allowing me to participate in this patient's care. Further recommendations will depend on the patient's clinical course. Please do not hesitate to contact me if you have any questions or concerns. This medical document was created using an electronic medical record system with [employer] dictation system. Although these documentations are being carefully reviewed, there may still be some phonetic and typographical changes. The errors are purely typographical, due to imperfection on the software program, and do not reflect any compromise in the patient's medical care. Plan discussed with: Patient, Other (CYNDI Alarcon) ARLENE MORRISSEY MD Oct 24, 2024 22:37
== END 2024-10-24 15:35 | disposition home or self-care (01) | DRG 140 ==
LOC: EDBD 13:03 → ER 13:03 → TELE 21:47 → TELE-WESTW 23:08
PROVIDERS: ADMIT Internal Medicine Geriatric Medicine; ATTEND Internal Medicine Geriatric Medicine
PROC: 5A09357 Assistance with Respiratory Ventilation, Less than 24 Consecutive Hours, Continuous Positive Airway Pressure (ICD-10-PCS; 2024-10-19)
PROC: 4B02XSZ Measurement of Cardiac Pacemaker, External Approach (ICD-10-PCS; principal; 2024-10-20)
PROC: 5A09357 Assistance with Respiratory Ventilation, Less than 24 Consecutive Hours, Continuous Positive Airway Pressure (ICD-10-PCS; 2024-10-20)
PROC: 5A09357 Assistance with Respiratory Ventilation, Less than 24 Consecutive Hours, Continuous Positive Airway Pressure (ICD-10-PCS; 2024-10-21)
PROC: 5A09357 Assistance with Respiratory Ventilation, Less than 24 Consecutive Hours, Continuous Positive Airway Pressure (ICD-10-PCS; 2024-10-22)
DX: J44.1 Chronic obstructive pulmonary disease with (acute) exacerbation (principal); J96.01 Acute respiratory failure with hypoxia; I50.23 Acute on chronic systolic (congestive) heart failure; J15.69 Pneumonia due to other Gram-negative bacteria; J15.9 Unspecified bacterial pneumonia; J12.9 Viral pneumonia, unspecified; I11.0 Hypertensive heart disease with heart failure; I48.92 Unspecified atrial flutter; R65.10 Systemic inflammatory response syndrome (SIRS) of non-infectious origin without acute organ dysfunction; J44.0 Chronic obstructive pulmonary disease with (acute) lower respiratory infection; Z20.822 Contact with and (suspected) exposure to COVID-19; I48.0 Paroxysmal atrial fibrillation; I73.9 Peripheral vascular disease, unspecified; E78.5 Hyperlipidemia, unspecified; G47.33 Obstructive sleep apnea (adult) (pediatric); E87.6 Hypokalemia; D50.9 Iron deficiency anemia, unspecified; E66.01 Morbid (severe) obesity due to excess calories; Z68.44 Body mass index [BMI] 60.0-69.9, adult; I07.1 Rheumatic tricuspid insufficiency; I25.10 Atherosclerotic heart disease of native coronary artery without angina pectoris; Z99.81 Dependence on supplemental oxygen; I25.2 Old myocardial infarction; Z90.49 Acquired absence of other specified parts of digestive tract; Z87.891 Personal history of nicotine dependence; Z88.0 Allergy status to penicillin; Z79.01 Long term (current) use of anticoagulants; Z79.899 Other long term (current) drug therapy; Z83.3 Family history of diabetes mellitus; Z95.810 Presence of automatic (implantable) cardiac defibrillator; Z87.74 Personal history of (corrected) congenital malformations of heart and circulatory system
CPT/HCPCS: 36415; 71045; 71250; 80048; 80053; 81001; 82728; 83540; 83550; 83605; 83690; 83735; 83880; 84484; 85025; 85652; 86141; 87040; 87070; 87081; 87205; 87426; 87804; 93005; 93306; 94640; 94660; G0378; J1756; J1885; J1956; J2405; J3490

== ENCOUNTER 2025-07-15 11:31 | Emergency (ER) | payer MEDICAID ==
[~2025-07-15] VITALS: Ht 160 cm; Wt 71.0 kg
[~2025-07-15 11:31] MED LIST changes: -AZIT500T66 PO; -CARI-277 PO; -CARV3.1240 PO; -CILO100T3 PO; -DIA5T PO; +LEVO500T91 PO; -LOSA-533 PO; -METH4PAK PO; +METO25TA93 PO; +PANT40T PO; +SACU1TAB PO; -SIMV40TA18 PO; +SOTA80TA62 PO; +SPIR25TA PO; -TEMA30CA PO
[2025-07-15 11:35] VITALS: BP 113/63; RESP 18; TEMP 97.2; O2SAT 92
[2025-07-15 11:55] VITALS: PULSE 88
--- NOTE | 2025-07-15 11:55 | ED.PDOC ---
History of Present Illness HPI Comments 65-year-old female came to the ER stating that she has been having abdominal pain for the past two days. Associated with the nausea but no vomiting or diarrhea. Abdominal pain is seven of 10 with no radiation of the pain. She does have history of pacemaker hypertension congestive heart failure. She has a had angiogram which showed no abdominal to the coronaries. No stent placement. States that she is unable to ambulate without having pain. Denies any other symptoms. Chief Complaint: Abdominal Pain Time Seen by MD: 11:44 Primary Care Provider: UNKNOWN NAME Reviewed Notes: Nurses Notes, Medications, Allergies Allergies: Coded Allergies: Penicillins (Verified Allergy, Unknown, 06/29/18) Home Meds Active Scripts Levofloxacin Hemihydrate (LEVAQUIN 500 MG) 500 Mg Tab, 500 MG PO DAILY for 2 Days, #2 TAB Prov:HOPE QUINN RESIDENT 10/24/24 Sacubitril-Valsartan (Entresto 24-26 mg) 1 Tab Tab, 1 TAB PO BID for 30 Days, #60 TAB Prov:HOPE QUINN RESIDENT 10/24/24 Spironolactone (Aldactone) 25 Mg Tab, 50 MG PO DAILY for 30 Days, #60 TAB 1 Refill Prov:HOPE QUINN RESIDENT 10/24/24 Metoprolol Succinate (Metoprolol Succinate Er) 25 Mg Tab, 25 MG PO DAILY for 30 Days, #30 TAB 1 Refill Prov:HOPE QUINN RESIDENT 10/24/24 Furosemide (Lasix) 20 Mg Tb, 1 TAB PO DAILY for 90 Days, #90 TAB 0 Refills Prov:HOPE QUINN RESIDENT 10/24/24 Reported Medications Sotalol HCl (Sotalol Hydrocholride) 80 Mg Tab, 1 PO DAILY 10/19/24 Pantoprazole Sodium Sesquihydr (Pantoprazole Sodium) 40 Mg Tab, 1 TAB PO DAILY 10/19/24 Ondansetron HCl (Ondansetron) 4 Mg Tab, 8 MG PO DAILY, TAB 09/15/24 Alprazolam (Xanax) 0.25 Mg Tb, 5 MG PO PRN for ANXIETY, TAB 09/15/24 Zolpidem Tartrate (Zolpidem Tartrate) 5 Mg Tab, 1 TAB PO HS, #30 TAB 2 Refills 09/15/24 Icosapent Ethyl (Icosapent Ethyl) 1 Gm Cap, 2 CAP PO BID, CAP 09/15/24 Aspirin (Aspir-Low) 81 Mg Tab, 81 MG PO DAILY for 30 Days, MG 09/15/24 Vortioxetine Hydrobromide (Trintellix) 20 Mg Tab, 20 MG PO DAILY, TAB 09/15/24 Magnesium Oxide (Mag-Ox) 400 Mg Tb, 400 MG PO DAILY, TAB 09/15/24 Hydrocodone-Acetaminophen (Hydrocodone Bitartrate/AC 10-325 mg) 1 Tab Tab, 1 TAB PO Q6HP, TAB 08/24/22 Potassium Chloride (POTASSIUM CHLORIDE CR) 10 Meq Tb, 1 TAB PO DAILY, #30 TAB 5 Refills 06/30/18 Apixaban Base (ELIQUIS) 5 Mg Tab, 5 MG PO BID, TAB 06/30/18 Information Source: Patient Mode of Arrival: Ambulatory Severity: Moderate Timing: Days Duration: Since onset Past Medical History PAST MEDICAL HISTORY: AFIB, CHF, COPD, HTN, DE Surgical History: Appendectomy, Pacemaker SURVEILLANCE TECHNICIAN History: No Pertinent SURVEILLANCE TECHNICIAN History Family History Family History: No family hx of Cancer, No family hx of DM, No family hx of Stroke Social History Smoker: Non-Smoker, Quit Greater Than 1 Year Alcohol: Denies ETOH Use Drugs: Denies Drug Use Lives In: Home Constitutional: denies: chills, diaphoresis, fatigue, fever, malaise, sweats, weakness, others EENTM: denies: blurred vision, double vision, ear bleeding, ear discharge, ear drainage, ear pain, ear ringing, eye pain, eye redness, hearing loss, mouth pa in, mouth swelling, nasal discharge, nose bleeding, nose congestion, nose pain, photophobia, tearing, throat pain, throat swelling, voice changes, others Respiratory: denies: cough, hemoptysis, orthopnea, SOB at rest, shortness of breath, SOB with excertion, stridor, wheezing, others Cardiovascular: denies: chest pain, dizzy spells, diaphoresis, Dyspnea on exertion, edema, irregular heart beat, left arm pain, lightheadedness, palpitations, PND, syncope, others Gastrointestinal: reports: abdominal pain, nausea; denies: abdomen distended, blood streaked bowels, constipated, diarrhea, dysphagia, difficulty swallowing, hematemesis, melena, poor appetite, poor fluid intake, rectal bleeding, rectal pain, vomiting, others Genitourinary: denies: abnormal vagina bleeding, burning, dyspareunia, dysuria, flank pain, frequency, hematuria, incontinence, pain, , vagina discharge, urgency, others Neurological: denies: dizziness, fainting, headache, left sided numbness, left sided weakness, numbness, paresthesia, pre-existing deficit, right sided numbness, right sided weakness, seizure, speech problems, tingling, tremors, weakness, others Musculoskeletal: denies: back pain, gout, joint pain, joint swelling, muscle pain, muscle stiffness, neck pain, others Integumetry: denies: bruises, change in color, change in hair/nails, dryness, laceration, lesions, lumps, rash, wounds, others Allergic/Immunocompromised: denies: Difficulty Healing, Frequent Infections, Hives, Itching, others Hematologic/Lymphatic: denies: anemia, blood clots, easy bleeding, easy bruising, swollen glands, others Endocrine: denies: excessive hunger, excessive sweating, excessive thirst, excessive urination, flushing, intolerance to cold, intolerance to heat, unexplained weight gain, unexplained weight loss, others Psychiatric: denies: anxiety, bipolar disorder, depression, hopeless, panic disorder, schizophrenia, sleepless, suicidal, others Physical Exam General Appearance: Moderate Distress HEENT: Normal ENT Inspection, Pharynx Normal, TMs Normal Neck: Full Range of Motion, Non-Tender, Normal, Normal Inspection Respiratory: Chest Non-Tender, Lungs Clear, No Accessory Muscle Use, No Respiratory Distress, Normal Breath Sounds Cardiovascular: No Edema, No JVD, No Murmur, No Gallop, Normal Peripheral Pulses, Regular Rate/Rhythm Breast Exam: Deferred Gastrointestinal: No Organomegaly, Non Tender, No Pulsatile Mass, Normal Bowel Sounds, Soft Genitalia: Deferred Pelvic: Deferred Rectal: Deferred Extremities: No calf tenderness, Normal capillary refill, Normal inspection, Normal range of motion, Non-tender, No pedal edema Musculoskeletal : Apperance: Normal Neurologic: Alert, unix administrator II-XII nml as Tested, No Motor Deficits, Normal Affect, Normal Mood, No Sensory Deficits Cerebellar Function: Normal Reflexes: Normal Skin: Dry, Normal Color, Warm Peripheral Pulses: 3+ Radial (R), 3+ Radial (L) Lymphatic: No Adenopathy Was a procedure done? Was a procedure done?: No EKG EKG : Pulse Rate (adult): 88 Cardiac Rhythm: Paced Differential Dx Considerations may include: Gastroenteritis Electrolyte imbalance X-Ray, Labs, Meds, VS Vital Signs Date Time Temp Pulse Resp B/P (MAP) Pulse Ox O2 Delivery O2 Flow Rate FiO2 07/15/25 11:55 88 07/15/25 11:47 88 07/15/25 11:35 97.2 81 18 113/63 92 97.2 Lab Test 07/15/25 12:44 07/15/25 12:00 07/15/25 11:52 Range/Units Troponin I High Sensitivity 8 7 </=34 ng/L White Blood Count 6.7 4.4-10.8 10^3/uL Red Blood Count 5.72 H 4.0-5.20 10^6/uL Hemoglobin 16.1 12.2-16.2 g/dL Hematocrit 47.1 H 36.0-46.0 % Mean Corpuscular Volume 82.4 80.0-100.0 fL Mean Corpuscular Hemoglobin 28.2 28.0-32.0 pg Mean Corpuscular Hemoglobin Concent 34.2 32.0-36.0 g/dL Red Cell Distribution Width 14.2 11.8-14.3 % Platelet Count 244 140-450 10^3/uL Mean Platelet Volume 7.3 6.9-10.8 fL Neutrophils (%) (Auto) 72.8 37.0-80.0 % Lymphocytes (%) (Auto) 16.6 10.0-50.0 % Monocytes (%) (Auto) 8.3 0.0-12.0 % Eosinophils (%) (Auto) 1.6 0.0-7.0 % Basophils (%) (Auto) 0.7 0.0-2.0 % Neutrophils # (Auto) 4.9 1.6-8.6 10 ^3/uL Lymphocytes # (Auto) 1.1 0.4-5.4 10 ^3/uL Monocytes # (Auto) 0.6 0-1.3 10 ^3/uL Eosinophils # (Auto) 0.1 0-0.8 10 ^3/uL Basophils # (Auto) 0 0-0.2 10 ^3/uL Nucleated Red Blood Cells 0.1 % Sodium Level 139 136-145 mmol/L Potassium Level 4.8 3.5-5.1 mmol/L Chloride Level 104 98-107 mmol/L Carbon Dioxide Level 27 20-31 mmol/L Anion Gap 8 5-15 Blood Urea Nitrogen 17 9-23 mg/dL Creatinine 0.92 0.550-1.02 mg/dL Glomerular Filtration Rate Calc 70 >90 mL/min BUN/Creatinine Ratio 18.5 10.0-20.0 Serum Glucose 84 74-106 mg/dL Calcium Level 9.6 8.7-10.4 mg/dL POC Glucose 98 70-106 mg/dl Patient alert. Complaining of abdominal pain. EKG reviewed does show paced rhythm. Vitals stable. Possible gastritis. WBC within normal limits. No sign of distress. Abdomen is soft nontender. No acute process. Explained patient. Continue monitoring. Time of 1ST Reevaluation: 11:53 Reevaluation 1ST: Improved Patient Education/Counseling: Diagnosis, Treatment, Prognosis Family Education/Counseling: No Family Present SEPSIS Sepsis Screen Date sepsis recognized/suspect: Jul 15, 2025 Time Sepsis recognized/suspect: 1129 Recent Procedure: No On Antibiotic Therapy: No Respiratory Rate >20: No Heart Rate >90: No Temp<36 C (96.8 F) or >38.3 C: No SBP <90 or MAP <65 mmHG: No New Acute Mental Status Change: No Is the patient on CPAP, BIPAP,: No Physician Orders Urinalysis (07/15/25 11:50) Electrocardigram (07/15/25 11:55) Vital Signs Date Time Temp Pulse Resp B/P (MAP) Pulse Ox O2 Delivery O2 Flow Rate FiO2 07/15/25 11:55 88 07/15/25 11:47 88 07/15/25 11:35 97.2 81 18 113/63 92 97.2 Laboratory Tests Test 07/15/25 12:00 White Blood Count 6.7 10^3/uL (4.4-10.8) Departure 1 Departure Time of Disposition: 11:54 Impression: Primary Impression: Gastritis Qualified Codes: K29.00 - Acute gastritis without bleeding Disposition: 01 HOME / SELF CARE / HOMELESS Condition: Good Discharged With: Self Critical Care Note Critical Care Time?: Yes (90 min-critical care time only) Stability Stability form required: No Heart Score Heart Score: Heart Score Response (Comments) Value History Slightly Suspicious 0 EKG Normal 0 Age 45-64 1 Risk Factors >3 or Hx ASHD 2 Troponin Normal limit 0 Total 3 LEAH PRATT MD Jul 15, 2025 11:55
[2025-07-15 12:24] LABS: Hematocrit 47.1 % (36.0-46.0); Hemoglobin 16.1 g/dL (12.2-16.2); Mean Corpuscular Hemoglobin 28.2 pg (28.0-32.0); Mean Corpuscular Volume 82.4 fL (80.0-100.0); Nucleated Red Blood Cells % 0.1 %
[2025-07-15 12:34] LABS: Chloride 104 mmol/L (98-107); Potassium 4.8 mmol/L (3.5-5.1); Sodium 139 mmol/L (136-145)
[2025-07-15 12:35] LABS: Anion Gap 8 (5-15); Calcium 9.6 mg/dL (8.7-10.4); Carbon Dioxide 27 mmol/L (20-31)
[2025-07-15 12:40] LABS: BUN/Creatinine Ratio 18.5 (10.0-20.0); Blood Urea Nitrogen 17 mg/dL (9-23); Glucose 84 mg/dL (74-106)
--- NOTE | 2025-07-16 02:32 | ECG ---
[facility] Test Date: 2025-07-15 Test Time: 11:47:20 Pat Name: ISSAC ENRIQUEZ Department: Room: Gender: F [employer] Inspector: KRISTINA : 1960 Requested By: LEAH PRATT Order Number: [id number] Reading MD: Measurements Intervals Alviso Rate: 88 P: 0 ID: [id number] QRS: 134 QRSD: 162 T: -66 QT: 385 QTc: 466 Interpretive Statements Atrial-paced rhythm IVCD, consider atypical RBBB Abnormal T, consider ischemia, lateral leads Please click the below link to view image of tracing.
== END 2025-07-15 16:12 | disposition home or self-care (01) ==
LOC: ER 11:31
DX: K29.70 Gastritis, unspecified, without bleeding (principal); I11.0 Hypertensive heart disease with heart failure; I50.9 Heart failure, unspecified; J44.9 Chronic obstructive pulmonary disease, unspecified; I25.2 Old myocardial infarction; I48.91 Unspecified atrial fibrillation; Z79.82 Long term (current) use of aspirin; Z79.899 Other long term (current) drug therapy; Z90.49 Acquired absence of other specified parts of digestive tract; Z95.0 Presence of cardiac pacemaker; Z88.0 Allergy status to penicillin
CPT/HCPCS: 36415; 80048; 82947; 82962; 84484; 85025; 93005